=== PATIENT | female | born 1980 | race Caucasian/White ===

== ENCOUNTER 2020-03-20 14:54 | Outpatient (REF) | payer OTHER, SELFPAY | END 2020-03-20 14:55 | disposition home or self-care (01) | LOC: HO.LAB 14:54 | PROVIDERS: PCP Family Medicine; Visit Provider Internal Medicine | DX: Z20.828 Contact with and (suspected) exposure to other viral communicable diseases (principal) | CPT/HCPCS: 87635 ==

== ENCOUNTER 2020-04-12 12:28 | Outpatient (REF) | payer OTHER, SELFPAY ==
--- NOTE | 2020-04-12 12:37 | XR_ITS ---
EXAMINATION: XR HIP, LEFT CLINICAL INFORMATION: Left hip pain COMPARISON: Radiographs left hip 11/30/2015 TECHNIQUE: Two views of the left hip. FINDINGS: There is normal bony mineralization. No fracture, dislocation, destructive process. No left hip joint narrowing or erosive change or visible chondrocalcinosis. Soft tissue planes are unremarkable. There may be mild osteitis pubis. Scattered calcified pelvic phleboliths again seen. Bowel gas unremarkable. XR/XR hip LT min 2V IMPRESSION: 1. Normal left hip. 2. Probable mild osteitis pubis.
== END 2020-04-12 12:29 | disposition home or self-care (01) ==
LOC: HO.HMGCX 12:28
PROVIDERS: Visit Provider Nurse Practitioner Family
DX: M25.552 Pain in left hip (principal); M86.9 Osteomyelitis, unspecified; M77.8 Other enthesopathies, not elsewhere classified
CPT/HCPCS: 73502

== ENCOUNTER 2020-08-20 10:19 | Outpatient (REF) | payer OTHER, SELFPAY ==
--- NOTE | ~2020-08-20 | XR_ITS ---
EXAMINATION: XR CHEST CLINICAL INFORMATION: Wheezing COMPARISON: 03/16/2019 TECHNIQUE: 2 views of the chest were obtained. FINDINGS: The lungs are well expanded. There is no focal consolidation, edema, or effusion. No pneumothorax. The cardiomediastinal silhouette is within normal limits. No acute osseous abnormality. Small endplate osteophytes noted. XR/XR chest 2V IMPRESSION: Clear lungs.
== END 2020-08-20 10:20 | disposition home or self-care (01) ==
LOC: HO.LAB 10:19
PROVIDERS: Visit Provider Nurse Practitioner Family
DX: R06.2 Wheezing (principal); M54.9 Dorsalgia, unspecified; Z20.822 Contact with and (suspected) exposure to COVID-19
CPT/HCPCS: 36415; 71046; U0003; U0005

== ENCOUNTER 2020-08-20 10:24 | Outpatient (REF) | payer OTHER, SELFPAY | END 2020-08-20 10:25 | disposition home or self-care (01) | LOC: HO.HMGCX 10:24 | PROVIDERS: PCP Internal Medicine; Visit Provider Nurse Practitioner Family | DX: Z13.89 Encounter for screening for other disorder (principal) ==

== ENCOUNTER 2020-08-23 09:58 | Emergency (ER) | payer OTHER, SELFPAY ==
--- NOTE | ~2020-08-23 | CT_ITS ---
EXAMINATION: CT ABDOMEN AND PELVIS WITHOUT CONTRAST CLINICAL INFORMATION: Upper back pain COMPARISON: CT abdomen pelvis 02/01/2020 TECHNIQUE: Multidetector volumetric imaging was performed from the superior aspect of the liver through the pubic symphysis. Sagittal and coronal reformatted images were obtained on the technologist's workstation. This CT examination was performed using dose optimization techniques as appropriate, variously including the following: *Automated exposure control *Adjustment of mA and/or kV according to patient size (this includes techniques or standardized protocols for targeted exams where dose is matched to indication/reason for exam; i.e. extremities or head) *Use of iterative reconstruction technique DLP: 929 mGy-cm FINDINGS: LIVER, GALLBLADDER, AND BILIARY TREE: The liver is normal in size, shape, and attenuation. A benign simple cyst is noted in the right lobe of the liver. No worrisome solid focal hepatic lesion or biliary ductal dilatation is present. The gallbladder has been surgically removed. PANCREAS: Unremarkable. SPLEEN: Unremarkable. ADRENAL GLANDS: Unremarkable. KIDNEYS AND URETERS: The kidneys are normal in size, shape, and attenuation. No hydronephrosis, hydroureter, or calculi seen. No perinephric stranding. BLADDER: Unremarkable. GASTROINTESTINAL TRACT: The small and large bowel are unremarkable. The appendix is unremarkable. ABDOMINAL WALL: Tiny indirect inguinal hernias are present bilaterally. On the left, there is a soft tissue density present within it measuring 1.8 x 1.4 x 2.0 cm (11:77). Although not mentioned in the prior report, this is completely unchanged when compared with the 02/01/2020 study. LYMPH NODES: No retroperitoneal lymphadenopathy is seen. VASCULAR: Unremarkable. PELVIC VISCERA: A retroverted uterus is present. An adnexal cyst is present on the left measuring 3.9 x 2.8 x 4.7 cm (11:65). A right-sided adnexal cyst has completely resolved. No free intraperitoneal fluid is seen. OSSEOUS STRUCTURES: Unremarkable. CT/CT abdomen pelvis wo con IMPRESSION: A cause for the patient's upper back pain has not been found. Incidental note made of benign hepatic cyst, cholecystectomy, small left inguinal hernia containing soft tissue mass, probably an unchanged lymph node, and a new left adnexal cyst..
--- NOTE | ~2020-08-23 | CT_ITS ---
EXAMINATION: CT CHEST WITHOUT CONTRAST CLINICAL INFORMATION: Upright and mid back pain. Unremarkable chest radiograph. COMPARISON: Chest radiographs 08/20/2020, CT abdomen and pelvis with contrast 02/01/2020. TECHNIQUE: Multidetector volumetric CT imaging of the chest was done. Axial MIP volume rendering provided. Sagittal and coronal reformatted images were obtained. No intravenous contrast. CT abdomen and pelvis also performed and described in separate report. This CT examination was performed using dose optimization techniques as appropriate, variously including the following: *Automated exposure control *Adjustment of mA and/or kV according to patient size (this includes techniques or standardized protocols for targeted exams where dose is matched to indication/reason for exam; i.e. extremities or head) *Use of iterative reconstruction technique DLP: 253 mGy-cm FINDINGS: LUNGS: There is no pneumothorax or pneumomediastinum. No airspace consolidation or groundglass opacities. There is an incidental punctate calcified granuloma left posterior base under 3 mm. MEDIASTINUM: The heart is normal in size. There is no pericardial effusion. The thoracic aorta is normal in caliber. There is no hilar or mediastinal adenopathy. Thymus is unremarkable. PLEURA: There is no pleural effusion. No pleural mass or thickening. AXILLA: No lymphadenopathy. UPPER ABDOMEN: Subcapsular cyst dome right lobe 1.[address] abdomen and pelvis described in separate report. OSSEOUS STRUCTURES: Unremarkable. CT/CT chest wo con IMPRESSION: 1. Lungs clear. No pneumothorax or airspace opacities. No effusion. 2. Thoracic aorta normal in caliber. No pericardial effusion.
[2020-08-23 11:56] VITALS: BP 136/67; PULSE 75; RESP 16; TEMP 36.6; O2SAT 97; BMI 32.3
[2020-08-23 12:14] LABS: MANUAL DIFF FLAG NO
[2020-08-23 12:17] LABS: Basophils Percent Auto 0.5 % (0-2); Eosinophils Absolute Auto 0.1 X10*3/uL (0.0-0.4); Hematocrit 40.4 % (37-47); Hemoglobin 13.6 g/dl (12.0-16.0); Imm Gran Abs Auto 0.03 X10*3/uL (0.00-0.03); Imm Gran Pct Auto 0.3 % (0.0-0.4); Lymphocytes Absolute Auto 2.4 X10*3/uL (1.2-4.9); Lymphocytes Percent Auto 27.6 % (20-40); Mean Corpuscular HGB Conc 33.7 g/dl (31.0-35.0); Mean Corpuscular Hemoglobin 29.9 pg (27.0-33.0); Mean Corpuscular Volume 88.8 fL (80-98); Mean Platelet Volume 10.7 fL (9.4-12.3); Monocytes Absolute Auto 0.7 X10*3/uL (0.1-1.2); Monocytes Percent Auto 8.2 % (2-11); Neutrophils Absolute Auto 5.5 X10*3/uL (2.0-8.3); Neutrophils Percent Auto 62.4 % (45-73); Platelet Count 310 X10*3/uL (160-400); Red Blood Count 4.55 X10*6/uL (4.20-5.50); Red Cell Distribution Width 12.2 % (11.0-16.0); White Blood Count 8.8 X10*3/uL (4.8-10.8)
[2020-08-23 12:20] LABS: Glucose Urine UA NEG (NEG); Leukocyte Esterase Urine NEG (NEG); Nitrite Urine NEG (NEG); PH 7.5 (5.0-8.0); Urine Blood NEG (NEG); Urine Ketones NEG (NEG); Urine Protein NEG (NEG-TRACE)
[2020-08-23 12:26] LABS: Appearance Urine CLEAR; Color Urine YELLOW
[2020-08-23 12:41] LABS: Anion Gap 11 (12-20); Blood Urea Nitrogen 13 mg/dL (9-16); Calcium 8.7 mg/dL (8.4-10.2); Carbon Dioxide 26 mmol/L (22-29); Chloride 105 mmol/L (96-108); Creatinine Clr Calc Pharmacy 109.6; Estimated Glomerular Filt Rate > 60; Glucose Random 76 mg/dL (60-115); Potassium 4.2 mmol/L (3.3-5.1); Sodium 138 mmol/L (135-145)
[2020-08-23 15:33] VITALS: BP 127/74; PULSE 76; RESP 18; O2SAT 99
[2020-08-23] MEDS: NaPROXEN 500 MG TABLET PO (16:01)
[2020-08-23] MEDS: Cyclobenzaprine HCl 10 MG TABLET PO (16:02)
[2020-08-23] MEDS: Lidocaine 4 % Patch ADH..PATCH 2 PATCH TRANSDERMA (16:06)
[2020-08-23 16:09] VITALS: BP 113/64; PULSE 80; RESP 16; TEMP 36.7; O2SAT 97
[2020-08-23 16:21] LABS: Influenza A PCR NEGATIVE (Negative); Influenza B PCR NEGATIVE (Negative); Resp Syncy Virus RNA Qual PCR NEGATIVE (Negative); SARS COV2 PCR INHOUSE NEGATIVE (Negative)
--- NOTE | 2020-08-23 17:03 | ED_ITS ---
HPI - Back Pain/Injury General Chief Complaint: General Medical Stated Complaint: flank pain Time Seen by Provider: 08/23/20 15:12 Source: patient Mode of arrival: ambulatory Limitations: no limitations History of Present Illness HPI Narrative: 40-year-old female with a past medical history of weakness of left arm, paresthesias of left arm, left shoulder tinnitus, left hip pain and osteitis pubis presenting to the ED with complaints of atraumatic mid upper back pain worse today. Reports that she also feels congested. She was seen at an urgent care on 08/20/20 and had a chest x-ray which was negative for any acute processes and also COVID swab which was negative sent home with antibiotics which include doxycycline, albuterol inhaler, prednisone and Flexeril reports she has been taking as prescribed although no symptomatic relief with the Flexeril and pain is worsening. Denies any other symptoms complaints or concerns at this time. MD elicited complaint: back pain Onset (ago): day(s) (6 days worse today) Timing: constant and progressively worsening Severity: moderate Similar Symptoms Previously: No Quality: aching and spasming Location: thoracic spine, left flank and right flank Radiation: none Exacerbating factors: movement and other (Palpation) Relieving factors: none Associated symptoms: denies other symptoms Treatments prior to arrival: other (Was prescribed Flexeril by urgent care and reports no symptomatic relief) Work related injury: No Related Data Home Medications Medication Instructions Recorded Confirmed medroxyprogesterone 150 mg/mL mg IM 06/05/20 06/05/20 intramuscular suspension Previous Rx's Medication Instructions Recorded cyclobenzaprine 5 mg tablet 5 mg PO BEDTIME PRN #14 tab 04/12/20 naproxen 500 mg tablet 500 mg PO BID PRN #30 tab 04/12/20 gabapentin 100 mg capsule 100 mg PO TID #30 cap 05/17/20 methylprednisolone 4 mg tablet 4 mg PO .COMPLEX #18 tab 05/17/20 albuterol sulfate 90 mcg/actuation 2 puff INHALATION Q4-6H PRN #6.7 g 08/20/20 aerosol inhaler cyclobenzaprine 5 mg tablet 5 mg PO BEDTIME PRN #10 tab 08/20/20 doxycycline hyclate 100 mg capsule 100 mg PO BID 10 Days #20 cap 08/20/20 prednisone 20 mg tablet 20 mg PO DAILY 9 Days #18 tab 08/20/20 acetaminophen [Tylenol Extra 500 mg PO Q6H PRN #14 tab 08/23/20 Strength] cyclobenzaprine 10 mg PO Q8H #10 tab 08/23/20 lidocaine [Lidoderm] 1 patch TOPICAL DAILY #15 ea 08/23/20 naproxen 500 mg PO BID PRN #10 tab 08/23/20 oxycodone 5 mg PO BID PRN #10 tab 08/23/20 Allergies Allergy/AdvReac Type Severity Reaction Status Date / Time azithromycin [AZITHROMYCIN] Allergy Unknown low heart Verified 06/05/20 09:19 rate Review of Systems Review of Systems: Constitutional : No trauma, No Weight loss, No Fever, No Chills, ENT/Mouth : No Hearing loss, No Ear Pain, No Nasal Congestion, No Sinus Pain, No Hoarseness, No sore throat, No Rhinorrhea, No Swallowing Difficulty Cardiovascular : No Chest Pain, No SOB Respiratory : + Cough, No Dyspnea Gastrointestinal : No Nausea, No Vomiting, No Diarrhea, No abdominal Pain, No Hematochezia, No Melena Genitourinary : No Dysuria, No Urinary Frequency, No Hematuria, No Urinary or Bowel Incontinence/retention Musculoskeletal : + Back pain, No neck pain, No joint stiffness, No joint swell ing Skin : No Skin Lesions, No rash or signs of infection Neuro : No Weakness, No radiation, No Numbness, No Paresthesias, No headache, no loss of bowel or bladder incontinence, no saddle anesthesia, Focal weakness, No radiation Denies history of IV drug usage. Yes all other systems are reviewed and are negative [facility] Past Medical History Attestation statement: The following information was validated with the patient. Medical History Paresthesias in left hand Weakness of left arm Surgical History Hx of cholecystectomy Social History Social History Alcohol intake: current Alcohol intake frequency: a few times a month Smoking Status: Former smoker Smoked in Last 30 Days: No Use of substances other than those prescribed or required for medical reasons: No Advance Directives: Yes Advance Directives Information Provided: Yes Advance Directives on File: No Physical Exam Vital Signs: Vital Signs: Last Vital Signs Temp 98.1 F 08/23/20 16:09 Pulse 78 08/23/20 17:14 Resp 16 08/23/20 17:14 BP 114/71 08/23/20 17:14 Pulse Ox 100 08/23/20 17:14 Body Mass Index 32.3 vital signs have been reviewed as normal and appeared to be correct. Blood pressure normal. Heart rate normal. Respiration rate normal. Temperature normal. Oxygen saturation normal. Appearance: Alert. Oriented X3. No acute distress. Head: Normal external exam. Normocephalic. Atraumatic. Eyes: PERRLA. EOMI. Conjunctiva and sclera normal. Eyelids normal. ENT: EAC normal. TM's Normal. Pharynx normal. Uvula midline. Moist mucous membranes. Neck: Normal inspection. Neck supple. FROM. No adenopathy. No meningeal signs. CVS: Normal heart rate and rhythm. Heart sound normal. No murmurs noted. Pulses normal throughout. Respiratory: No respiratory distress. Painless inspiration. Breath sounds normal. No wheezes/rales/rhonchi noted. Chest nontender. No accessory muscle usage noted or decreased air movement noted. Abdomen: Soft and nontender. Bowel sounds normal in all 4 quadrants. No distention noted. No organomegaly noted. No visible injury noted. Back: No CVA tenderness. Full range of motion noted. No obvious deformities, or edema. Mild paraspinal muscular tenderness from midthoracic to lower thoracic aspect no mid thoracic or lumbar thoracic tenderness. No step-offs or deformities noted. Full ROM in back and lower extremities. 5/5 strength hip extension/flexion, abduction, adduction. Straight leg raise test negative on right; Straight leg raise test negative on left; Reflexes normal ankle and knee bilaterally; EHL motor strength normal bilaterally. No rashes/lesion/induration/fluctuance or signs infection noted. Skin: Skin warm and dry. Normal skin color. Normal skin turgor. No rashes/lesions/lacerations noted. Extremities: No lower extremity edema. Extremities exhibit normal range of motion. Extremities nontender. Neuro: Oriented X 3. No motor deficit. No sensory deficit. Reflexes normal. Normal steady gait. Course Course Course Narrative: Pt c likely muscular pain, but could be herniated disc. Neuro exam shows no deficits. Not c/w AAA/epidural abscess/dissection.No high risk Hx (Incont, fever, immunosupp, recent surgery/LP, coag, signif trauma, wt loss, puls mass, hx/o Ca, TB, or IVDU) to warrant MRI today. Not c/w Pyelo/UTI/spinal fx. Not cauda equina syndrome. Although unsure if possible kidney stone due to persistent pain or pneumonia therefore will do a CT scan without contrast of chest and abdomen and pelvis if negative will DC home as patient's labs were performed in the waiting room in all within normal limits. UA within normal limits no evidence of UTI. Patient understands and agrees with plan. Reevaluation(s) Reevaluation #1: - CT scan of chest and abdomen and pelvis without contrast revealed chronic changes no acute processes. I printed out the patient's results and told her about the lung granuloma, the liver cyst, the left inguinal hernia and the annex assist and instructions to return if any new or worsening symptoms will treat symptomatically. Patient understands agrees with this plan instructed to follow-up with primary care provider. Time: 17:44 MDM - Back Pain/Injury Medical Records Attestation: I reviewed the patient's medical records. Lab Data Attestation: I reviewed the patient's lab results. Result diagrams: 08/23/20 12:05 08/23/20 12:05 Labs: Lab Results 08/23/20 08/23/20 08/23/20 Range/Units 12:05 12:05 12:05 WBC 8.8 (4.8-10.8) X10*3/uL RBC 4.55 (4.20-5.50) X10*6/uL Hgb 13.6 (12.0-16.0) g/dl Hct 40.4 (37-47) % MCV 88.8 (80-98) fL MCH 29.9 (27.0-33.0) pg MCHC 33.7 (31.0-35.0) g/dl RDW 12.2 (11.0-16.0) % Plt Count 310 (160-400) X10*3/uL MPV 10.7 (9.4-12.3) fL Immature Gran % (Auto) 0.3 (0.0-0.4) % Neut % (Auto) 62.4 (45-73) % Lymph % (Auto) 27.6 (20-40) % [place] % (Auto) 8.2 (2-11) % Eos % (Auto) 1.0 (0-4) % Baso % (Auto) 0.5 (0-2) % Lymph # (Auto) 2.4 (1.2-4.9) X10*3/uL [place] # (Auto) 0.7 (0.1-1.2) X10*3/uL Eos # (Auto) 0.1 (0.0-0.4) X10*3/uL Baso # (Auto) 0.0 (0.0-0.2) X10*3/uL Abs Immat Gran (auto) 0.03 (0.00-0.03) X10*3/uL Absolute Neuts (auto) 5.5 (2.0-8.3) X10*3/uL Absolute Nucleated RBC 0.000 (0.0-0.012) X10*3/uL Nucleated RBC % (auto) 0.0 (0.0-0.2) /100WBC Sodium 138 (135-145) mmol/L Potassium 4.2 (3.3-5.1) mmol/L Chloride 105 (96-108) mmol/L Carbon Dioxide 26 (22-29) mmol/L Anion Gap 11 L (12-20) BUN 13 (9-16) mg/dL Creatinine 0.74 (0.5-1.4) mg/dL Estim Creat Clear Calc 109.6 Estimated GFR > 60 Random Glucose 76 (60-115) mg/dL Calcium 8.7 (8.4-10.2) mg/dL Urine Color YELLOW Urine Appearance CLEAR Urine pH 7.5 (5.0-8.0) Ur Specific [place] 1.020 (1.005-1.025) Urine Protein NEG (NEG-TRACE) MG/DL Urine Glucose (UA) NEG (NEG) MG/DL Urine Ketones NEG (NEG) MG/DL Urine Blood NEG (NEG) Urine Nitrite NEG (NEG) Ur Leukocyte Esterase NEG (NEG) Coronavirus (PCR) (Negative) Influenza Type A (PCR) (Negative) Influenza Type B (PCR) (Negative) RSV RNA Qual (PCR) (Negative) 08/23/20 Range/Units 15:35 WBC (4.8-10.8) X10*3/uL RBC (4.20-5.50) X10*6/uL Hgb (12.0-16.0) g/dl Hct (37-47) % MCV (80-98) fL MCH (27.0-33.0) pg MCHC (31.0-35.0) g/dl RDW (11.0-16.0) % Plt Count (160-400) X10*3/uL MPV (9.4-12.3) fL Immature Gran % (Auto) (0.0-0.4) % Neut % (Auto) (45-73) % Lymph % (Auto) (20-40) % [place] % (Auto) (2-11) % Eos % (Auto) (0-4) % Baso % (Auto) (0-2) % Lymph # (Auto) (1.2-4.9) X10*3/uL [place] # (Auto) (0.1-1.2) X10*3/uL Eos # (Auto) (0.0-0.4) X10*3/uL Baso # (Auto) (0.0-0.2) X10*3/uL Abs Immat Gran (auto) (0.00-0.03) X10*3/uL Absolute Neuts (auto) (2.0-8.3) X10*3/uL Absolute Nucleated RBC (0.0-0.012) X10*3/uL Nucleated RBC % (auto) (0.0-0.2) /100WBC Sodium (135-145) mmol/L Potassium (3.3-5.1) mmol/L Chloride (96-108) mmol/L Carbon Dioxide (22-29) mmol/L Anion Gap (12-20) BUN (9-16) mg/dL Creatinine (0.5-1.4) mg/dL Estim Creat Clear Calc Estimated GFR Random Glucose (60-115) mg/dL Calcium (8.4-10.2) mg/dL Urine Color Urine Appearance Urine pH (5.0-8.0) Ur Specific [place] (1.005-1.025) Urine Protein (NEG-TRACE) MG/DL Urine Glucose (UA) (NEG) MG/DL Urine Ketones (NEG) MG/DL Urine Blood (NEG) Urine Nitrite (NEG) Ur Leukocyte Esterase (NEG) Coronavirus (PCR) NEGATIVE (Negative) Influenza Type A (PCR) NEGATIVE (Negative) Influenza Type B (PCR) NEGATIVE (Negative) RSV RNA Qual (PCR) NEGATIVE (Negative) Imaging Data CT scan of chest without contrast: Attestation: I personally reviewed and interpreted this imaging study as follows: Radiologist's impression: FINDINGS: LUNGS: There is no pneumothorax or pneumomediastinum. No airspace consolidation or groundglass opacities. There is an incidental punctate calcified granuloma left posterior base under 3 mm. MEDIASTINUM: The heart is normal in size. There is no pericardial effusion. The thoracic aorta is normal in caliber. There is no hilar or mediastinal adenopathy. Thymus is unremarkable. PLEURA: There is no pleural effusion. No pleural mass or thickening. AXILLA: No lymphadenopathy. UPPER ABDOMEN: Subcapsular cyst dome right lobe 1.[address] abdomen and pelvis described in separate report. OSSEOUS STRUCTURES: Unremarkable. CT/CT chest wo con IMPRESSION: 1. Lungs clear. No pneumothorax or airspace opacities. No effusion. 2. Thoracic aorta normal in caliber. No pericardial effusion. CT scan of abdomen pelvis without contrast: Attestation: I personally reviewed and interpreted this imaging study as follows: Radiologist's impression: FINDINGS: LIVER, GALLBLADDER, AND BILIARY TREE: The liver is normal in size, shape, and attenuation. A benign simple cyst is noted in the right lobe of the liver. No worrisome solid focal hepatic lesion or biliary ductal dilatation is present. The gallbladder has been surgically removed. PANCREAS: Unremarkable. SPLEEN: Unremarkable. ADRENAL GLANDS: Unremarkable. KIDNEYS AND URETERS: The kidneys are normal in size, shape, and attenuation. No hydronephrosis, hydroureter, or calculi seen. No perinephric stranding. BLADDER: Unremarkable. GASTROINTESTINAL TRACT: The small and large bowel are unremarkable. The appendix is unremarkable. ABDOMINAL WALL: Tiny indirect inguinal hernias are present bilaterally. On the left, there is a soft tissue density present within it measuring 1.8 x 1.4 x 2.0 cm (11:77). Although not mentioned in the prior report, this is completely unchanged when compared with the 02/01/2020 study. LYMPH NODES: No retroperitoneal lymphadenopathy is seen. VASCULAR: Unremarkable. PELVIC VISCERA: A retroverted uterus is present. An adnexal cyst is present on the left measuring 3.9 x 2.8 x 4.7 cm (11:65). A right-sided adnexal cyst has completely resolved. No free intraperitoneal fluid is seen. OSSEOUS STRUCTURES: Unremarkable. CT/CT abdomen pelvis wo con IMPRESSION: A cause for the patient's upper back pain has not been found. Incidental note made of benign hepatic cyst, cholecystectomy, small left inguinal hernia containing soft tissue mass, probably an unchanged lymph node, and a new left adnexal cyst. Discharge Plan Discharge Clinical Impression: Calcified granuloma of lung, Benign liver cyst, Hernia, inguinal, left, Adnexal cyst Patient Disposition: Home, Self-Care Instructions: Muscle Spasm (ED) Prescriptions: New cyclobenzaprine 10 mg tablet 10 mg PO Q8H Qty: 10 RF: 0 acetaminophen [Tylenol Extra Strength] 500 mg tablet 500 mg PO Q6H PRN (Reason: pain) Qty: 14 RF: 0 lidocaine [Lidoderm] 5 % adhesive patch,medicated 1 patch topical DAILY Qty: 15 RF: 0 naproxen 500 mg tablet 500 mg PO BID PRN (Reason: pain) Qty: 10 RF: 0 oxycodone 5 mg tablet 5 mg PO BID PRN (Reason: pain) Qty: 10 RF: 0 No Action naproxen 500 mg tablet 500 mg PO BID PRN (Reason: pain) Qty: 30 RF: 0 cyclobenzaprine 5 mg tablet 5 mg PO BEDTIME PRN (Reason: muscle spasm) Qty: 14 RF: 0 methylprednisolone 4 mg tablet 4 mg PO .COMPLEX Qty: 18 RF: 0 gabapentin 100 mg capsule 100 mg PO TID Qty: 30 RF: 1 medroxyprogesterone 150 mg/mL suspension IM RF: 0 doxycycline hyclate 100 mg capsule 100 mg PO BID 10 Days Qty: 20 RF: 0 albuterol sulfate 90 mcg/actuation HFA aerosol inhaler 2 puff inhalation Q4-6H PRN (Reason: shortness of breath or wheezing) Qty: 6.7 RF: 0 prednisone 20 mg tablet 20 mg PO DAILY 9 Days Qty: 18 RF: 0 cyclobenzaprine 5 mg tablet 5 mg PO BEDTIME PRN (Reason: muscle spasm) Qty: 10 RF: 0 Referrals: Maggie Crystal MD [Primary Care Provider] - 2 days Stand Alone Forms: Work/School Release Print Language: [place]ian
[2020-08-23 17:14] VITALS: BP 114/71; PULSE 78; RESP 16; O2SAT 100
[2020-08-23 17:52] LABS: UPreg QC Valid YES; Urine Pregnancy NEGATIVE (NEGATIVE)
== END 2020-08-23 18:07 | disposition home or self-care (01) ==
PROVIDERS: Physician Assistant Medical; Emergency Provider Emergency Medicine Emergency Medical Services; PCP Internal Medicine
DX: M54.6 Pain in thoracic spine (principal); Z20.822 Contact with and (suspected) exposure to COVID-19; R93.5 Abnormal findings on diagnostic imaging of other abdominal regions, including retroperitoneum; J84.10 Pulmonary fibrosis, unspecified; K76.89 Other specified diseases of liver; K40.90 Unilateral inguinal hernia, without obstruction or gangrene, not specified as recurrent; N83.292 Other ovarian cyst, left side; Z90.49 Acquired absence of other specified parts of digestive tract; Z87.891 Personal history of nicotine dependence
CPT/HCPCS: 0241U; 36415; 71250; 74176; 80048; 81003; 81025; 85025; 99284

== ENCOUNTER 2020-09-04 11:38 | Emergency (ER) | payer OTHER, SELFPAY ==
--- NOTE | ~2020-09-04 | CT_ITS ---
EXAMINATION: CT HEAD WITHOUT CONTRAST CLINICAL INFORMATION: Dizziness and headaches. COMPARISON: None TECHNIQUE: Contiguous axial imaging was performed from the skull base to vertex without intravenous administration of contrast. This CT examination was performed using dose optimization techniques as appropriate, variously including the following: *Automated exposure control *Adjustment of mA and/or kV according to patient size (this includes techniques or standardized protocols for targeted exams where dose is matched to indication/reason for exam; i.e. extremities or head) *Use of iterative reconstruction technique DLP: 648 mGy-cm FINDINGS: There is no evidence of acute intracranial hemorrhage or territorial infarction. No abnormal mass effect or midline shift is seen. [place] to white matter differentiation is well preserved. No extra-axial fluid collections are identified. The ventricles are normal in size. There is no abnormal attenuation within the brain parenchyma. The osseous structures and soft tissues are normal. The mastoid air cells and visualized portions of the paranasal sinuses are well aerated. CT/CT head/brain wo con IMPRESSION: No acute intracranial process seen.
[2020-09-04 11:41] VITALS: BP 141/67; PULSE 74; RESP 16; TEMP 36.8; O2SAT 100; BMI 34.1
[2020-09-04 12:00] VITALS: BP 130/71; PULSE 78; TEMP 36.8; O2SAT 100
--- NOTE | 2020-09-04 12:49 | ECG_ITS ---
Test Reason : DIZZYNESS Blood Pressure : / mmHG Vent. Rate : 071 BPM Atrial Rate : 071 BPM P-R Int : 158 ms QRS Dur : 080 ms QT Int : 420 ms P-R-T Axes : 021 021 026 degrees QTc Int : 456 ms Normal sinus rhythm with sinus arrhythmia Normal ECG When compared with ECG of 29-SEP-2019 16:02, No significant change was found Referred By: Argelia Monroe Electronically Signed By:GRIS ANTONIO
--- NOTE | 2020-09-04 13:00 | ED.DIZZY ---
HPI - Dizziness General Chief Complaint: Dizziness Stated Complaint: hbp Time Seen by Provider: 09/04/20 12:40 Source: patient Mode of arrival: ambulatory Limitations: no limitations History of Present Illness HPI Narrative: 40 y/o female with history of left UE paresthesias recently diagnosed with carpal tunnel syndrome by her Neurologist who presents to the ED from work with reports of acute onset of ringing in her ears, dizziness, headache, room spinning, and tiredness that started at work today. She states she woke up in her usual state of health this morning except was slightly tired. 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 She had pain and pressure behind her eyes. She sat down and closed her eyes with improvement in symptoms. School nurse evaluated her and found her to be hypertensive with SBP 158. She reports baseline SBP 120's. She has a family history of stroke. Her PCP was contacted who encouraged her to get evaluated in the Emergency Department. On arrival to the ED VS and symptoms are improved. She is reporting continued headache behind her eyes. No vision changes. No fever, chills, N/V/D, cough, SOB, chest pain, weakness, numbness. MD elicited complaint: dizziness and lightheadedness Onset (ago): hour(s) (4) Timing: sudden onset Severity: moderate Description: room spinning and lightheadedness History of similar symptoms: No Exacerbating factors: movement/ambulation Relieving factors: keeping eyes closed Associated symptoms: other (fatigue) Stroke scale total: 0 Related Data Home Medications Medication Instructions Recorded Confirmed medroxyprogesterone 150 mg/mL mg IM 06/05/20 06/05/20 intramuscular suspension Previous Rx's Medication Instructions Recorded cyclobenzaprine 5 mg tablet 5 mg PO BEDTIME PRN #14 tab 04/12/20 naproxen 500 mg tablet 500 mg PO BID PRN #30 tab 04/12/20 gabapentin 100 mg capsule 100 mg PO TID #30 cap 05/17/20 methylprednisolone 4 mg tablet 4 mg PO .COMPLEX #18 tab 05/17/20 albuterol sulfate 90 mcg/actuation 2 puff INHALATION Q4-6H PRN #6.7 g 08/20/20 aerosol inhaler cyclobenzaprine 5 mg tablet 5 mg PO BEDTIME PRN #10 tab 08/20/20 doxycycline hyclate 100 mg capsule 100 mg PO BID 10 Days #20 cap 08/20/20 prednisone 20 mg tablet 20 mg PO DAILY 9 Days #18 tab 08/20/20 acetaminophen [Tylenol Extra 500 mg PO Q6H PRN #14 tab 08/23/20 Strength] cyclobenzaprine 10 mg PO Q8H #10 tab 08/23/20 lidocaine [Lidoderm] 1 patch TOPICAL DAILY #15 ea 08/23/20 naproxen 500 mg PO BID PRN #10 tab 08/23/20 oxycodone 5 mg PO BID PRN #10 tab 08/23/20 Allergies Allergy/AdvReac Type Severity Reaction Status Date / Time azithromycin [AZITHROMYCIN] Allergy Unknown low heart Verified 06/05/20 09:19 rate Review of Systems Review of Systems: Constitutional: No Fever, No Chills ENT/Mouth: No sore throat, No Rhinorrhea, No Swallowing Difficulty Eyes: + Eye Pain, No Swelling, No Redness Cardiovascular: No Chest Pain, No SOB, No Orthopnea, No Edema Respiratory: No Cough, No Sputum, No Wheezing, No dyspnea Gastrointestinal: No Nausea, No Vomiting, No Diarrhea, No abdominal Pain, No Hematochezia, No Melena Genitourinary: No Dysuria, No Urinary Frequency, No Hematuria Musculoskeletal: No joint pain, No Myalgias Skin: No Skin Lesions, No rash Neuro: No Weakness, No Numbness, + Dizziness, + Headache Psych: + Anxiety/Panic, No Depression Heme/Lymph: No Bruising, No Lymphadenopathy Endocrine: No Polyuria, No Polydipsia PMFSH Past Medical History Attestation statement: The following information was validated with the patient. Medical History Paresthesias in left hand Weakness of left arm Surgical History Hx of cholecystectomy Social History Social History Alcohol intake: current Alcohol intake frequency: a few times a month Smoking Status: Former smoker Advance Directives: No Advance Directives Information Provided: No Physical Exam Vital Signs: Vital Signs: Last Vital Signs Temp 98.4 F 09/04/20 14:00 Pulse 75 09/04/20 14:00 Resp 18 09/04/20 14:00 BP 128/73 09/04/20 14:00 Pulse Ox 100 09/04/20 14:00 Body Mass Index 34.1 Appearance: Alert. Oriented X3. No acute distress. Eyes: Pupils equal, round and reactive to light. EOMI, no nystagmus. ENT: Pharynx normal. Neck: Normal inspection. Neck supple. CVS: Normal heart rate and rhythm. Pulses normal. Respiratory: No respiratory distress. Breath sounds normal. Abdomen: Soft and nontender. +BS x4 Skin: Skin warm and dry. Normal skin color. Normal skin turgor. No rashes. Extremities: No lower extremity edema. Neuro: Oriented X 3. No motor deficit. No sensory deficit. Normal heel to hogan bilaterally, normal finger to nose, equal and symmetrical strength in all 4 extremities, steady gait. Course Course Course Narrative: 40 yo female presenting with dizziness, headache, fatigue and new HTN. Symptoms are improving. She is concerned about a stroke. Her examination is non-focal. Very low suspicion for acute stroke. Possible vertigo, dehydration, orthostatic hypotension, viral syndrome. Will get orthostatic VS, basic abd workup and CT head for further assessment. BP improved to 130s on arrival. Will give dose of Fiorcet for headache. Reevaluation(s) Reevaluation #1: BP returned to baseline. Orthostatics negative and workup is unremarkable. Patient feels significantly improved. Admits to increased stress at work which could be contributing to symptoms. Comfortable with d/c home with plans to follow up with her doctor this week. Stable for d/c. MDM - Dizziness Differential Diagnosis Differential diagnosis: Likely benign paroxysmal positional vertigo, orthostatic hypotension, cerebrovascular accident and acute vestibular neuronitis Medical Records Attestation: I reviewed the patient's medical records. Lab Data Attestation: I reviewed the patient's lab results. Result diagrams: 09/04/20 13:24 09/04/20 13:23 Labs: Lab Results 09/04/20 09/04/20 09/04/20 Range/Units 13:23 13:23 13:24 WBC 8.6 (4.8-10.8) X10*3/uL RBC 4.32 (4.20-5.50) X10*6/uL Hgb 12.7 (12.0-16.0) g/dl Hct 38.4 (37-47) % MCV 88.9 (80-98) fL MCH 29.4 (27.0-33.0) pg MCHC 33.1 (31.0-35.0) g/dl RDW 12.2 (11.0-16.0) % Plt Count 344 (160-400) X10*3/uL MPV 11.0 (9.4-12.3) fL Immature Gran % (Auto) 0.3 (0.0-0.4) % Neut % (Auto) 58.5 (45-73) % Lymph % (Auto) 30.7 (20-40) % [place] % (Auto) 8.6 (2-11) % Eos % (Auto) 1.3 (0-4) % Baso % (Auto) 0.6 (0-2) % Lymph # (Auto) 2.6 (1.2-4.9) X10*3/uL [place] # (Auto) 0.7 (0.1-1.2) X10*3/uL Eos # (Auto) 0.1 (0.0-0.4) X10*3/uL Baso # (Auto) 0.1 (0.0-0.2) X10*3/uL Abs Immat Gran (auto) 0.03 (0.00-0.03) X10*3/uL Absolute Neuts (auto) 5.0 (2.0-8.3) X10*3/uL Absolute Nucleated RBC 0.000 (0.0-0.012) X10*3/uL Nucleated RBC % (auto) 0.0 (0.0-0.2) /100WBC Hold Blue Top Sodium 140 (135-145) mmol/L Potassium 4.5 (3.3-5.1) mmol/L Chloride 106 (96-108) mmol/L Carbon Dioxide 25 (22-29) mmol/L Anion Gap 14 (12-20) BUN 11 (9-16) mg/dL Creatinine 0.81 (0.5-1.4) mg/dL Estim Creat Clear Calc 102.9 Estimated GFR > 60 Random Glucose 87 (60-115) mg/dL Calcium 8.5 (8.4-10.2) mg/dL Magnesium 1.9 (1.6-2.6) mg/dL Urine Color Urine Appearance Urine pH (5.0-8.0) Ur Specific Joanna (1.005-1.025) Urine Protein (NEG-TRACE) MG/DL Urine Glucose (UA) (NEG) MG/DL Urine Ketones (NEG) MG/DL Urine Blood (NEG) Urine Nitrite (NEG) Ur Leukocyte Esterase (NEG) Urine Test (NEGATIVE) COVID-19 (RAJ) Negative (Negative) COVID-19 Clin Com See Note 09/04/20 09/04/20 09/04/20 Range/Units 13:24 13:32 13:32 WBC (4.8-10.8) X10*3/uL RBC (4.20-5.50) X10*6/uL Hgb (12.0-16.0) g/dl Hct (37-47) % MCV (80-98) fL MCH (27.0-33.0) pg MCHC (31.0-35.0) g/dl RDW (11.0-16.0) % Plt Count (160-400) X10*3/uL MPV (9.4-12.3) fL Immature Gran % (Auto) (0.0-0.4) % Neut % (Auto) (45-73) % Lymph % (Auto) (20-40) % Green[place] % (Auto) (2-11) % Eos % (Auto) (0-4) % Baso % (Auto) (0-2) % Lymph # (Auto) (1.2-4.9) X10*3/uL [place] # (Auto) (0.1-1.2) X10*3/uL Eos # (Auto) (0.0-0.4) X10*3/uL Baso # (Auto) (0.0-0.2) X10*3/uL Abs Immat Gran (auto) (0.00-0.03) X10*3/uL Absolute Neuts (auto) (2.0-8.3) X10*3/uL Absolute Nucleated RBC (0.0-0.012) X10*3/uL Nucleated RBC % (auto) (0.0-0.2) /100WBC Hold Blue Top SEE NOTE Sodium (135-145) mmol/L Potassium (3.3-5.1) mmol/L Chloride (96-108) mmol/L Carbon Dioxide (22-29) mmol/L Anion Gap (12-20) BUN (9-16) mg/dL Creatinine (0.5-1.4) mg/dL Estim Creat Clear Calc Estimated GFR Random Glucose (60-115) mg/dL Calcium (8.4-10.2) mg/dL Magnesium (1.6-2.6) mg/dL Urine Color YELLOW Urine Appearance CLEAR Urine pH 7.0 (5.0-8.0) Ur Specific Joanna 1.020 (1.005-1.025) Urine Protein NEG (NEG-TRACE) MG/DL Urine Glucose (UA) NEG (NEG) MG/DL Urine Ketones NEG (NEG) MG/DL Urine Blood NEG (NEG) Urine Nitrite NEG (NEG) Ur Leukocyte Esterase NEG (NEG) Urine Test NEGATIVE (NEGATIVE) COVID-19 (RAJ) (Negative) COVID-19 Clin Com ECG Data Attestation: I personally reviewed and interpreted this ECG as follows: ECG interpretation date: 09/04/20 ECG interpretation time: 13:41 Interpretation: normal sinus rhythm with sinus arrythmia, HR 71 bpm, normal ND interval, normal QTc, no ST segment elevations. Critical Care Time Critical Care Time Critical Care Time: No Discharge Plan Discharge Clinical Impression: Dizziness Headache Qualifiers: Headache type: unspecified Headache chronicity pattern: acute headache Intractability: not intractable Qualified Code(s): R51.9 - Headache, unspecified Patient Disposition: Home, Self-Care Instructions: Acute Headache (ED), Dizziness (ED) Additional Instructions: Your lab workup in the ER today was unremarkable. Your CT scan was normal. Your EKG was normal. Your COVID test was negative. Your blood pressure returned to normal. Unclear cause of your symptoms today. Recommend following up with your doctor this week. If you have recurrent episodes or any other concerning symptoms come back to the ER for further evaluation. Prescriptions: No Action cyclobenzaprine 10 mg tablet 10 mg PO Q8H Qty: 10 RF: 0 acetaminophen [Tylenol Extra Strength] 500 mg tablet 500 mg PO Q6H PRN (Reason: pain) Qty: 14 RF: 0 lidocaine [Lidoderm] 5 % adhesive patch,medicated 1 patch topical DAILY Qty: 15 RF: 0 naproxen 500 mg tablet 500 mg PO BID PRN (Reason: pain) Qty: 10 RF: 0 oxycodone 5 mg tablet 5 mg PO BID PRN (Reason: pain) Qty: 10 RF: 0 naproxen 500 mg tablet 500 mg PO BID PRN (Reason: pain) Qty: 30 RF: 0 cyclobenzaprine 5 mg tablet 5 mg PO BEDTIME PRN (Reason: muscle spasm) Qty: 14 RF: 0 methylprednisolone 4 mg tablet 4 mg PO .COMPLEX Qty: 18 RF: 0 gabapentin 100 mg capsule 100 mg PO TID Qty: 30 RF: 1 medroxyprogesterone 150 mg/mL suspension IM RF: 0 doxycycline hyclate 100 mg capsule 100 mg PO BID 10 Days Qty: 20 RF: 0 albuterol sulfate 90 mcg/actuation HFA aerosol inhaler 2 puff inhalation Q4-6H PRN (Reason: shortness of breath or wheezing) Qty: 6.7 RF: 0 prednisone 20 mg tablet 20 mg PO DAILY 9 Days Qty: 18 RF: 0 cyclobenzaprine 5 mg tablet 5 mg PO BEDTIME PRN (Reason: muscle spasm) Qty: 10 RF: 0 Stand Alone Forms: Work/School Release
[2020-09-04 13:31] LABS: MANUAL DIFF FLAG NO
[2020-09-04 13:35] LABS: Basophils Absolute Auto 0.1 X10*3/uL (0.0-0.2); Basophils Percent Auto 0.6 % (0-2); Eosinophils Absolute Auto 0.1 X10*3/uL (0.0-0.4); Eosinophils Percent Auto 1.3 % (0-4); Hematocrit 38.4 % (37-47); Hemoglobin 12.7 g/dl (12.0-16.0); Imm Gran Abs Auto 0.03 X10*3/uL (0.00-0.03); Imm Gran Pct Auto 0.3 % (0.0-0.4); Lymphocytes Absolute Auto 2.6 X10*3/uL (1.2-4.9); Lymphocytes Percent Auto 30.7 % (20-40); Mean Corpuscular HGB Conc 33.1 g/dl (31.0-35.0); Mean Corpuscular Hemoglobin 29.4 pg (27.0-33.0); Mean Corpuscular Volume 88.9 fL (80-98); Monocytes Absolute Auto 0.7 X10*3/uL (0.1-1.2); Monocytes Percent Auto 8.6 % (2-11); Neutrophils Percent Auto 58.5 % (45-73); Platelet Count 344 X10*3/uL (160-400); Red Blood Count 4.32 X10*6/uL (4.20-5.50); Red Cell Distribution Width 12.2 % (11.0-16.0); White Blood Count 8.6 X10*3/uL (4.8-10.8)
[2020-09-04 13:37] VITALS: BP 123/74; BP 128/74; PULSE 65; PULSE 69
[2020-09-04 13:40] VITALS: BP 128/73; PULSE 75
[2020-09-04 13:47] LABS: Glucose Urine UA NEG (NEG); Leukocyte Esterase Urine NEG (NEG); Nitrite Urine NEG (NEG); Urine Blood NEG (NEG); Urine Ketones NEG (NEG); Urine Protein NEG (NEG-TRACE)
[2020-09-04 13:50] LABS: COVID-19 Test Negative (Negative); IDNOW Serial# 9DD0AD1C
[2020-09-04 13:57] LABS: Appearance Urine CLEAR; Color Urine YELLOW
[2020-09-04 13:58] LABS: UPreg QC Valid YES; Urine Pregnancy NEGATIVE (NEGATIVE)
[2020-09-04 13:59] LABS: Anion Gap 14 (12-20); Blood Urea Nitrogen 11 mg/dL (9-16); Calcium 8.5 mg/dL (8.4-10.2); Carbon Dioxide 25 mmol/L (22-29); Chloride 106 mmol/L (96-108); Creatinine Clr Calc Pharmacy 102.9; Estimated Glomerular Filt Rate > 60; Glucose Random 87 mg/dL (60-115); Magnesium 1.9 mg/dL (1.6-2.6); Potassium 4.5 mmol/L (3.3-5.1); Sodium 140 mmol/L (135-145)
[2020-09-04 14:00] VITALS: BP 128/73; PULSE 75; RESP 18; TEMP 36.9; O2SAT 100
[2020-09-04] MEDS: Butalb/Acetamin/Caff 50/325/40 TABLET 1 TAB PO (14:05)
== END 2020-09-04 14:37 | disposition home or self-care (01) ==
PROVIDERS: Physician Assistant; Emergency Provider Emergency Medicine Emergency Medical Services; PCP Internal Medicine
DX: R42 Dizziness and giddiness (principal); R51.9 Headache, unspecified; Z20.822 Contact with and (suspected) exposure to COVID-19; Z79.899 Other long term (current) drug therapy
CPT/HCPCS: 36415; 70450; 80048; 81003; 81025; 83735; 85025; 87635; 93005; 99284

== ENCOUNTER → 2020-09-26 14:46 | Outpatient (BNVA) | payer OTHER, SELFPAY | PROVIDERS: PCP Internal Medicine; Visit Provider Orthopaedic Surgery ==

== ENCOUNTER 2020-10-25 11:36 | Day surgery (SDC) | payer OTHER, SELFPAY ==
[2020-10-25 11:51] VITALS: BP 111/75; PULSE 75; RESP 16; TEMP 36.3; O2SAT 98; BMI 33.7
[2020-10-25] MEDS: Lidocaine HCl 1%/Epi 1:100,000 20 ML VIAL 9 ML INFILTRATI (14:09)
--- NOTE | 2020-10-25 14:22 | MHC.SHP ---
Pre-Procedural Eval Section B Chief Complaint: carpal tunnel Allergies: Allergies Allergy/AdvReac Type Severity Reaction Status Date / Time azithromycin [AZITHROMYCIN] Allergy Unknown low heart Verified 06/05/20 09:19 rate Plan I have reviewed the history and physical and performed a pertinent physical examination on my patient. No changes have occurred unless specified.
--- NOTE | 2020-10-25 14:22 | W.PM.OPN ---
Operative Note Operative Note Date of Service: 10/25/20 Narrative: Preop diagnosis: 1. Left Carpal tunnel syndrome Postop diagnosis: same Procedure: 1. Left Carpal tunnel release Surgeon: Rowan Watson MD Anesthesia: local block using 1% lidocaine with epinephrine Findings: Thickened transverse carpal ligament. EBL: Less than 5 mL Specimens: None Complications: None Disposition: Brought to recovery room in stable condition Plan: Follow-up for 7-10 days for wound check and suture removal Indications: The patient is 40 years old, with left carpal tunnel syndrome that has been unresponsive to nonoperative management. The risks and benefits of operative treatment including but not limited to risk of damage to blood vessels, nerves, tendons, infection, persistent pain, persistent symptoms, or possible need for additional surgery were discussed with the patient and the patient wishes to proceed with surgery. Procedure: Once consent was obtained a local block was performed using a combination of 1% lidocaine with epinephrine. The patient was then brought back to the operating suite and placed on the operative table in supine position. A tourniquet was applied to the proximal aspect of the left upper extremity and the limb was prepped and draped in a standard surgical fashion. Once assured that we had a good block, a 1.5 cm longitudinal incision was made centered over the carpal tunnel. The incision was made through the skin to the subcutaneous tissues using a #15 blade. Dissection was made down to the level of the transverse carpal ligament with care being taken to protect the palmar cutaneous nerve. Once the transverse carpal ligament was clearly visualized, a longitudinal incision was made in the transverse carpal ligament 1st using a #15 blade, then using tenotomy scissors under direct visualization. Care was taken to look for and protect the motor branch of the median nerve when seen in this area. Once satisfied with our carpal tunnel release the wound was copiously irrigated with normal saline and hemostasis was obtained with a brief period of local pressure. The skin edges were reapproximated with some 5.0 nylon suture material and a sterile dressing was applied. The patient appears to have tolerated the procedure well and with no complications. All digits were well vascularized at the conclusion of the case.
[2020-10-25 15:43] VITALS: BP 131/78; PULSE 88; RESP 16; TEMP 36.4; O2SAT 97
== END 2020-10-25 15:51 ==
LOC: HO.SSS 11:37
PROVIDERS: PCP Internal Medicine; Visit Provider Orthopaedic Surgery
PROC: (CPT 64721; principal; 2020-10-25 12:40)
DX: G56.02 Carpal tunnel syndrome, left upper limb (principal); Z88.1 Allergy status to other antibiotic agents
CPT/HCPCS: 64721

== ENCOUNTER → 2020-11-02 09:19 | Outpatient (BNVA) | payer OTHER, SELFPAY | PROVIDERS: PCP Internal Medicine; Visit Provider Physician Assistant ==

== ENCOUNTER → 2020-11-05 09:41 | Outpatient (BNVA) | payer OTHER, SELFPAY | PROVIDERS: PCP Internal Medicine; Visit Provider Orthopaedic Surgery ==

== ENCOUNTER 2020-11-14 08:18 | Outpatient (REF) | payer OTHER, SELFPAY ==
--- NOTE | ~2020-11-14 | XR_ITS ---
EXAMINATION: XR SHOULDER, LEFT CLINICAL INFORMATION: Pain. COMPARISON: Left shoulder radiographs dated 02/17/2014. TECHNIQUE: AP, scapular Y, and axillary views of the left shoulder. FINDINGS: No acute fracture or dislocation. Tiny acromioclavicular marginal osteophytes with small lateral subacromial spurs. No osseous erosion. XR/XR shoulder LT min 2V IMPRESSION: Mild acromioclavicular osteoarthritis with tiny subacromial spurs, increased when compared to the prior examination.
== END 2020-11-14 08:19 | disposition home or self-care (01) ==
LOC: HO.HOSX 08:18
PROVIDERS: Visit Provider Orthopaedic Surgery
DX: M25.512 Pain in left shoulder (principal)
CPT/HCPCS: 73030

== ENCOUNTER 2020-11-21 10:22 | Outpatient (REF) | payer OTHER, SELFPAY ==
[2020-11-23 13:27] LABS: Anti DNA DS Antibody 9 IU/mL
== END 2020-11-21 10:23 | disposition home or self-care (01) ==
LOC: HO.HMGCLDS 10:22
PROVIDERS: PCP Internal Medicine; Visit Provider Internal Medicine
DX: Z82.69 Family history of other diseases of the musculoskeletal system and connective tissue (principal)
CPT/HCPCS: 36415; 86225

== ENCOUNTER 2020-11-28 14:07 | Outpatient (REF) | payer OTHER, SELFPAY ==
[2020-11-28 15:46] LABS: MANUAL DIFF FLAG NO
[2020-11-28 15:50] LABS: Basophils Percent Auto 0.5 % (0-2); Eosinophils Absolute Auto 0.2 X10*3/uL (0.0-0.4); Eosinophils Percent Auto 2.1 % (0-4); Hematocrit 39.8 % (37-47); Hemoglobin 13.3 g/dl (12.0-16.0); Imm Gran Abs Auto 0.03 X10*3/uL (0.00-0.03); Imm Gran Pct Auto 0.4 % (0.0-0.4); Lymphocytes Absolute Auto 2.7 X10*3/uL (1.2-4.9); Lymphocytes Percent Auto 32.9 % (20-40); Mean Corpuscular HGB Conc 33.4 g/dl (31.0-35.0); Mean Corpuscular Volume 89.6 fL (80-98); Mean Platelet Volume 11.1 fL (9.4-12.3); Monocytes Absolute Auto 0.7 X10*3/uL (0.1-1.2); Monocytes Percent Auto 8.4 % (2-11); Neutrophils Absolute Auto 4.5 X10*3/uL (2.0-8.3); Neutrophils Percent Auto 55.7 % (45-73); Platelet Count 295 X10*3/uL (160-400); Red Blood Count 4.44 X10*6/uL (4.20-5.50); Red Cell Distribution Width 12.3 % (11.0-16.0); White Blood Count 8.1 X10*3/uL (4.8-10.8)
[2020-11-28 16:28] LABS: Glucose Urine UA NEG (NEG); Leukocyte Esterase Urine NEG (NEG); Nitrite Urine NEG (NEG); Specific Gravity - Urine >= 1.030 (1.005-1.025); Urine Blood NEG (NEG); Urine Ketones NEG (NEG); Urine Protein NEG (NEG-TRACE)
[2020-11-28 16:29] LABS: Alanine Aminotransferase 17 U/L (0-31); Albumin Level 3.9 g/dL (3.5-5.0); Alkaline Phosphatase 62 U/L (39-117); Anion Gap 10 (12-20); Aspartate Amino Transferase 19 U/L (5-31); Bilirubin Total 0.4 mg/dL (0.0-1.0); Blood Urea Nitrogen 13 mg/dL (9-16); C Reactive Protein 0.17 mg/dL (< or = 0.50); Calcium 9.3 mg/dL (8.4-10.2); Carbon Dioxide 30 mmol/L (22-29); Chloride 106 mmol/L (96-108); Estimated Glomerular Filt Rate > 60; Glucose Random 98 mg/dL (60-115); Potassium 4.1 mmol/L (3.3-5.1); Rheumatoid Factor < 15.0 IU/mL (<15.0); Sodium 142 mmol/L (135-145); Total Protein 6.9 g/dL (6.5-8.0)
[2020-11-28 16:38] LABS: Appearance Urine CLEAR; Color Urine YELLOW
[2020-11-28 16:51] LABS: Thyroid Stimulating Hormone 0.89 uIU/mL (0.32-4.0)
[2020-11-28 16:54] LABS: Erythrocyte Sedimentation Rate 7 MM/HR (0-20)
[2020-11-28 17:01] LABS: Bacteria Urine TRACE /LPF; RBC Urine 0 /HPF (0); Squamous Epithelial Cell Urine 1+ /LPF; WBC Urine 0-2 /HPF (0-4)
[2020-11-29 11:22] LABS: Complement C3 66 mg/dL (83-193)
[2020-11-29 13:27] LABS: PTT (LAC) Screen 30 sec (< OR = 40)
[2020-11-29 16:41] LABS: Cyclic Citrullinated Peptide <16 UNITS
[2020-11-29 23:37] LABS: Anti Nuclear Antibody Pattern Nuclear, Nucleolar; Anti Nuclear Antibody Screen POSITIVE (NEGATIVE)
[2020-11-30 01:37] LABS: Thyroglobulin Antibodies <1 IU/mL (< or = 1); Thyroid Peroxidase Antibodies 1 IU/mL (<9)
[2020-11-30 14:36] LABS: Cardiolipin IgG Ab >112.0 GPL-U/mL; Cardiolipin IgM Ab 28.5 MPL-U/mL
[2020-11-30 15:02] LABS: Anti DNA DS Antibody 10 IU/mL; Antibody to SS-A Antigen <1.0 NEG AI (<1.0 NEG); Antibody to SS-B Antigen <1.0 NEG AI (<1.0 NEG); SM/Ribonucleoprotein Ab <1.0 NEG AI (<1.0 NEG); Smith Protein <1.0 NEG AI (<1.0 NEG)
[2020-12-03 11:53] LABS: Beta-2 Microglobulin, Serum 1.92 mg/L (< OR = 2.51)
== END 2020-11-28 14:08 | disposition home or self-care (01) ==
LOC: HO.LAB 14:07
PROVIDERS: PCP Internal Medicine; Visit Provider Student in an Organized Health Care Education/Training Program
DX: R76.8 Other specified abnormal immunological findings in serum (principal)
CPT/HCPCS: 36415; 80053; 81001; 82232; 84443; 85025; 85597; 85613; 85652; 85730; 86038; 86039; 86140; 86147; 86160; 86200; 86225; 86235; 86376; 86431; 86800

== ENCOUNTER → 2020-12-21 14:33 | Outpatient (BNVA) | payer OTHER, SELFPAY | PROVIDERS: PCP Internal Medicine; Visit Provider Student in an Organized Health Care Education/Training Program ==

== ENCOUNTER → 2021-01-07 14:38 | Outpatient (BNV) | payer OTHER, SELFPAY | PROVIDERS: PCP Internal Medicine; Referring Provider Student in an Organized Health Care Education/Training Program; Visit Provider Internal Medicine | DX: R76.0 Raised antibody titer (principal) | CPT/HCPCS: 99203; 99212; 99213 ==

== ENCOUNTER 2021-01-11 21:48 | Emergency (ER) | payer OTHER, SELFPAY ==
--- NOTE | ~2021-01-11 | US_ITS ---
EXAMINATION: ULTRASOUND PELVIS, COMPLETE CLINICAL INFORMATION: History vaginal bleeding COMPARISON: CT dated 08/23/2020 TECHNIQUE: Transabdominal and transvaginal imaging of the pelvic viscera performed utilizing grayscale and color Doppler technique US/US pelvic and transvaginal FINDINGS/IMPRESSION: Status post supracervical hysterectomy. The cervix is heterogeneous and appears to contain multiple nabothian cysts, as seen previously. Given the presence of vaginal bleeding, tissue sampling may be indicated. Ovaries not seen.
[2021-01-11 22:16] VITALS: BP 119/84; PULSE 96; RESP 18; TEMP 37; O2SAT 99; BMI 34.4
[2021-01-11 22:59] LABS: MANUAL DIFF FLAG NO
[2021-01-11 23:00] LABS: Basophils Absolute Auto 0.1 X10*3/uL (0.0-0.2); Basophils Percent Auto 0.5 % (0-2); Eosinophils Absolute Auto 0.1 X10*3/uL (0.0-0.4); Eosinophils Percent Auto 1.1 % (0-4); Hematocrit 37.2 % (37-47); Hemoglobin 12.7 g/dl (12.0-16.0); Imm Gran Abs Auto 0.03 X10*3/uL (0.00-0.03); Imm Gran Pct Auto 0.3 % (0.0-0.4); Lymphocytes Absolute Auto 2.8 X10*3/uL (1.2-4.9); Lymphocytes Percent Auto 24.3 % (20-40); Mean Corpuscular HGB Conc 34.1 g/dl (31.0-35.0); Mean Corpuscular Volume 87.9 fL (80-98); Mean Platelet Volume 11.3 fL (9.4-12.3); Monocytes Percent Auto 8.8 % (2-11); Neutrophils Absolute Auto 7.5 X10*3/uL (2.0-8.3); Platelet Count 254 X10*3/uL (160-400); Red Blood Count 4.23 X10*6/uL (4.20-5.50); Red Cell Distribution Width 12.1 % (11.0-16.0); White Blood Count 11.5 X10*3/uL (4.8-10.8)
[2021-01-11 23:01] LABS: Glucose Urine UA NEG (NEG); Leukocyte Esterase Urine NEG (NEG); Nitrite Urine NEG (NEG); Specific Gravity - Urine >= 1.030 (1.005-1.025); UACC Culture Trigger NO; Urine Blood 1+ (NEG); Urine Ketones NEG (NEG); Urine Protein NEG (NEG-TRACE)
[2021-01-11 23:02] LABS: Appearance Urine CLEAR; Color Urine YELLOW
[2021-01-11 23:03] LABS: UPreg QC Valid YES; Urine Pregnancy NEGATIVE (NEGATIVE)
[2021-01-11 23:10] LABS: Bacteria Urine TRACE /LPF; Mucus Urine 1+ /LPF; Squamous Epithelial Cell Urine 1+ /LPF
[2021-01-11 23:25] LABS: Alanine Aminotransferase 12 U/L (0-31); Albumin Level 3.8 g/dL (3.5-5.0); Alkaline Phosphatase 58 U/L (39-117); Anion Gap 13 (12-20); Aspartate Amino Transferase 14 U/L (5-31); Bilirubin Total 0.3 mg/dL (0.0-1.0); Blood Urea Nitrogen 13 mg/dL (9-16); Carbon Dioxide 24 mmol/L (22-29); Chloride 110 mmol/L (96-108); Creatinine Clr Calc Pharmacy 99.9; Estimated Glomerular Filt Rate > 60; Glucose Random 96 mg/dL (60-115); Potassium 3.9 mmol/L (3.3-5.1); Sodium 143 mmol/L (135-145); Total Protein 6.7 g/dL (6.5-8.0)
--- NOTE | 2021-01-12 00:01 | ED_ITS ---
HPI - Female Genitourinary General Chief complaint: Vaginal Bleeding Stated complaint: vag bleeding, cramps Time Seen by Provider: 01/11/21 22:44 Source: patient Mode of arrival: ambulatory Limitations: no limitations History of Present Illness HPI Narrative: 40-year-old female with a past medical history of partial hysterectomy in 2011 and has not had a heavy menstrual periods since then only spots occasionally presenting to the ED with complaints of suprapubic abdominal pain over the past 2 weeks that has been intermittent then on Thursday she started with heavy vaginal bleeding but dark brown colored blood not bright red. She reports she feels like bladder spasms/cramping when her urine stream is finished. She reports she has been wearing light pads with daily bleeding. She reports she has been constipated for the past 2 days and she had a soft liquid stool this morning. She reports that she has the family history of endometriosis, breast cancer and other cancers therefore she is concerned of possible cancer. She reports that she has been with her for over 20 years and she does not believe she has an STD or thoughts of STDs. She reports she called her PCP regarding the abdominal cramping with vaginal bleeding and they instructed her to call OB. She reports that she has an ultrasound scheduled for Thursday but the pain is too severe therefore she came here for further evaluation and treatment. She denies any fevers, dizziness, headaches, change of vision, chest pain, shortness of breath, dizziness or hogan, orthopnea, palpitations, edema, radiation of the abdominal pain, abnormal vaginal discharge, dysuria or any other symptoms complaints or concerns at this time. MD elicited complaint: vaginal bleeding Pertinent past history: other (Partial hysterectomy) Onset (ago): week(s) (For the 2 weeks the abdominal cramping and since Thursday the vaginal bleeding) Severity: moderate Female Urogenital Radiation: Non-Radiating Quality of pain: cramping Consistency: intermittent and progressively worsening Vaginal discharge: none Vaginal bleeding: moderate and dark red Exacerbating factors: urination Relieving factors: none Associated symptoms: abdominal pain Treatment prior to arrival: none Sexual activity: Yes Patient : No Related Data Previous Rx's Medication Instructions Recorded acetaminophen 500 mg tablet 500 mg PO Q6H PRN #14 tab 08/23/20 (Tylenol Extra Strength) ibuprofen 600 mg tablet 600 mg PO Q8H PRN #15 tab 11/01/20 hydroxychloroquine 200 mg tablet 200 mg PO BID #60 tab 12/21/20 (Plaquenil) acetaminophen 500 mg tablet 1,000 mg PO QID PRN #14 tab 01/12/21 (Tylenol Extra Strength) ibuprofen 800 mg tablet 800 mg PO Q8H PRN #14 tab 01/12/21 ondansetron HCl 4 mg tablet 4 mg PO Q8H PRN #14 tab 01/12/21 (Zofran) oxycodone 5 mg tablet 5 mg PO BID PRN #14 tab 01/12/21 Allergies Allergy/AdvReac Type Severity Reaction Status Date / Time azithromycin [AZITHROMYCIN] Allergy Unknown low heart Verified 01/11/21 22:16 rate Review of Systems Review of Systems: Constitutional : No Fever, No Chills ENT/Mouth : No sore throat, No Rhinorrhea Eyes: No Eye Pain, No Redness Cardiovascular : No Chest Pain, No SOB Respiratory : No Cough, No Sputum, No Wheezing Gastrointestinal : Positive Abdominal pain, No Nausea, No Vomiting, No Diarrhea Genitourinary : Positive irregular bleeding, No Dysuria, No Urinary Frequency, No pelvic pain, No vaginal discharge, no hematuria Musculoskeletal : No Myalgias Skin : No rash Neuro : No Weakness, No Headache Psych : No Anxiety/Panic, No Depression Heme/Lymph: No bruising, No Lymphadenopathy Endocrine : No Polyuria, No Polydipsia Yes all other systems are reviewed and are negative [facility] Past Medical History Attestation statement: The following information was validated with the patient. Medical History History of blood clots Paresthesias in left hand Weakness of left arm Surgical History H/O: hysterectomy History of bunionectomy Hx of carpal tunnel repair Hx of cholecystectomy Hx of lumpectomy Family History Family History Father High cholesterol HTN (hypertension) Stroke Mother Lupus Substance use disorder Congenital heart disease Dementia Sister Lupus Maternal Aunt Dementia Maternal Aunt Dementia Maternal Aunt Dementia Maternal Aunt Dementia Maternal Aunt Dementia Social History Social History Household Members: Spouse and Children Housing: House Alcohol intake: current Alcohol intake frequency: a few times a month Alcohol type: wine Patient Tobacco Use Status: Former Tobacco user Quit Date: 2001 Smoked: 5 Advance Directives: No Advance Directives Information Provided: Yes Patient : No Current occupational status: employed 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 Blood pressure normal. Heart rate normal. Respiration rate normal. Temperature normal. Oxygen saturation normal. Appearance: Alert. Oriented X3. No acute distress. Head: Normal external exam. Normocephalic. Atraumatic. Eyes: PERRLA. EOMI. Conjunctiva and sclera normal. Eyelids normal. ENT: Pharynx normal. Uvula midline. Moist mucous membranes. Neck: Normal inspection. Neck supple. FROM. No adenopathy. No meningeal signs. CVS: Normal heart rate and rhythm. Heart sound normal. No murmurs noted. Pulses normal throughout. Respiratory: No respiratory distress. Painless inspiration. Breath sounds normal. No wheezes/rales/rhonchi noted. Chest nontender. No accessory muscle usage noted or decreased air movement noted. Abdomen: Soft and mild tenderness to palpation to suprapubic area Bowel sounds normal in all 4 quadrants. No distention noted. No organomegaly noted. No visible injury noted. : Supervised by RUTH Hernandez. Normal external appearance of urethra. No lesions/lacerations or discharge or tenderness noted. Speculum exam normal appearance/palpation of vagina normal. Patient is noted to have an abnormal brown colored thick discharge and mild bright red blood on exam although no active bleeding or hemorrhaging noted. Otherwise no vaginal erythema. No foreign bodies noted. No vaginal laceration/lesions noted. No tissue present in vagina. No vaginal mass noted. No vaginal swelling noted. No vaginal tenderness noted. Normal appearance of cervix. Normal palpation of cervix. Cervical os is closed. No cervical lesion/mass. No Bartholin cyst noted. No cervical motion tenderness noted. Negative chandelier sign. Normal bimanual exam. Uterine size normal. Bladder normal to palpation. Uterine consistency normal. Normal cervical palpation. Uterine mobility normal. Uterine shape normal. Normal adnexa. Normal rectovaginal exam. Back: No CVA tenderness. Full range of motion noted. Skin: Skin warm and dry. Normal skin color. Normal skin turgor. No rashes/lesions/lacerations noted. Extremities: Extremities exhibit normal range of motion. Extremities nontender. Neuro: Oriented X 3. No motor deficit. No sensory deficit. Reflexes normal. Course Course Course Narrative: 23:40pm - 40-year-old female with a past medical history of partial hysterectomy in 2011 and has not had a heavy menstrual periods since then only spots occasionally presenting to the ED with complaints of suprapubic abdominal pain over the past 2 weeks that has been intermittent then on Thursday she started with heavy vaginal bleeding but dark brown colored blood not bright red. She reports she feels like bladder spasms/cramping when her urine stream is finished. She reports she has been wearing light pads with daily bleeding. She reports she has been constipated for the past 2 days and she had a soft liquid stool this morning. She reports that she has the family history of endometriosis, breast cancer and other cancers therefore she is concerned of possible cancer. She reports that she has been with her for over 20 years and she does not believe she has an STD or thoughts of STDs. Plan: Labs, UA, UHCG, gonorrhea/chlamydia swab, bacterial vaginosis swab, yeast swab, Trichomonas swab, ultrasound of pelvic and transvaginal then re-evaluate. Reevaluation(s) Reevaluation #1: - labs reviewed and [place] [id number]. Chloride 110. Otherwise all other labs are within normal limits. UA revealed blood otherwise no evidence of UTI. UHCG is negative for . Pending swabs. Pending pelvic/transvaginal ultrasound at this time. Will re- evaluate. Time: 00:20 Reevaluation #2: - ultrasound revealed TECHNIQUE: Transabdominal and transvaginal imaging of the pelvic viscera performed utilizing grayscale and color Doppler technique? US/US pelvic and transvaginal FINDINGS/IMPRESSION: Status post supracervical hysterectomy. The cervix is heterogeneous and appears to contain multiple nabothian cysts, as seen previously. Given the presence of vaginal bleeding, tissue sampling may be indicated. Ovaries not seen. Therefore I printed out a copy of the patient's ultrasound and handed to her and instructed her to follow-up with her PCP/heat treater for tissue sampling will DC home with Motrin/Tylenol and oxycodone. Instructions to return if any new or worsening symptoms. Patient understands agrees with this plan. Time: 00:58 MDM - Female Genitourinary Medical Records Attestation: I reviewed the patient's medical records. Lab Data Attestation: I reviewed the patient's lab results. Result diagrams: 01/11/21 22:52 01/11/21 22:52 Labs: Lab Results 01/11/21 01/11/21 01/11/21 Range/Units 22:52 22:52 22:52 WBC 11.5 H (4.8-10.8) X10*3/uL RBC 4.23 (4.20-5.50) X10*6/uL Hgb 12.7 (12.0-16.0) g/dl Hct 37.2 (37-47) % MCV 87.9 (80-98) fL MCH 30.0 (27.0-33.0) pg MCHC 34.1 (31.0-35.0) g/dl RDW 12.1 (11.0-16.0) % Plt Count 254 (160-400) X10*3/uL MPV 11.3 (9.4-12.3) fL Immature Gran % (Auto) 0.3 (0.0-0.4) % Neut % (Auto) 65.0 (45-73) % Lymph % (Auto) 24.3 (20-40) % [place] % (Auto) 8.8 (2-11) % Eos % (Auto) 1.1 (0-4) % Baso % (Auto) 0.5 (0-2) % Lymph # (Auto) 2.8 (1.2-4.9) X10*3/uL [place] # (Auto) 1.0 (0.1-1.2) X10*3/uL Eos # (Auto) 0.1 (0.0-0.4) X10*3/uL Baso # (Auto) 0.1 (0.0-0.2) X10*3/uL Abs Immat Gran (auto) 0.03 (0.00-0.03) X10*3/uL Absolute Neuts (auto) 7.5 (2.0-8.3) X10*3/uL Absolute Nucleated RBC 0.000 (0.0-0.012) X10*3/uL Nucleated RBC % (auto) 0.0 (0.0-0.2) /100WBC Sodium 143 (135-145) mmol/L Potassium 3.9 (3.3-5.1) mmol/L Chloride 110 H (96-108) mmol/L Carbon Dioxide 24 (22-29) mmol/L Anion Gap 13 (12-20) BUN 13 (9-16) mg/dL Creatinine 0.84 (0.5-1.4) mg/dL Estim Creat Clear Calc 99.9 Estimated GFR > 60 Random Glucose 96 (60-115) mg/dL Calcium 9.0 (8.4-10.2) mg/dL Total Bilirubin 0.3 (0.0-1.0) mg/dL AST 14 (5-31) U/L ALT 12 (0-31) U/L Alkaline Phosphatase 58 (39-117) U/L Total Protein 6.7 (6.5-8.0) g/dL Albumin 3.8 (3.5-5.0) g/dL Urine Color Urine Appearance Urine pH (5.0-8.0) Ur Specific [place] (1.005-1.025) Urine Protein (NEG-TRACE) MG/DL Urine Glucose (UA) (NEG) MG/DL Urine Ketones (NEG) MG/DL Urine Blood (NEG) Urine Nitrite (NEG) Ur Leukocyte Esterase (NEG) Urine RBC (0) /HPF Urine WBC (0-4) /HPF Ur Squamous Epith Cells /LPF Urine Bacteria /LPF Urine Mucus /LPF Urine Test NEGATIVE (NEGATIVE) 01/11/21 Range/Units 22:52 WBC (4.8-10.8) X10*3/uL RBC (4.20-5.50) X10*6/uL Hgb (12.0-16.0) g/dl Hct (37-47) % MCV (80-98) fL MCH (27.0-33.0) pg MCHC (31.0-35.0) g/dl RDW (11.0-16.0) % Plt Count (160-400) X10*3/uL MPV (9.4-12.3) fL Immature Gran % (Auto) (0.0-0.4) % Neut % (Auto) (45-73) % Lymph % (Auto) (20-40) % [place] % (Auto) (2-11) % Eos % (Auto) (0-4) % Baso % (Auto) (0-2) % Lymph # (Auto) (1.2-4.9) X10*3/uL [place] # (Auto) (0.1-1.2) X10*3/uL Eos # (Auto) (0.0-0.4) X10*3/uL Baso # (Auto) (0.0-0.2) X10*3/uL Abs Immat Gran (auto) (0.00-0.03) X10*3/uL Absolute Neuts (auto) (2.0-8.3) X10*3/uL Absolute Nucleated RBC (0.0-0.012) X10*3/uL Nucleated RBC % (auto) (0.0-0.2) /100WBC Sodium (135-145) mmol/L Potassium (3.3-5.1) mmol/L Chloride (96-108) mmol/L Carbon Dioxide (22-29) mmol/L Anion Gap (12-20) BUN (9-16) mg/dL Creatinine (0.5-1.4) mg/dL Estim Creat Clear Calc Estimated GFR Random Glucose (60-115) mg/dL Calcium (8.4-10.2) mg/dL Total Bilirubin (0.0-1.0) mg/dL AST (5-31) U/L ALT (0-31) U/L Alkaline Phosphatase (39-117) U/L Total Protein (6.5-8.0) g/dL Albumin (3.5-5.0) g/dL Urine Color YELLOW Urine Appearance CLEAR Urine pH 6.0 (5.0-8.0) Ur Specific [place] >= 1.030 H (1.005-1.025) Urine Protein NEG (NEG-TRACE) MG/DL Urine Glucose (UA) NEG (NEG) MG/DL Urine Ketones NEG (NEG) MG/DL Urine Blood 1+ H (NEG) Urine Nitrite NEG (NEG) Ur Leukocyte Esterase NEG (NEG) Urine RBC 5-9 H (0) /HPF Urine WBC 1-4 (0-4) /HPF Ur Squamous Epith Cells 1+ /LPF Urine Bacteria TRACE /LPF Urine Mucus 1+ /LPF Urine Test (NEGATIVE) Discharge Plan Discharge Clinical Impression: Nabothian cyst Patient Disposition: Home, Self-Care Instructions: Ovarian Cyst (ED), Cyst (ED) Additional Instructions: You have pending lab results if any are positive you will be contacted. Please follow-up with your OBGYN/PCP regarding your ultrasound results that I gave you in your hand. Return if any new or worsening symptoms. Prescriptions: New ibuprofen 800 mg tablet 800 mg PO Q8H PRN (Reason: pain) Qty: 14 RF: 0 ondansetron HCl [Zofran] 4 mg tablet 4 mg PO Q8H PRN (Reason: nausea and vomiting) Qty: 14 RF: 0 acetaminophen [Tylenol Extra Strength] 500 mg tablet 1,000 mg PO QID PRN (Reason: fever or pain) Qty: 14 RF: 0 oxycodone 5 mg tablet 5 mg PO BID PRN (Reason: pain) Qty: 14 RF: 0 No Action acetaminophen [Tylenol Extra Strength] 500 mg tablet 500 mg PO Q6H PRN (Reason: pain) Qty: 14 RF: 0 ibuprofen 600 mg tablet 600 mg PO Q8H PRN (Reason: pain) Qty: 15 RF: 0 hydroxychloroquine [Plaquenil] 200 mg tablet 200 mg PO BID Qty: 60 RF: 4 Referrals: Maggie Crystal MD [Primary Care Provider] - 2 days Aron Manzano MD [Physician] - 2 days Stand Alone Forms: Work/School Release Print Language: Luxembourgish
[2021-01-12] MEDS: Ibuprofen 800 MG TABLET PO (01:26)
[2021-01-12] MEDS: Acetaminophen 325 MG TABLET 975 MG PO (01:27)
[2021-01-12] MEDS: oxyCODONE HCl Immed Release 5 MG TABLET PO (01:27)
[2021-01-12 11:47] LABS: CT PCR NOT DETECTED (Not Detect.); NG PCR NOT DETECTED (Not Detect.)
[2021-01-12 13:36] LABS: BV Int Neg Control Negative (Negative); BV Int Pos Control Positive (Positive)
== END 2021-01-12 01:30 | disposition home or self-care (01) ==
PROVIDERS: Physician Assistant Medical; Emergency Provider Emergency Medicine Emergency Medical Services; PCP Internal Medicine
DX: N88.8 Other specified noninflammatory disorders of cervix uteri (principal); R10.30 Lower abdominal pain, unspecified; N93.9 Abnormal uterine and vaginal bleeding, unspecified
CPT/HCPCS: 36415; 76830; 76856; 80053; 81001; 81025; 85025; 87480; 87491; 87510; 87591; 87660; 99283; 99284

== ENCOUNTER 2021-04-15 07:07 | Outpatient (REF) | payer OTHER, SELFPAY ==
--- NOTE | ~2021-04-15 | XR_ITS ---
EXAMINATION: XR HIP, LEFT CLINICAL INFORMATION: Pain. COMPARISON: CT chest/abdomen/pelvis dated 08/23/2020. TECHNIQUE: AP view the pelvis as well as AP and frog-leg lateral views of the left hip. FINDINGS: No acute fracture or dislocation. No joint space narrowing or marginal osteophytes. No osseous erosion. Phleboliths throughout the pelvis. XR/XR hip LT w PEL1V IMPRESSION: Unremarkable examination.
== END 2021-04-15 07:08 | disposition home or self-care (01) ==
LOC: HO.HOSX 07:07
PROVIDERS: Visit Provider Physician Assistant
DX: M70.62 Trochanteric bursitis, left hip (principal)
CPT/HCPCS: 20610; 73502; J1040

== ENCOUNTER 2021-05-08 15:53 | Outpatient (REF) | payer OTHER, SELFPAY ==
[2021-05-12 19:06] LABS: Beta-2 Glycoprotein IgA 13.7 U/mL (<20.0); Beta-2 Glycoprotein IgM 29.4 U/mL (<20.0)
[2021-05-16 15:26] LABS: Cardiolipin IgG Ab 87.5 GPL-U/mL; Cardiolipin IgM Ab 25.9 MPL-U/mL
== END 2021-05-08 15:54 | disposition home or self-care (01) ==
LOC: HO.LAB 15:53
PROVIDERS: PCP Internal Medicine; Visit Provider Internal Medicine
DX: R76.0 Raised antibody titer (principal)
CPT/HCPCS: 36415; 86146; 86147

== ENCOUNTER 2021-06-12 14:46 | Outpatient (REF) | payer OTHER, SELFPAY ==
--- NOTE | ~2021-06-12 | XR_ITS ---
EXAMINATION: XR SACRUM AND COCCYX CLINICAL INFORMATION: Unspecified fall. Initial encounter COMPARISON: None TECHNIQUE: 2 views of the sacrum and 2 views of the coccyx were obtained. FINDINGS: There are no fractures. No bone, joint or soft tissue abnormality is demonstrated. XR/XR sacrum coccyx min 2V IMPRESSION: Unremarkable examination.
== END 2021-06-12 14:47 | disposition home or self-care (01) ==
LOC: HO.HMGCX 14:46
PROVIDERS: PCP Internal Medicine; Visit Provider Internal Medicine
DX: S39.92XA Unspecified injury of lower back, initial encounter (principal); W18.30XA Fall on same level, unspecified, initial encounter; Y93.9 Activity, unspecified; Y92.9 Unspecified place or not applicable; Y99.8 Other external cause status
CPT/HCPCS: 72220

== ENCOUNTER 2021-06-19 18:09 | Emergency (ER) | payer OTHER, SELFPAY ==
--- NOTE | 2021-06-19 | ECG_ITS ---
Test Reason : sob Blood Pressure : / mmHG Vent. Rate : 072 BPM Atrial Rate : 072 BPM P-R Int : 136 ms QRS Dur : 082 ms QT Int : 394 ms P-R-T Axes : 061 030 039 degrees QTc Int : 431 ms Normal sinus rhythm Normal ECG When compared with ECG of 04-SEP-2020 12:17, No significant change was found Referred By: Generic ED Physician Electronically Signed By:BONNIE PABLO MD
--- NOTE | ~2021-06-19 | XR_ITS ---
EXAMINATION: XR CHEST CLINICAL INFORMATION: Chest pain COMPARISON: 08/20/2020 TECHNIQUE: Frontal view of the chest was obtained. FINDINGS: No significant abnormality is noted involving the heart, lungs, mediastinum, bony thorax or soft tissues. XR/XR chest 1V IMPRESSION: Unremarkable examination.
[2021-06-19 20:39] VITALS: BP 136/76; PULSE 76; RESP 18; TEMP 36.9; O2SAT 100; BMI 34.9
--- NOTE | 2021-06-19 21:43 | ED_ITS ---
HPI - SOB/Dyspnea General Chief Complaint: Dyspnea Stated Complaint: covid + chest back pain Time Seen by Provider: 06/19/21 21:05 Source: patient Mode of arrival: ambulatory Limitations: no limitations History of Present Illness HPI Narrative: 41-year-old female with history of obesity, depression who is fully vaccinated and lucid for COVID-19 presents to the ER with worsening COVID symptoms over the last 4 days. She tested positive on 06/14 after a exposure right after Aniket. She reports worsening chest pressure, dyspnea on exertion, back pain and dizziness. She reports she feels like she is going to pass out after she exerts herself like walking up stairs. MD elicited complaint: shortness of breath and chest pain Onset (ago): day(s) (4) Context: recent illness and anxiety Timing: intermittent Severity: moderate Exacerbating factors: exertion Relieving factors: rest Associated symptoms: chest pain, chest congestion, dizziness and lightheadedness Treatment prior to arrival: none Related Data Home oxygen amount: none Home Medications Medication Instructions Recorded Confirmed leuprolide 3.75 mg intramuscular 3.75 mg IM DAILY 02/15/21 05/08/21 syringe kit (Lupron Depot) Previous Rx's Medication Instructions Recorded acetaminophen 500 mg tablet 500 mg PO Q6H PRN #14 tab 08/23/20 (Tylenol Extra Strength) ibuprofen 800 mg tablet 800 mg PO Q8H PRN #14 tab 01/12/21 escitalopram oxalate 10 mg tablet 10 mg PO DAILY 90 Days #90 tab 03/22/21 (Lexapro) Allergies Allergy/AdvReac Type Severity Reaction Status Date / Time azithromycin [AZITHROMYCIN] Allergy Unknown low heart Verified 06/19/21 20:38 rate Review of Systems Review of Systems: Constitutional: No Fever, No Chills ENT/Mouth: No sore throat, No Rhinorrhea, No Swallowing Difficulty Cardiovascular: + Chest Pain, + SOB, No Orthopnea, No Edema Respiratory:+ Cough, No Sputum, No Wheezing, + dyspnea Gastrointestinal: No Nausea, No Vomiting, No Diarrhea, No abdominal Pain Genitourinary: No Dysuria, No Urinary Frequency, No Hematuria Musculoskeletal: No joint pain, + Myalgias Skin: No Skin Lesions, No rash Neuro: No Weakness, No Numbness, + Dizziness, + Headache Psych: + Anxiety/Panic Heme/Lymph: No Bruising, No Lymphadenopathy PMFSH Past Medical History Medical History (Updated 06/19/21 @ 22:51 by JARET Disla) History of blood clots Lupus Paresthesias in left hand Weakness of left arm Surgical History H/O: hysterectomy History of bunionectomy Hx of carpal tunnel repair Hx of cholecystectomy Hx of lumpectomy Family History Family History Father High cholesterol HTN (hypertension) Stroke Mother Lupus Substance use disorder Congenital heart disease Dementia Sister Lupus Maternal Aunt Dementia Maternal Aunt Dementia Maternal Aunt Dementia Maternal Aunt Dementia Maternal Aunt Dementia Social History Social History Household Members: Spouse and Children Housing: House Alcohol intake: current Alcohol intake frequency: a few times a month Alcohol type: wine Patient Tobacco Use Status: Former Tobacco user (18 years) Quit Date: 2001 Years Smoked: 5 Advance Directives: No Advance Directives Information Provided: No Patient : No Current occupational status: employed 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 Oriented X3. No acute distress. Eyes: Pupils equal, round and reactive to light. ENT: Pharynx normal. Neck: Normal inspection. Neck supple. CVS: Normal heart rate and rhythm. Pulses normal. Respiratory: No respiratory distress. Breath sounds normal. Abdomen: Soft and nontender. +BS x4 Skin: Skin warm and dry. Normal skin color. Normal skin turgor. No rashes. Extremities: No lower extremity edema. No calf tenderness or erythema. Neuro: Oriented X 3. No motor deficit. No sensory deficit. Ambulates with steady gait Course Course Course Narrative: 41-year-old female presents to the ER with worsening COVID symptoms. She is fully vaccinated and boosted. She reports shortness of breath, chest pain, lightheadedness with exertion. She denies any history of DVT or PE but did have a superficial thrombus on her lower extremity after a varicose vein procedure. She has no other risk factors for PE. She is not tachycardic or hypoxic on arrival however given her symptoms and COVID status will check a D-dimer. Her chest x-ray is clear an EKG is without ischemic changes. She has no chest pain at rest or shortness of breath at rest. She appears well. Reevaluation(s) Reevaluation #1: Her troponin and D-dimer are negative. Lab workup is unremarkable. She is very relieved. At this time she is stable for discharge home with ongoing supportive care for COVID-19. Strict return precautions were discussed. Stable for discharge home. MDM - SOB/Dyspnea Medical Records Attestation: I reviewed the patient's medical records. Lab Data Attestation: I reviewed the patient's lab results. Result diagrams: 06/19/21 21:59 06/19/21 21:59 Labs: Lab Results 06/19/21 06/19/21 06/19/21 Range/Units 21:59 21:59 21:59 WBC 8.4 (4.8-10.8) X10*3/uL RBC 4.44 (4.20-5.50) X10*6/uL Hgb 13.3 (12.0-16.0) g/dl Hct 39.3 (37.0-47.0) % MCV 88.5 (80.0-98.0) fL MCH 30.0 (27.0-33.0) pg MCHC 33.8 (31.0-35.0) g/dl RDW 12.1 (11.0-16.0) % Plt Count 314 (160-400) X10*3/uL MPV 11.1 (9.4-12.3) fL Immature Gran % (Auto) 0.2 (0.0-0.4) % Neut % (Auto) 59.3 (45-73) % Lymph % (Auto) 31.0 (20-40) % [facility] % (Auto) 7.2 (2-11) % Eos % (Auto) 1.8 (0-4) % Baso % (Auto) 0.5 (0-2) % Lymph # (Auto) 2.6 (1.2-4.9) X10*3/uL [facility] # (Auto) 0.6 (0.1-1.2) X10*3/uL Eos # (Auto) 0.2 (0.0-0.4) X10*3/uL Baso # (Auto) 0.0 (0.0-0.2) X10*3/uL Abs Immat Gran (auto) 0.02 (0.00-0.03) X10*3/uL Absolute Neuts (auto) 5.0 (2.0-8.3) x10*3/uL Absolute Nucleated RBC 0.000 (0.0-0.012) X10*3/uL Nucleated RBC % (auto) 0.0 (0.0-0.2) /100WBC D-Dimer High Sensitivty NG/ML Sodium 142 (135-145) mmol/L Potassium 4.2 (3.3-5.1) mmol/L Chloride 108 (96-108) mmol/L Carbon Dioxide 29 (22-29) mmol/L Anion Gap 9 L (12-20) BUN 16 (9-16) mg/dL Creatinine 0.86 (0.5-1.4) mg/dL Estim Creat Clear Calc 97.2 Estimated GFR > 60 Random Glucose 120 H (60-115) mg/dL Calcium 9.6 D (8.4-10.2) mg/dL Troponin I High Sens < 3.5 (<3.5-17.0) ng/L C-Reactive Protein 0.47 (< or = 0.50) mg/dL 06/19/21 Range/Units 21:59 WBC (4.8-10.8) X10*3/uL RBC (4.20-5.50) X10*6/uL Hgb (12.0-16.0) g/dl Hct (37.0-47.0) % MCV (80.0-98.0) fL MCH (27.0-33.0) pg MCHC (31.0-35.0) g/dl RDW (11.0-16.0) % Plt Count (160-400) X10*3/uL MPV (9.4-12.3) fL Immature Gran % (Auto) (0.0-0.4) % Neut % (Auto) (45-73) % Lymph % (Auto) (20-40) % [facility] % (Auto) (2-11) % Eos % (Auto) (0-4) % Baso % (Auto) (0-2) % Lymph # (Auto) (1.2-4.9) X10*3/uL [facility] # (Auto) (0.1-1.2) X10*3/uL Eos # (Auto) (0.0-0.4) X10*3/uL Baso # (Auto) (0.0-0.2) X10*3/uL Abs Immat Gran (auto) (0.00-0.03) X10*3/uL Absolute Neuts (auto) (2.0-8.3) x10*3/uL Absolute Nucleated RBC (0.0-0.012) X10*3/uL Nucleated RBC % (auto) (0.0-0.2) /100WBC D-Dimer High Sensitivty < 150 NG/ML Sodium (135-145) mmol/L Potassium (3.3-5.1) mmol/L Chloride (96-108) mmol/L Carbon Dioxide (22-29) mmol/L Anion Gap (12-20) BUN (9-16) mg/dL Creatinine (0.5-1.4) mg/dL Estim Creat Clear Calc Estimated GFR Random Glucose (60-115) mg/dL Calcium (8.4-10.2) mg/dL Troponin I High Sens (<3.5-17.0) ng/L C-Reactive Protein (< or = 0.50) mg/dL ECG Data Attestation: I personally reviewed and interpreted this ECG as follows: ECG interpretation date: 06/19/21 ECG interpretation time: 22:55 Prior ECG tracings: available for review Interpretation: Normal sinus rhythm, heart rate 72 beats per minute, normal TX interval, normal QTC, no ST segment elevations or depressions. No change from prior. Critical Care Time Critical Care Time Critical Care Time: No Discharge Plan Discharge Clinical Impression: COVID-19 Patient Disposition: Home, Self-Care Instructions: Covid-19 Viral Syndrome and Novel Coronavirus (ED) Hey/Ath Additional Instructions: Your chest x-ray, lab workup, EKG and oxygen levels were normal. Rest. Drink plenty of fluids. Do not go out in public while you are feeling unwell. Take over the counter cold/flu medications as needed for your symptoms. Take Tylenol and/or Motrin as needed for fevers and body aches. Follow up with your doctor this week. If you shortness of breath worsens, if you develop difficulty breathing or any other concerning symptom come back to the ER for further evaluation. Prescriptions: No Action acetaminophen [Tylenol Extra Strength] 500 mg tablet 500 mg PO Q6H PRN (Reason: pain) Qty: 14 RF: 0 ibuprofen 800 mg tablet 800 mg PO Q8H PRN (Reason: pain) Qty: 14 RF: 0 Lupron Depot 3.75 mg syringe kit 3.75 mg IM DAILY RF: 0 escitalopram oxalate [Lexapro] 10 mg tablet 10 mg PO DAILY 90 Days Qty: 90 RF: 0
[2021-06-19 22:06] LABS: MANUAL DIFF FLAG NO
[2021-06-19 22:08] LABS: Basophils Percent Auto 0.5 % (0-2); Eosinophils Absolute Auto 0.2 X10*3/uL (0.0-0.4); Eosinophils Percent Auto 1.8 % (0-4); Hematocrit 39.3 % (37.0-47.0); Hemoglobin 13.3 g/dl (12.0-16.0); Imm Gran Abs Auto 0.02 X10*3/uL (0.00-0.03); Imm Gran Pct Auto 0.2 % (0.0-0.4); Lymphocytes Absolute Auto 2.6 X10*3/uL (1.2-4.9); Mean Corpuscular HGB Conc 33.8 g/dl (31.0-35.0); Mean Corpuscular Volume 88.5 fL (80.0-98.0); Mean Platelet Volume 11.1 fL (9.4-12.3); Monocytes Absolute Auto 0.6 X10*3/uL (0.1-1.2); Monocytes Percent Auto 7.2 % (2-11); Neutrophils Percent Auto 59.3 % (45-73); Platelet Count 314 X10*3/uL (160-400); Red Blood Count 4.44 X10*6/uL (4.20-5.50); Red Cell Distribution Width 12.1 % (11.0-16.0); White Blood Count 8.4 X10*3/uL (4.8-10.8)
[2021-06-19 22:24] LABS: D Dimer High Sensitivity < 150 NG/ML
[2021-06-19 22:25] LABS: Anion Gap 9 (12-20); Blood Urea Nitrogen 16 mg/dL (9-16); C Reactive Protein 0.47 mg/dL (< or = 0.50); Calcium 9.6 mg/dL (8.4-10.2); Carbon Dioxide 29 mmol/L (22-29); Chloride 108 mmol/L (96-108); Creatinine Clr Calc Pharmacy 97.2; Estimated Glomerular Filt Rate > 60; Glucose Random 120 mg/dL (60-115); Potassium 4.2 mmol/L (3.3-5.1); Sodium 142 mmol/L (135-145)
[2021-06-19 22:32] LABS: Troponin-I High Sensitivity < 3.5 ng/L (<3.5-17.0)
== END 2021-06-19 23:07 | disposition home or self-care (01) ==
PROVIDERS: Physician Assistant; Emergency Provider Student in an Organized Health Care Education/Training Program; PCP Internal Medicine
DX: U07.1 COVID-19 (principal)
CPT/HCPCS: 36415; 71045; 80048; 84484; 85025; 85379; 86140; 93005; 99283

== ENCOUNTER 2021-07-17 13:09 | Outpatient (REF) | payer OTHER, SELFPAY ==
--- NOTE | ~2021-07-17 | XR_ITS ---
EXAMINATION: XR LUMBOSACRAL SPINE CLINICAL INFORMATION: Low back pain COMPARISON: None TECHNIQUE: Three views of the lumbosacral spine. FINDINGS: Bone alignment is normal. No fracture or dislocation is seen. There is degenerative disc disease at T12-L1. Disc spaces are otherwise normal. Paraspinal soft tissues are normal. XR/XR lumbar spine 2-3V IMPRESSION: Degenerative disc disease at T12-L1.
== END 2021-07-17 13:10 | disposition home or self-care (01) ==
LOC: HO.HMGCLDS 13:09
PROVIDERS: Visit Provider Internal Medicine
DX: M54.50 Low back pain, unspecified (principal)
CPT/HCPCS: 72100

== ENCOUNTER → 2021-09-17 14:13 | Outpatient (BNVA) | payer OTHER, SELFPAY | PROVIDERS: PCP Internal Medicine; Visit Provider Surgery Vascular Surgery | DX: I83.11 Varicose veins of right lower extremity with inflammation (principal) | CPT/HCPCS: 99202 ==

== ENCOUNTER 2021-10-22 12:46 | Outpatient (REF) | payer OTHER, SELFPAY ==
--- NOTE | ~2021-10-22 | US_ITS ---
EXAMINATION: US LOWER EXTREMITY VENOUS (REFLUX EXAM), BILATERAL CLINICAL INDICATION: COMPARISON: None. TECHNIQUE: Color flow triplex imaging and compression Doppler was performed to evaluate both the deep and the superficial systems bilaterally. To evaluate the superficial system, the examination was performed in the upright position. Color-flow Doppler ultrasound and compression ultrasound were utilized. In addition, maneuvers were utilized to demonstrate reflux. FINDINGS: 1. DEEP VENOUS ULTRASOUND OF THE RIGHT LOWER EXTREMITY: Common Femoral Vein: Compressible, normal respiratory variation and augmented flow. Femoral vein: Compressible, normal color flow and augmentation. Popliteal Vein: Compressible, normal augmentation. Deep Reflux: There is no evidence of reflux in the deep system in either the common femoral vein or the popliteal vein. There is no evidence of a Hidalgo's cyst. 2. SUPERFICIAL ULTRASOUND WITH DOPPLER OF RIGHT LOWER EXTREMITY: GREAT SAPHENOUS VEIN: Saphenofemoral Junction: 1.0 cm. There is no reflux. Mid Thigh: 0.2 cm. There is no reflux. Above Knee: 0.2 cm. There is no reflux. The GSV is not seen at the knee. Below Knee: 0.1 cm. There is no reflux. Mid Calf: 0.1 cm. The reflux time is 3208 ms. Ankle: 0.1 cm. The reflux time is 2528 ms. GSV REFLUX: No evidence of reflux at the saphenofemoral junction. DUPLICATED GREAT SAPHENOUS VEIN: There is 0.4 cm duplicated lateral great saphenous vein without reflux. SMALL SAPHENOUS VEIN: Proximal: 0.2 cm Distal: 0.2 cm SSV REFLUX: No evidence of reflux. VEIN OF GIACOMINI: None Imaged. PERFORATORS: There is a 0.2 cm stained glass glazier helper in the mid thigh without reflux. VARICOSITIES: There are 0.2 cm proximal anterior thigh varicose veins with reflux time of 1508 ms. There is a 0.2 cm varicose vein in the proximal lateral thigh with 992 ms of reflux. 3. DEEP VENOUS ULTRASOUND OF THE LEFT LOWER EXTREMITY: Common Femoral Vein: Compressible, normal respiratory variation and augmented flow. Femoral Vein: Compressible, normal color flow and augmentation. Popliteal Vein: Compressible, normal augmentation. Deep Reflux: There is no evidence of reflux in the deep system in either the common femoral vein or the popliteal vein. There is no evidence of a Hidalgo's cyst. 4. SUPERFICIAL ULTRASOUND WITH DOPPLER OF LEFT LOWER EXTREMITY: GREAT SAPHENOUS VEIN: Saphenofemoral Junction: 0.6 cm. There is no reflux. Mid Thigh: 0.4 cm. The reflux time is 692 ms. Above Knee: Not seen. The great saphenous vein is also not seen at the knee. Below Knee: 0.1 cm. There is no reflux. Mid Calf: Not seen. Ankle: 0.2 cm. There is no reflux. GSV REFLUX: There is no reflux at the saphenofemoral junction. There is isolated reflux in the mid thigh. There are segments which are not seen and may have undergone previous treatment. DUPLICATED GREAT SAPHENOUS VEIN: There is a 0.4 cm duplicated lateral great saphenous vein without reflux. SMALL SAPHENOUS VEIN: Proximal: 0.3 cm Distal: 0.2 cm SSV REFLUX: No evidence of reflux. VEIN OF GIACOMINI: None Imaged. PERFORATORS: There are 0.2 cm mid thigh perforators without reflux. VARICOSITIES: There are 0.2 cm mid calf and lateral calf varicose veins without reflux. US/US venous duplex LE BI IMPRESSION: 1. The proximal right great saphenous vein is patent but without evidence of reflux at the saphenofemoral junction. This vessels not seen at the knee. It is seen in the mid calf with greater than 3 seconds of reflux. 2. There is a patent right small saphenous vein without reflux. 3. There are varicose veins in the proximal thigh with reflux. 4. The proximal left great saphenous vein is patent but without evidence of reflux at the saphenofemoral junction. This vessels not seen above the knee and at the knee and may have previously undergone treatment. 5. There is a patent left small saphenous vein without evidence of reflux. 6. There are varicose veins in the calf measuring 0.2 cm without reflux.
== END 2021-10-22 12:47 | disposition home or self-care (01) ==
LOC: HO.US 12:46
PROVIDERS: Visit Provider Surgery Vascular Surgery
DX: I83.11 Varicose veins of right lower extremity with inflammation (principal)
CPT/HCPCS: 93970

== ENCOUNTER → 2021-10-31 15:34 | Outpatient (BNVA) | payer OTHER, SELFPAY | PROVIDERS: PCP Internal Medicine; Visit Provider Surgery Vascular Surgery | DX: I83.11 Varicose veins of right lower extremity with inflammation (principal) ==

== ENCOUNTER 2021-11-21 15:44 | Outpatient (REF) | payer OTHER, SELFPAY ==
--- NOTE | ~2021-11-21 | XR_ITS ---
EXAMINATION: XR TOES, RIGHT CLINICAL INFORMATION: Pain in right toes COMPARISON: None TECHNIQUE: 3 views of the right toes were obtained. FINDINGS: No acute visible fracture or dislocation. Periarticular osteophyte noted at the medial aspect of the first interphalangeal joint. Joint spaces and alignment are otherwise maintained. Soft tissues are unremarkable. XR/XR toe RT min 2V IMPRESSION: 1. No acute visible fracture or dislocation. 2. Periarticular osteophyte noted at the medial aspect of the first interphalangeal joint.
== END 2021-11-21 15:45 | disposition home or self-care (01) ==
LOC: HO.HMGCX 15:44
PROVIDERS: PCP Internal Medicine
DX: M79.674 Pain in right toe(s) (principal)
CPT/HCPCS: 73660

== ENCOUNTER 2022-02-02 10:31 | Emergency (ER) | payer OTHER, SELFPAY ==
--- NOTE | ~2022-02-02 | XR_ITS ---
EXAMINATION: XR CHEST CLINICAL INFORMATION: Productive cough, fever. COMPARISON: 06/19/2021 chest radiograph. TECHNIQUE: 2 views of the chest were obtained. FINDINGS: No significant abnormality is noted involving the heart, lungs, mediastinum, bony thorax or soft tissues. XR/XR chest 2V IMPRESSION: No acute cardiopulmonary process.
[2022-02-02 12:27] VITALS: BP 139/76; PULSE 99; RESP 18; TEMP 36.8; O2SAT 98; BMI 35.2
[2022-02-02 13:21] LABS: COVID-19 Test Negative (Negative); IDNOW Serial# 16C4AD1C
--- NOTE | 2022-02-02 15:00 | ED.GENADULT ---
HPI - General Adult General Chief complaint: General Medical Stated complaint: Coughing, nausea, fatigue, fever Time Seen by Provider: 02/02/22 14:06 Source: patient Mode of arrival: ambulatory Limitations: no limitations History of Present Illness HPI narrative: Patient is a 41 year old female presenting to the emergency department today with a cough. Patient states that for the last few days she has had a cough and body aches. Patient denies any dizziness, lightheadedness, abdominal pain, nausea, vomiting, chills, blurry vision, double vision, loss of vision, chest pain, difficulty breathing, shortness of breath, back pain, night sweats, pain with urination, increased urinary frequency, increased urinary urgency, blood in her urine or stool, syncope or a near syncopal episode, recent trauma or falls, bowel incontinence, bladder incontinence, bowel retention, bladder retention, or any other complaints at this time. Onset (ago): day(s) (3) Severity: mild Severity scale (1-10): 2 Quality: dull Relieving factors: none Exacerbating factors: none Associated symptoms: cough and fever/chills Treatments prior to arrival: none Related Data Home Medications Medication Instructions Recorded Confirmed norethindrone 1 mg-ethinyl 1 tab PO DAILY 09/17/21 11/22/21 estradiol 35 mcg tablet (Alyacen) Previous Rx's Medication Instructions Recorded acetaminophen 500 mg tablet 500 mg PO Q6H PRN pain #14 tabs 08/23/20 (Tylenol Extra Strength) ibuprofen 800 mg tablet 800 mg PO Q8H PRN pain #14 tabs 01/12/21 lorazepam 0.5 mg tablet 0.5 mg PO DAILY PRN Travel anxiety 09/03/21 4 days #4 tabs escitalopram oxalate 10 mg tablet 10 mg PO DAILY 90 days #90 tabs 10/03/21 (Lexapro) colchicine 0.6 mg tablet See Rx Instructions .Route 11/21/21 .COMPLEX #3 tabs prednisone 50 mg tablet 50 mg PO DAILY #5 tabs 11/21/21 benzonatate 200 mg capsule 200 mg PO TID PRN cough #20 caps 02/02/22 doxycycline hyclate 100 mg capsule 100 mg PO BID 5 days #10 caps 02/02/22 Allergies Allergy/AdvReac Type Severity Reaction Status Date / Time azithromycin [AZITHROMYCIN] Allergy Unknown low heart Verified 11/22/21 12:48 rate Review of Systems Constitutional: Constitutional: Reports no additional constitutional complaints, Denies chills, Reports fever(s) and Denies night sweats Eyes: Eyes: Reports no additional eye complaints, Denies blurry vision, Denies change in vision, Denies diplopia, Denies eye discharge, Denies loss of vision and Denies eye pain ENT: Denies dizziness Cardiovascular: Cardiovascular: Reports no additional cardiovascular complaints, Denies chest pain, Denies lightheadedness, Denies Loss of Consciousness and Denies dyspnea Respiratory: Respiratory: Reports no additional respiratory complaints, Reports cough and Denies dyspnea Gastrointestinal: Gastrointestinal: Reports no additional gastrointestinal complaints, Denies abdominal pain, Denies melena, Denies hematochezia, Denies change in bowel habits and Denies change in stool character Genitourinary: Genitourinary: Denies hematuria, Denies urinary frequency, Denies dysuria, Denies urinary incontinence, Denies urinary hesitancy and Denies urinary urgency Musculoskeletal: Musculoskeletal: Reports no additional musculoskeletal complaints, Denies numbness and Denies tingling Neurologic: Denies dizziness, Denies loss of vision, Denies numbness and Denies tingling Psychiatric: Psychiatric: Reports no additional psychiatric complaints Endocrine: Endocrine: Reports no additional endocrine complaints Hematologic/Lymphatic: Hematologic/Lymphatic: Reports no additional hematologic/lymphatic complaints Allergic/Immunologic: Allergic/Immunologic: Reports no additional allergic/immunologic complaints [facility] Past Medical History Attestation statement: The following information was validated with the patient. Source: old records reviewed Medical History History of blood clots Lupus Pain of right great toe Paresthesias in left hand Weakness of left arm Surgical History H/O: hysterectomy History of bunionectomy Hx of carpal tunnel repair Hx of cholecystectomy Hx of lumpectomy Family History Family History Father High cholesterol HTN (hypertension) Stroke Mother Lupus Substance use disorder Congenital heart disease Dementia Sister Lupus Maternal Aunt Dementia Maternal Aunt Dementia Maternal Aunt Dementia Maternal Aunt Dementia Maternal Aunt Dementia Social History Social History Household Members: Spouse and Children Housing: House Alcohol intake: current Alcohol intake frequency: a few times a month Alcohol type: wine Patient Tobacco Use Status: Former Tobacco user (18 years) Quit Date: 2001 Years Smoked: 5 e-Cigarette/Vaping Use: Never Used Advance Directives: No Advance Directives Information Provided: No service: No Current occupational status: employed 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[employer] Cognitive needs: No Hearing needs: No Vision needs: Yes (contacts) Physical Exam ED Vital Signs: Vital Signs - 24 hr 02/02/22 12:27 02/02/22 15:06 Temperature 98.2 F 98.8 F Pulse Rate 99 101 H Respiratory Rate 18 18 Blood Pressure 139/76 134/73 Pulse Oximetry 98 99 Oxygen Delivery Method Room Air Room Air BMI result Body Mass Index 35.2 Const General: cooperative, no acute distress, alert and awake Nutritional Appearance: well nourished Orientation/consciousness: patient oriented x3 Limitations: no limitations HENMT Head: Yes normal to inspection and Yes atraumatic Ears: hearing grossly normal bilaterally and external ears normal General nose exam: Normal external nose present, no nasal discharge noted and no epistaxis Face and sinus: Yes normal facial exam, No abrasion and No laceration Mouth: Normal oral and palatal mucosa present, no drooling and no muffled voice Eyes General: appearance normal, both eyes and all related structures Periorbital: periorbital findings normal Eyelids: Yes eyelids normal Conjunctivae: conjunctivae normal Pupils: Equal, round and reactive pupils present EOM: EOMs intact bilaterally Neck Neck: Yes normal visual inspection, Yes full ROM and Yes no lymphadenopathy Chest Chest palpation & inspection: normal inspection of the chest Resp Effort & Inspection: normal respiratory effort and able to speak in complete sentences Auscultation: clear to auscultation bilaterally Cardio Rate: regular rate Rhythm: regular rhythm GI Inspection: Yes normal to inspection Neuro General: patient oriented x3 and moves all extremities Cranial nerves: Yes Equal, round and reactive pupils present Cognition (Neuro): normal cognition Motor exam (neuro): 5/5 motor strength present throughout Sensory Exam: Normal double simultaneous stimulation for sensation Coordination: [id number] test normal Extrem General: Yes normal to inspection, Yes full ROM and Yes capillary refill normal Psych Appearance: grossly normal Mental Status: mental status grossly normal Affect: normal affect Attitude: cooperative Thought process: Normal thought process present Thought content: Normal thought content present Insight: Good insight present (Psych) Medical Decision Making MDM Narrative Medical decision making narrative: Patient is a 41 year old female presenting to the emergency department today with a fever and a cough. Patient's physical exam was unremarkable. Patient's COVID-19 test was negative. Patient's chest x-ray showed no acute process. I explained my physical exam findings as well as all test results to the patient. I answered all questions asked by the patient. I stressed the importance of the patient taking her medication as prescribed. I stressed the importance of the patient following up with her primary care provider. I stressed the importance of the patient returning to the emergency department immediately if her symptoms were to worsen or if she were to develop any dizziness, shortness of breath, difficulty breathing, chest pain, blurry vision, loss of vision, nausea, vomiting, abdominal pain, fever, chills, back pain, or any other complaints. Patient verbalized agreement and understanding with this treatment plan and discharge. Differential Diagnosis Differential Diagnosis: cough Medical Records Medical records reviewed: Yes I reviewed the patient's medical records. Lab Data Lab results reviewed: Yes I reviewed the patient's lab results. Labs: Lab Results 02/02/22 Range/Units 12:34 COVID-19 ([facility]) Negative (Negative) COVID-19 Clin Com See Note Imaging Data Chest x-ray: Attestation: I personally reviewed and interpreted this imaging study as follows: My impression: No acute process. Radiologist's impression: EXAMINATION: XR CHEST CLINICAL INFORMATION: Productive cough, fever. COMPARISON: 06/19/2021 chest radiograph. TECHNIQUE: 2 views of the chest were obtained. FINDINGS: No significant abnormality is noted involving the heart, lungs, mediastinum, bony thorax or soft tissues. XR/XR chest 2V IMPRESSION: No acute cardiopulmonary process. Dictated By: Bobby Hernandez MD Signed By: Electronically signed by Bobby Hernandez MD 02/02/22 1344 Discharge Plan Discharge Clinical Impression: Cough Patient Disposition: Home, Self-Care Instructions: Acute Cough (ED) Additional Instructions: Follow up with your primary care provider. Return to the emergency department immediately if your symptoms worsen or if you develop any dizziness, shortness of breath, difficulty breathing, chest pain, blurry vision, loss of vision, nausea, vomiting, abdominal pain, fever, chills, back pain, or any other complaints. Prescriptions: New benzonatate 200 mg capsule 200 mg PO TID PRN (Reason: cough) Qty: 20 0RF doxycycline hyclate 100 mg capsule 100 mg PO BID 5 Days Qty: 10 0RF No Action lorazepam 0.5 mg tablet 0.5 mg PO DAILY PRN (Reason: Travel anxiety) 4 Days Qty: 4 0RF escitalopram oxalate [Lexapro] 10 mg tablet 10 mg PO DAILY 90 Days Qty: 90 0RF acetaminophen [Tylenol Extra Strength] 500 mg tablet 500 mg PO Q6H PRN (Reason: pain) Qty: 14 0RF ibuprofen 800 mg tablet 800 mg PO Q8H PRN (Reason: pain) Qty: 14 0RF colchicine 0.6 mg tablet See Rx Instructions .ROUTE .COMPLEX Qty: 3 0RF Rx Instructions: 1.2 mg now and 0.6 mg in 1 hour; prednisone 50 mg tablet 50 mg PO DAILY Qty: 5 0RF Alyacen 135 (28) 1-35 mg-mcg tablet 1 tab PO DAILY Referrals: Maggie Crystal MD [Primary Care Provider] - Stand Alone Forms: Work/School Release Interventions: ED Discharge Assessment Last Done: 02/02/22 15:16 Discharge Date/Time: 02/02/22 15:18 Print Language: Urdu
[2022-02-02 15:06] VITALS: BP 134/73; PULSE 101; RESP 18; TEMP 37.1; O2SAT 99
== END 2022-02-02 15:18 | disposition home or self-care (01) ==
PROVIDERS: Emergency Provider Emergency Medicine; PCP Internal Medicine
DX: R05.9 Cough, unspecified (principal); R50.9 Fever, unspecified; Z20.822 Contact with and (suspected) exposure to COVID-19; Z87.891 Personal history of nicotine dependence; Z79.899 Other long term (current) drug therapy
CPT/HCPCS: 71046; 87635; 99282; 99283

== ENCOUNTER 2022-03-14 08:02 | Outpatient (REF) | payer OTHER, SELFPAY ==
--- NOTE | ~2022-03-14 | XR_ITS ---
EXAMINATION: XR HIP, LEFT WITH AP PELVIS CLINICAL INFORMATION: Hip pain. COMPARISON: Prior radiographs, most recently 04/15/2021. TECHNIQUE: AP and frog-leg lateral views of the left hip are submitted, together with a frontal view of the pelvis. FINDINGS: Bones and soft tissues are normal. No fracture. There is a tiny accessory ossification center seen lateral to the right acetabular roof. Alignment is anatomic. Hip joint space is maintained. There are multiple pelvic phleboliths. XR/XR hip LT w PEL1V IMPRESSION: Unremarkable pelvis and left hip radiographs.
== END 2022-03-14 08:03 | disposition home or self-care (01) ==
LOC: HO.HOSX 08:02
PROVIDERS: Visit Provider Physician Assistant
DX: M70.72 Other bursitis of hip, left hip (principal)
CPT/HCPCS: 20610; 73502; J1040

== ENCOUNTER 2022-03-25 15:10 | Outpatient (REF) | payer OTHER, SELFPAY ==
--- NOTE | ~2022-03-25 | MM_ITS ---
EXAMINATION: MM SCREENING DIGITAL BREAST TOMOSYNTHESIS, BILATERAL CLINICAL INFORMATION: Screening. Asymptomatic. The lifetime risk of breast cancer based on the Tyrer-Cuzick Model is 9%. COMPARISON: Outside mammography: 12/20/2020, 08/27/2020, 08/16/2020, 08/08/2020 ([facility]). TECHNIQUE: Digital breast tomosynthesis is performed in both the craniocaudal and mediolateral oblique views along with computer-aided detection (CAD). Synthesized 2D images are generated from the tomosynthesis. FINDINGS: There are scattered areas of fibroglandular density (ACR BI-RADS breast composition Category b). Parenchymal pattern is similar to prior outside studies. There is no developing density or interval mass or architectural abnormality. No abnormal calcifications. Right breast again has a stable oval nodule anterior outer breast with overlying ribbon shaped biopsy clip marker. There are also stable nodules right breast in the posterior outer and central anterior areas. The axilla and skin contours are unremarkable. No significant changes. MM/MM tomosynthesis screening BI IMPRESSION: No mammographic evidence of malignancy. ASSESSMENT: BI-RADS 2: Benign RECOMMENDATION: Routine annual mammography screening. This patient's information was entered into a reminder system with a target due date for their next mammogram.
== END 2022-03-25 15:11 | disposition home or self-care (01) ==
LOC: HO.MAMMO 15:10
PROVIDERS: PCP Internal Medicine; Visit Provider Internal Medicine
DX: Z12.31 Encounter for screening mammogram for malignant neoplasm of breast (principal)
CPT/HCPCS: 77063; 77067

== ENCOUNTER 2022-04-15 15:26 | Outpatient (REF) | payer OTHER, SELFPAY ==
[2022-04-15 15:43] LABS: MANUAL DIFF FLAG NO
[2022-04-15 15:49] LABS: Basophils Percent Auto 0.4 % (0-2); Eosinophils Absolute Auto 0.1 X10*3/uL (0.0-0.4); Eosinophils Percent Auto 1.3 % (0-4); Hematocrit 37.3 % (37.0-47.0); Hemoglobin 12.6 g/dl (12.0-16.0); Imm Gran Abs Auto 0.04 X10*3/uL (0.00-0.03); Imm Gran Pct Auto 0.4 % (0.0-0.4); Lymphocytes Absolute Auto 2.7 X10*3/uL (1.2-4.9); Lymphocytes Percent Auto 25.9 % (20-40); Mean Corpuscular HGB Conc 33.8 g/dl (31.0-35.0); Mean Corpuscular Hemoglobin 29.7 pg (27.0-33.0); Mean Platelet Volume 10.9 fL (9.4-12.3); Monocytes Absolute Auto 0.8 X10*3/uL (0.1-1.2); Monocytes Percent Auto 7.4 % (2-11); Neutrophils Absolute Auto 6.7 x10*3/uL (2.0-8.3); Neutrophils Percent Auto 64.6 % (45-73); Platelet Count 289 X10*3/uL (160-400); Red Blood Count 4.24 X10*6/uL (4.20-5.50); Red Cell Distribution Width 12.7 % (11.0-16.0); White Blood Count 10.3 X10*3/uL (4.8-10.8)
[2022-04-15 15:59] LABS: Ammonia 39 umol/L (13-55)
== END 2022-04-15 15:27 | disposition home or self-care (01) ==
LOC: HO.LAB 15:26
PROVIDERS: PCP Internal Medicine; Visit Provider Internal Medicine
DX: D72.829 Elevated white blood cell count, unspecified (principal); R79.89 Other specified abnormal findings of blood chemistry
CPT/HCPCS: 36415; 82140; 85025

== ENCOUNTER → 2022-06-24 12:04 | Outpatient (BNVA) | payer OTHER, SELFPAY | PROVIDERS: PCP Internal Medicine; Visit Provider Physician Assistant | DX: M70.72 Other bursitis of hip, left hip (principal); M54.50 Low back pain, unspecified ==

== ENCOUNTER 2022-07-18 19:39 | Emergency (ER) | payer OTHER, SELFPAY ==
--- NOTE | ~2022-07-18 | CT_ITS ---
EXAMINATION: CT HEAD WITHOUT CONTRAST CLINICAL INFORMATION: Vision changes. COMPARISON: CT head 09/04/2020. TECHNIQUE: Contiguous axial imaging was performed from the skull base to vertex without intravenous administration of contrast. This CT examination was performed using dose optimization techniques as appropriate, variously including the following: *Automated exposure control *Adjustment of mA and/or kV according to patient size (this includes techniques or standardized protocols for targeted exams where dose is matched to indication/reason for exam; i.e. extremities or head) *Use of iterative reconstruction technique DLP: 633 mGy-cm FINDINGS: There is no acute intracranial hemorrhage or abnormal extra-axial collection. No intracranial mass effect or midline shift. Lateral and third ventricles are normal. No hydrocephalus. Chacon-white matter differentiation is preserved and there is no evidence of acute territorial infarct. The calvarium and skull base are intact. Mastoid air cells and middle ear cavities are well aerated. No active paranasal sinus disease. Globes and orbits are symmetric. CT/CT head/brain wo IV con IMPRESSION: Normal CT scan of the head. No evidence of acute territorial infarct or hemorrhage.
[2022-07-18 19:43] VITALS: BP 157/87; PULSE 109; RESP 20; TEMP 36.4; O2SAT 95; BMI 34.4
--- NOTE | 2022-07-18 19:44 | ED.GENADULT ---
HPI - General Adult General Chief complaint: Neuro Symptoms/Deficit <JARET Wong - Last Filed: 07/18/22 19:45> Stated complaint: Vision issues <JARET Wong - Last Filed: 07/18/22 19:45> Time Seen by Provider: 07/18/22 22:31 <JARET Wong - Last Filed: 07/18/22 19:45> Source: patient <Jose Wells MD - Last Filed: 07/18/22 23:06> Mode of arrival: ambulatory <Jose Wells MD - Last Filed: 07/18/22 23:06> Limitations: no limitations <Jose Wells MD - Last Filed: 07/18/22 23:06> History of Present Illness HPI narrative: Patient history of migraine headaches otherwise healthy noticed sudden onset of blurred vision while looking to the right side at 11:00 lasted for half an hour patient felt zigzag light flashes in both eyes while looking at the right side no scotomas no double vision no pain in the eyes patient feels normal now patient denies any headache no nausea no vomiting no other focal weakness <Jose Wells MD - Last Filed: 07/18/22 23:06> Related Data Home medications: Home Medications Medication Instructions Recorded Confirmed norethindrone 1 mg-ethinyl 1 tab PO DAILY 09/17/21 06/18/22 estradiol 35 mcg tablet (Alyacen) aspirin 81 mg tablet,delayed 81 mg PO DAILY 04/08/22 06/18/22 release atorvastatin 20 mg tablet 20 mg PO DAILY 04/08/22 06/18/22 Previous Rx's Medication Instructions Recorded acetaminophen 500 mg tablet 500 mg PO Q6H PRN pain #14 tabs 08/23/20 (Tylenol Extra Strength) naproxen 500 mg tablet 500 mg PO BID PRN pain #20 tabs 06/12/22 amitriptyline 10 mg tablet 10 mg PO BEDTIME 90 days #90 tabs 06/18/22 amoxicillin 500 mg capsule 500 mg PO Q8H #30 caps 07/16/22 prednisone 20 mg tablet 60 mg PO DAILY #9 tabs 07/16/22 <JARET Wong - Last Filed: 07/18/22 19:45> Allergies/adverse reactions: Allergies Allergy/AdvReac Type Severity Reaction Status Date / Time azithromycin [AZITHROMYCIN] Allergy Unknown low heart Verified 07/18/22 19:49 rate <JARET Wong - Last Filed: 07/18/22 19:45> Review of Systems Review of Systems: Yes all other systems are reviewed and are negative <Jose Wells MD - Last Filed: 07/18/22 23:06> [facility] Past Medical History Medical History: Medical History History of blood clots Lupus Pain of right great toe Paresthesias in left hand Weakness of left arm <JARET Wong - Last Filed: 07/18/22 19:45> Surgical History: Surgical History H/O: hysterectomy History of bunionectomy Hx of carpal tunnel repair Hx of cholecystectomy Hx of lumpectomy <JARTE Wong - Last Filed: 07/18/22 19:45> Family History Family History: Family History Father High cholesterol HTN (hypertension) Stroke Mother Lupus Substance use disorder Congenital heart disease Dementia Sister Lupus Maternal Aunt Dementia Maternal Aunt Dementia Maternal Aunt Dementia Maternal Aunt Dementia Maternal Aunt Dementia <JARET Wong - Last Filed: 07/18/22 19:45> Social History Social History: Social History Household Members: Spouse and Children Housing: House Alcohol intake: current Alcohol intake frequency: a few times a month Alcohol type: wine Patient Tobacco Use Status: Former Tobacco user Quit Date: 2001 Years Smoked: 5 e-Cigarette/Vaping Use: Never Used Advance Directives: No Advance Directives Information Provided: No service: No Current occupational status: employed 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[employer] Cognitive needs: No Hearing needs: No Vision needs: Yes (contacts) <JARET Wong - Last Filed: 07/18/22 19:45> Physical Exam ED Vital Signs: Vital Signs - 24 hr 07/18/22 19:43 Temperature 97.5 F Pulse Rate 109 H Respiratory Rate 20 Blood Pressure 157/87 H Pulse Oximetry 95 Oxygen Delivery Method Room Air BMI result Body Mass Index 34.4 <JARET Wong - Last Filed: 07/18/22 19:45> Vital Signs - 24 hr 07/18/22 19:43 Temperature 97.5 F Pulse Rate 109 H Respiratory Rate 20 Blood Pressure 157/87 H Pulse Oximetry 95 Oxygen Delivery Method Room Air BMI result Body Mass Index 34.4 <Jose Wells MD - Last Filed: 07/18/22 23:06> Appearance: Alert. Oriented X3. No acute distress. Eyes: PERRLA, No Nystagmus anterior chamber normal visual field was normal IOP right eye 22 left eye in 19 EOMI fundus normal bilateral ENT: Pharynx normal. Oral Mucosa moist Neck: Normal inspection. Neck supple. CVS: Normal heart rate and rhythm. Pulses normal. Respiratory: No respiratory distress. Equal air entry bilateral, no wheezing/rales/rhonchi Abdomen: Soft and nontender. Bowel sounds are present, no mass palpable, no CVA tenderness Skin: Skin warm and dry. Normal skin color. Normal skin turgor. Extremities: No lower extremity edema. No calf tenderness Neuro: Oriented X 3. No motor deficit. No sensory deficit.No cerebellar signs , cranial nerves II-XII intact <Jose Wells MD - Last Filed: 07/18/22 23:06> Course Course Course Narrative: RME performed by Liz Kat PA-C. Patient is a 42 year old female presenting to the emergency department with an episode of blurry vision and colors in her vision. Patient states that she called the neurologist who recommended she come to the ER. <JARET Wong - Last Filed: 07/18/22 19:45> Procedures Procedure Narrative Procedure Narrative: Ultrasound of bilateral eyes normal lens normal anterior chamber and posterior chamber normal retina <Jose Wells MD - Last Filed: 07/18/22 23:06> Medical Decision Making Medical Decision Making MDM Narrative: Patient's CT scan of the head is negative for any CVA clinically patient has migraine headache as a cause of transient vision changes <Jose Wells MD - Last Filed: 07/18/22 23:06> Differential Diagnosis vitreous detachment/retinal detachment/floaters/migraine headache <Jose Wells MD - Last Filed: 07/18/22 23:06> Lab Data Result Diagrams: 07/18/22 20:28 07/18/22 20:28 <JARET Wong - Last Filed: 07/18/22 19:45> Labs: Lab Results 07/18/22 07/18/22 Range/Units 20:28 20:28 WBC 9.0 (4.8-10.8) X10*3/uL RBC 4.51 (4.20-5.50) X10*6/uL Hgb 13.3 (12.0-16.0) g/dl Hct 38.8 (37.0-47.0) % MCV 86.0 (80.0-98.0) fL MCH 29.5 (27.0-33.0) pg MCHC 34.3 (31.0-35.0) g/dl RDW 12.0 (11.0-16.0) % Plt Count 294 (160-400) X10*3/uL MPV 10.8 (9.4-12.3) fL Immature Gran % (Auto) 0.3 (0.0-0.4) % Neut % (Auto) 79.1 H (45-73) % Lymph % (Auto) 14.9 L (20-40) % Moffat % (Auto) 5.5 (2-11) % Eos % (Auto) 0.0 (0-4) % Baso % (Auto) 0.2 (0-2) % Lymph # (Auto) 1.3 (1.2-4.9) X10*3/uL Moffat # (Auto) 0.5 (0.1-1.2) X10*3/uL Eos # (Auto) 0.0 (0.0-0.4) X10*3/uL Baso # (Auto) 0.0 (0.0-0.2) X10*3/uL Abs Immat Gran (auto) 0.03 (0.00-0.03) X10*3/uL Absolute Neuts (auto) 7.1 (2.0-8.3) x10*3/uL Absolute Nucleated RBC 0.000 (0.0-0.012) X10*3/uL Nucleated RBC % (auto) 0.0 (0.0-0.2) /100WBC Sodium 139 (135-145) mmol/L Potassium 4.2 (3.3-5.1) mmol/L Chloride 108 (96-108) mmol/L Carbon Dioxide 19 L (22-29) mmol/L Anion Gap 16 (12-20) BUN 16 (9-16) mg/dL Creatinine 1.05 (0.5-1.4) mg/dL Estim Creat Clear Calc 78.2 Estimated GFR 57 Random Glucose 157 H (60-115) mg/dL Calcium 9.0 D (8.4-10.2) mg/dL Magnesium 1.8 (1.6-2.6) mg/dL Total Bilirubin 0.2 (0.0-1.0) mg/dL AST 19 (5-31) U/L ALT 20 (0-31) U/L Alkaline Phosphatase 62 (39-117) U/L Total Protein 7.0 (6.5-8.0) g/dL Albumin 3.9 (3.5-5.0) g/dL <JARET Wong - Last Filed: 07/18/22 19:45> Lab Results 07/18/22 07/18/22 Range/Units 20:28 20:28 WBC 9.0 (4.8-10.8) X10*3/uL RBC 4.51 (4.20-5.50) X10*6/uL Hgb 13.3 (12.0-16.0) g/dl Hct 38.8 (37.0-47.0) % MCV 86.0 (80.0-98.0) fL MCH 29.5 (27.0-33.0) pg MCHC 34.3 (31.0-35.0) g/dl RDW 12.0 (11.0-16.0) % Plt Count 294 (160-400) X10*3/uL MPV 10.8 (9.4-12.3) fL Immature Gran % (Auto) 0.3 (0.0-0.4) % Neut % (Auto) 79.1 H (45-73) % Lymph % (Auto) 14.9 L (20-40) % Moffat % (Auto) 5.5 (2-11) % Eos % (Auto) 0.0 (0-4) % Baso % (Auto) 0.2 (0-2) % Lymph # (Auto) 1.3 (1.2-4.9) X10*3/uL Moffat # (Auto) 0.5 (0.1-1.2) X10*3/uL Eos # (Auto) 0.0 (0.0-0.4) X10*3/uL Baso # (Auto) 0.0 (0.0-0.2) X10*3/uL Abs Immat Gran (auto) 0.03 (0.00-0.03) X10*3/uL Absolute Neuts (auto) 7.1 (2.0-8.3) x10*3/uL Absolute Nucleated RBC 0.000 (0.0-0.012) X10*3/uL Nucleated RBC % (auto) 0.0 (0.0-0.2) /100WBC Sodium 139 (135-145) mmol/L Potassium 4.2 (3.3-5.1) mmol/L Chloride 108 (96-108) mmol/L Carbon Dioxide 19 L (22-29) mmol/L Anion Gap 16 (12-20) BUN 16 (9-16) mg/dL Creatinine 1.05 (0.5-1.4) mg/dL Estim Creat Clear Calc 78.2 Estimated GFR 57 Random Glucose 157 H (60-115) mg/dL Calcium 9.0 D (8.4-10.2) mg/dL Magnesium 1.8 (1.6-2.6) mg/dL Total Bilirubin 0.2 (0.0-1.0) mg/dL AST 19 (5-31) U/L ALT 20 (0-31) U/L Alkaline Phosphatase 62 (39-117) U/L Total Protein 7.0 (6.5-8.0) g/dL Albumin 3.9 (3.5-5.0) g/dL <Jose Wells MD - Last Filed: 07/18/22 23:06> Discharge Plan Discharge Clinical Impression: Blurred vision, bilateral <JARET Wong - Last Filed: 07/18/22 19:45> Patient Disposition: Home, Self-Care <JARET Wong - Last Filed: 07/18/22 19:45> Instructions: Migraine Headache (ED), Blurred Vision (ED) <JARET Wong - Last Filed: 07/18/22 19:45> Additional Instructions: Possibly had the orifice of migraine as a cause of visual changes Your pressure in right eye was 22 and left eye was 19 Follow-up with eye doctor in 2-3 days <JARET Wong - Last Filed: 07/18/22 19:45> Prescriptions: No Action acetaminophen [Tylenol Extra Strength] 500 mg tablet 500 mg PO Q6H PRN (Reason: pain) Qty: 14 0RF aspirin 81 mg tablet,delayed release (DR/EC) 81 mg PO DAILY atorvastatin 20 mg tablet 20 mg PO DAILY amitriptyline 10 mg tablet 10 mg PO BEDTIME 90 Days Qty: 90 0RF naproxen 500 mg tablet 500 mg PO BID PRN (Reason: pain) Qty: 20 0RF amoxicillin 500 mg capsule 500 mg PO Q8H Qty: 30 0RF prednisone 20 mg tablet 60 mg PO DAILY Qty: 9 0RF Alyacen 1/35 (28) 1-35 mg-mcg tablet 1 tab PO DAILY <JARET Wong - Last Filed: 07/18/22 19:45> Referrals: Molina Ellis [Physician] - 1 week <JARET Wong - Last Filed: 07/18/22 19:45>
[2022-07-18 20:38] LABS: Basophils Percent Auto 0.2 % (0-2); Hematocrit 38.8 % (37.0-47.0); Hemoglobin 13.3 g/dl (12.0-16.0); Imm Gran Abs Auto 0.03 X10*3/uL (0.00-0.03); Imm Gran Pct Auto 0.3 % (0.0-0.4); Lymphocytes Absolute Auto 1.3 X10*3/uL (1.2-4.9); Lymphocytes Percent Auto 14.9 % (20-40); MANUAL DIFF FLAG NO; Mean Corpuscular HGB Conc 34.3 g/dl (31.0-35.0); Mean Corpuscular Hemoglobin 29.5 pg (27.0-33.0); Mean Platelet Volume 10.8 fL (9.4-12.3); Monocytes Absolute Auto 0.5 X10*3/uL (0.1-1.2); Monocytes Percent Auto 5.5 % (2-11); Neutrophils Absolute Auto 7.1 x10*3/uL (2.0-8.3); Neutrophils Percent Auto 79.1 % (45-73); Platelet Count 294 X10*3/uL (160-400); Red Blood Count 4.51 X10*6/uL (4.20-5.50)
[2022-07-18 20:55] LABS: Alanine Aminotransferase 20 U/L (0-31); Albumin Level 3.9 g/dL (3.5-5.0); Alkaline Phosphatase 62 U/L (39-117); Anion Gap 16 (12-20); Aspartate Amino Transferase 19 U/L (5-31); Bilirubin Total 0.2 mg/dL (0.0-1.0); Blood Urea Nitrogen 16 mg/dL (9-16); Carbon Dioxide 19 mmol/L (22-29); Chloride 108 mmol/L (96-108); Creatinine Clr Calc Pharmacy 78.2; Estimated Glomerular Filt Rate 57; Glucose Random 157 mg/dL (60-115); Magnesium 1.8 mg/dL (1.6-2.6); Potassium 4.2 mmol/L (3.3-5.1); Sodium 139 mmol/L (135-145)
--- NOTE | 2022-07-18 21:57 | PC.NURSE ---
c/o blurred vision with some pressure
--- NOTE | 2022-07-18 23:13 | PC.NURSE ---
discharge instructions given/explained, no apparent distress, all questions answered, steady gait
== END 2022-07-18 23:14 | disposition home or self-care (01) ==
PROVIDERS: Physician Assistant Medical; Emergency Provider Internal Medicine; PCP Internal Medicine
DX: H53.8 Other visual disturbances (principal); R51.9 Headache, unspecified; Z87.891 Personal history of nicotine dependence; Z79.899 Other long term (current) drug therapy
CPT/HCPCS: 36415; 70450; 80053; 83735; 85025; 99284

== ENCOUNTER → 2022-07-31 14:11 | Outpatient (BNVA) | payer OTHER, SELFPAY | PROVIDERS: PCP Internal Medicine; Visit Provider Nurse Practitioner Family | DX: Z13.89 Encounter for screening for other disorder (principal) ==

== ENCOUNTER 2022-08-18 07:19 | Outpatient (REF) | payer OTHER, SELFPAY ==
--- NOTE | ~2022-08-18 | MR_ITS ---
EXAMINATION: MR LUMBAR SPINE WITHOUT CONTRAST CLINICAL INFORMATION: Radiculopathy, lumbar region. COMPARISON: None TECHNIQUE: MRI of the lumbar spine was obtained using routine sequences without contrast. FINDINGS: The lumbar vertebral bodies maintain normal heights and alignment. There is moderate to severe disc height loss at T12-L1 with a broad-based Schmorl's node seen along the inferior aspect of T12. Small hemangiomata are seen at T12, L3, and L5. The distal spinal cord appears normal. The conus medullaris terminates normally at the L1 level. The extraspinal soft tissues are within normal limits. SPINAL LEVELS: T12-L1: Left paracentral protrusion causing mild flattening the ventral thecal sac. No spinal canal or neural foraminal stenosis. L1-L2: No posterior disc abnormality. No spinal canal or neural foraminal stenosis. L2-L3: No posterior disc abnormality. No spinal canal or neural foraminal stenosis. L3-L4: No posterior disc abnormality. No spinal canal or neural foraminal stenosis. L4-L5: No posterior disc abnormality. Mild facet arthropathy. No spinal canal or neural foraminal stenosis. L5-S1: No posterior disc abnormality. No spinal canal or neural foraminal stenosis. MR/MR lumbar spine wo con IMPRESSION: No spinal canal stenosis or nerve root compression. Disc height loss with inferior endplate Schmorl's node seen at T12-L1.
== END 2022-08-18 07:20 | disposition home or self-care (01) ==
LOC: HO.MRI 07:19
PROVIDERS: PCP Internal Medicine; Visit Provider Nurse Practitioner Family
DX: M47.817 Spondylosis without myelopathy or radiculopathy, lumbosacral region (principal); M54.16 Radiculopathy, lumbar region; M62.830 Muscle spasm of back
CPT/HCPCS: 72148

== ENCOUNTER 2022-08-22 10:22 | Outpatient (REF) | payer OTHER, SELFPAY ==
--- NOTE | ~2022-08-22 | US_ITS ---
EXAMINATION: US ABDOMEN LIMITED CLINICAL INFORMATION: Unilateral inguinal hernia, left lung groin/suprapubic. COMPARISON: CT abdomen and pelvis without contrast 08/23/2020. TECHNIQUE: Real-time imaging of the left inguinal area, as indicated by patient. FINDINGS: Corresponding to patient indicated site of palpable lump in the left inguinal region is a 0.6 cm fat-containing hernia without definite associated bowel. Incidentally seen left intraovarian cyst measuring 3.5 x 3.3 x 3.2 cm, incompletely evaluated. US/US abdomen limited IMPRESSION: 1. Corresponding to patient indicated site of palpable lump in the left inguinal region is a 0.6 cm fat-containing hernia without definite associated bowel. 2. Incidentally seen left intraovarian cyst measuring 3.5 cm, incompletely evaluated. Recommend further evaluation with dedicated pelvic ultrasound.
== END 2022-08-22 10:23 | disposition home or self-care (01) ==
LOC: HO.HMGCX 10:22
PROVIDERS: PCP Internal Medicine; Visit Provider Internal Medicine
DX: K40.90 Unilateral inguinal hernia, without obstruction or gangrene, not specified as recurrent (principal)
CPT/HCPCS: 76705

== ENCOUNTER → 2022-08-29 15:19 | Outpatient (BNVA) | payer OTHER, SELFPAY | PROVIDERS: PCP Internal Medicine; Visit Provider Nurse Practitioner Family | DX: Z13.89 Encounter for screening for other disorder (principal) ==

== ENCOUNTER 2022-10-07 06:10 | Outpatient (REF) | payer OTHER, SELFPAY | END 2022-10-07 06:11 | disposition home or self-care (01) | LOC: CF 06:10 | PROVIDERS: Visit Provider Anesthesiology | DX: Z13.89 Encounter for screening for other disorder (principal) ==

== ENCOUNTER 2022-10-14 05:58 | Outpatient (REF) | payer OTHER, SELFPAY ==
--- NOTE | ~2022-10-14 | FL_ITS ---
EXAMINATION: XR FLUOROSCOPY WITH IMAGES CLINICAL INFORMATION: M51.35 - Other intervertebral disc degeneration, thoracolumbar region COMPARISON: Pelvis and hip radiographs 03/14/2022 TECHNIQUE: Fluoroscopy Supervised By: Dr. Cayden Calvillo. Fluoroscopy Time: 0.1 minutes. Cumulative Dose: 2.92 mGy. DAP: 0.0508 Gycm2. Images: 1. FINDINGS: Spinal needle overlies mid left SI joint. There is contrast in the periarticular soft tissues with probable early intra-articular contrast. No vasculature communication appreciated. FL/FL guidance in treatment room IMPRESSION: Fluoroscopy for pain management procedure.
== END 2022-10-14 05:59 | disposition home or self-care (01) ==
LOC: CF 05:58
PROVIDERS: Visit Provider Anesthesiology
DX: M53.3 Sacrococcygeal disorders, not elsewhere classified (principal); M47.817 Spondylosis without myelopathy or radiculopathy, lumbosacral region; M54.16 Radiculopathy, lumbar region; M46.1 Sacroiliitis, not elsewhere classified
CPT/HCPCS: 27096; J3301

== ENCOUNTER → 2022-10-17 08:59 | Outpatient (BNVA) | payer OTHER, SELFPAY | PROVIDERS: PCP Internal Medicine; Visit Provider Nurse Practitioner Family ==

== ENCOUNTER → 2022-11-28 15:15 | Outpatient (BNVA) | payer OTHER, SELFPAY | PROVIDERS: PCP Internal Medicine; Visit Provider Nurse Practitioner Family ==

== ENCOUNTER 2022-12-03 15:24 | Outpatient (REF) | payer OTHER, SELFPAY ==
--- NOTE | ~2022-12-03 | XR_ITS ---
EXAMINATION: XR FOOT, LEFT CLINICAL INFORMATION: Pain of left foot COMPARISON: Radiographs of the left foot from 06/01/2013 TECHNIQUE: 3 views of the left foot. FINDINGS: Bones have normal alignment throughout the foot. No acute fracture, subluxation or focal soft tissue swelling. Small enthesophytes at the posterior and plantar surfaces of the calcaneus. No suspicious osseous lesion. The medial surface of the 1st metatarsal head is relatively flat; correlate for any remote history of bunionectomy. There appears to be chronic minimal narrowing of the 1st metatarsophalangeal joint space (i.e., minimal osteoarthrosis). The head of the 2nd proximal phalanx has a truncated appearance and this is could be sequela of remote trauma. No erosions or periostitis. XR/XR foot LT min 3V IMPRESSION: * No specific source of pain is identified. No acute fracture, malalignment or osseous erosion. * There are small enthesophytes at the posterior and plantar surfaces of the calcaneus.
== END 2022-12-03 15:25 | disposition home or self-care (01) ==
LOC: HO.XRAY 15:24
PROVIDERS: PCP Internal Medicine; Visit Provider Nurse Practitioner Family
DX: M79.672 Pain in left foot (principal)
CPT/HCPCS: 73630

== ENCOUNTER 2022-12-12 06:27 | Day surgery (SDC) | payer OTHER, SELFPAY ==
[2022-12-09 15:49] VITALS: BMI 35.5
--- NOTE | 2022-12-11 09:27 | HO.ANESPROP2 ---
Documented by User: Dorota Warren NP 12/11/22 09:28 HPI - Anesthesia Eval Consult details Narrative: 42yo F for Left Therapeutic Sacroiliac Joint Steroid Injection PMFSH Active Problems Active Problems: All Active Problems (Updated 11/28/22 @ 15:44 by RYLEY Wadsworth) Pain of left heel (Acute) Sacroiliitis (Acute) DDD (degenerative disc disease), thoracolumbar (Acute) Greater trochanteric bursitis of left hip (Acute) Paresthesia and pain of left extremity (Acute) Inguinal hernia, left (Acute) Urine incontinence (Acute) Sacroiliac joint pain (Acute) Lumbosacral spondylosis (Acute) Lumbar back pain with radiculopathy affecting left lower extremity (Acute) Muscle spasm of back (Acute) Upper respiratory tract infection (Acute) Complicated migraine (Acute) Lipid disorder (Acute) Dizziness (Acute) Abnormal brain MRI (Acute) Leukocytosis (Acute) Increased ammonia level (Acute) Hip bursitis, left (Acute) Obesity due to excess calories (Acute) Pain of right great toe (Acute) Lymphedema (Acute) Varicose veins of right lower extremity with inflammation (Acute) Varicose veins of left lower extremity with pain (Acute) Lumbar pain (Acute) COVID-19 (Acute) Encounter for assessment of work-related causation of injury (Acute) Back injury (Acute) Fall (Acute) Hip pain, left (Acute) Left shoulder tendonitis (Acute) Osteitis pubis (Acute) Cervical radiculopathy (Acute) Wheezing (Acute) Back pain (Acute) Carpal tunnel syndrome, left (Acute) Hospital discharge follow-up (Acute) Family history of systemic lupus erythematosus (Acute) AMADOR positive (Acute) Pain of left breast (Acute) Anti-cardiolipin antibody positive (Acute) Acute sinusitis (Acute) Low back pain radiating to left leg (Acute) Osteitis pubis (Acute) Trochanteric bursitis, left hip (Acute) Major depression, recurrent (Acute) Weakness of left arm (Acute) Paresthesias in left hand (Acute) Past Medical History Medical History History of blood clots Lupus Pain of right great toe Paresthesias in left hand Weakness of left arm Family History Family History Father High cholesterol HTN (hypertension) Stroke Mother Lupus Substance use disorder Congenital heart disease Dementia Sister Lupus Maternal Aunt Dementia Maternal Aunt Dementia Maternal Aunt Dementia Maternal Aunt Dementia Maternal Aunt Dementia Surgical History Surgical History H/O: hysterectomy History of bunionectomy Hx of carpal tunnel repair Hx of cholecystectomy Hx of lumpectomy Social History Social History Household Members: Spouse and Children Housing: House Alcohol intake: current Alcohol intake frequency: holidays/special occasions only Alcohol type: wine Patient Tobacco Use Status: Former Tobacco user Quit Date: 2000 Smoked: 5 e-Cigarette/Vaping Use: Never Used Use of substances other than those prescribed or required for medical reasons: No Are you DNR?: No Advance Directives: No Advance Directives Information Provided: Yes service: No Current occupational status: employed 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[employer] Cognitive needs: No Hearing needs: No Vision needs: Yes (contacts) Meds Allergies Allergy/AdvReac Type Severity Reaction Status Date / Time azithromycin [AZITHROMYCIN] Allergy Unknown low heart Verified 11/28/22 15:20 rate Home Medications Medication Instructions Recorded Confirmed Last Taken Type cholecalciferol (vitamin D3) 125 125 mcg PO DAILY 10/14/22 Unknown History mcg (5,000 unit) tablet (Vitamin D3) Exam Exam Date and Time: December 11, 2022 0927 Height,Weight and Vital Signs: Height 5 ft 5 in Weight 96.842 kg Pertinent Lab Results Pertinent Lab Results: Laboratory Tests 07/18/22 07/18/22 20:28 20:28 WBC 9.0 Hgb 13.3 Hct 38.8 Plt Count 294 Sodium 139 Potassium 4.2 Chloride 108 Carbon Dioxide 19 L BUN 16 Creatinine 1.05 Assessment and Plan Assessment Anesthesia Assessment: Chart Reviewed Documented by User: Isabel Diego MD 12/12/22 07:29 [facility] Past Medical History Medical History History of blood clots Lupus Pain of right great toe Paresthesias in left hand Weakness of left arm Family History Family History Father High cholesterol HTN (hypertension) Stroke Mother Lupus Substance use disorder Congenital heart disease Dementia Sister Lupus Maternal Aunt Dementia Maternal Aunt Dementia Maternal Aunt Dementia Maternal Aunt Dementia Maternal Aunt Dementia Family history of problems with anesthesia: No Surgical History Surgical History H/O: hysterectomy History of bunionectomy Hx of carpal tunnel repair Hx of cholecystectomy Hx of lumpectomy History of Problems with Anesthesia: No Social History Social History Household Members: Spouse and Children Housing: House Alcohol intake: current Alcohol intake frequency: holidays/special occasions only Alcohol type: wine Patient Tobacco Use Status: Former Tobacco user Quit Date: 2000 Years Smoked: 5 e-Cigarette/Vaping Use: Never Used Use of substances other than those prescribed or required for medical reasons: No Are you DNR?: No Advance Directives: No Advance Directives Information Provided: Yes service: No Current occupational status: employed 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[employer] Cognitive needs: No Hearing needs: No Vision needs: Yes (contacts) Meds Allergies Allergy/AdvReac Type Severity Reaction Status Date / Time azithromycin [AZITHROMYCIN] Allergy Unknown low heart Verified 11/28/22 15:20 rate Home Medications Medication Instructions Recorded Confirmed Last Taken Type cholecalciferol (vitamin D3) 125 125 mcg PO DAILY 10/14/22 Unknown History mcg (5,000 unit) tablet (Vitamin D3) Exam Airway Mallampati Class: II TM Dist: >3cm Neck ROM: Full Heart: rrr Lungs: cta Assessment and Plan Assessment Anesthesia Assessment: Anesthesia Plan Discussed Final Anesthetic Review Family History of Problems with Anesthesia: No History of Problems with Anesthesia: No NPO: Yes ASA Class: II Final Preanesthetic Review: No Changes in Pt Med Stat, Meds/Allgs Chart Reviewed, Consent Obtained/Reviewed and Anes Risks/Benef Reviewed Patient Risk: Low Procedure Risk: Low Anesthetic Plan Anesthetic Plan: MAC: Disposition: Standard PACU
--- NOTE | 2022-12-11 14:59 | MHC.SHP ---
Pre-Procedural Eval Section A Date of Service: 12/12/22 The patient is an INPATIENT: No Changes since office visit: Yes Patient answered all questions Section B Chief Complaint: Sacrococcygeal disorders, Details of Present Illness: as above Relevant Family History (Specify if Yes): No Relevant Social History: None Present Medications: see Short Stay Collaborative assessment Medical History: No relevant PMH History of Previous Operations: No relevant previous surgery Allergies: Allergies Allergy/AdvReac Type Severity Reaction Status Date / Time azithromycin [AZITHROMYCIN] Allergy Unknown low heart Verified 11/28/22 15:20 rate Review of Systems Sugical H&P ROS: Negative: Constitution, Cardiovascular, Respiratory, Neurological, Psychiatric, Hem-Onc, Allergic/Immunologic, Gastrointestinal, Genitourinary, Musculoskeletal, Integumentary, Endocrine and Eyes/Ears/Nose/Throat Exam Surgical H&P Exam: Normal: HEENT, Normal: Heart, Normal: Lungs, Normal: Extremities, Normal: Abdomen, Normal: Skin and Normal: Neurological Plan Diagnosis/Plan: Unchanged I have reviewed the history and physical and performed a pertinent physical examination on my patient. No changes have occurred unless specified. Time Spent With Patient Time: Total time managing care of this patient today ____ minutes.
[2022-12-12 06:44] VITALS: BP 110/66; PULSE 84; RESP 16; TEMP 36.2; O2SAT 100
[2022-12-12] MEDS: Lactated Ringers 1,000 ML 100 ML IVCONT (06:57)
--- NOTE | 2022-12-12 07:07 | W.PM.OPN ---
Operative Note Operative Note Date of Service: 12/12/22 Narrative: Left therapeutic sacroiliac joint injection. Informed consent was explained thoroughly to the patient.? All questions about benefits and risks for the procedure were answered. Patient came to the operating room and was positioned prone on the operating table with the pillow under the pelvis . [place] [employer] monitors were applied and patient was deeply sedated. The lower back and buttocks of the patient were prepped with ChloraPrep prepped and draped with sterile utility towels.? Sterilely draped C-arm was brought over the operating field and sq picture of patient's pelvis was demonstrated on the screen.? For the left joint tilting C-arm contralateral to the site of the joint the most posterior portion of the joints was superimposed with anterior silhouette of the joint.? Skin was injected in the projection of the joint slightly medial to the location of the joint with 25 gauge 1/2 inch needle using local lidocaine 2% . After that 22 gauge 3 and 1/2 inch needle was driven to the left joint in tunnel vision fashion.? When needle entered the joint capsule injection of the contrast was performed demonstrating intra-articular and minimally periarticular spread of the contrast.? After that 4 cc. of ropivacaine 0.5% mixed with kenalog 40 mg was injected into the? joint.? Upon completion of the injections the needle was removed Sterile dressing was applied.? Upon completion of the injection patient was taken outside of the operating room to the recovery room where recovered uneventfully
--- NOTE | 2022-12-12 07:54 | P.BOP_ITS ---
Brief Operative Note Date of Service: 12/12/22 Pre-op diagnosis: sacroiliitis Post-op diagnosis: same Procedure: left SI joint injection theraputic Surgeon: Cayden Calvillo MD Anesthesia: MAC Was an Social Security Specialist used for this Procedure?: No Estimated blood loss (mL): 0 Condition: stable Disposition: PACU
[2022-12-12 07:56] VITALS: BP 105/64; PULSE 73; RESP 16; TEMP 36.1
[2022-12-12 08:11] VITALS: BP 106/59; PULSE 74; RESP 16; TEMP 36.1; O2SAT 100
== END 2022-12-12 08:44 | disposition home or self-care (01) ==
PROVIDERS: PCP Internal Medicine; Visit Provider Anesthesiology
PROC: 3E0U33Z Introduction of Anti-inflammatory into Joints, Percutaneous Approach (ICD-10-PCS; CPT 27096; principal; 2022-12-12 07:30)
DX: M53.3 Sacrococcygeal disorders, not elsewhere classified (principal); M46.1 Sacroiliitis, not elsewhere classified; M25.552 Pain in left hip; M79.672 Pain in left foot; M47.817 Spondylosis without myelopathy or radiculopathy, lumbosacral region; M54.50 Low back pain, unspecified; M51.35 Other intervertebral disc degeneration, thoracolumbar region; R20.2 Paresthesia of skin; M32.9 Systemic lupus erythematosus, unspecified; Z88.1 Allergy status to other antibiotic agents; Z87.891 Personal history of nicotine dependence
CPT/HCPCS: 27096; J2795; J3301; Q9967

== ENCOUNTER 2023-01-02 14:18 | Outpatient (AMB) | payer OTHER, SELFPAY ==
[2023-01-02 14:20] VITALS: BP 128/78; PULSE 97; O2SAT 97; BMI 36.0
--- NOTE | 2023-01-02 14:20 | MHC.PC.OV ---
Vital Signs 01/02/23 14:20 Height 5 ft 5 in Weight 216 lb 4 oz BMI 36.0 BP 128/78 Blood Pressure Location Rt brachial Position Sitting Pulse 97 Pulse Source Pulse Oximeter Pulse Oximetry (%) 97 Oxygen Delivery Method Room Air Intake Visit Reasons: ongoing urinary problems Allergies azithromycin [AZITHROMYCIN] Allergy (Unknown, Verified 01/02/23 14:20) low heart rate Medication List - Last Reconciled 01/02/23 by Maggie Crystal MD acetaminophen (Tylenol Extra Strength) 500 mg PO Q6H PRN cholecalciferol (vitamin D3) (Vitamin D3) 125 mcg PO DAILY diclofenac sodium 1% (Arthritis Pain (diclofenac)) 4 grams topical QID PRN gabapentin 300 mg PO BEDTIME 30 days Tobacco use date assessed: 01/02/23 Dental Screening Dental Screen Date: 01/02/23 Did you have a dental visit in the last 12 months?: Yes Did you have a dental problem in the last 6 months where you did not have access to dental care?: No Was dental information given to patient?: No HPI ongoing urinary problems HPI Details Patient is 42-year-old female came in today to talk about bladder issues Patient says that she has noticed for the past 10 days she has been having frequency of urination After she is gone to bathroom an hour later she need to go again. There is no blood in the urine there is no nausea vomiting diarrhea no back pain no abdominal pain She is also having leakage of urine if she sneezes or laughs or pick something heavy In the morning when she wakes up she is not able to hold her urine. We talked about makes incontinence explained to patient what it is and K Roly exercises are recommended We did a urinalysis which did not show any signs of infection however her urine is concentrated patient is not drinking enough water I have ordered labs to be done today we will screen for diabetes I have sent oxybutynin 5 mg to be taken at night Follow-up in 3 weeks [facility] Medical History History of blood clots Lupus Pain of right great toe Paresthesias in left hand Weakness of left arm Surgical History H/O: hysterectomy History of bunionectomy Hx of carpal tunnel repair Hx of cholecystectomy Hx of lumpectomy Family History Father High cholesterol HTN (hypertension) Stroke Mother Lupus Substance use disorder Congenital heart disease Dementia Sister Lupus Maternal Aunt Dementia Maternal Aunt Dementia Maternal Aunt Dementia Maternal Aunt Dementia Maternal Aunt Dementia Social History Household Members: Spouse and Children Housing: House Alcohol intake: current Alcohol intake frequency: holidays/special occasions only Alcohol type: wine Patient Tobacco Use Status: Former Tobacco user Quit Date: 2000 Smoked: 5 e-Cigarette/Vaping Use: Never Used service: No Current occupational status: employed 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 How often do you have a drink containing alcohol?: Monthly or less 2. How many drinks containing alcohol do you have on a typical day when you are drinking?: 1 or 2 3. How often do you have six or more drinks on one occasion?: Never Total Score: 1 Score Reviewed/Action Taken: Yes DAMON-7 AMB Questionnaire DAMON-7 Date DAMON - 7 assessed: 08/12/22 Source: Developed by Drs. Morris Farooq, Francia Barfield, Leonel Min and colleagues, with an educational austyn from [employer]. Review of Systems Const Denies chills and Denies fever(s) ENT Denies epistaxis and Denies nasal discharge Card Denies chest pain Resp Denies chest congestion, Denies cough and Denies hemoptysis GI Denies diarrhea and Denies nausea Skin/Breast Denies rash Neuro Reports no additional complaints Psych Reports no additional complaints Endo Reports no additional complaints Physical exam (Primary Care) Vital Signs: Last Vital Signs Pulse 97 01/02/23 14:20 BP 128/78 01/02/23 14:20 Pulse Ox 97 01/02/23 14:20 Oxygen Delivery Method Room Air 01/02/23 14:20 BMI result Body Mass Index 36.0 Tobacco/Smoking Status: Tobacco use Status Tobacco use date assessed 01/02/23 01/02/23 14:22 Patient Tobacco Use Status Former Tobacco user 01/02/23 14:22 e-Cigarette/Vaping Use Never Used 01/02/23 14:22 Thrive Assessment: Date of Thrive Assessment Date Thrive assessed 06/03/22 01/02/23 14:22 Const General: cooperative, comfortable and no acute distress Orientation/consciousness: patient oriented x3 HENMT Head: Yes normocephalic Eyes General: appearance normal, both eyes and all related structures Neck Neck: Yes supple Resp Effort & Inspection: normal respiratory effort, no cough and no stridor Cardio Rhythm: regular rhythm Heart sounds: S1 normal heart sound present and S2 normal heart sound present Skin General skin exam: turgor normal Neuro General: patient oriented x3, tone normal and moves all extremities Extrem Right lower extremity: no edema Left lower extremity: no edema Results AMB Urinalysis, Automated UA Leukoctes 0 Diane/uL Last Edit by Carlos Hagan CCM on 01/02/23 14:44 UA Nitrite Negative Last Edit by Carlos Hagan [facility] on 01/02/23 14:44 UA Urobilinogen 0.2 mg/dL Last Edit by Carlos Hagan [facility] on 01/02/23 14:44 UA Protein 0 mg/dL Last Edit by Carlos Hagan [facility] on 01/02/23 14:44 UA pH 5.5 Last Edit by Carlos Hagan [facility] on 01/02/23 14:44 UA Blood 0 Dayne/uL Last Edit by Carlos Hagan [facility] on 01/02/23 14:44 UA Specific [place] 1.030 Last Edit by Carlos Hagan [facility] on 01/02/23 14:44 UA Ketone Negative Last Edit by Carlos Hagan [facility] on 01/02/23 14:44 UA Bilirubin 0 mg/dL Last Edit by Carlos Hagan [facility] on 01/02/23 14:44 UA Glucose 0 mg/dL Last Edit by Carlos Hagan [facility] on 01/02/23 14:44 Results Reviewed Results Reviewed: Laboratory Last Values Urine pH (Auto) 5.5 01/02/23 14:42 Specific [place] (Auto) 1.030 01/02/23 14:42 Urine Protein (Auto) 0 mg/dL 01/02/23 14:42 Glucose (UA)(Auto) 0 mg/dL 01/02/23 14:42 Urine Ketones (Auto) Negative 01/02/23 14:42 Urine Blood (Auto) 0 Dayne/uL 01/02/23 14:42 Urine Nitrite (Auto) Negative 01/02/23 14:42 Urine Bilirubin (Auto) 0 mg/dL 01/02/23 14:42 Urine Urobilinogen (Auto) 0.2 mg/dL 01/02/23 14:42 Leukocyte Esterase (Auto) 0 Diane/uL 01/02/23 14:42 Assessment and Plan Assessment & Plan (1) Frequency of urination: Code(s): R35.0 - Frequency of micturition (2) Stress incontinence: Code(s): N39.3 - Stress incontinence (female) (male) Plan Patient is 42-year-old female came in today to talk about bladder issues Patient says that she has noticed for the past 10 days she has been having frequency of urination After she is gone to bathroom an hour later she need to go again. There is no blood in the urine there is no nausea vomiting diarrhea no back pain no abdominal pain She is also having leakage of urine if she sneezes or laughs or pick something heavy In the morning when she wakes up she is not able to hold her urine. We talked about makes incontinence explained to patient what it is and K Roly exercises are recommended We did a urinalysis which did not show any signs of infection however her urine is concentrated patient is not drinking enough water I have ordered labs to be done today we will screen for diabetes I have sent oxybutynin 5 mg to be taken at night Follow-up in 3 weeks Orders: Orders Comprehensive Met. Panel Today N39.3 - Stress incontinence (female) (male), R35.0 - Frequency of micturition Hemoglobin A1c Today N39.3 - Stress incontinence (female) (male), R35.0 - Frequency of micturition Complete Blood Count Auto Diff Today N39.3 - Stress incontinence (female) (male), R35.0 - Frequency of micturition AMB Urinalysis Automated Today N39.3 - Stress incontinence (female) (male), R35.0 - Frequency of micturition Medications: New oxybutynin chloride 5 mg PO BEDTIME 30 tabs 0RF bladder spasms 30 days Coding Level of Care Code Est Pt Level 4 (70974) Diagnoses Frequency of urination R35.0 Stress incontinence N39.3
== END 2023-01-02 15:16 | disposition home or self-care (01) ==
PROVIDERS: PCP Internal Medicine; Visit Provider Internal Medicine
DX: R35.0 Frequency of micturition (principal); N39.3 Stress incontinence (female) (male)
CPT/HCPCS: 81003; 99214

== ENCOUNTER 2023-01-02 14:55 | Outpatient (REF) | payer OTHER, SELFPAY ==
[2023-01-02 16:15] LABS: MANUAL DIFF FLAG NO
[2023-01-02 16:30] LABS: Basophils Absolute Auto 0.1 X10*3/uL (0.0-0.2); Basophils Percent Auto 0.7 % (0-2); Eosinophils Absolute Auto 0.1 X10*3/uL (0.0-0.4); Eosinophils Percent Auto 1.1 % (0-4); Hematocrit 40.5 % (37.0-47.0); Hemoglobin 13.1 g/dl (12.0-16.0); Imm Gran Abs Auto 0.04 X10*3/uL (0.00-0.03); Imm Gran Pct Auto 0.5 % (0.0-0.4); Lymphocytes Absolute Auto 1.9 X10*3/uL (1.2-4.9); Lymphocytes Percent Auto 21.8 % (20-40); Mean Corpuscular HGB Conc 32.3 g/dl (31.0-35.0); Mean Corpuscular Hemoglobin 29.4 pg (27.0-33.0); Mean Platelet Volume 11.6 fL (9.4-12.3); Monocytes Absolute Auto 0.8 X10*3/uL (0.1-1.2); Monocytes Percent Auto 8.7 % (2-11); Neutrophils Absolute Auto 5.9 x10*3/uL (2.0-8.3); Neutrophils Percent Auto 67.2 % (45-73); Platelet Count 278 X10*3/uL (160-400); Red Blood Count 4.45 X10*6/uL (4.20-5.50); Red Cell Distribution Width 12.6 % (11.0-16.0); White Blood Count 8.8 X10*3/uL (4.8-10.8)
[2023-01-02 16:37] LABS: Estimated Average Glucose 100 mg/dL; Hemoglobin A1c % 5.1 %
[2023-01-02 17:18] LABS: Alanine Aminotransferase 17 U/L (0-31); Albumin Level 3.5 g/dL (3.5-5.0); Alkaline Phosphatase 55 U/L (39-117); Anion Gap 11 (12-20); Aspartate Amino Transferase 15 U/L (5-31); Bilirubin Total 0.3 mg/dL (0.0-1.0); Blood Urea Nitrogen 15 mg/dL (9-16); Carbon Dioxide 27 mmol/L (22-29); Chloride 104 mmol/L (96-108); Estimated Glomerular Filt Rate > 60; Glucose Random 81 mg/dL (60-115); Potassium 3.6 mmol/L (3.3-5.1); Sodium 138 mmol/L (135-145); Total Protein 6.8 g/dL (6.5-8.0)
== END 2023-01-02 14:56 | disposition home or self-care (01) ==
LOC: HO.HMGCLDS 14:55
PROVIDERS: PCP Internal Medicine; Visit Provider Internal Medicine
DX: N39.3 Stress incontinence (female) (male) (principal); R35.0 Frequency of micturition
CPT/HCPCS: 36415; 80053; 83036; 85025

== ENCOUNTER 2023-01-16 09:24 | Outpatient (AMB) | payer OTHER, SELFPAY ==
[2023-01-16 09:32] VITALS: BP 145/90; PULSE 101; O2SAT 97; BMI 35.5
--- NOTE | 2023-01-16 09:32 | A.OFFVIS_ITS ---
Intake Vital Signs 01/16/23 09:32 Height 5 ft 5 in Weight 213 lb 6 oz BMI 35.5 BP 145/90 H Blood Pressure Location Rt brachial Position Sitting Pulse 101 H Pulse Source Pulse Oximeter Pulse Oximetry (%) 97 Oxygen Delivery Method Room Air Intake Visit Reasons: s/p L Therapeutic SIJ 12/12/22 Intake Note: Pain today 0/10 Diagram Clerk Required: No Accompanied by: Self / Same As Patient Allergies azithromycin [AZITHROMYCIN] Allergy (Unknown, Verified 01/16/23 09:33) low heart rate HPI HPI Comments History of Present Illness Details Patient presents today to assess response to Left Therapeutic SIJ injection on 12/12/[address] Calvillo. Patient reports 100% ongoing pain relief since procedure and is very content with her results. She reports better functioning with ADLs, sleep, mood, social interactions, climbing stairs, getting in and out of her truck, and significant improvement in her quality of life. Denies any recent cough, cold, infection, fever or other significant changes in medical history since last office visit. Patient denies any bladder or bowel incontinence or saddle anesthesia. Past Procedures: 10/14/22: Left Diagnostic SIJ injection-80% pain relief for 3 days PRIOR 10/07/22 Dr. Calvillo: Naomi is a pleasant 42 year old female patient who presents to the office today for follow up of her lower back pain and scheduled interlaminar T12-L1 MAGDALENA. Patient reports pain in lower back, radiating into left buttock, lateral left hip/thigh/hogan; pain does not radiate below the ankle. She denies saddle anesthesia, incontinence of bowel or bladder. She denies numbness in the B/L LE. She denies weakness in B/l LE. She denies pain in the abdomen or the groin areas. Imaging was reviewed, results below. After physical exam, as detailed below, discussion was had with patient in regards to scheduled procedure. Patient's symptoms more consistent with sacroiliitis as well as spondylosis lumbar spine without symptoms of radiculopathy. , risks versus benefits of proceeding with scheduled T12-L1 MAGDALENA reviewed with patient, patient unlikely to receive significant therapeutic benefit and the risks of the procedure performed against the area of the spinal canal with the presence of spinal cord outweigh the very unclear benefits of the injection . Patient to be rescheduled for diagnostic left SI joint injection on October 14; she agrees with plan. She is also suffering from inguinal hernia for which the procedure is scheduled for her on October 22, 2022. PRIOR: Patient is a pleasant 42 years old female presents today for initial evaluation of worsening of chronic lower back pain. Patient denies any recent trauma, injury or falls. However, she reports back injury 2 years ago when she slipped on an icy parking lot coming out of her car. She fell on her left buttock on her car steppers and then on an iced parking lot. Her back pain is axial and also radiating to her left buttock, left lateral hip and into lateral and slightly posterior left thigh. She experiences spasms and marily horses sensations in her left hogan and calf with prolonged walking. Back pain increases prolonged sitting, walking, standing, changing positions, getting out of bed or shower, any movement and weather changes. Pain is described as constant pulsing, throbbing, pounding, stabbing, lancinating, pinching, cramping, crushing, hot burning scalding, searing, tingling, stingling, spreading, radiating, piercing, cool, cold, freezing and spasming. Denies previous spine surgery or injections. Reports getting frequent cortisone injections for left GTB pain with good relief but not lasting up to 3 months. Pain affects her daily activities, functions, mood, sleep, social interactions and quality of life. Patient is also concerned about episodic urine incontinence that has been happening during walking, bending, sitting and can happen with and without urine urgency. This has been happening for a few months. Denies seeing urology or ObGyn providers for this. Patient has been managing her pain with Tylenol, Motrin and hot shower or heat therapy with continued symptoms. Denies any fever, chills, abdominal or groin pain, sensory loss or weakness, bowel incontinence, or saddle anesthesia. 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 She is right hand dominant. Reports utilizing standing up desk for alternating her work day with walking and standing. Patient is starting physical activity this week. [facility] Medical History History of blood clots Lupus Pain of right great toe Paresthesias in left hand Weakness of left arm Surgical History H/O: hysterectomy History of bunionectomy Hx of carpal tunnel repair Hx of cholecystectomy Hx of lumpectomy Family History Father High cholesterol HTN (hypertension) Stroke Mother Lupus Substance use disorder Congenital heart disease Dementia Sister Lupus Maternal Aunt Dementia Maternal Aunt Dementia Maternal Aunt Dementia Maternal Aunt Dementia Maternal Aunt Dementia Social History Household Members: Spouse and Children Housing: House Alcohol intake: current Alcohol intake frequency: holidays/special occasions only Alcohol type: wine Patient Tobacco Use Status: Former Tobacco user Quit Date: 2000 Smoked: 5 e-Cigarette/Vaping Use: Never Used service: No Current occupational status: employed 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 Alert and oriented. Mood and affect appropriate. Follows and participates in conversation appropriately. Respiratory effort is unlabored. Able to transition from sit to stand unassisted. Ambulates with bilaterally normal heel strike and toe off. Assessment & Plan Assessment & Plan (1) Sacroiliitis: Code(s): M46.1 - Sacroiliitis, not elsewhere classified (2) Sacroiliac joint pain: Code(s): M53.3 - Sacrococcygeal disorders, not elsewhere classified (3) Lumbosacral spondylosis: Code(s): M47.817 - Spondylosis without myelopathy or radiculopathy, lumbosacral region Plan Patient is status post Left Therapeutic SIJ injection on 12/12/22 with excellent results and ongoing 100% pain relief. She is aware that she can not receive another injection in this area for another 2 months. Patient is aware to monitor for side effects. All questions were answered and the patient is in agreement of plan. Follow up as needed. Coding Level of Care Code Est Pt Level 3 (67750) Diagnoses Sacroiliitis M46.1 Sacroiliac joint pain M53.3 Lumbosacral spondylosis M47.817
== END 2023-01-16 09:36 | disposition home or self-care (01) ==
PROVIDERS: PCP Internal Medicine; Visit Provider Nurse Practitioner Family
DX: M46.1 Sacroiliitis, not elsewhere classified (principal); M53.3 Sacrococcygeal disorders, not elsewhere classified; M47.817 Spondylosis without myelopathy or radiculopathy, lumbosacral region
CPT/HCPCS: 99213

== ENCOUNTER → 2023-01-16 09:24 | Outpatient (BNVA) | payer OTHER, SELFPAY | PROVIDERS: PCP Internal Medicine; Visit Provider Nurse Practitioner Family ==

== ENCOUNTER 2023-01-16 13:58 | Outpatient (AMB) | payer OTHER, SELFPAY ==
--- NOTE | 2023-01-16 14:00 | MHC.PC.OV ---
Vital Signs 01/16/23 14:05 Height 5 ft 5 in Weight 215 lb BMI 35.8 BP 118/80 Blood Pressure Location Rt brachial Position Sitting Pulse 64 Pulse Source Pulse Oximeter Pulse Oximetry (%) 93 Oxygen Delivery Method Room Air Intake Visit Reasons: Persistent right abdominal pain x2 weeks Allergies azithromycin [AZITHROMYCIN] Allergy (Unknown, Verified 01/16/23 14:00) low heart rate Tobacco use date assessed: 01/16/23 Dental Screening Dental Screen Date: 01/16/23 Did you have a dental visit in the last 12 months?: Yes Did you have a dental problem in the last 6 months where you did not have access to dental care?: Yes Was dental information given to patient?: Patient has dentist HPI Persistent right abdominal pain x2 weeks HPI Details Inguinal hernia repair left side in October Now have pressure right lower abdomen every time sneeze or cough On examination I could feel the lump right inguinal area close to pubic Need ultrasound Still taking medication for overactive bladder and it is still helping the patient Further management after the ultrasound report PFSH Medical History History of blood clots Lupus Pain of right great toe Paresthesias in left hand Weakness of left arm Surgical History H/O: hysterectomy History of bunionectomy Hx of carpal tunnel repair Hx of cholecystectomy Hx of lumpectomy Family History Father High cholesterol HTN (hypertension) Stroke Mother Lupus Substance use disorder Congenital heart disease Dementia Sister Lupus Maternal Aunt Dementia Maternal Aunt Dementia Maternal Aunt Dementia Maternal Aunt Dementia Maternal Aunt Dementia Social History Household Members: Spouse and Children Housing: House Alcohol intake: current Alcohol intake frequency: holidays/special occasions only Alcohol type: wine Patient Tobacco Use Status: Former Tobacco user Quit Date: 2000 Years Smoked: 5 e-Cigarette/Vaping Use: Never Used service: No Current occupational status: employed 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 1. Little interest or pleasure in doing things: more than half the days 2. Feeling down, depressed, or hopeless: several days 3. Trouble falling or staying asleep, or sleeping too much: several days 4. Feeling tired or having little energy: several days 5. Poor appetite or overeating: more than half the days 6. Feeling bad about yourself - or that you are a failure or have let yourself or your family down: more than half the days 7. Trouble concentrating on things, such as reading the newspaper or watching television: several days 8. Moving or speaking so slowly that other people could have noticed. Or the opposite - being so fidgety or restless that you have been moving around a lot more than usual: not at all 9. Thoughts that you would be better off or of hurting yourself in some way: not at all Total score: 10 Depression Screening Interpretation: Positive 89307 - PHQ-9 Billing: Yes Source: Developed by Drs. Morris Farooq, Francia Barfield, Leonel Min and colleagues, with an educational austyn from [employer]. Thrive Questionnaire Date Thrive assessed: 01/16/23 I am a: Patient What is your living situation today?: I have a steady place to live Within the past 12 months, did the food you bought not last and you didn't have the money to get more?: Never true Within the past 12 months, did you worry whether your food would run out before you got money to buy more?: Never true Do you have trouble paying for medicines?: No Do you have trouble getting transportation to medical appointments?: No Do you have trouble paying your heating and electricity bill?: No Do you have trouble taking care of your child, family member or friend?: No Do you have trouble with day-to-day activities such as bathing, preparing meals, shopping, managing finances, etc.?: No Are you currently unemployed and looking for a job?: No Are you interested in more education?: No DAMON-7 AMB Questionnaire DAMON-7 Date DAMON - 7 assessed: 01/16/23 Feeling nervous, anxious, or on edge: 1 = Several days Not being able to stop or control worryin = Several days Worrying too much about different things: 1 = Several days Trouble relaxin = More than half the days Being so restless that it is hard to sit still: 2 = More than half the days Becoming easily annoyed or irritable: 2 = More than half the days Feeling afraid as if something awful might happen: 1 = Several days Total DAMON-7 score (0-4 normal; 5-9 mild; 10-14 moderate; 15-21 severe): 10 Source: Developed by Drs. Morris Farooq, Francia Barfield, Leonel Min and colleagues, with an educational austyn from [employer]. Review of Systems Const Denies chills and Denies fever(s) ENT Denies epistaxis and Denies nasal discharge Card Denies chest pain Resp Denies chest congestion, Denies cough and Denies hemoptysis GI Denies diarrhea and Denies nausea Skin/Breast Denies rash Neuro Reports no additional complaints Psych Reports no additional complaints Endo Reports no additional complaints Physical exam (Primary Care) Vital Signs: Last Vital Signs Pulse 64 01/16/23 14:05 BP 118/80 01/16/23 14:05 Pulse Ox 93 01/16/23 14:05 Oxygen Delivery Method Room Air 01/16/23 14:05 BMI result Body Mass Index 35.8 Tobacco/Smoking Status: Tobacco use Status Tobacco use date assessed 01/16/23 01/16/23 14:02 Patient Tobacco Use Status Former Tobacco user 01/16/23 14:02 e-Cigarette/Vaping Use Never Used 01/16/23 14:02 PHQ-9: PHQ-9 Score PHQ-9: Total score 10 01/16/23 14:19 Depression Screening Interpretation: Positive Thrive Assessment: Date of Thrive Assessment Date Thrive assessed 01/16/23 01/16/23 14:08 Const General: cooperative, comfortable and no acute distress Orientation/consciousness: patient oriented x3 HENMT Head: Yes normocephalic Eyes General: appearance normal, both eyes and all related structures Neck Neck: Yes supple Resp Effort & Inspection: normal respiratory effort, no cough and no stridor Cardio Rhythm: regular rhythm Heart sounds: S1 normal heart sound present and S2 normal heart sound present GI Abdomen image: 1. lump felt with cough Skin General skin exam: turgor normal Neuro General: patient oriented x3, tone normal and moves all extremities Extrem Right lower extremity: no edema Left lower extremity: no edema Assessment and Plan Assessment & Plan (1) Pressure of right suprapubic region: Code(s): R10.31 - Right lower quadrant pain (2) Inguinal hernia, right: Code(s): K40.90 - Unilateral inguinal hernia, without obstruction or gangrene, not specified as recurrent Plan Inguinal hernia repair left side in May Now have pressure right lower abdomen every time sneeze or cough On examination I could feel the lump right inguinal area close to pubic Need ultrasound Still taking medication for overactive bladder and it is still helping the patient Further management after the ultrasound report Orders: Orders US abdomen limited Today K40.90 - Unilateral inguinal hernia, without obstruction or gangrene, not specified as recurrent, R10.31 - Right lower quadrant pain Coding Level of Care Code Est Pt Level 4 (15432) Diagnoses Pressure of right suprapubic region R10.31 Inguinal hernia, right K40.90
[2023-01-16 14:05] VITALS: BP 118/80; PULSE 64; O2SAT 93; BMI 35.8
== END 2023-01-16 15:15 | disposition home or self-care (01) ==
PROVIDERS: PCP Internal Medicine; Visit Provider Internal Medicine
DX: R10.31 Right lower quadrant pain (principal); K40.90 Unilateral inguinal hernia, without obstruction or gangrene, not specified as recurrent
CPT/HCPCS: 99214

== ENCOUNTER 2023-01-16 16:02 | Outpatient (REF) | payer OTHER, SELFPAY ==
--- NOTE | ~2023-01-16 | US_ITS ---
EXAMINATION: US RIGHT INGUINAL, LIMITED/FOLLOW UP CLINICAL INFORMATION: Right inguinal lump, evaluate for hernia. COMPARISON: CT abdomen/pelvis 08/23/2020. TECHNIQUE: Targeted sonographic evaluation of the area of clinical concern in the right inguinal region. US/US pelvic limited FINDINGS/IMPRESSION: No evidence of hernia. No discrete mass or organized collection. Further correlation with CT or MRI could be obtained as clinically indicated.
== END 2023-01-16 16:03 | disposition home or self-care (01) ==
LOC: HO.US 16:02
PROVIDERS: PCP Internal Medicine; Visit Provider Internal Medicine
DX: R10.31 Right lower quadrant pain (principal)
CPT/HCPCS: 76857

== ENCOUNTER 2023-02-03 15:34 | Outpatient (AMB) | payer OTHER, SELFPAY ==
--- NOTE | 2023-02-03 15:36 | A.OFFVIS_ITS ---
Intake Vital Signs 02/03/23 15:40 Height 5 ft 5 in Weight 217 lb BMI 36.1 BP 128/86 Blood Pressure Location Lt brachial Position Sitting Pulse 101 H Intake Visit Reasons: ? right inguinal hernia Intake Note: Patient is seen in office for evaluation and treatment of a right inguinal hernia. Patient c/o: does not feel a lump, only has sharp pain when coughing or sneezing, had ultrasound done, constipation on and off, denies nausea, vomit, diarrhea, had prior left hernia done Curtain Hemmer Automatic Required: No Accompanied by: Other Relationship Allergies azithromycin [AZITHROMYCIN] Allergy (Unknown, Verified 02/03/23 15:41) low heart rate Medication List - Last Reconciled 02/06/23 by Murtaza Ortiz MD acetaminophen (Tylenol Extra Strength) 500 mg PO Q6H PRN diclofenac sodium 1% (Arthritis Pain (diclofenac)) 4 grams topical QID PRN oxybutynin chloride 5 mg PO BEDTIME 30 days HPI HPI Comments History of Present Illness Details 42-year-old female patient presenting for evaluation of a possible right inguinal hernia. She reports complaints of pain in the right groin especially with sneezing, coughing, or lifting. She is unable to feel a lump and workup with an ultrasound was unable to clearly identify an inguinal hernia. The symptoms are localized to the right groin and have been very consistent. She denies nausea, vomiting, fever, chills, or changes in her bowel habits. She denies a previous history of a right inguinal hernia but has had previous Caesarean section, hysterectomy and cholecystectomy. [facility] Medical History History of blood clots Lupus Pain of right great toe Paresthesias in left hand Weakness of left arm Surgical History H/O: hysterectomy History of bunionectomy Hx of carpal tunnel repair Hx of cholecystectomy Hx of lumpectomy Family History Father High cholesterol HTN (hypertension) Stroke Mother Lupus Substance use disorder Congenital heart disease Dementia Sister Lupus Maternal Aunt Dementia Maternal Aunt Dementia Maternal Aunt Dementia Maternal Aunt Dementia Maternal Aunt Dementia Social History Household Members: Spouse and Children Housing: House Alcohol intake: current Alcohol intake frequency: holidays/special occasions only Alcohol type: wine Patient Tobacco Use Status: Former Tobacco user Quit Date: 2000 Years Smoked: 5 e-Cigarette/Vaping Use: Never Used service: No Current occupational status: employed 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[employer] Cognitive needs: No Hearing needs: No Vision needs: Yes (contacts) Review of Systems Const All systems reviewed & are unremarkable except as noted in HPI and below Denies chills, Denies fever(s), Denies headache(s), Denies poor appetite and Denies weakness ENT Denies headache(s) Card Denies chest pain, Denies irregular heart rhythm, Denies palpitations and Denies dyspnea Resp Denies cough, Denies excessive phlegm production and Denies dyspnea GI Reports abdominal pain, Denies bloating, Denies change in bowel habits, Denies constipation, Denies heartburn, Denies diarrhea, Denies nausea and Denies vomiting Denies urinary frequency Musc Denies back pain, Denies muscle weakness and Denies numbness Skin/Breast Denies changing lesions and Denies unusual bruising Neuro Denies headache(s), Denies numbness, Denies paresthesias and Denies weakness Psych Denies anxiety and Denies depression Endo Denies palpitations Robin/Lymph Denies lymphadenopathy Physical Exam Vital Signs: Last Vital Signs Pulse 101 H 02/03/23 15:40 BP 128/86 02/03/23 15:40 BMI result Body Mass Index 36.1 Const General: cooperative and no acute distress Nutritional Appearance: well nourished Orientation/consciousness: patient oriented x3 Limitations: no limitations HEENT Head: Yes normocephalic and Yes atraumatic Ears: hearing grossly normal bilaterally Resp Effort & Inspection: normal respiratory effort, no audible wheezes, no cough and no respiratory distress Cardio Jugular venous distension: no JVD GI Other: Examination in the standing position with Valsalva maneuvers does produce an area of tenderness at approximately the area of the internal ring but no definite hernias identified with palpation. Well-healed incisions are noted throughout the abdomen. Inspection: Yes normal to inspection and Yes Abdominal panniculus present Palpation (GI): Soft to palpation, nontender, no guarding and not rigid Skin Other: Warm, dry, no rash Neuro General: patient oriented x3 Extrem General: Yes no clubbing, cyanosis or edema Assessment & Plan Assessment & Plan (1) Inguinal hernia, right: Code(s): K40.90 - Unilateral inguinal hernia, without obstruction or gangrene, not s pecified as recurrent Plan 42-year-old female patient presenting with right inguinal pain in an area that would be consistent with a small inguinal hernia. On examination there is point tenderness at the region of the internal ring however no definite hernia could be identified. I suggested further workup with CT of the pelvis which may be more detailed in the ultrasound. She expressed understanding and agrees with the plan. Have asked her to return following this study to review the results and discuss treatment options. Orders: Orders CT pelvis wo IV con 02/03/23 K40.90 - Unilateral inguinal hernia, without obstruction or gangrene, not specified as recurrent Coding Level of Care Code New Pt Level 4 (48221) Diagnoses Inguinal hernia, right K40.90
[2023-02-03 15:40] VITALS: BP 128/86; PULSE 101; BMI 36.1
== END 2023-02-03 15:49 | disposition home or self-care (01) ==
PROVIDERS: PCP Internal Medicine; Visit Provider Surgery
DX: K40.90 Unilateral inguinal hernia, without obstruction or gangrene, not specified as recurrent (principal)
CPT/HCPCS: 99204

== ENCOUNTER → 2023-02-03 15:34 | Outpatient (BNVA) | payer OTHER, SELFPAY | PROVIDERS: PCP Internal Medicine; Visit Provider Surgery ==

== ENCOUNTER 2023-02-09 11:39 | Outpatient (AMB) | payer OTHER, SELFPAY ==
[2023-02-09 12:14] VITALS: BP 110/64; PULSE 83; TEMP 35.9; O2SAT 100; BMI 36.2
--- NOTE | 2023-02-09 12:14 | AM.OFFWIN_ITS ---
Intake Vital Signs 02/09/23 12:14 Height 5 ft 5 in Weight 217 lb 8 oz BMI 36.2 BP 110/64 Blood Pressure Location Rt brachial Position Sitting Pulse 83 Pulse Source Pulse Oximeter Temp 96.7 F L Temp Source Temporal Artery Scan Pulse Oximetry (%) 100 Oxygen Delivery Method Room Air Intake Visit Reasons: EP, WC, Left hand pain Intake Note: Pt is here c/o left hand pain. 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 Patient Tobacco Use Status: Former Tobacco user Quit Date: 2000 Allergies azithromycin [AZITHROMYCIN] Allergy (Unknown, Verified 02/09/23 13:06) low heart rate Medication List - Last Reconciled 02/09/23 by Cristopher Argueta MD acetaminophen (Tylenol Extra Strength) 500 mg PO Q6H PRN diclofenac sodium 1% (Arthritis Pain (diclofenac)) 4 grams topical QID PRN oxybutynin chloride 5 mg PO BEDTIME 30 days Do you need a note to return to daycare/school/sports/work: Yes HPI EP, WC, Left hand pain HPI Details 42-year-old female presents to the office for a sick visit. Date of injury 02/05/2023. 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 Complaining of swelling and bruising in the left hand. [facility] Medical History History of blood clots Lupus Pain of right great toe Paresthesias in left hand Weakness of left arm Surgical History H/O: hysterectomy History of bunionectomy Hx of carpal tunnel repair Hx of cholecystectomy Hx of lumpectomy Family History Father High cholesterol HTN (hypertension) Stroke Mother Lupus Substance use disorder Congenital heart disease Dementia Sister Lupus Maternal Aunt Dementia Maternal Aunt Dementia Maternal Aunt Dementia Maternal Aunt Dementia Maternal Aunt Dementia Social History Household Members: Spouse and Children Housing: House Alcohol intake: current Alcohol intake frequency: holidays/special occasions only Alcohol type: wine Patient Tobacco Use Status: Former Tobacco user Quit Date: 2000 Smoked: 5 e-Cigarette/Vaping Use: Never Used service: No Current occupational status: employed 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 Range of motion is full but slightly painful. Minimal swelling on the dorsum of the wrist. Assessment & Plan Assessment & Plan (1) Contusion, hand: Code(s): S60.229A - Contusion of unspecified hand, initial encounter Plan: X-ray images were personally reviewed by me. No fractures seen. Patient was reassured. Orders: Orders XR hand LT min 3V Today S60.229A - Contusion of unspecified hand, initial encounter Coding Level of Care Code Est Pt Level 4 (77107) Diagnoses Contusion, hand S60.229A
== END 2023-02-09 13:59 | disposition home or self-care (01) ==
PROVIDERS: PCP Internal Medicine; Visit Provider Internal Medicine
DX: S60.229A Contusion of unspecified hand, initial encounter (principal); Z04.2 Encounter for examination and observation following work accident
CPT/HCPCS: 99214

== ENCOUNTER 2023-02-09 13:04 | Outpatient (REF) | payer OTHER, SELFPAY ==
--- NOTE | ~2023-02-09 | XR_ITS ---
EXAMINATION: XR HAND, LEFT CLINICAL INFORMATION: Left hand pain. COMPARISON: None available. TECHNIQUE: PA, lateral, and oblique views of the left hand. FINDINGS: The bones and soft tissues are normal. No fracture. Alignment is anatomic. Joint spaces are maintained. No erosions or soft tissue calcifications. XR/XR hand LT min 3V IMPRESSION: Unremarkable left hand.
== END 2023-02-09 13:05 | disposition home or self-care (01) ==
LOC: HO.HMGCX 13:04
PROVIDERS: PCP Internal Medicine; Visit Provider Internal Medicine
DX: S60.222A Contusion of left hand, initial encounter (principal); X58.XXXA Exposure to other specified factors, initial encounter; Y93.9 Activity, unspecified; Y92.9 Unspecified place or not applicable; Y99.9 Unspecified external cause status
CPT/HCPCS: 73130

== ENCOUNTER 2023-02-20 10:50 | Outpatient (REF) | payer OTHER, SELFPAY ==
--- NOTE | ~2023-02-20 | CT_ITS ---
EXAMINATION: CT PELVIS WITHOUT CONTRAST CLINICAL INFORMATION: Unilateral inguinal hernia without obstruction or gangrene. COMPARISON: CT abdomen/pelvis 08/23/2020. Supracervical hysterectomy. TECHNIQUE: Helical scanning was performed with submillimeter collimation through the pelvis. Sagittal and coronal multiplanar 2-D reconstructions were obtained. This CT examination was performed using dose optimization techniques as appropriate, variously including the following: *Automated exposure control *Adjustment of mA and/or kV according to patient size (this includes techniques or standardized protocols for targeted exams where dose is matched to indication/reason for exam; i.e. extremities or head) *Use of iterative reconstruction technique DLP: 704 mGy-cm FINDINGS: A small right inguinal hernia is seen containing only fat which appears slightly more prominent than on the 08/23/2020 CT abdomen/pelvis study. No definite left-sided hernia is seen. The previously seen soft tissue density in the left inguinal canal appears barely visible on the current study. Tiny periumbilical hernia containing only fat is partially visualized. Given the history of hysterectomy, a prominent cervix is present. A left ovarian cyst is smaller than previously noted and a new right ovarian cyst is present. A concerning or worrisome adnexal mass is not present. No free intraperitoneal fluid is seen. No retroperitoneal lymphadenopathy. The visualized bowel appears unremarkable. The appendix is normal. CT/CT pelvis wo IV con IMPRESSION: 1. Small right inguinal hernia containing only fat. 2. Previously seen soft tissue density in the left inguinal canal appears barely visible on the current study. 3. Other incidental findings as described above including bilateral ovarian cysts which need no additional imaging or followup.
== END 2023-02-20 10:51 | disposition home or self-care (01) ==
LOC: HO.CT 10:50
PROVIDERS: PCP Internal Medicine; Visit Provider Surgery
DX: K40.90 Unilateral inguinal hernia, without obstruction or gangrene, not specified as recurrent (principal)
CPT/HCPCS: 72192

== ENCOUNTER 2023-03-26 14:59 | Outpatient (AMB) | payer OTHER, SELFPAY ==
--- NOTE | 2023-03-26 15:00 | MHC.OFFVIS ---
Intake Vital Signs 03/26/23 15:05 Height 5 ft 5 in Weight 216 lb BMI 35.9 BP 130/83 Blood Pressure Location Rt brachial Position Sitting Pulse 83 Pulse Source Pulse Oximeter Pulse Oximetry (%) 97 Oxygen Delivery Method Room Air Intake Visit Reasons: Pain bi leg, requesting inj Lt side Intake Note: Pain today 7.5 Carrier Associate Required: No Accompanied by: Self / Same As Patient Allergies azithromycin [AZITHROMYCIN] Allergy (Unknown, Verified 03/26/23 15:05) low heart rate HPI HPI Comments History of Present Illness Details Patient presents today for follow up for return of left sided sacroiliac joint pain and requests to repeat therapeutic injection. Patient reports previous left therapeutic injection on 12/12/22 provided her 3 months and 1 week pain relief. She also reports right sided low back pain and lateral hip pain, with occasional right groin pain. Patient reports she is scheduled for right inguinal hernia repair on 04/15/[address] Ortiz. She also reports persistent left foot pain due to plantar fasciitis. She has been managing these symptoms with Ibuprofen, ice and heat therapy, and gentle stretching exercises with continued symptoms. Denies any recent cough, cold, infection, fever or other significant changes in medical history since last office visit. Patient denies any bladder or bowel incontinence or saddle anesthesia. Past Procedures: 12/12/22: Left Therapeutic SIJ [id number]% pain relief for 3.1 months 10/14/22: Left Diagnostic SIJ injection-80% pain relief for 3 days PRIOR 10/07/22 Dr. Calvillo: Naomi is a pleasant 42 year old female patient who presents to the office today for follow up of her lower back pain and scheduled interlaminar T12-L1 MAGDALENA. Patient reports pain in lower back, radiating into left buttock, lateral left hip/thigh/hogan; pain does not radiate below the ankle. She denies saddle anesthesia, incontinence of bowel or bladder. She denies numbness in the B/L LE. She denies weakness in B/l LE. She denies pain in the abdomen or the groin areas. Imaging was reviewed, results below. After physical exam, as detailed below, discussion was had with patient in regards to scheduled procedure. Patient's symptoms more consistent with sacroiliitis as well as spondylosis lumbar spine without symptoms of radiculopathy. , risks versus benefits of proceeding with scheduled T12-L1 MAGDALENA reviewed with patient, patient unlikely to receive significant therapeutic benefit and the risks of the procedure performed against the area of the spinal canal with the presence of spinal cord outweigh the very unclear benefits of the injection . Patient to be rescheduled for diagnostic left SI joint injection on October 14; she agrees with plan. She is also suffering from inguinal hernia for which the procedure is scheduled for her on October 22, 2022. PRIOR: Patient is a pleasant 42 years old female presents today for initial evaluation of worsening of chronic lower back pain. Patient denies any recent trauma, injury or falls. However, she reports back injury 2 years ago when she slipped on an icy parking lot coming out of her car. She fell on her left buttock on her car steppers and then on an iced parking lot. Her back pain is axial and also radiating to her left buttock, left lateral hip and into lateral and slightly posterior left thigh. She experiences spasms and marily horses sensations in her left hogan and calf with prolonged walking. Back pain increases prolonged sitting, walking, standing, changing positions, getting out of bed or shower, any movement and weather changes. Pain is described as constant pulsing, throbbing, pounding, stabbing, lancinating, pinching, cramping, crushing, hot burning scalding, searing, tingling, stingling, spreading, radiating, piercing, cool, cold, freezing and spasming. Denies previous spine surgery or injections. Reports getting frequent cortisone injections for left GTB pain with good relief but not lasting up to 3 months. Pain affects her daily activities, functions, mood, sleep, social interactions and quality of life. Patient is also concerned about episodic urine incontinence that has been happening during walking, bending, sitting and can happen with and without urine urgency. This has been happening for a few months. Denies seeing urology or ObGyn providers for this. Patient has been managing her pain with Tylenol, Motrin and hot shower or heat therapy with continued symptoms. Denies any fever, chills, abdominal or groin pain, sensory loss or weakness, bowel incontinence, or saddle anesthesia. 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 She is right hand dominant. Reports utilizing standing up desk for alternating her work day with walking and standing. Patient is starting physical activity this week. [facility] Medical History Pain of right great toe Lupus History of blood clots Weakness of left arm Paresthesias in left hand Surgical History History of inguinal hernia repair Hx of carpal tunnel repair Hx of lumpectomy H/O: hysterectomy History of bunionectomy Hx of cholecystectomy Family History Father High cholesterol HTN (hypertension) Stroke Mother Lupus Substance use disorder Congenital heart disease Dementia Sister Lupus Maternal Aunt Dementia Maternal Aunt Dementia Maternal Aunt Dementia Maternal Aunt Dementia Maternal Aunt Dementia Social History Household Members: Spouse and Children Housing: House Alcohol intake: current Alcohol intake frequency: holidays/special occasions only Alcohol type: wine Patient Tobacco Use Status: Former Tobacco user Quit Date: 2000 Smoked: 5 e-Cigarette/Vaping Use: Never Used service: No Current occupational status: employed 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 Cognitive needs: No Hearing needs: No Vision needs: Yes (contacts) Review of Systems Const All systems reviewed & are unremarkable except as noted in HPI and below Physical Exam Vital Signs: Last Vital Signs Pulse 83 03/26/23 15:05 BP 130/83 03/26/23 15:05 Pulse Ox 97 03/26/23 15:05 Oxygen Delivery Method Room Air 03/26/23 15:05 BMI result Body Mass Index 35.9 General: Appears afebrile. Alert and oriented. Mood and affect appropriate. Follows and participates in conversation appropriately. Respiratory effort is unlabored. No cough. Able to transition from sit to stand unassisted. Ambulates with bilaterally normal heel strike and toe off. Back/Spine/Pelvis Cervical Spine: No Cervical spine tenderness Thoracic/Lumbar Spine: Lasegue's sign negative, straight leg raise negative bilaterally, pain with thoraco-lumbar ROM, paraspinal muscle tenderness, No thoracic spinal tenderness and No lumbar spinal tenderness Pelvis: buttock tenderness on the left Sacroiliac joints: on the left (SI distraction, Colin's, Stinchfield and pelvic compression positive.) tender to palpation Results Reviewed Results Reviewed: XR HIP, LEFT WITH AP PELVIS 03/14/22 FINDINGS: Bones and soft tissues are normal. No fracture. There is a tiny accessory ossification center seen lateral to the right acetabular roof. Alignment is anatomic. Hip joint space is maintained. There are multiple pelvic phleboliths. IMPRESSION: Unremarkable pelvis and left hip radiographs. XR LUMBOSACRAL SPINE 07/17/21 FINDINGS: Bone alignment is normal. No fracture or dislocation is seen. There is degenerative disc disease at T12-L1. Disc spaces are otherwise normal. Paraspinal soft tissues are normal. IMPRESSION: Degenerative disc disease at T12-L1. MR LUMBAR SPINE WITHOUT CONTRAST 08/18/22 FINDINGS: The lumbar vertebral bodies maintain normal heights and alignment. There is moderate to severe disc height loss at T12-L1 with a broad-based Schmorl's node seen along the inferior aspect of T12. Small hemangiomata are seen at T12, L3, and L5. The distal spinal cord appears normal. The conus medullaris terminates normally at the L1 level. The extraspinal soft tissues are within normal limits. SPINAL LEVELS: T12-L1: Left paracentral protrusion causing mild flattening the ventral thecal sac. No spinal canal or neural foraminal stenosis. L1-L2: No posterior disc abnormality. No spinal canal or neural foraminal stenosis. L2-L3: No posterior disc abnormality. No spinal canal or neural foraminal stenosis. L3-L4: No posterior disc abnormality. No spinal canal or neural foraminal stenosis. L4-L5: No posterior disc abnormality. Mild facet arthropathy. No spinal canal or neural foraminal stenosis. L5-S1: No posterior disc abnormality. No spinal canal or neural foraminal stenosis. IMPRESSION: No spinal canal stenosis or nerve root compression. Disc height loss with inferior endplate Schmorl's node seen at T12-L1. Assessment & Plan Assessment & Plan (1) Sacroiliitis: Code(s): M46.1 - Sacroiliitis, not elsewhere classified (2) Lumbosacral spondylosis: Code(s): M47.817 - Spondylosis without myelopathy or radiculopathy, lumbosacral region (3) Plantar fasciitis of left foot: Code(s): M72.2 - Plantar fascial fibromatosis (4) Sacroiliac joint pain: Code(s): M53.3 - Sacrococcygeal disorders, not elsewhere classified Plan 1. Schedule Left Therapeutic SIJ injection with sedation and fluoroscopy. 2. Script provided for diclofenac potassium for ongoing left foot pain consistent with plantar fasciitis. Continue ice pack roll therapy, and gentle stretching exercises. All questions and concerns have been answered and patient agreed with the plan. Follow up after injections and sooner if needed. Anticoagulation: Patient is not on anticoagulant Justification for interventional therapy: ? Patient with average pain > 6/10 ? Patient has exhausted conservative therapy, NSAIDs, physical therapy ? Patient is active with home exercise program The risks, consequences, alternatives, and benefits of various treatment options were discussed with the patient in great detail, including conservative management, injections and procedures. I informed her of the hyperglycemic effects of steroids. Medications: New diclofenac potassium Take it with food and full glass of water. 50 mg PO TID PRN 90 tabs 0RF pain M46.1 - Sacroiliitis, not elsewhere classified, M47.817 - Spondylosis without myelopathy or radiculopathy, lumbosacral region, M72.2 - Plantar fascial fibromatosis Coding Level of Care Code Est Pt Level 4 (09983) Diagnoses Sacroiliitis M46.1 Lumbosacral spondylosis M47.817 Plantar fasciitis of left foot M72.2 Sacroiliac joint pain M53.3
[2023-03-26 15:05] VITALS: BP 130/83; PULSE 83; O2SAT 97; BMI 35.9
== END 2023-03-26 15:15 | disposition home or self-care (01) ==
PROVIDERS: PCP Internal Medicine; Visit Provider Nurse Practitioner Family
DX: M46.1 Sacroiliitis, not elsewhere classified (principal); M47.817 Spondylosis without myelopathy or radiculopathy, lumbosacral region; M72.2 Plantar fascial fibromatosis; M53.3 Sacrococcygeal disorders, not elsewhere classified
CPT/HCPCS: 99214

== ENCOUNTER → 2023-03-26 14:59 | Outpatient (BNVA) | payer OTHER, SELFPAY | PROVIDERS: PCP Internal Medicine; Visit Provider Nurse Practitioner Family ==

== ENCOUNTER 2023-05-22 06:56 | Day surgery (SDC) | payer OTHER, SELFPAY ==
[2023-05-20 13:42] VITALS: BMI 35.9
--- NOTE | 2023-05-21 12:18 | HO.ANESPROP2 ---
Documented by User: Dorota Warren NP 05/21/23 12:24 HPI - Anesthesia Eval Consult details Narrative: 43yo F for Left Therapeutic Sacroiliac Joint Injection s/p same 11/2022 with TIVA Follows [facility] [place] Heme for anticariolipin antibodies: SLE (? plaquinel) found to have positivity for anti cardiolipin antibodies. Both IgG and IgM antibodies are positive. Coagulation tests for lupus anticoagulant are negative. PMFSH Active Problems Active Problems: All Active Problems (Updated 03/26/23 @ 15:19 by RYLEY Wadsworth) Plantar fasciitis of left foot (Acute) Contusion, hand (Acute) Inguinal hernia, right (Acute) Pressure of right suprapubic region (Acute) Stress incontinence (Acute) Frequency of urination (Acute) Pain of left heel (Acute) Sacroiliitis (Acute) DDD (degenerative disc disease), thoracolumbar (Acute) Greater trochanteric bursitis of left hip (Acute) Paresthesia and pain of left extremity (Acute) Inguinal hernia, left (Acute) Urine incontinence (Acute) Sacroiliac joint pain (Acute) Lumbosacral spondylosis (Acute) Lumbar back pain with radiculopathy affecting left lower extremity (Acute) Muscle spasm of back (Acute) Upper respiratory tract infection (Acute) Complicated migraine (Acute) Lipid disorder (Acute) Dizziness (Acute) Abnormal brain MRI (Acute) Leukocytosis (Acute) Increased ammonia level (Acute) Hip bursitis, left (Acute) Obesity due to excess calories (Acute) Lymphedema (Acute) Varicose veins of right lower extremity with inflammation (Acute) Varicose veins of left lower extremity with pain (Acute) Lumbar pain (Acute) COVID-19 (Acute) Encounter for assessment of work-related causation of injury (Acute) Back injury (Acute) Fall (Acute) Major depression, recurrent (Acute) Trochanteric bursitis, left hip (Acute) Osteitis pubis (Acute) Low back pain radiating to left leg (Acute) Acute sinusitis (Acute) Anti-cardiolipin antibody positive (Acute) Pain of left breast (Acute) AMADOR positive (Acute) Family history of systemic lupus erythematosus (Acute) Hospital discharge follow-up (Acute) Carpal tunnel syndrome, left (Acute) Back pain (Acute) Wheezing (Acute) Cervical radiculopathy (Acute) Osteitis pubis (Acute) Left shoulder tendonitis (Acute) Hip pain, left (Acute) Pain of right great toe (Acute) Weakness of left arm (Acute) Paresthesias in left hand (Acute) Past Medical History Medical History Pain of right great toe Lupus History of blood clots Weakness of left arm Paresthesias in left hand Family History Family History Father High cholesterol HTN (hypertension) Stroke Mother Lupus Substance use disorder Congenital heart disease Dementia Sister Lupus Maternal Aunt Dementia Maternal Aunt Dementia Maternal Aunt Dementia Maternal Aunt Dementia Maternal Aunt Dementia Family history of problems with anesthesia: No Surgical History Surgical History History of inguinal hernia repair Hx of carpal tunnel repair Hx of lumpectomy H/O: hysterectomy History of bunionectomy Hx of cholecystectomy History of Problems with Anesthesia: No Social History Social History Household Members: Spouse and Children Housing: House Alcohol intake: current Alcohol intake frequency: holidays/special occasions only Alcohol type: wine Patient Tobacco Use Status: Former Tobacco user Quit Date: 2000 Years Smoked: 5 e-Cigarette/Vaping Use: Never Used Use of substances other than those prescribed or required for medical reasons: No Are you DNR?: No Advance Directives: No Advance Directives Information Provided: Yes service: No Current occupational status: employed 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[employer] Cognitive needs: No Hearing needs: No Vision needs: Yes (contacts) Meds Allergies Allergy/AdvReac Type Severity Reaction Status Date / Time azithromycin [AZITHROMYCIN] Allergy Unknown low heart Verified 03/26/23 15:05 rate Exam Height,Weight and Vital Signs: Height 5 ft 5 in Weight 97.976 kg Pertinent Lab Results Pertinent Lab Results: Laboratory Tests 01/02/23 15:15 WBC 8.8 Hgb 13.1 Hct 40.5 Plt Count 278 Sodium 138 Potassium 3.6 Chloride 104 Carbon Dioxide 27 BUN 15 Creatinine 0.84 Assessment and Plan Assessment Anesthesia Assessment: Chart Reviewed Final Anesthetic Review Family History of Problems with Anesthesia: No History of Problems with Anesthesia: No Documented by User: Sylvia Garcia MD 05/22/23 07:56 PMFSH Past Medical History Medical History Pain of right great toe Lupus History of blood clots Weakness of left arm Paresthesias in left hand Family History Family History Father High cholesterol HTN (hypertension) Stroke Mother Lupus Substance use disorder Congenital heart disease Dementia Sister Lupus Maternal Aunt Dementia Maternal Aunt Dementia Maternal Aunt Dementia Maternal Aunt Dementia Maternal Aunt Dementia Surgical History Surgical History History of inguinal hernia repair Hx of carpal tunnel repair Hx of lumpectomy H/O: hysterectomy History of bunionectomy Hx of cholecystectomy Social History Social History Household Members: Spouse and Children Housing: House Alcohol intake: current Alcohol intake frequency: holidays/special occasions only Alcohol type: wine Patient Tobacco Use Status: Former Tobacco user Quit Date: 2000 Years Smoked: 5 e-Cigarette/Vaping Use: Never Used Use of substances other than those prescribed or required for medical reasons: No Are you DNR?: No Advance Directives: No Advance Directives Information Provided: Yes service: No Current occupational status: employed 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[employer] Cognitive needs: No Hearing needs: No Vision needs: Yes (contacts) Meds Allergies Allergy/AdvReac Type Severity Reaction Status Date / Time azithromycin [AZITHROMYCIN] Allergy Unknown low heart Verified 03/26/23 15:05 rate Exam Airway Mallampati Class: II TM Dist: >3cm Neck ROM: Full Loose/Missing/Broken Teeth: No Heart: RRR Lungs: CTA Assessment and Plan Assessment Anesthesia Assessment: Anesthesia Plan Discussed Final Anesthetic Review NPO: Yes ASA Class: II Final Preanesthetic Review: Meds/Allgs Chart Reviewed, Consent Obtained/Reviewed and Anes Risks/Benef Reviewed Patient Risk: Low Procedure Risk: Low Anesthetic Plan Anesthetic Plan: MAC: Disposition: Standard PACU
--- NOTE | ~2023-05-22 | FL_ITS ---
EXAMINATION: XR FLUOROSCOPY WITH IMAGES CLINICAL INFORMATION: Therapeutic SI joint injection, left. COMPARISON: None available. TECHNIQUE: Fluoroscopy Supervised By: Dr. Cayden Calvillo. Fluoroscopy Time: 0.1 minute. Cumulative Dose: 3.25 mGy. DAP: 0.638 Gycm2. Images: 1. FINDINGS: Image demonstrates needle placement and contrast injection of the left sacroiliac joint FL/FL guidance in OR IMPRESSION: Fluoroscopy guidance for left sacroiliac joint injection.
[2023-05-22 07:18] VITALS: BMI 35.3
[2023-05-22 07:26] VITALS: BP 131/80; PULSE 88; RESP 16; TEMP 36.8; O2SAT 98
[2023-05-22] MEDS: Lactated Ringers 1,000 ML 100 ML IVCONT (07:36)
--- NOTE | 2023-05-22 08:09 | MHC.SHP ---
Pre-Procedural Eval Section A Date of Service: 05/22/23 The patient is an INPATIENT: No Changes since office visit: Yes Patient answered all questions The History & Physical has been completed within 30 days and I have reviewed it.: No Section B Chief Complaint: Sacrococcygeal disorders, not elsewhere classified Details of Present Illness: as above Relevant Family History (Specify if Yes): No Relevant Social History: None Medical History: No relevant PMH History of Previous Operations: No relevant previous surgery Allergies: Allergies Allergy/AdvReac Type Severity Reaction Status Date / Time azithromycin [AZITHROMYCIN] Allergy Unknown low heart Verified 03/26/23 15:05 rate Review of Systems Sugical H&P ROS: Negative: Cardiovascular, Respiratory, Neurological, Psychiatric, Hem-Onc, Allergic/Immunologic, Gastrointestinal, Genitourinary, Musculoskeletal, Integumentary, Endocrine and Eyes/Ears/Nose/Throat and Yes, Specify: Constitution (obesity) Exam Surgical H&P Exam: Normal: HEENT, Normal: Heart, Normal: Lungs, Normal: Extremities, Normal: Skin and Normal: Neurological and Significant Findings: Abdomen (enlarged) Plan Diagnosis/Plan: Unchanged I have reviewed the history and physical and performed a pertinent physical examination on my patient. No changes have occurred unless specified. Time Spent With Patient Time: Total time managing care of this patient today __5__ minutes.
[2023-05-22 08:28] VITALS: BP 93/48; PULSE 87; RESP 16; TEMP 36.8; O2SAT 98
--- NOTE | 2023-05-22 08:28 | W.PM.OPN ---
Operative Note Operative Note Date of Service: 05/22/23 Narrative: therapeutic leftsacroiliac joint injection Informed consent was explained thoroughly to the patient. All questions about benefits and risks for the procedure were answered. Patient came to the operating room and was positioned prone on the operating table with the pillow under the pelvis Time out was performed delineating name and of the patient, allergies and the nature of the procedure. The lower back and buttocks of the patient were prepped with ChloraPrep prepped and draped with sterile utility towels. C-arm was brought over the operating field and sq picture of patient's pelvis was demonstrated on the screen. For the left joint tilting C-arm contralateral to the site of the joint the most posterior portion of the joints was superimposed with anterior silhouette of the joint. Skin was injected in the projection of the joint slightly medial to the location of the joint with 25 gauge 1/2 inch needle using local lidocaine 2% .After that 22 gauge 3 and 1/2 inch needle was driven to the left joint in tunnel vision fashion. When needle entered the joint capsule injection of the contrast was performed demonstrating intra-articular and minimally periarticular spread of the contrast. After that 4 cc. of ropivacaine 0.5% was injected into the joint. Upon completion of the injections the needle was removed sterile Band-Aid was applied.. After full completion of the procedure patient was taken outside of the operating room to the recovery room where recovered uneventfully.
--- NOTE | 2023-05-22 08:30 | PM.OP ---
Brief Operative Note Date of Service: 05/22/23 Pre-op diagnosis: sacroiliitis, sacroiliac joint pain left Post-op diagnosis: same Procedure: left sacroiliac joint therapeutic injection. Surgeon: Cayden Calvillo MD Was an Canvas Baster used for this Procedure?: No Estimated blood loss (mL): 0 Condition: stable Disposition: PACU
[2023-05-22 08:43] VITALS: BP 113/77; PULSE 78; RESP 16; O2SAT 99
[2023-05-22 08:58] VITALS: BP 113/78; PULSE 78; RESP 16; TEMP 36.6; O2SAT 99
== END 2023-05-22 09:20 | disposition home or self-care (01) ==
PROVIDERS: PCP Internal Medicine; Visit Provider Anesthesiology
PROC: 3E0U33Z Introduction of Anti-inflammatory into Joints, Percutaneous Approach (ICD-10-PCS; CPT 27096; principal; 2023-05-22 08:40)
DX: M46.1 Sacroiliitis, not elsewhere classified (principal); M53.3 Sacrococcygeal disorders, not elsewhere classified; M47.817 Spondylosis without myelopathy or radiculopathy, lumbosacral region; M72.2 Plantar fascial fibromatosis; Z88.1 Allergy status to other antibiotic agents; Z87.891 Personal history of nicotine dependence
CPT/HCPCS: 27096; J2704; J2795; J3301; Q9967

== ENCOUNTER → 2023-05-22 06:56 | Outpatient (BNV) | payer OTHER, SELFPAY | PROVIDERS: PCP Internal Medicine; Visit Provider Anesthesiology | DX: M46.1 Sacroiliitis, not elsewhere classified (principal); M53.3 Sacrococcygeal disorders, not elsewhere classified | CPT/HCPCS: 27096 ==

== ENCOUNTER 2023-07-02 14:04 | Outpatient (AMB) | payer OTHER, SELFPAY ==
--- NOTE | 2023-07-02 14:06 | A.OFFVIS_ITS ---
Intake Vital Signs 07/02/23 14:11 Height 5 ft 5 in Weight 212 lb BMI 35.3 BP 106/78 Blood Pressure Location Rt brachial Position Sitting Pulse 81 Pulse Source Pulse Oximeter Pulse Oximetry (%) 100 Oxygen Delivery Method Room Air Intake Visit Reasons: S/p (L) SIJ Injection 05/22/23/confirmed Intake Note: Pain today 0/10. Medical Malpractice Paralegal Required: No Accompanied by: Self / Same As Patient Allergies azithromycin [AZITHROMYCIN] Allergy (Unknown, Verified 07/02/23 14:10) low heart rate HPI HPI Comments History of Present Illness Details Patient presents today to assess response to Left Therapeutic SIJ injection on 05/22/[address] Calvillo. Patient reports ongoing 100% pain relief for left sided low back pain in the projection of left sacroiliac joint area. Patient reports significant improvement in her daily functioning, mobility and sleep. She will continue to monitor her pain and symptoms and notify our office when her pain returns to baseline. Denies any recent cough, cold, infection, fever or other significant changes in medical history or recent hospitalizations since last office visit. Patient denies any bladder or bowel incontinence or saddle anesthesia. Past Procedures: 05/22/23: Left Therapeutic SIJ injection -ongoing 100% pain relief 12/12/22: Left Therapeutic SIJ injection -80-90% pain relief for 3.1 months 10/14/22: Left Diagnostic SIJ injection- 80% pain relief for 3 days PRIOR 10/07/22 Dr. Calvillo: Naomi is a pleasant 42 year old female patient who presents to the office today for follow up of her lower back pain and scheduled interlaminar T12-L1 MAGDALENA. Patient reports pain in lower back, radiating into left buttock, lateral left hip/thigh/hogan; pain does not radiate below the ankle. She denies saddle anesthesia, incontinence of bowel or bladder. She denies numbness in the B/L LE. She denies weakness in B/l LE. She denies pain in the abdomen or the groin areas. Imaging was reviewed, results below. After physical exam, as detailed below, discussion was had with patient in regards to scheduled procedure. Patient's symptoms more consistent with sacroiliitis as well as spondylosis lumbar spine without symptoms of radiculopathy. , risks versus benefits of proceeding with scheduled T12-L1 MAGDALENA reviewed with patient, patient unlikely to receive significant therapeutic benefit and the risks of the procedure performed against the area of the spinal canal with the presence of spinal cord outweigh the very unclear benefits of the injection . Patient to be rescheduled for diagnostic left SI joint injection on October 14; she agrees with plan. She is also suffering from inguinal hernia for which the procedure is scheduled for her on October 22, 2022. PRIOR: Patient is a pleasant 42 years old female presents today for initial evaluation of worsening of chronic lower back pain. Patient denies any recent trauma, injury or falls. However, she reports back injury 2 years ago when she slipped on an icy parking lot coming out of her car. She fell on her left buttock on her car steppers and then on an iced parking lot. Her back pain is axial and also radiating to her left buttock, left lateral hip and into lateral and slightly posterior left thigh. She experiences spasms and marily horses sensations in her left hogan and calf with prolonged walking. Back pain increases prolonged sitting, walking, standing, changing positions, getting out of bed or shower, any movement and weather changes. Pain is described as constant pulsing, throbbing, pounding, stabbing, lancinating, pinching, cramping, crushing, hot burning scalding, searing, tingling, stingling, spreading, radiating, piercing, cool, cold, freezing and spasming. Denies previous spine surgery or injections. Reports getting frequent cortisone injections for left GTB pain with good relief but not lasting up to 3 months. Pain affects her daily activities, functions, mood, sleep, social interactions and quality of life. Patient is also concerned about episodic urine incontinence that has been happening during walking, bending, sitting and can happen with and without urine urgency. This has been happening for a few months. Denies seeing urology or ObGyn providers for this. Patient has been managing her pain with Tylenol, Motrin and hot shower or heat therapy with continued symptoms. Denies any fever, chills, abdominal or groin pain, sensory loss or weakness, bowel incontinence, or saddle anesthesia. 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 She is right hand dominant. Reports utilizing standing up desk for alternating her work day with walking and standing. Patient is starting physical activity this week. PFSH Medical History Pain of right great toe Lupus History of blood clots Weakness of left arm Paresthesias in left hand Surgical History History of inguinal hernia repair Hx of carpal tunnel repair Hx of lumpectomy H/O: hysterectomy History of bunionectomy Hx of cholecystectomy Family History Father High cholesterol HTN (hypertension) Stroke Mother Lupus Substance use disorder Congenital heart disease Dementia Sister Lupus Maternal Aunt Dementia Maternal Aunt Dementia Maternal Aunt Dementia Maternal Aunt Dementia Maternal Aunt Dementia Social History Household Members: Spouse and Children Housing: House Alcohol intake: current Alcohol intake frequency: holidays/special occasions only Alcohol type: wine Patient Tobacco Use Status: Former Tobacco user Quit Date: 2000 Smoked: 5 e-Cigarette/Vaping Use: Never Used service: No Current occupational status: employed 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 Alert and oriented. Mood and affect appropriate. Follows and participates in conversation appropriately. Respiratory effort is unlabored. No cough. Able to transition from sit to stand unassisted. Ambulates with bilaterally normal heel strike and toe off. Results Reviewed Results Reviewed: XR HIP, LEFT WITH AP PELVIS 03/14/22 FINDINGS: Bones and soft tissues are normal. No fracture. There is a tiny accessory ossification center seen lateral to the right acetabular roof. Alignment is anatomic. Hip joint space is maintained. There are multiple pelvic phleboliths. IMPRESSION: Unremarkable pelvis and left hip radiographs. XR LUMBOSACRAL SPINE 07/17/21 FINDINGS: Bone alignment is normal. No fracture or dislocation is seen. There is degenerative disc disease at T12-L1. Disc spaces are otherwise normal. Paraspinal soft tissues are normal. IMPRESSION: Degenerative disc disease at T12-L1. MR LUMBAR SPINE WITHOUT CONTRAST 08/18/22 FINDINGS: The lumbar vertebral bodies maintain normal heights and alignment. There is moderate to severe disc height loss at T12-L1 with a broad-based Schmorl's node seen along the inferior aspect of T12. Small hemangiomata are seen at T12, L3, and L5. The distal spinal cord appears normal. The conus medullaris terminates normally at the L1 level. The extraspinal soft tissues are within normal limits. SPINAL LEVELS: T12-L1: Left paracentral protrusion causing mild flattening the ventral thecal sac. No spinal canal or neural foraminal stenosis. L1-L2: No posterior disc abnormality. No spinal canal or neural foraminal stenosis. L2-L3: No posterior disc abnormality. No spinal canal or neural foraminal stenosis. L3-L4: No posterior disc abnormality. No spinal canal or neural foraminal stenosis. L4-L5: No posterior disc abnormality. Mild facet arthropathy. No spinal canal or neural foraminal stenosis. L5-S1: No posterior disc abnormality. No spinal canal or neural foraminal stenosis. IMPRESSION: No spinal canal stenosis or nerve root compression. Disc height loss with inferior endplate Schmorl's node seen at T12-L1. Assessment & Plan Assessment & Plan (1) Sacroiliitis: Code(s): M46.1 - Sacroiliitis, not elsewhere classified (2) Sacroiliac joint pain: Code(s): M53.3 - Sacrococcygeal disorders, not elsewhere classified (3) Lumbosacral spondylosis: Code(s): M47.817 - Spondylosis without myelopathy or radiculopathy, lumbosacral region Plan Patient is status post Left Therapeutic SIJ injection on 05/22/23 with excellent results and ongoing 100% pain relief. Patient reports improved mobility, functions and better sleep. She is aware that she can not receive another injection in this area for another 2 months. Patient is aware to monitor for side effects. All questions were answered and the patient is in agreement of plan. Follow up as needed. Coding Level of Care Code Est Pt Level 3 (27485) Diagnoses Sacroiliitis M46.1 Sacroiliac joint pain M53.3 Lumbosacral spondylosis M47.817
[2023-07-02 14:11] VITALS: BP 106/78; PULSE 81; O2SAT 100; BMI 35.3
== END 2023-07-02 14:23 | disposition home or self-care (01) ==
PROVIDERS: PCP Internal Medicine; Visit Provider Nurse Practitioner Family
DX: M46.1 Sacroiliitis, not elsewhere classified (principal); M53.3 Sacrococcygeal disorders, not elsewhere classified; M47.817 Spondylosis without myelopathy or radiculopathy, lumbosacral region
CPT/HCPCS: 99213

== ENCOUNTER → 2023-07-02 14:04 | Outpatient (BNVA) | payer OTHER, SELFPAY | PROVIDERS: PCP Internal Medicine; Visit Provider Nurse Practitioner Family ==

== ENCOUNTER 2023-10-07 15:32 | Outpatient (AMB) | payer OTHER, SELFPAY ==
--- NOTE | 2023-10-07 15:36 | MHC.OFFWIV ---
Intake Vital Signs 10/07/23 15:38 Height 5 ft 5 in Weight 220 lb BMI 36.6 BP 102/60 Blood Pressure Location Rt brachial Position Sitting Pulse 76 Pulse Source Pulse Oximeter Temp 98.1 F Temp Source Oral Pulse Oximetry (%) 98 Intake Visit Reasons: EP RT leg swelling redness warmth burning Intake Note: pt is here for right leg swelling with redness, warm to touch and burning sensation. Pt states she had a vein procedure done few years ago and the same spot of the surgery site. ongoing for 3 days Patient Tobacco Use Status: Former Tobacco user Quit Date: 2000 Allergies azithromycin [AZITHROMYCIN] Allergy (Unknown, Verified 10/07/23 15:37) low heart rate Do you need a note to return to daycare/school/sports/work: Yes HPI EP RT leg swelling redness warmth burning HPI Details 43 yr old female presents to the office for a sick visit. Pt had vein stripping surgery a few years ago. Two days ago, started experiencing pain in the right leg and redness. No recent travel, fall or injury. PFSH Medical History Pain of right great toe Lupus History of blood clots Weakness of left arm Paresthesias in left hand Surgical History History of inguinal hernia repair Hx of carpal tunnel repair Hx of lumpectomy H/O: hysterectomy History of bunionectomy Hx of cholecystectomy Family History Father High cholesterol HTN (hypertension) Stroke Mother Lupus Substance use disorder Congenital heart disease Dementia Sister Lupus Maternal Aunt Dementia Maternal Aunt Dementia Maternal Aunt Dementia Maternal Aunt Dementia Maternal Aunt Dementia Social History Household Members: Spouse and Children Housing: House Alcohol intake: current Alcohol intake frequency: holidays/special occasions only Alcohol type: wine Patient Tobacco Use Status: Former Tobacco user Quit Date: 2000 Years Smoked: 5 e-Cigarette/Vaping Use: Never Used service: No Current occupational status: employed 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 Abx and NSAIDS called in. If sx worsen or do not improve to follow up here. Medications: New meloxicam 15 mg PO DAILY 14 tabs 0RF cephalexin 500 mg PO BID 14 caps 0RF cephalexin 500 mg PO BID 14 caps 0RF Coding Level of Care Code Est Pt Level 3 (39639) Diagnoses Phlebitis of right leg I80.3
[2023-10-07 15:38] VITALS: BP 102/60; PULSE 76; TEMP 36.7; O2SAT 98; BMI 36.6
== END 2023-10-07 18:53 | disposition home or self-care (01) ==
PROVIDERS: PCP Internal Medicine; Visit Provider Internal Medicine
DX: I80.3 Phlebitis and thrombophlebitis of lower extremities, unspecified (principal)
CPT/HCPCS: 99213

== ENCOUNTER 2023-10-30 10:08 | Day surgery (SDC) | payer OTHER, SELFPAY ==
--- NOTE | ~2023-10-30 | FL_ITS ---
EXAMINATION: XR FLUOROSCOPY WITH IMAGES CLINICAL INFORMATION: Therapeutic SI joint injection. COMPARISON: None available. TECHNIQUE: Fluoroscopy Supervised By: Dr. Cayden Calvillo. Fluoroscopy Time: 0.1 minute. Cumulative Dose: 2.35 mGy. DAP: 0.383 Gy-cm2. Images: 1. FINDINGS: Intraoperative fluoroscopy and spot films were performed during a procedure in the OR. A needle overlies the mid left SI joint with contrast injected seen in the joint. Please see Dr. Cayden Calvillo's report for complete details. FL/FL guidance in OR IMPRESSION: Intraoperative fluoroscopy and spot films were obtained. Please see Dr. Cayden Calvillo's report for complete details.
[2023-10-30 10:44] VITALS: BMI 35.8
--- NOTE | 2023-10-30 10:55 | P.CONAN_ITS ---
[facility] Active Problems Active Problems: All Active Problems Plantar fasciitis of left foot (Acute) Contusion, hand (Acute) Inguinal hernia, right (Acute) Pressure of right suprapubic region (Acute) Stress incontinence (Acute) Frequency of urination (Acute) Pain of left heel (Acute) Sacroiliitis (Acute) DDD (degenerative disc disease), thoracolumbar (Acute) Greater trochanteric bursitis of left hip (Acute) Paresthesia and pain of left extremity (Acute) Inguinal hernia, left (Acute) Urine incontinence (Acute) Sacroiliac joint pain (Acute) Lumbosacral spondylosis (Acute) Lumbar back pain with radiculopathy affecting left lower extremity (Acute) Muscle spasm of back (Acute) Upper respiratory tract infection (Acute) Complicated migraine (Acute) Lipid disorder (Acute) Dizziness (Acute) Abnormal brain MRI (Acute) Leukocytosis (Acute) Increased ammonia level (Acute) Hip bursitis, left (Acute) Obesity due to excess calories (Acute) Lymphedema (Acute) Varicose veins of right lower extremity with inflammation (Acute) Varicose veins of left lower extremity with pain (Acute) Lumbar pain (Acute) COVID-19 (Acute) Encounter for assessment of work-related causation of injury (Acute) Back injury (Acute) Fall (Acute) Major depression, recurrent (Acute) Trochanteric bursitis, left hip (Acute) Osteitis pubis (Acute) Low back pain radiating to left leg (Acute) Acute sinusitis (Acute) Anti-cardiolipin antibody positive (Acute) Pain of left breast (Acute) AMADOR positive (Acute) Family history of systemic lupus erythematosus (Acute) Hospital discharge follow-up (Acute) Carpal tunnel syndrome, left (Acute) Back pain (Acute) Wheezing (Acute) Cervical radiculopathy (Acute) Osteitis pubis (Acute) Left shoulder tendonitis (Acute) Hip pain, left (Acute) Pain of right great toe (Acute) Weakness of left arm (Acute) Paresthesias in left hand (Acute) Past Medical History Medical History Pain of right great toe Lupus History of blood clots Weakness of left arm Paresthesias in left hand Family History Family History Father High cholesterol HTN (hypertension) Stroke Mother Lupus Substance use disorder Congenital heart disease Dementia Sister Lupus Maternal Aunt Dementia Maternal Aunt Dementia Maternal Aunt Dementia Maternal Aunt Dementia Maternal Aunt Dementia Family history of problems with anesthesia: No Surgical History Surgical History S/P epidural steroid injection History of inguinal hernia repair Hx of carpal tunnel repair Hx of lumpectomy H/O: hysterectomy History of bunionectomy Hx of cholecystectomy History of Problems with Anesthesia: No Social History Social History Household Members: Spouse and Children Housing: House Alcohol intake: current Alcohol intake frequency: holidays/special occasions only Alcohol type: wine Patient Tobacco Use Status: Former Tobacco user Quit Date: 2000 Smoked: 5 e-Cigarette/Vaping Use: Never Used Use of substances other than those prescribed or required for medical reasons: No Are you DNR?: No Advance Directives: No Advance Directives Information Provided: Yes service: No Current occupational status: employed 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[employer] Cognitive needs: No Hearing needs: No Vision needs: Yes (contacts) Meds Allergies Allergy/AdvReac Type Severity Reaction Status Date / Time azithromycin [AZITHROMYCIN] Allergy Unknown low heart Verified 10/30/23 10:43 rate Home Medications ?Medication ?Instructions ?Recorded ?Confirmed ?Last Taken ?Type No Known Home Meds 10/30/23 10/30/23 Unknown History Exam Height,Weight and Vital Signs: Height 5 ft 5 in Weight 97.522 kg Airway Mallampati Class: II TM Dist: <=3cm Neck ROM: Full Loose/Missing/Broken Teeth: No Heart: rrr Lungs: cta Assessment and Plan Assessment Anesthesia Assessment: Anesthesia Plan Discussed and Chart Reviewed Final Anesthetic Review Family History of Problems with Anesthesia: No History of Problems with Anesthesia: No NPO: Yes ASA Class: III Final Preanesthetic Review: No Changes in Pt Med Stat, Meds/Allgs Chart Reviewed, Consent Obtained/Reviewed and Anes Risks/Benef Reviewed Patient Risk: Intermediate Procedure Risk: Low Anesthetic Plan Anesthetic Plan: MAC: Disposition: Standard PACU
[2023-10-30 11:05] VITALS: BP 125/62; PULSE 66; RESP 15; TEMP 36.4; O2SAT 98
[2023-10-30] MEDS: Lactated Ringers 1,000 ML 50 ML IVCONT (11:18)
--- NOTE | 2023-10-30 11:53 | MHC.SHP ---
Pre-Procedural Eval Section A - 24 Hr Update-Section A only Date of Service: 10/30/23 The patient is an INPATIENT: No Changes since office visit: Yes Patient answered all questions The patient has been examined within 24 hours of the surgical procedure. The History & Physical has been completed within 30 days and I have reviewed it.: No Section B - Complete if H&P > 30 days Chief Complaint: Sacrococcygeal disorders,Sacroiliitis Details of Present Illness: as above Relevant Family History (Specify if Yes): No Relevant Social History: None Medical History: No relevant PMH History of Previous Operations: No relevant previous surgery Allergies: Allergies Allergy/AdvReac Type Severity Reaction Status Date / Time azithromycin [AZITHROMYCIN] Allergy Unknown low heart Verified 10/30/23 10:43 rate Review of Systems Sugical H&P ROS: Negative: Cardiovascular, Respiratory, Neurological, Psychiatric, Hem-Onc, Allergic/Immunologic, Gastrointestinal, Genitourinary, Musculoskeletal, Integumentary, Endocrine and Eyes/Ears/Nose/Throat and Yes, Specify: Constitution (obesity) Exam Surgical H&P Exam: Normal: HEENT, Normal: Heart, Normal: Lungs, Normal: Extremities, Normal: Skin and Normal: Neurological and Significant Findings: Abdomen (enlarged) Plan Diagnosis/Plan: Unchanged I have reviewed the history and physical and performed a pertinent physical examination on my patient. No changes have occurred unless specified. Time Spent With Patient Time: Total time managing care of this patient today ____ minutes.
[2023-10-30 12:16] VITALS: BP 127/78; PULSE 82; RESP 18; TEMP 36.3; O2SAT 98
--- NOTE | 2023-10-30 12:23 | W.PM.OPN ---
Operative Note Operative Note Date of Service: 10/30/23 Narrative: Therapeutic sacroiliac joint injection on the left Informed consent was explained thoroughly to the patient. All questions about benefits and risks for the procedure were answered. Patient came to the operating room and was positioned prone on the operating table with the pillow under the pelvis. Time out was performed delineating name and of the patient, allergies and the nature of the procedure. ASA monitors were applied, patient was deeply sedated. The lower back and buttocks of the patient were prepped with ChloraPrep prepped and draped with sterile utility towels. C-arm was brought over the operating field and sq picture of patient's pelvis was demonstrated on the screen. For the left joint tilting C-arm contralateral to the site of the joint the most posterior portion of the joints was superimposed with anterior silhouette of the joint. Skin was injected in the projection of the joint slightly medial to the location of the joint with 25 gauge 1/2 inch needle using local lidocaine 2% .After that 22 gauge 3 and 1/2 inch needle was driven to the left joint in tunnel vision fashion. When needle entered the joint capsule injection of the contrast was performed demonstrating intra-articular and minimally periarticular spread of the contrast. After that 4 cc. of ropivacaine 0.5% mixed with Kenalog 40 mg was injected into the joint. Upon completion of the injections the needle was removed Sterile dressing was applied. Upon completion of the injection patient was taken outside of the operating room to the recovery room where recovered uneventfully.
[2023-10-30 12:31] VITALS: BP 116/70; PULSE 68; RESP 15; TEMP 36.2; O2SAT 100
== END 2023-10-30 13:05 | disposition home or self-care (01) ==
PROVIDERS: PCP Internal Medicine; Visit Provider Anesthesiology
PROC: 3E0U33Z Introduction of Anti-inflammatory into Joints, Percutaneous Approach (ICD-10-PCS; CPT 27096; principal; 2023-10-30 12:40)
DX: M46.1 Sacroiliitis, not elsewhere classified (principal); M53.3 Sacrococcygeal disorders, not elsewhere classified; M32.9 Systemic lupus erythematosus, unspecified; M47.817 Spondylosis without myelopathy or radiculopathy, lumbosacral region; R20.0 Anesthesia of skin; Z88.1 Allergy status to other antibiotic agents; Z98.890 Other specified postprocedural states
CPT/HCPCS: 27096; J2704; J2795; J3301; Q9967

== ENCOUNTER → 2023-10-30 10:08 | Outpatient (BNV) | payer OTHER, SELFPAY | PROVIDERS: PCP Internal Medicine; Visit Provider Anesthesiology | DX: M46.1 Sacroiliitis, not elsewhere classified (principal); M53.3 Sacrococcygeal disorders, not elsewhere classified | CPT/HCPCS: 27096 ==

== ENCOUNTER 2023-12-02 14:57 | Outpatient (AMB) | payer OTHER, SELFPAY ==
--- NOTE | 2023-12-02 15:00 | MHC.PC.OV ---
Vital Signs 12/02/23 15:01 Height 5 ft 5 in Weight 215 lb 6 oz BMI 35.8 BP 110/76 Blood Pressure Location Rt brachial Position Sitting Pulse 76 Pulse Source Pulse Oximeter Pulse Oximetry (%) 99 Oxygen Delivery Method Room Air Intake Visit Reasons: Neurologist Referral ~ Allergies azithromycin [AZITHROMYCIN] Allergy (Unknown, Verified 12/02/23 15:01) low heart rate Medication List - Last Reconciled 12/02/23 by Maggie Crystal MD No Known Home Meds Tobacco use date assessed: 12/02/23 Dental Screening Dental Screen Date: 12/02/23 Did you have a dental visit in the last 12 months?: Yes Did you have a dental problem in the last 6 months where you did not have access to dental care?: No Was dental information given to patient?: Patient has dentist HPI Neurologist Referral ~ HPI Details Patient is a 43-year-old female who has been struggling with migraine headache for the past many years She was seeing a neurologist who is retiring Dr. Larson Patient says that she has been having different symptoms sometimes blurring of vision Sometimes she feels as if she is going to fall while laying down in bed Sometimes she has twitching of her eyelids She has been taking ibuprofen which does help with headache When she does get headaches sometimes it continues for 3 weeks straight Referral to Neurology placed currently patient is stable [facility] Medical History Pain of right great toe Lupus History of blood clots Weakness of left arm Paresthesias in left hand Surgical History S/P epidural steroid injection History of inguinal hernia repair Hx of carpal tunnel repair Hx of lumpectomy H/O: hysterectomy History of bunionectomy Hx of cholecystectomy Family History Father High cholesterol HTN (hypertension) Stroke Mother Lupus Substance use disorder Congenital heart disease Dementia Sister Lupus Maternal Aunt Dementia Maternal Aunt Dementia Maternal Aunt Dementia Maternal Aunt Dementia Maternal Aunt Dementia Social History Household Members: Spouse and Children Housing: House Alcohol intake: current Alcohol intake frequency: holidays/special occasions only Alcohol type: wine Patient Tobacco Use Status: Former Tobacco user Years Smoked: 5 e-Cigarette/Vaping Use: Never Used service: No Current occupational status: employed 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 How often do you have a drink containing alcohol?: Monthly or less 2. How many drinks containing alcohol do you have on a typical day when you are drinking?: 1 or 2 3. How often do you have six or more drinks on one occasion?: Never Total Score: 1 Score Reviewed/Action Taken: No DAMON-7 AMB Questionnaire DAMON-7 Date DAMON - 7 assessed: 01/16/23 Source: Developed by Drs. Morris Farooq, Francia Barfield, Leonel Min and colleagues, with an educational austyn from [employer]. Review of Systems Const Denies chills and Denies fever(s) ENT Denies epistaxis and Denies nasal discharge Card Denies chest pain Resp Denies chest congestion, Denies cough and Denies hemoptysis GI Denies diarrhea and Denies nausea Skin/Breast Denies rash Neuro Reports no additional complaints Psych Reports no additional complaints Endo Reports no additional complaints Physical exam (Primary Care) Vital Signs: Last Vital Signs Pulse 76 12/02/23 15:01 BP 110/76 12/02/23 15:01 Pulse Ox 99 12/02/23 15:01 Oxygen Delivery Method Room Air 12/02/23 15:01 BMI result Body Mass Index 35.8 Tobacco/Smoking Status: Tobacco use Status Tobacco use date assessed 12/02/23 12/02/23 15:03 Patient Tobacco Use Status Former Tobacco user 12/02/23 15:03 e-Cigarette/Vaping Use Never Used 12/02/23 15:03 Thrive Assessment: Date of Thrive Assessment Date Thrive assessed 01/16/23 12/02/23 15:03 Const General: cooperative, comfortable and no acute distress Orientation/consciousness: patient oriented x3 HENMT Head: Yes normocephalic Eyes General: appearance normal, both eyes and all related structures Neck Neck: Yes supple Resp Effort & Inspection: normal respiratory effort, no cough and no stridor Cardio Rhythm: regular rhythm Heart sounds: S1 normal heart sound present and S2 normal heart sound present Skin General skin exam: turgor normal Neuro General: patient oriented x3, tone normal and moves all extremities Extrem Right lower extremity: no edema Left lower extremity: no edema Assessment and Plan Assessment & Plan (1) Complicated migraine: Code(s): G43.109 - Migraine with aura, not intractable, without status migrainosus Plan Patient is a 43-year-old female who has been struggling with migraine headache for the past many years She was seeing a neurologist who is retiring Dr. Larson Patient says that she has been having different symptoms sometimes blurring of vision Sometimes she feels as if she is going to fall while laying down in bed Sometimes she has twitching of her eyelids She has been taking ibuprofen which does help with headache When she does get headaches sometimes it continues for 3 weeks straight Referral to Neurology placed currently patient is stable, and her neurological exam is nonfocal Orders: Referrals Neurology Referral G43.109 - Migraine with aura, not intractable, without status migrainosus Coding Level of Care Code Est Pt Level 4 (76458) Diagnoses Complicated migraine G43.109
[2023-12-02 15:01] VITALS: BP 110/76; PULSE 76; O2SAT 99; BMI 35.8
== END 2023-12-02 15:18 | disposition home or self-care (01) ==
PROVIDERS: PCP Internal Medicine; Visit Provider Internal Medicine
DX: G43.109 Migraine with aura, not intractable, without status migrainosus (principal)
CPT/HCPCS: 99214

== ENCOUNTER 2023-12-04 14:30 | Outpatient (AMB) | payer OTHER, SELFPAY ==
--- NOTE | 2023-12-04 14:32 | A.OFFVIS_ITS ---
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 Calvillo. Patient reports ongoing 100% pain relief for left sided low back pain in the projection of left sacroiliac joint area. Patient reports significant improvement in her daily functioning, mobility and sleep. She will continue to monitor her pain and symptoms and notify our office when her pain returns to baseline. Denies any recent cough, cold, infection, fever or other significant changes in medical history or recent hospitalizations since last office visit. Patient denies any bladder or bowel incontinence or saddle anesthesia. We also reviewed long-term pain management for left SI joint pain with neuromodulation, SI joint stabilization with fusion and RFA procedures in greater detail. 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 We discussed activity restrictions and time off for work for 12 weeks for SI joint stabilization. She is non-smoker, reports history of remote smoking for 5 years. Past Procedures: 10/30/23: Left Therapeutic SIJ injection-ongoing 100% pain relief 05/22/23: Left Therapeutic SIJ injection-ongoing 100% pain relief 12/12/22: Left Therapeutic SIJ [id number]% pain relief for 3.1 months 10/14/22: Left Diagnostic SIJ injection-80% pain relief for 3 days PRIOR 10/07/22 Dr. Calvillo: Naomi is a pleasant 42 year old female patient who presents to the office today for follow up of her lower back pain and scheduled interlaminar T12-L1 MAGDALENA. Patient reports pain in lower back, radiating into left buttock, lateral left hip/thigh/hogan; pain does not radiate below the ankle. She denies saddle anesthesia, incontinence of bowel or bladder. She denies numbness in the B/L LE. She denies weakness in B/l LE. She denies pain in the abdomen or the groin areas. Imaging was reviewed, results below. After physical exam, as detailed below, discussion was had with patient in regards to scheduled procedure. Patient's symptoms more consistent with sacroiliitis as well as spondylosis lumbar spine without symptoms of radiculopathy. , risks versus benefits of proceeding with scheduled T12-L1 MAGDALENA reviewed with patient, patient unlikely to receive significant therapeutic benefit and the risks of the procedure performed against the area of the spinal canal with the presence of spinal cord outweigh the very unclear benefits of the injection . Patient to be rescheduled for diagnostic left SI joint injection on October 14; she agrees with plan. She is also suffering from inguinal hernia for which the procedure is scheduled for her on October 22, 2022. PRIOR: Patient is a pleasant 42 years old female presents today for initial evaluation of worsening of chronic lower back pain. Patient denies any recent trauma, injury or falls. However, she reports back injury 2 years ago when she slipped on an icy parking lot coming out of her car. She fell on her left buttock on her car steppers and then on an iced parking lot. Her back pain is axial and also radiating to her left buttock, left lateral hip and into lateral and slightly p osterior left thigh. She experiences spasms and marily horses sensations in her left hogan and calf with prolonged walking. Back pain increases prolonged sitting, walking, standing, changing positions, getting out of bed or shower, any movement and weather changes. Pain is described as constant pulsing, throbbing, pounding, stabbing, lancinating, pinching, cramping, crushing, hot burning scalding, searing, tingling, stingling, spreading, radiating, piercing, cool, cold, freezing and spasming. Denies previous spine surgery or injections. Reports getting frequent cortisone injections for left GTB pain with good relief but not lasting up to 3 months. Pain affects her daily activities, functions, mood, sleep, social interactions and quality of life. Patient is also concerned about episodic urine incontinence that has been happening during walking, bending, sitting and can happen with and without urine urgency. This has been happening for a few months. Denies seeing urology or ObGyn providers for this. Patient has been managing her pain with Tylenol, Motrin and hot shower or heat therapy with continued symptoms. Denies any fever, chills, abdominal or groin pain, sensory loss or weakness, bowel incontinence, or saddle anesthesia. 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 She is right hand dominant. Reports utilizing standing up desk for alternating her work day with walking and standing. Patient is starting physical activity this week. [facility] Medical History Pain of right great toe Lupus History of blood clots Weakness of left arm Paresthesias in left hand Surgical History S/P epidural steroid injection History of inguinal hernia repair Hx of carpal tunnel repair Hx of lumpectomy H/O: hysterectomy History of bunionectomy Hx of cholecystectomy Family History Father High cholesterol HTN (hypertension) Stroke Mother Lupus Substance use disorder Congenital heart disease Dementia Sister Lupus Maternal Aunt Dementia Maternal Aunt Dementia Maternal Aunt Dementia Maternal Aunt Dementia Maternal Aunt Dementia Social History Household Members: Spouse and Children Housing: House Alcohol intake: current Alcohol intake frequency: holidays/special occasions only Alcohol type: wine Patient Tobacco Use Status: Former Tobacco user Years Smoked: 5 e-Cigarette/Vaping Use: Never Used service: No Current occupational status: employed 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 Alert and oriented. Mood and affect appropriate. Follows and participates in conversation appropriately. Respiratory effort is unlabored. No cough. Able to transition from sit to stand unassisted. Ambulates with bilaterally normal heel strike and toe off. Back/Spine/Pelvis Cervical Spine: cervical ROM normal and No Cervical spine tenderness Thoracic/Lumbar Spine: thoracic and lumbar spine normal to inspection, No Thoracic/lumbar spine scar(s), thoraco-lumbar ROM normal, Lasegue's sign negative, straight leg raise negative bilaterally, No thoracic spinal tenderness and No lumbar spinal tenderness Pelvis: no buttock tenderness Sacroiliac joints: bilaterally nontender Results Reviewed Results Reviewed: XR HIP, LEFT WITH AP PELVIS 03/14/22 FINDINGS: Bones and soft tissues are normal. No fracture. There is a tiny accessory ossification center seen lateral to the right acetabular roof. Alignment is anatomic. Hip joint space is maintained. There are multiple pelvic phleboliths. IMPRESSION: Unremarkable pelvis and left hip radiographs. XR LUMBOSACRAL SPINE 07/17/21 FINDINGS: Bone alignment is normal. No fracture or dislocation is seen. There is degenerative disc disease at T12-L1. Disc spaces are otherwise normal. Paraspinal soft tissues are normal. IMPRESSION: Degenerative disc disease at T12-L1. MR LUMBAR SPINE WITHOUT CONTRAST 08/18/22 FINDINGS: The lumbar vertebral bodies maintain normal heights and alignment. There is moderate to severe disc height loss at T12-L1 with a broad-based Schmorl's node seen along the inferior aspect of T12. Small hemangiomata are seen at T12, L3, and L5. The distal spinal cord appears normal. The conus medullaris terminates normally at the L1 level. The extraspinal soft tissues are within normal limits. SPINAL LEVELS: T12-L1: Left paracentral protrusion causing mild flattening the ventral thecal sac. No spinal canal or neural foraminal stenosis. L1-L2: No posterior disc abnormality. No spinal canal or neural foraminal stenosis. L2-L3: No posterior disc abnormality. No spinal canal or neural foraminal stenosis. L3-L4: No posterior disc abnormality. No spinal canal or neural foraminal stenosis. L4-L5: No posterior disc abnormality. Mild facet arthropathy. No spinal canal or neural foraminal stenosis. L5-S1: No posterior disc abnormality. No spinal canal or neural foraminal stenosis. IMPRESSION: No spinal canal stenosis or nerve root compression. Disc height loss with inferior endplate Schmorl's node seen at T12-L1. Assessment & Plan Assessment & Plan (1) Sacroiliitis: Code(s): M46.1 - Sacroiliitis, not elsewhere classified Category: Medical (2) Sacroiliac joint pain: Code(s): M53.3 - Sacrococcygeal disorders, not elsewhere classified Category: Medical (3) Lumbosacral spondylosis: Code(s): M47.817 - Spondylosis without myelopathy or radiculopathy, lumbosacral region Category: Medical Plan Patient is status post Left Therapeutic SIJ injection on 10/30/23 with ongoing 100% pain relief. Patient reports improved mobility, functions and better sleep. Patient is aware to monitor for side effects. We also reviewed long-term pain management for left SI joint pain with neuromodulation, SI joint stabilization with fusion and RFA procedures in greater detail. Informational pamphlets were provided to patient. Patient will notify our office if she would like to proceed with any of procedures. All questions were answered and the patient is in agreement of plan. Follow up as needed. Coding Level of Care Code Est Pt Level 3 (52356) Diagnoses Sacroiliitis M46.1 Sacroiliac joint pain M53.3 Lumbosacral spondylosis M47.817
[2023-12-04 14:37] VITALS: BP 125/84; PULSE 107; O2SAT 99; BMI 35.8
== END 2023-12-04 14:51 | disposition home or self-care (01) ==
PROVIDERS: PCP Internal Medicine; Visit Provider Nurse Practitioner Family
DX: M46.1 Sacroiliitis, not elsewhere classified (principal); M53.3 Sacrococcygeal disorders, not elsewhere classified; M47.817 Spondylosis without myelopathy or radiculopathy, lumbosacral region
CPT/HCPCS: 99213

== ENCOUNTER → 2023-12-04 14:30 | Outpatient (BNVA) | payer OTHER, SELFPAY | PROVIDERS: PCP Internal Medicine; Visit Provider Nurse Practitioner Family ==

== ENCOUNTER 2023-12-05 17:43 | Emergency (ER) | payer OTHER, SELFPAY ==
--- NOTE | ~2023-12-05 | US_ITS ---
EXAMINATION: US VENOUS ULTRASOUND WITH DOPPLER LOWER EXTREMITY, RIGHT CLINICAL INFORMATION: Swelling pain COMPARISON: Ultrasound venous Doppler lower extremity bilateral from 10/22/2021 TECHNIQUE: Ultrasound of the deep veins is performed from the hip to the calf with compression sonography and color and pulse Doppler assessment. Spectral analysis with color-flow imaging is performed. FINDINGS: There is normal venous compression and respiratory variation and augmented flow. The visualized common femoral vein, superficial femoral vein, profunda femoral vein, popliteal vein, and the trifurcation region shows no evidence of deep venous thrombosis. There is no significant popliteal fossa cyst. Contralateral common femoral vein is patent. If the patient's symptoms persist, followup ultrasound in 5 days 7 days might be of value to exclude proximal propagation from a non-visualized calf vein. US/US venous duplex LE RT IMPRESSION: No DVT demonstrated in the right lower extremity.
[2023-12-05 17:55] VITALS: BP 122/67; PULSE 89; RESP 18; TEMP 36.6; O2SAT 97; BMI 35.6
--- NOTE | 2023-12-05 17:55 | ED.GENADULT ---
HPI - General Adult General Chief complaint: Extremity Injury, Lower Stated complaint: R calf swelling + discoloration Time Seen by Provider: 12/05/23 19:30 Source: patient Mode of arrival: ambulatory Limitations: no limitations History of Present Illness ED Provider: lucien LANIER narrative: Patient is a 43-year-old female with history of varicose veins and multiple procedures to the veins in her lower legs presenting with right lower leg swelling and tingling to toes of right foot since this morning. Reports swelling to mid anterior lower leg which is not normal for her. Per her vascular doctor, she is high risk for clots. She denies any known injury to the area. Denies any recent strenuous activity. complaint: Right lower leg pain and swelling Onset (ago): hour(s) Location: right and lower extremity Radiation: non-radiation Severity: moderate Quality: aching Pain Consistency: constant Associated symptoms: other (Swelling) Treatments prior to arrival: none Related Data Home Medications ?Medication ?Instructions ?Recorded ?Confirmed No Known Home Meds 10/30/23 12/02/23 Allergies Allergy/AdvReac Type Severity Reaction Status Date / Time azithromycin [AZITHROMYCIN] Allergy Unknown low heart Verified 12/05/23 17:57 rate Review of Systems Review of Systems: As per HPI. Yes all other systems are reviewed and are negative Constitutional: Constitutional: Reports as per HPI [facility] Past Medical History Medical History Pain of right great toe Lupus History of blood clots Weakness of left arm Paresthesias in left hand Surgical History S/P epidural steroid injection History of inguinal hernia repair Hx of carpal tunnel repair Hx of lumpectomy H/O: hysterectomy History of bunionectomy Hx of cholecystectomy Family History Family History Father High cholesterol HTN (hypertension) Stroke Mother Lupus Substance use disorder Congenital heart disease Dementia Sister Lupus Maternal Aunt Dementia Maternal Aunt Dementia Maternal Aunt Dementia Maternal Aunt Dementia Maternal Aunt Dementia Social History Social History Household Members: Spouse and Children Housing: House Alcohol intake: current Alcohol intake frequency: holidays/special occasions only Alcohol type: wine Patient Tobacco Use Status: Former Tobacco user Years Smoked: 5 e-Cigarette/Vaping Use: Never Used Advance Directives: No Advance Directives Information Provided: No service: No Current occupational status: employed 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 Blood pressure normal. Heart rate normal. Respiratory rate normal. Temperature normal. Oxygen saturation normal. Const General: cooperative, healthy appearing and no acute distress Orientation/consciousness: oriented to person, oriented to place, oriented to time and patient oriented x3 Limitations: no limitations HENMT Head: Yes normocephalic and Yes atraumatic Ears: external ears normal General nose exam: Normal external nose present Face and sinus: Yes face symmetric Mouth: oropharynx normal and moist mucous membranes Throat: Yes uvula midline Eyes Pupils: Equal, round and reactive pupils present Neck Neck: Yes normal visual inspection and Yes supple Resp Effort & Inspection: normal respiratory effort and able to speak in complete sentences Auscultation: clear to auscultation bilaterally Cardio Rate: regular rate Rhythm: regular rhythm Heart sounds: S1 normal heart sound present and S2 normal heart sound present GI Palpation (GI): Soft to palpation and nontender Auscultation: normoactive bowel sounds General: Yes no CVA tenderness Back/Spine/Pelvis Back: no CVA tenderness Skin General skin exam: elasticity normal and turgor normal Neuro General: oriented to person, oriented to place, oriented to time, patient oriented x3, moves all extremities, no focal motor deficits and CN's II-XI intact bilaterally Cranial nerves: Yes Equal, round and reactive pupils present Cognition (Neuro): normal cognition Extrem General: Yes full ROM, Yes no pedal edema and Yes no calf tenderness Right lower extremity: lower leg Details: tenderness Location: of the midshaft tibia, localized swelling Location: of the mid lower leg (anterior, mild) and no edema; no palpable cords, no ecchymosis and no unusual warmth and foot Details: vascular exam Details: dorsalis pedis pulse present, posterior tibial pulse present and normal capillary refill Psych Mental Status: mental status grossly normal Affect: normal affect Thought process: Normal thought process present Medical Decision Making Medical Decision Making [facility] Narrative: Patient is a 43-year-old female with history of varicose veins and multiple procedures to the veins in her lower legs presenting with right lower leg swelling and tingling to toes of right foot since this morning. On exam patient is awake, A+Ox3, VS WNL, afebrile, normal neurological exam without focal deficits, physical exam findings as above. Given reported symptoms and physical exam findings, initial differential includes DVT, muscle strain, PVD. Labs unremarkable, no leukocytosis or electrolyte abnormalities. Ultrasound notable for no evidence of DVT to RLE. My interpretation is in agreement with the radiologist's interpretation. Results discussed with patient and all questions answered. Advised patient that if symptoms persist beyond the next 5-7 days should have repeat ultrasound in can schedule this outpatient with her PCP or return to the emergency department. Return precautions for which patient should return to the ED sooner were discussed at bedside. Advised patient to reach out to her vascular doctor as well for further evaluation and management of her symptoms. Patient verbalized understanding of and agreement with plan. Differential Diagnosis As per MDM. Lab Data [facility] Lab Attestation statement: I reviewed the patient's lab results. As per [facility]. 12/05/23 18:12 12/05/23 18:12 Labs: Lab Results 12/05/23 Range/Units 18:12 WBC 7.7 (4.8-10.8) X10*3/uL RBC 4.76 (4.20-5.50) X10*6/uL Hgb 14.3 (12.0-16.0) g/dl Hct 42.0 (37.0-47.0) % MCV 88.2 (80.0-98.0) fL MCH 30.0 (27.0-33.0) pg MCHC 34.0 (31.0-35.0) g/dl RDW 12.5 (11.0-16.0) % Plt Count 288 (160-400) X10*3/uL MPV 11.5 (9.4-12.3) fL Immature Gran % (Auto) 0.4 (0.0-0.4) % Neut % (Auto) 66.4 (45-73) % Lymph % (Auto) 22.4 (20-40) % [place] % (Auto) 8.7 (2-11) % Eos % (Auto) 1.4 (0-4) % Baso % (Auto) 0.7 (0-2) % Lymph # (Auto) 1.7 (1.2-4.9) X10*3/uL [place] # (Auto) 0.7 (0.1-1.2) X10*3/uL Eos # (Auto) 0.1 (0.0-0.4) X10*3/uL Baso # (Auto) 0.1 (0.0-0.2) X10*3/uL Abs Immat Gran (auto) 0.03 (0.00-0.03) X10*3/uL Absolute Neuts (auto) 5.1 (2.0-8.3) x10*3/uL Absolute Nucleated RBC 0.000 (0.0-0.012) X10*3/uL Nucleated RBC % (auto) 0.0 (0.0-0.2) /100WBC PT 10.5 L (11.1-13.3) SEC INR 0.9 (0.9-1.1) Sodium 143 (135-145) mmol/L Potassium 3.7 (3.3-5.1) mmol/L Chloride 109 H (96-108) mmol/L Carbon Dioxide 24 (22-29) mmol/L Anion Gap 14 (12-20) BUN 15 (9-16) mg/dL Creatinine 0.86 (0.5-1.4) mg/dL Estim Creat Clear Calc 96.1 Estimated GFR > 60 Random Glucose 125 H (60-115) mg/dL Calcium 9.0 (8.4-10.2) mg/dL Total Bilirubin 0.3 (0.0-1.0) mg/dL AST 18 (5-31) U/L ALT 16 (0-31) U/L Alkaline Phosphatase 64 (39-117) U/L Total Protein 7.1 (6.5-8.0) g/dL Albumin 3.7 (3.5-5.0) g/dL Independent Interpretation I performed an independent interpretation of an: Ultrasound Interpretation: No evidence of DVT right lower extremity Radiology Impression Discussion of test interpretation with radiology: I have reviewed the radiologist's reading. Radiologist Impression: US/US venous duplex LE RT IMPRESSION: No DVT demonstrated in the right lower extremity. External Record Review External record reviewed: Inpatient record, Office record and Outpatient record Discharge Plan Discharge Clinical Impression: Pain in right lower leg Patient Disposition: Home, Self-Care Instructions: Leg Pain (ED) Additional Instructions: You were evaluated in the emergency department today for right lower leg pain and swelling. Your labs were normal. Your ultrasound did not show evidence a DVT, also known as a blood clot, in your right lower leg. We do recommend that if your symptoms persist beyond the next 5-7 days that you have a repeat ultrasound. You can contact your primary care provider to schedule this outpatient or you can return to the emergency department. You should return to the emergency department sooner if you develop increasing swelling, redness, severe pain, new weakness, numbness, tingling, change of color in your leg, fever, chest pain or shortness of breath or any other concerning symptoms. Prescriptions: No Action No Known Home Meds Print Language: Nepalese
[2023-12-05 18:16] LABS: MANUAL DIFF FLAG NO
[2023-12-05 18:23] LABS: INTERNATIONAL NORM RATIO 0.9 (0.9-1.1); Prothrombin Time 10.5 SEC (11.1-13.3)
[2023-12-05 18:34] LABS: Alanine Aminotransferase 16 U/L (0-31); Albumin Level 3.7 g/dL (3.5-5.0); Alkaline Phosphatase 64 U/L (39-117); Anion Gap 14 (12-20); Aspartate Amino Transferase 18 U/L (5-31); Bilirubin Total 0.3 mg/dL (0.0-1.0); Blood Urea Nitrogen 15 mg/dL (9-16); Carbon Dioxide 24 mmol/L (22-29); Chloride 109 mmol/L (96-108); Creatinine Clr Calc Pharmacy 96.1; Estimated Glomerular Filt Rate > 60; Glucose Random 125 mg/dL (60-115); Potassium 3.7 mmol/L (3.3-5.1); Sodium 143 mmol/L (135-145); Total Protein 7.1 g/dL (6.5-8.0)
[2023-12-05 18:36] LABS: Basophils Absolute Auto 0.1 X10*3/uL (0.0-0.2); Basophils Percent Auto 0.7 % (0-2); Eosinophils Absolute Auto 0.1 X10*3/uL (0.0-0.4); Eosinophils Percent Auto 1.4 % (0-4); Hemoglobin 14.3 g/dl (12.0-16.0); Imm Gran Abs Auto 0.03 X10*3/uL (0.00-0.03); Imm Gran Pct Auto 0.4 % (0.0-0.4); Lymphocytes Absolute Auto 1.7 X10*3/uL (1.2-4.9); Lymphocytes Percent Auto 22.4 % (20-40); Mean Corpuscular Volume 88.2 fL (80.0-98.0); Mean Platelet Volume 11.5 fL (9.4-12.3); Monocytes Absolute Auto 0.7 X10*3/uL (0.1-1.2); Monocytes Percent Auto 8.7 % (2-11); Neutrophils Absolute Auto 5.1 x10*3/uL (2.0-8.3); Neutrophils Percent Auto 66.4 % (45-73); Platelet Count 288 X10*3/uL (160-400); Red Blood Count 4.76 X10*6/uL (4.20-5.50); Red Cell Distribution Width 12.5 % (11.0-16.0); White Blood Count 7.7 X10*3/uL (4.8-10.8)
[2023-12-05 20:35] VITALS: BP 123/77; PULSE 73; RESP 20; TEMP 36.9; O2SAT 99
[2023-12-05 20:48] VITALS: BP 123/77; PULSE 73; RESP 20; TEMP 36.9; O2SAT 99
== END 2023-12-05 20:50 | disposition home or self-care (01) ==
PROVIDERS: Registered Nurse Emergency; Emergency Provider Student in an Organized Health Care Education/Training Program; PCP Internal Medicine
DX: M79.661 Pain in right lower leg (principal)
CPT/HCPCS: 36415; 80053; 85025; 85610; 93971; 99284

== ENCOUNTER 2023-12-30 13:21 | Outpatient (AMB) | payer BC, SELFPAY ==
--- NOTE | 2023-12-30 13:26 | MHC.OFFVIS ---
Intake Visit Reasons: PRN Hospital follow up VV?cellulitis Intake Note: Patient presents for hospital follow up. Patient states she has right leg cellulitis. She has constant pain, stinging,burning, discoloration and spasms. Has had these symptoms for around a month. Was seen at [facility] in november, [facility] ED last week and then [facility] ED again last night. Was given morphine due to pain . Patient has trouble walking and driving. Allergies azithromycin [AZITHROMYCIN] Allergy (Unknown, Verified 12/30/23 13:33) low heart rate HPI HPI PRN Hospital follow up VV?cellulitis: Details: Complex 43-year-old female presents for follow-up regarding lower extremity swelling and pain. She has had prior venous procedures on the right lower extremity of which she is not exactly sure about. In addition she has seen pain management in the past for left SI joint injections. She did report relief from that. Most recently she had excruciating pain where she presented to the emergency room. At that time on 12/04 she had a venous duplex which was negative for any DVT. She now presents for vascular evaluation. Of note this has been a persistent problem for her. [facility] Medical History Pain of right great toe Lupus History of blood clots Weakness of left arm Paresthesias in left hand Surgical History S/P epidural steroid injection History of inguinal hernia repair Hx of carpal tunnel repair Hx of lumpectomy H/O: hysterectomy History of bunionectomy Hx of cholecystectomy Family History Father High cholesterol HTN (hypertension) Stroke Mother Lupus Substance use disorder Congenital heart disease Dementia Sister Lupus Maternal Aunt Dementia Maternal Aunt Dementia Maternal Aunt Dementia Maternal Aunt Dementia Maternal Aunt Dementia Social History Household Members: Spouse and Children Housing: House Alcohol intake: never Patient Tobacco Use Status: Former Tobacco user Years Smoked: 5 e-Cigarette/Vaping Use: Never Used service: No Current occupational status: employed 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[employer] Cognitive needs: No Hearing needs: No Vision needs: Yes (contacts) Review of Systems Const Reports as per HPI ENT Reports no additional complaints Card Denies chest pain, Denies chest pain at rest and Denies chest pain with activity Resp Denies chest congestion and Denies cough GI Reports no additional complaints Musc Details: pain over varicosities, aching of lower extremities, swelling, cramping, heaviness and tiredness, itching Denies abnormal gait Skin/Breast Reports pruritus and Denies wounds Neuro Reports no additional complaints and Denies abnormal gait Psych Denies no additional complaints Physical Exam Const General: cooperative, healthy appearing and comfortable Orientation/consciousness: oriented to person, oriented to place and oriented to time Neck Carotids: no bruits Chest Chest palpation & inspection: normal inspection of the chest and normal palpation of entire chest wall Resp Effort & Inspection: normal respiratory effort and able to speak in complete sentences Cardio Rate: regular rate Heart sounds: S1 normal heart sound present and S2 normal heart sound present Peripheral pulses: Peripheral pulses 2+ throughout GI Inspection: Yes normal to inspection Skin Other: +2 edema, skin changes right medial calf CEAP Classification C4 - skin color changes Ep - Etiology Primary As - superficial veins P - reflux General skin exam: dry skin Neuro General: oriented to person, oriented to place and oriented to time Extrem Right lower extremity: full ROM, normal capillary refill and edema Left lower extremity: full ROM, normal capillary refill and edema Psych Mental Status: mental status grossly normal Assessment & Plan Assessment & Plan (1) Varicose veins of right lower extremity with inflammation: Code(s): I83.11 - Varicose veins of right lower extremity with inflammation Category: Medical Plan: When looking back through the notes, she had actually seen us back in October of 2021. At that time her venous insufficiency testing had been negative. She was actually referred for lymphedema pumps which did not actually happened. At the current time we have given her Tubigrip stockings. We once again reinforced conservative measures including compression elevation and exercise. Should this prove to be negative she may benefit from lymphedema pumps. This will not cure her pain which I do believe is more neurogenic in nature. She may require follow-up visit with pain management or even spine surgery evaluation. She will follow up with us after venous insufficiency testing. Thank you for allowing us to assist in her care. If there are any questions or concerns please do not hesitate to contact us. Orders: Orders US venous duplex LE BI 1 Week I83.812 - Varicose veins of left lower extremity with pain Coding Level of Care Code Est Pt Level 4 (88377) Diagnoses Varicose veins of right lower extremity with inflammation I83.11
== END 2023-12-30 13:52 | disposition home or self-care (01) ==
PROVIDERS: PCP Internal Medicine; Visit Provider Surgery Vascular Surgery
DX: I83.11 Varicose veins of right lower extremity with inflammation (principal)
CPT/HCPCS: 99214

== ENCOUNTER → 2023-12-30 13:21 | Outpatient (BNVA) | payer BC, SELFPAY | PROVIDERS: PCP Internal Medicine; Visit Provider Surgery Vascular Surgery ==

== ENCOUNTER 2024-01-14 12:44 | Outpatient (REF) | payer BC, SELFPAY ==
--- NOTE | ~2024-01-14 | US_ITS ---
EXAMINATION: US LOWER EXTREMITY VENOUS (REFLUX EXAM), BILATERAL CLINICAL INFORMATION: Varicose veins of the left lower extremity COMPARISON: DVT ultrasound 12/05/2023, reflux ultrasound 04/03/2022 TECHNIQUE: Color flow triplex imaging and compression Doppler was performed to evaluate both the deep and the superficial systems bilaterally. To evaluate the superficial system, the examination was performed in the upright position. Color-flow Doppler ultrasound and compression ultrasound were utilized. In addition, maneuvers were utilized to demonstrate reflux. FINDINGS: 1. DEEP VENOUS ULTRASOUND OF THE RIGHT LOWER EXTREMITY: Common Femoral Vein: Compressible, normal respiratory variation and augmented flow. Femoral Vein: Compressible, normal color flow and augmentation. Popliteal Vein: Compressible, normal augmentation. Deep Reflux: There is no evidence of reflux in the deep system in either the common femoral vein or the popliteal vein. There is no evidence of a Hidalgo's cyst. 2. SUPERFICIAL ULTRASOUND WITH DOPPLER OF RIGHT LOWER EXTREMITY: GREAT SAPHENOUS VEIN: Saphenofemoral Junction: 1.3 cm; Reflux: 0 ms Proximal Thigh: 0.4 cm; Reflux: 0 ms Mid Thigh: 0.2 cm; Reflux: 0 ms Above Knee: 0.09 cm; Reflux: 0 ms At Knee: 0.2 cm; Reflux: 0 ms Below Knee: 0.3 cm; Reflux: 1368 ms Mid Calf: Not visualized Ankle: 0.2 cm; Reflux: 0 ms DUPLICATED MEDIAL GREAT SAPHENOUS VEIN: Diameter: None Imaged Reflux: NA DUPLICATED LATERAL GREAT SAPHENOUS VEIN: Diameter: 0.4 cm Reflux: 0 ms SMALL SAPHENOUS VEIN: Proximal: 0.2 cm; Reflux: 0 ms Distal: 0.1 cm; Reflux: 0 ms VEIN OF GIACOMINI: None Imaged. PERFORATORS: Location: None Imaged Size: NA Reflux: NA VARICOSITIES: Location: Right great saphenous vein at the distal thigh Size: 0.3 cm Reflux: 0 ms 3. DEEP VENOUS ULTRASOUND OF THE LEFT LOWER EXTREMITY: Common Femoral Vein: Compressible, normal respiratory variation and augmented flow. Femoral Vein: Compressible, normal color flow and augmentation. Popliteal Vein: Compressible, normal augmentation. Deep Reflux: There is no evidence of reflux in the deep system in either the common femoral vein or the popliteal vein. There is no evidence of a Hidalgo's cyst. 4. SUPERFICIAL ULTRASOUND WITH DOPPLER OF LEFT LOWER EXTREMITY: GREAT SAPHENOUS VEIN: Saphenofemoral Junction: 0.8 cm; Reflux: 0 ms Proximal Thigh: 0.3 cm; Reflux: 0 ms Mid Thigh: 0.2 cm; Reflux: Greater than 2740 ms Above Knee: 0.09 cm; Reflux: 0 ms At Knee: Not seen Below Knee: 0.2 cm; Reflux: 0 ms Mid Calf: Not seen Ankle: 0.2 cm; Reflux: 0 ms DUPLICATED MEDIAL GREAT SAPHENOUS VEIN: Diameter: None Imaged Reflux: NA DUPLICATED LATERAL GREAT SAPHENOUS VEIN: Diameter: 0.3 cm Reflux: 0 ms SMALL SAPHENOUS VEIN: Proximal: 0.2 cm; Reflux: 0 ms Distal: 0.2 cm; Reflux: 0 ms VEIN OF GIACOMINI: None Imaged. PERFORATORS: Location: Left great saphenous vein mid thigh Size: 0.2 cm Reflux: 0 ms Location: Left great saphenous vein distal calf Size: 0.1 cm Reflux: 0 ms VARICOSITIES: Location: None Imaged Size: NA Reflux: NA US/US venous duplex LE BI IMPRESSION: Right: The right great saphenous vein measures up to 1.3 cm at the saphenofemoral junction, with reflux up to 1368 ms below the knee. Nonrefluxing varicosity noted in the distal thigh. Left: The left great saphenous vein measures up to 0.8 cm at the saphenofemoral junction, with greater than 2740 ms of reflux at the mid thigh. Nonrefluxing perforators in the mid thigh and distal calf.
[2024-01-14 15:47] LABS: Alanine Aminotransferase 15 U/L (0-31); Albumin Level 3.9 g/dL (3.5-5.0); Alkaline Phosphatase 61 U/L (39-117); Anion Gap 12 (12-20); Aspartate Amino Transferase 15 U/L (5-31); Bilirubin Total 0.3 mg/dL (0.0-1.0); Blood Urea Nitrogen 14 mg/dL (9-16); Calcium 9.2 mg/dL (8.4-10.2); Carbon Dioxide 26 mmol/L (22-29); Chloride 107 mmol/L (96-108); Estimated Glomerular Filt Rate > 60; Glucose Random 84 mg/dL (60-115); Potassium 3.8 mmol/L (3.3-5.1); Sodium 141 mmol/L (135-145); Total Protein 7.2 g/dL (6.5-8.0)
[2024-01-14 16:22] LABS: Erythrocyte Sedimentation Rate 15 MM/HR (0-20)
[2024-01-16 01:23] LABS: Lyme Abs Screen <0.90 index
[2024-01-18 12:18] LABS: Anti Nuclear Antibody Screen NEGATIVE (NEGATIVE)
== END 2024-01-14 12:45 | disposition home or self-care (01) ==
LOC: HO.US 12:44
PROVIDERS: Psychiatry & Neurology Neurology; PCP Internal Medicine; Visit Provider Surgery Vascular Surgery
DX: G37.9 Demyelinating disease of central nervous system, unspecified (principal); I83.812 Varicose veins of left lower extremity with pain
CPT/HCPCS: 36415; 80053; 85652; 86038; 86617; 86618; 93970

== ENCOUNTER 2024-01-19 13:04 | Outpatient (AMB) | payer BC, SELFPAY ==
[2024-01-19 13:09] VITALS: BP 126/74; PULSE 90; O2SAT 98; BMI 39.3
--- NOTE | 2024-01-19 13:09 | MHC.PC.OV ---
Vital Signs 01/19/24 13:09 Height 5 ft 3 in Weight 222 lb 2 oz BMI 39.3 BP 126/74 Blood Pressure Location Rt brachial Position Sitting Pulse 90 Pulse Source Pulse Oximeter Pulse Oximetry (%) 98 Oxygen Delivery Method Room Air Intake Visit Reasons: Leg Pain~ Allergies azithromycin [AZITHROMYCIN] Allergy (Unknown, Verified 01/19/24 13:10) low heart rate Medication List - Last Reconciled 01/19/24 by Maggie Crystal MD No Known Home Meds Tobacco use date assessed: 01/19/24 Dental Screening Dental Screen Date: 01/19/24 Did you have a dental visit in the last 12 months?: No Did you have a dental problem in the last 6 months where you did not have access to dental care?: No Was dental information given to patient?: Patient has dentist HPI Leg Pain~ HPI Details Patient is a 43-year-old female today for evaluation of right lower leg pain Patient says that she is suffering pain and it has been almost 3-4 weeks Pain developed suddenly 1 day with redness right lower leg Patient went to emergency room where she had ultrasound, patient says that ultrasound was very difficult because of extreme pain However it was negative for DVT Patient says that she was given nonsteroidal medication along with antibiotic for possible cellulitis was told that if not better then she should return Patient 1 pack as she did not feel better. She was referred to vascular She saw a vascular specialist, her vessels were evaluated and was told that it is not because of that Patient says that she was in so much pain that her took her to [facility] in 1 of the hospital emergency room Over there she was evaluated, and discharge as they could not find out what is causing so much pain She continued to work and is on feet a lot She is wearing compression stocking today She has localized swelling right lower extremity with couple of large nodular swelling Since patient has already been tried treatment with antibiotic, ultrasound was negative for DVT She has seen multiple providers without relief, It is a possibility of erythema nodosum I am treating her with Medrol Dosepak, she may continue nonsteroidal anti-inflammatory medication with food Return in 1 week for follow-up. I offered her time off from work which she declined to be did [facility], [facility] Medical History Pain of right great toe Lupus History of blood clots Weakness of left arm Paresthesias in left hand Surgical History S/P epidural steroid injection History of inguinal hernia repair Hx of carpal tunnel repair Hx of lumpectomy H/O: hysterectomy History of bunionectomy Hx of cholecystectomy Family History Father High cholesterol HTN (hypertension) Stroke Mother Lupus Substance use disorder Congenital heart disease Dementia Sister Lupus Maternal Aunt Dementia Maternal Aunt Dementia Maternal Aunt Dementia Maternal Aunt Dementia Maternal Aunt Dementia Social History Household Members: Spouse and Children Housing: House Alcohol intake: never Patient Tobacco Use Status: Former Tobacco user Years Smoked: 5 e-Cigarette/Vaping Use: Never Used service: No Current occupational status: employed 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 Morris Farooq, Francia Barfield, Leonel Min and colleagues, with an educational austyn from [employer]. Review of Systems Const Denies chills and Denies fever(s) ENT Denies epistaxis and Denies nasal discharge Card Denies chest pain Resp Denies chest congestion, Denies cough and Denies hemoptysis GI Denies diarrhea and Denies nausea Neuro Reports no additional complaints Psych Reports no additional complaints Endo Reports no additional complaints Physical exam (Primary Care) Vital Signs: Last Vital Signs Pulse 90 01/19/24 13:09 BP 126/74 01/19/24 13:09 Pulse Ox 98 01/19/24 13:09 Oxygen Delivery Method Room Air 01/19/24 13:09 BMI result Body Mass Index 39.3 Tobacco/Smoking Status: Tobacco use Status Tobacco use date assessed 01/19/24 01/19/24 13:18 Patient Tobacco Use Status Former Tobacco user 01/19/24 13:18 e-Cigarette/Vaping Use Never Used 01/19/24 13:18 Thrive Assessment: Date of Thrive Assessment Date Thrive assessed 01/16/23 01/19/24 13:18 Const General: cooperative, comfortable and no acute distress Orientation/consciousness: patient oriented x3 HENMT Head: Yes normocephalic Eyes General: appearance normal, both eyes and all related structures Neck Neck: Yes supple Resp Effort & Inspection: normal respiratory effort, no cough and no stridor Cardio Rhythm: regular rhythm Heart sounds: S1 normal heart sound present and S2 normal heart sound present Skin General skin exam: turgor normal Neuro General: patient oriented x3, tone normal and moves all extremities Extrem Right lower extremity: no edema Left lower extremity: no edema Upper/lower leg/hip images: 1. Discoloration, very sensitive to touch, painful to palpation, with 2 large nodular pumps Assessment and Plan Assessment & Plan (1) Erythema nodosum: Code(s): L52 - Erythema nodosum (2) Pain in right lower leg: Code(s): M79.661 - Pain in right lower leg Plan Patient is a 43-year-old female today for evaluation of right lower leg pain Patient says that she is suffering pain and it has been almost 3-4 weeks Pain developed suddenly 1 day with redness right lower leg Patient went to emergency room where she had ultrasound, patient says that ultrasound was very difficult because of extreme pain However it was negative for DVT Patient says that she was given nonsteroidal medication along with antibiotic for possible cellulitis was told that if not better then she should return Patient 1 pack as she did not feel better. She was referred to vascular She saw a vascular specialist, her vessels were evaluated and was told that it is not because of that Patient says that she was in so much pain that her took her to [facility] in 1 of the [facility] emergency room Over there she was evaluated, and discharge as they could not find out what is causing so much pain She continued to work and is on feet a lot She is wearing compression stocking today She has localized swelling right lower extremity with couple of large nodular swelling Since patient has already been tried treatment with antibiotic, ultrasound was negative for DVT She has seen multiple providers without relief, It is a possibility of erythema nodosum I am treating her with Medrol Dosepak, she may continue nonsteroidal anti-inflammatory medication with food Return in 1 week for follow-up. I offered her time off from work which she declined to be did Medications: New methylprednisolone (Medrol ([place])) PO PER PKG DIR 6 days 21 ea 0RF Coding Level of Care Code Est Pt Level 4 (59132) Diagnoses Erythema nodosum L52 Pain in right lower leg M79.661
== END 2024-01-19 13:47 | disposition home or self-care (01) ==
PROVIDERS: PCP Internal Medicine; Visit Provider Internal Medicine
DX: L52 Erythema nodosum (principal); M79.661 Pain in right lower leg
CPT/HCPCS: 99214

== ENCOUNTER 2024-01-27 13:06 | Outpatient (AMB) | payer BC, SELFPAY ==
--- NOTE | 2024-01-27 13:14 | A.OFFPC_ITS ---
Vital Signs 3 01/27/24 13:16 Height 5 ft 3 in Weight 218 lb BMI 38.6 BP 110/80 Blood Pressure Location Rt brachial Position Sitting Pulse 91 Pulse Source Pulse Oximeter Pulse Oximetry (%) 98 Oxygen Delivery Method Room Air Intake Visit Reasons: 1 week follow up Allergies azithromycin [AZITHROMYCIN] Allergy (Unknown, Verified 01/27/24 13:16) low heart rate Medication List - Last Reconciled 01/27/24 by Maggie Crystal MD No Known Home Meds Tobacco use date assessed: 01/27/24 Dental Screening Dental Screen Date: 01/27/24 Did you have a dental visit in the last 12 months?: No Did you have a dental problem in the last 6 months where you did not have access to dental care?: No Was dental information given to patient?: Patient has dentist HPI 1 week follow up 2 HPI0 Details See my last note for full detail Patient came in follow-up today right leg erythema pain She was given Medrol Dosepak a week ago Patient says that the pain has reduced to half of what it was before When she came in pain was 10/10 and now it is 5/10 However she still have the pain I am extending prednisone and this time we will do higher dose and taper it off gradually over 20 days Starting with 60 mg Patient will return for follow-up in 3 weeks Patient has already seen a number of providers including vascular for this problem Numerous visit to emergency room and even was evaluated in [place] There is possibility of vasculitis there If she still did not get better she is going to need biopsy [facility] Medical History Pain of right great toe Lupus History of blood clots Weakness of left arm Paresthesias in left hand Surgical History S/P epidural steroid injection History of inguinal hernia repair Hx of carpal tunnel repair Hx of lumpectomy H/O: hysterectomy History of bunionectomy Hx of cholecystectomy Family History Father High cholesterol HTN (hypertension) Stroke Mother Lupus Substance use disorder Congenital heart disease Dementia Sister Lupus Maternal Aunt Dementia Maternal Aunt Dementia Maternal Aunt Dementia Maternal Aunt Dementia Maternal Aunt Dementia Social History Household Members: Spouse and Children Housing: House Alcohol intake: never Patient Tobacco Use Status: Former Tobacco user Years Smoked: 5 e-Cigarette/Vaping Use: Never Used service: No Current occupational status: employed 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 1. Little interest or pleasure in doing things: several days 2. Feeling down, depressed, or hopeless: several days 3. Trouble falling or staying asleep, or sleeping too much: more than half the days 4. Feeling tired or having little energy: several days 5. Poor appetite or overeating: more than half the days 6. Feeling bad about yourself - or that you are a failure or have let yourself or your family down: not at all 7. Trouble concentrating on things, such as reading the newspaper or watching television: not at all 8. Moving or speaking so slowly that other people could have noticed. Or the opposite - being so fidgety or restless that you have been moving around a lot more than usual: not at all 9. Thoughts that you would be better off or of hurting yourself in some way: not at all Total score: 7 Depression Screening Interpretation: Negative Depression Screening Done: Yes 69426 - PHQ-9 Billing: Yes Source: Developed by Drs. Morris Farooq, Francia Barfield, Leonel Min and colleagues, with an educational austyn from [employer]. Thrive Questionnaire Date Thrive assessed: 01/27/24 I am a: Patient What is your living situation today?: I have a steady place to live Within the past 12 months, did the food you bought not last and you didn't have the money to get more?: Never true Within the past 12 months, did you worry whether your food would run out before you got money to buy more?: Never true Do you have trouble paying for medicines?: No Do you have trouble getting transportation to medical appointments?: No Do you have trouble paying your heating and electricity bill?: No Do you have trouble taking care of your child, family member or friend?: No Do you have trouble with day-to-day activities such as bathing, preparing meals, shopping, managing finances, etc.?: No Are you currently unemployed and looking for a job?: No Are you interested in more education?: No Please select the resources that you would like help with: None Currently or been in a relationship where the following occur: No concerns reported THRIVE Score: 0 AUDIT C Alcohol Use Questionnaire (AUDIT-C) 1. How often do you have a drink containing alcohol?: Monthly or less 2. How many drinks containing alcohol do you have on a typical day when you are drinking?: 1 or 2 3. How often do you have six or more drinks on one occasion?: Never Total Score: 1 DAMON-7 AMB Questionnaire DAMON-7 Date DAMON - 7 assessed: 01/27/24 Feeling nervous, anxious, or on edge: 1 = Several days Not being able to stop or control worryin = Not at all Worrying too much about different things: 1 = Several days Trouble relaxin = Several days Being so restless that it is hard to sit still: 1 = Several days Becoming easily annoyed or irritable: 1 = Several days Feeling afraid as if something awful might happen: 1 = Several days Total DAMON-7 score (0-4 normal; 5-9 mild; 10-14 moderate; 15-21 severe): 6 Source: Developed by Drs. Morris Farooq, Francia Barfield, Leonel Min and colleagues, with an educational austyn from [employer]. Review of Systems Const Denies chills and Denies fever(s) ENT Denies epistaxis and Denies nasal discharge Card Denies chest pain Resp Denies chest congestion, Denies cough and Denies hemoptysis GI Denies diarrhea and Denies nausea Neuro Reports no additional complaints Psych Reports no additional complaints Endo Reports no additional complaints Physical exam (Primary Care) Vital Signs: Last Vital Signs Pulse 91 01/27/24 13:16 BP 110/80 01/27/24 13:16 Pulse Ox 98 01/27/24 13:16 Oxygen Delivery Method Room Air 01/27/24 13:16 BMI result Body Mass Index 38.6 Tobacco/Smoking Status: Tobacco use Status Tobacco use date assessed 01/27/24 01/27/24 13:18 Patient Tobacco Use Status Former Tobacco user 01/27/24 13:18 e-Cigarette/Vaping Use Never Used 01/27/24 13:18 PHQ-9: PHQ-9 Score PHQ-9: Total score 7 01/27/24 13:34 Depression Screening Interpretation: Negative Thrive Assessment: Date of Thrive Assessment Date Thrive assessed 01/27/24 01/27/24 13:20 Currently or been in a relationship where the following occur: No concerns reported Const General: cooperative, comfortable and no acute distress Orientation/consciousness: patient oriented x3 HENMT Head: Yes normocephalic Eyes General: appearance normal, both eyes and all related structures Neck Neck: Yes supple Resp Effort & Inspection: normal respiratory effort, no cough and no stridor Cardio Rhythm: regular rhythm Heart sounds: S1 normal heart sound present and S2 normal heart sound present Skin General skin exam: turgor normal Neuro General: patient oriented x3, tone normal and moves all extremities Extrem Right lower extremity: no edema Left lower extremity: no edema Ankle/foot/toe images: 2 1. Erythematous and indurated still painful to palpation Assessment and Plan Assessment & Plan (1) Erythema nodosum: Code(s): L52 - Erythema nodosum (2) Pain in right lower leg: Code(s): M79.661 - Pain in right lower leg Plan See my last note for full detail Patient came in follow-up today right leg erythema pain She was given Medrol Dosepak a week ago Patient says that the pain has reduced to half of what it was before When she came in pain was 10/10 and now it is 5/10 However she still have the pain I am extending prednisone and this time we will do higher dose and taper it off gradually over 20 days Starting with 60 mg Patient will return for follow-up in 3 weeks Patient has already seen a number of providers including vascular for this problem Numerous visit to emergency room and even was evaluated in [place] There is possibility of vasculitis there If she still did not get better she is going to need biopsy Medications: New 2 prednisone PO once; 3 tabs for 5 days, 2 tabs for 5 days, 1 tab for 5 days, half tab for 5 days 20 days 33 tabs 0RF Coding Level of Care Code Est Pt Level 3 (24331) Diagnoses Erythema nodosum L52 Pain in right lower leg M79.661
[2024-01-27 13:16] VITALS: BP 110/80; PULSE 91; O2SAT 98; BMI 38.6
== END 2024-01-27 13:30 | disposition home or self-care (01) ==
PROVIDERS: PCP Internal Medicine; Visit Provider Internal Medicine
DX: L52 Erythema nodosum (principal); M79.661 Pain in right lower leg
CPT/HCPCS: 99213

== ENCOUNTER 2024-02-19 13:49 | Outpatient (AMB) | payer BC, SELFPAY ==
[2024-02-19 13:50] VITALS: BP 124/72; PULSE 96; O2SAT 99; BMI 39.2
--- NOTE | 2024-02-19 13:50 | A.OFFPC_ITS ---
Vital Signs 3 02/19/24 13:50 Height 5 ft 3 in Weight 221 lb 6 oz BMI 39.2 BP 124/72 Blood Pressure Location Rt brachial Position Sitting Pulse 96 Pulse Source Pulse Oximeter Pulse Oximetry (%) 99 Oxygen Delivery Method Room Air Intake Visit Reasons: 3 Week Follow Up Allergies azithromycin [AZITHROMYCIN] Allergy (Unknown, Verified 02/19/24 13:51) low heart rate Medication List - Last Reconciled 02/19/24 by Maggie Crystal MD No Known Home Meds Tobacco use date assessed: 02/19/24 Dental Screening Dental Screen Date: 02/19/24 Did you have a dental visit in the last 12 months?: Yes Did you have a dental problem in the last 6 months where you did not have access to dental care?: No Was dental information given to patient?: Patient has dentist HPI 3 Week Follow Up 2 HPI0 Details Patient is a 43-year-old female came in for follow-up appointment on right leg pain Patient is feeling much better Her pain intensity has gone down to 1 x 10 She had appointment with the vascular specialist in [place] Was diagnosed with localized venous insufficiency Patient tells me that it all started after she had procedure done for varicose veins I do not have any notes Patient have a follow-up with him on of this month she will request the consult it is She want to talk about her weight She will make a separate appointment for that at the end of this month. [facility] Medical History Pain of right great toe Lupus History of blood clots Weakness of left arm Paresthesias in left hand Surgical History S/P epidural steroid injection History of inguinal hernia repair Hx of carpal tunnel repair Hx of lumpectomy H/O: hysterectomy History of bunionectomy Hx of cholecystectomy Family History Father High cholesterol HTN (hypertension) Stroke Mother Lupus Substance use disorder Congenital heart disease Dementia Sister Lupus Maternal Aunt Dementia Maternal Aunt Dementia Maternal Aunt Dementia Maternal Aunt Dementia Maternal Aunt Dementia Social History Household Members: Spouse and Children Housing: House Alcohol intake: never Patient Tobacco Use Status: Former Tobacco user Years Smoked: 5 e-Cigarette/Vaping Use: Never Used service: No Current occupational status: employed 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 1. Little interest or pleasure in doing things: several days 2. Feeling down, depressed, or hopeless: several days 3. Trouble falling or staying asleep, or sleeping too much: more than half the days 4. Feeling tired or having little energy: several days 5. Poor appetite or overeating: more than half the days 6. Feeling bad about yourself - or that you are a failure or have let yourself or your family down: not at all 7. Trouble concentrating on things, such as reading the newspaper or watching television: not at all 8. Moving or speaking so slowly that other people could have noticed. Or the opposite - being so fidgety or restless that you have been moving around a lot more than usual: not at all 9. Thoughts that you would be better off or of hurting yourself in some way: not at all Total score: 7 Depression Screening Interpretation: Negative Depression Screening Done: Yes 39042 - PHQ-9 Billing: Yes Source: Developed by Drs. Morris Farooq, Francia Barfield, Leonel Min and colleagues, with an educational austyn from [employer]. Thrive Questionnaire Date Thrive assessed: 02/19/24 I am a: Patient What is your living situation today?: I have a steady place to live Within the past 12 months, did the food you bought not last and you didn't have the money to get more?: Never true Within the past 12 months, did you worry whether your food would run out before you got money to buy more?: Never true Do you have trouble paying for medicines?: No Do you have trouble getting transportation to medical appointments?: No Do you have trouble paying your heating and electricity bill?: No Do you have trouble taking care of your child, family member or friend?: No Do you have trouble with day-to-day activities such as bathing, preparing meals, shopping, managing finances, etc.?: No Are you currently unemployed and looking for a job?: No Are you interested in more education?: No Please select the resources that you would like help with: None Currently or been in a relationship where the following occur: No concerns reported THRIVE Score: 0 AUDIT C Alcohol Use Questionnaire (AUDIT-C) 1. How often do you have a drink containing alcohol?: Monthly or less 2. How many drinks containing alcohol do you have on a typical day when you are drinking?: 1 or 2 3. How often do you have six or more drinks on one occasion?: Never Total Score: 1 Score Reviewed/Action Taken: Yes DAMON-7 AMB Questionnaire DAMON-7 Date DAMON - 7 assessed: 02/19/24 Feeling nervous, anxious, or on edge: 1 = Several days Not being able to stop or control worryin = Not at all Worrying too much about different things: 1 = Several days Trouble relaxin = Several days Being so restless that it is hard to sit still: 1 = Several days Becoming easily annoyed or irritable: 1 = Several days Feeling afraid as if something awful might happen: 1 = Several days Total DAMON-7 score (0-4 normal; 5-9 mild; 10-14 moderate; 15-21 severe): 6 Source: Developed by Drs. Morris Farooq, Francia Barfield, Leonel Min and colleagues, with an educational austyn from [employer]. DAMON-7 Assessment Billing DAMON-7 Assessment Tool: DAMON-7 Assessment [id number] Review of Systems Const Denies chills and Denies fever(s) ENT Denies epistaxis and Denies nasal discharge Card Denies chest pain Resp Denies chest congestion, Denies cough and Denies hemoptysis GI Denies diarrhea and Denies nausea Skin/Breast Denies rash Neuro Reports no additional complaints Psych Reports no additional complaints Endo Reports no additional complaints Physical exam (Primary Care) Vital Signs: Last Vital Signs Pulse 96 02/19/24 13:50 BP 124/72 02/19/24 13:50 Pulse Ox 99 02/19/24 13:50 Oxygen Delivery Method Room Air 02/19/24 13:50 BMI result Body Mass Index 39.2 Tobacco/Smoking Status: Tobacco use Status Tobacco use date assessed 02/19/24 02/19/24 13:53 Patient Tobacco Use Status Former Tobacco user 02/19/24 13:53 e-Cigarette/Vaping Use Never Used 02/19/24 13:53 PHQ-9: PHQ-9 Score PHQ-9: Total score 7 02/19/24 14:10 Depression Screening Interpretation: Negative Thrive Assessment: Date of Thrive Assessment Date Thrive assessed 02/19/24 02/19/24 13:53 Currently or been in a relationship where the following occur: No concerns reported Const General: cooperative, comfortable and no acute distress Orientation/consciousness: patient oriented x3 HENMT Head: Yes normocephalic Eyes General: appearance normal, both eyes and all related structures Neck Neck: Yes supple Resp Effort & Inspection: normal respiratory effort, no cough and no stridor Cardio Rhythm: regular rhythm Heart sounds: S1 normal heart sound present and S2 normal heart sound present Skin General skin exam: turgor normal Neuro General: patient oriented x3, tone normal and moves all extremities Extrem Ankle/foot/toe images: 2 1. Mild induration and discoloration, much improved from previous Assessment and Plan Assessment & Plan (1) Venous insufficiency of right leg: Code(s): I87.2 - Venous insufficiency (chronic) (peripheral) Plan Patient is a 43-year-old female came in for follow-up appointment on right leg pain Patient is feeling much better Her pain intensity has gone down to 1 x 10 She had appointment with the vascular specialist in [place] Was diagnosed with localized venous insufficiency Patient tells me that it all started after she had procedure done for varicose veins I do not have any notes Patient have a follow-up with him on of this month she will request the consult it is She want to talk about her weight She will make a separate appointment for that at the end of this month. Coding Level of Care Code Est Pt Level 3 (42293) Diagnoses Venous insufficiency of right leg I87.2 Additional Codes DAMON-7 Assessment Billing - DAMON-7 Assessment Tool: DAMON-7 Assessment [id number] ([id number])
== END 2024-02-19 14:22 | disposition home or self-care (01) ==
PROVIDERS: PCP Internal Medicine; Visit Provider Internal Medicine
DX: I87.2 Venous insufficiency (chronic) (peripheral) (principal)
CPT/HCPCS: 99213

== ENCOUNTER 2024-03-11 14:33 | Outpatient (AMB) | payer BC, SELFPAY ==
[2024-03-11 14:34] VITALS: BP 124/72; PULSE 67; O2SAT 99; BMI 39.1
--- NOTE | 2024-03-11 14:34 | MHC.PC.OV ---
Vital Signs 03/11/24 14:34 Height 5 ft 3 in Weight 220 lb 8 oz BMI 39.1 BP 124/72 Blood Pressure Location Rt brachial Position Sitting Pulse 67 Pulse Source Pulse Oximeter Pulse Oximetry (%) 99 Oxygen Delivery Method Room Air Intake Visit Reasons: 3 week follow up Allergies azithromycin [AZITHROMYCIN] Allergy (Unknown, Verified 03/11/24 14:35) low heart rate Medication List - Last Reconciled 03/11/24 by Maggie Crystal MD No Known Home Meds Tobacco use date assessed: 03/11/24 Dental Screening Dental Screen Date: 03/11/24 Did you have a dental visit in the last 12 months?: Yes Did you have a dental problem in the last 6 months where you did not have access to dental care?: No Was dental information given to patient?: Patient has dentist HPI 3 week follow up HPI Details Patient would like to start semaglutide injection , she suffers from peripheral vascular disease, arthrosis, obesity, DJD lumbar spine Side effect reviewed with the patient BMI is elevated at 39.1 Patient has tried diet and exercise for a while and it has not work Patient is aware that she has to continue with the diet and exercise along with the medication She knows how to inject medication Once medications started patient will book appointment for follow-up in 4 weeks for re-evaluation Examination today showed normal thyroid palpation She has no nausea vomiting diarrhea no abdominal pain PFSH Medical History Pain of right great toe Lupus History of blood clots Weakness of left arm Paresthesias in left hand Surgical History S/P epidural steroid injection History of inguinal hernia repair Hx of carpal tunnel repair Hx of lumpectomy H/O: hysterectomy History of bunionectomy Hx of cholecystectomy Family History Father High cholesterol HTN (hypertension) Stroke Mother Lupus Substance use disorder Congenital heart disease Dementia Sister Lupus Maternal Aunt Dementia Maternal Aunt Dementia Maternal Aunt Dementia Maternal Aunt Dementia Maternal Aunt Dementia Social History Household Members: Spouse and Children Housing: House Alcohol intake: never Patient Tobacco Use Status: Former Tobacco user Years Smoked: 5 e-Cigarette/Vaping Use: Never Used service: No Current occupational status: employed 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[employer] Cognitive needs: No Hearing needs: No Vision needs: Yes (contacts) Questionnaire Thrive Questionnaire Date Thrive assessed: 03/11/24 I am a: Patient What is your living situation today?: I have a steady place to live Within the past 12 months, did the food you bought not last and you didn't have the money to get more?: Never true Within the past 12 months, did you worry whether your food would run out before you got money to buy more?: Never true Do you have trouble paying for medicines?: No Do you have trouble getting transportation to medical appointments?: No Do you have trouble paying your heating and electricity bill?: No Do you have trouble taking care of your child, family member or friend?: No Do you have trouble with day-to-day activities such as bathing, preparing meals, shopping, managing finances, etc.?: No Are you currently unemployed and looking for a job?: No Are you interested in more education?: No Please select the resources that you would like help with: None Currently or been in a relationship where the following occur: No concerns reported THRIVE Score: 0 AUDIT C Alcohol Use Questionnaire (AUDIT-C) 1. How often do you have a drink containing alcohol?: Monthly or less 2. How many drinks containing alcohol do you have on a typical day when you are drinking?: 1 or 2 3. How often do you have six or more drinks on one occasion?: Never Total Score: 1 Score Reviewed/Action Taken: Yes DAMON-7 AMB Questionnaire DAMON-7 Date DAMON - 7 assessed: 02/19/24 Source: Developed by Drs. Morris Farooq, Francia Barfield, Leonel Min and colleagues, with an educational austyn from [employer] Review of Systems Const Denies chills and Denies fever(s) ENT Denies epistaxis and Denies nasal discharge Card Denies chest pain Resp Denies chest congestion, Denies cough and Denies hemoptysis GI Denies diarrhea and Denies nausea Skin/Breast Denies rash Neuro Reports no additional complaints Psych Reports no additional complaints Endo Reports no additional complaints Physical exam (Primary Care) Vital Signs: Last Vital Signs Pulse 67 03/11/24 14:34 BP 124/72 03/11/24 14:34 Pulse Ox 99 03/11/24 14:34 Oxygen Delivery Method Room Air 03/11/24 14:34 BMI result Body Mass Index 39.1 Tobacco/Smoking Status: Tobacco use Status Tobacco use date assessed 03/11/24 03/11/24 14:41 Patient Tobacco Use Status Former Tobacco user 03/11/24 14:41 e-Cigarette/Vaping Use Never Used 03/11/24 14:41 Thrive Assessment: Date of Thrive Assessment Date Thrive assessed 03/11/24 03/11/24 14:41 Currently or been in a relationship where the following occur: No concerns reported Const General: cooperative, comfortable and no acute distress Orientation/consciousness: patient oriented x3 HENMT Head: Yes normocephalic Eyes General: appearance normal, both eyes and all related structures Neck Neck: Yes supple Resp Effort & Inspection: normal respiratory effort, no cough and no stridor Cardio Rhythm: regular rhythm Heart sounds: S1 normal heart sound present and S2 normal heart sound present Skin General skin exam: turgor normal Neuro General: patient oriented x3, tone normal and moves all extremities Extrem Right lower extremity: no edema Left lower extremity: no edema Assessment and Plan Assessment & Plan (1) Obesity due to excess calories: Code(s): E66.09 - Other obesity due to excess calories Qualifiers: Obesity classification: adult class 2 (BMI 35 - 39.9) Serious obesity comorbidity presence: with serious comorbidity Body mass index: BMI 39.0-39.9 Qualified Code(s): E66.01 - Morbid (severe) obesity due to excess calories; Z68.39 - Body mass index [BMI] 39.0-39.9, adult (2) Venous insufficiency of right leg: Code(s): I87.2 - Venous insufficiency (chronic) (peripheral) (3) Sacroiliitis: Code(s): M46.1 - Sacroiliitis, not elsewhere classified (4) DDD (degenerative disc disease), thoracolumbar: Code(s): M51.35 - Other intervertebral disc degeneration, thoracolumbar region (5) Lumbar back pain with radiculopathy affecting left lower extremity: Code(s): M54.16 - Radiculopathy, lumbar region (6) Lipid disorder: Code(s): E78.9 - Disorder of lipoprotein metabolism, unspecified Plan Patient would like to start semaglutide injection , she suffers from peripheral vascular disease, arthrosis, obesity, DJD lumbar spine Side effect reviewed with the patient BMI is elevated at 39.1 Patient has tried diet and exercise for a while and it has not work Patient is aware that she has to continue with the diet and exercise along with the medication She knows how to inject medication Once medications started patient will book appointment for follow-up in 4 weeks for re-evaluation Examination today showed normal thyroid palpation She has no nausea vomiting diarrhea no abdominal pain Medications: New semaglutide for 4 weeks 0.25 mg (0.368 mL) subcut QWEEK 30 days 2 mL 0RF E66.09 - Other obesity due to excess calories, E78.9 - Disorder of lipoprotein metabolism, unspecified, I87.2 - Venous insufficiency (chronic) (peripheral), M46.1 - Sacroiliitis, not elsewhere classified, M51.35 - Other intervertebral disc degeneration, thoracolumbar region, M54.16 - Radiculopathy, lumbar region, R32 - Unspecified urinary incontinence Coding Level of Care Code Est Pt Level 3 (44117) Diagnoses Class 2 severe obesity due to excess calories with serious comorbidity and body mass index (BMI) of 39.0 to 39.9 in adult E66.01; Z68.39 Obesity classification: adult class 2 (BMI 35 - 39.9) Serious obesity comorbidity presence: with serious comorbidity Body mass index: BMI 39.0-39.9 Venous insufficiency of right leg I87.2 Sacroiliitis M46.1 DDD (degenerative disc disease), thoracolumbar M51.35 Lumbar back pain with radiculopathy affecting left lower extremity M54.16 Lipid disorder E78.9
== END 2024-03-11 15:13 | disposition home or self-care (01) ==
PROVIDERS: PCP Internal Medicine; Visit Provider Internal Medicine
DX: E66.01 Morbid (severe) obesity due to excess calories (principal); Z68.39 Body mass index [BMI] 39.0-39.9, adult; I87.2 Venous insufficiency (chronic) (peripheral); M46.1 Sacroiliitis, not elsewhere classified; M51.35 Other intervertebral disc degeneration, thoracolumbar region; M54.16 Radiculopathy, lumbar region; E78.9 Disorder of lipoprotein metabolism, unspecified

== ENCOUNTER → 2024-03-11 14:33 | Outpatient (BNVA) | payer BC, SELFPAY | PROVIDERS: PCP Internal Medicine; Visit Provider Internal Medicine ==

== ENCOUNTER 2024-05-01 07:33 | Emergency (ER) | payer OTHER, BC, SELFPAY ==
[2024-05-01 07:38] VITALS: BP 143/89; PULSE 98; RESP 19; TEMP 36.6; O2SAT 98; BMI 35.3
--- NOTE | 2024-05-01 08:17 | ED_ITS ---
HPI - Extremity Problem General Chief complaint: Extremity Injury, Upper Stated complaint: R arm inj work related Time Seen by Provider: 05/01/24 07:43 Source: patient and old records reviewed Mode of arrival: ambulatory Limitations: no limitations History of Present Illness ED Provider: MITCH LANIER Narrative: 43 yo male with PMH of DDD, erythema nodosum, bursitis, HLD, migraines, lymphedema, notes she lifted heavy boxes at work on Thursday which is unusual and later that day had significant pain in R upper arm posterior shoulder. She has no numbness or weakness. She is R hand dominant. It hurts to move. No rash/fevers/sig swelling noted. Took motrin yesterday without relief. She never felt a pop and later that day could make a bicep but is in too much pain now MD Complaint: extremity pain Onset (ago): day(s) (Thursday) Pain Consistency: constant Location: right and upper extremity Quality: other (throbbing) Radiation: distal Relieving factors: immobilization Exacerbating factors: range of motion and palpation Associated symptoms: denies other symptoms Context: other Related Data Previous Rx's ?Medication ?Instructions ?Recorded semaglutide (weight loss) 0.25 0.25 mg (0.5 mL) subcut QWEEK 30 03/22/24 mg/0.5 mL subcutaneous pen days #2.5 mL injector (Felicia) cyclobenzaprine 10 mg tablet 10 mg PO TID PRN muscle spasm #20 05/01/24 tabs lidocaine 5 % topical patch 1 patch topical DAILY #30 ea 05/01/24 morphine 15 mg immediate release 15 mg PO Q6H PRN pain #10 tabs 05/01/24 tablet Allergies Allergy/AdvReac Type Severity Reaction Status Date / Time azithromycin [AZITHROMYCIN] Allergy Unknown low heart Verified 05/01/24 07:39 rate Review of Systems Review of Systems: Constitutional : No Fever, No Chills ENT/Mouth : No Ear Pain, No Hoarseness, No sore throat Eyes: No Eye Pain, No Swelling, No Redness, No Foreign Body Cardiovascular : No Chest Pain, No SOB Respiratory : No Cough, No Dyspnea Gastrointestinal : No Nausea, No Vomiting, No Diarrhea, No abdominal Pain Genitourinary : No Dysuria, No Hematuria Musculoskeletal : positive joint pain, No Myalgias, No Joint Swelling Skin : No Skin lacerations, No rash Neuro : No Weakness, No Numbness, No Loss of Consciousness, No Dizziness, No Headache All other systems reviewed and are negative PMFSH Past Medical History Attestation statement: The following information was validated with the patient. Source: old records reviewed Medical History Pain of right great toe Lupus History of blood clots Weakness of left arm Paresthesias in left hand Surgical History S/P epidural steroid injection History of inguinal hernia repair Hx of carpal tunnel repair Hx of lumpectomy H/O: hysterectomy History of bunionectomy Hx of cholecystectomy Family History Family History Father High cholesterol HTN (hypertension) Stroke Mother Lupus Substance use disorder Congenital heart disease Dementia Sister Lupus Maternal Aunt Dementia Maternal Aunt Dementia Maternal Aunt Dementia Maternal Aunt Dementia Maternal Aunt Dementia Social History Social History Household Members: Spouse and Children Housing: House Alcohol intake: never Patient Tobacco Use Status: Former Tobacco user Years Smoked: 5 e-Cigarette/Vaping Use: Never Used Do you have a plan to hurt others: No Plan service: No Current occupational status: employed 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 Oriented X3. No acute distress. Eyes: Pupils equal, round and reactive to light. ENT: Pharynx normal. Neck: Normal inspection. Neck supple. CVS: Normal heart rate and rhythm. Pulses normal. Respiratory: No respiratory distress. Breath sounds normal. Abdomen: Soft and non-tender. Skin: Skin warm and dry. Normal skin color. Extremities: No lower extremity edema. R shoulder and bicep ttp distal NV intact 2+ radial pulse no joint effusions of the shoulder or elbow - no rash no swelling noted pain with ROM testing - no mass in axilla noted Neuro: Oriented X 3. No motor deficit. No sensory deficit. Medical Decision Making Medical Decision Making [facility] Narrative: 43 yo male with PMH of DDD, erythema nodosum, bursitis, HLD, migraines, lymphedema here with c/o R upper arm strain after lifting heavy boxes she is NV intact has no signs of redness to suggest infection, no swelling to suggest DVT. Suspect strain or sprain. She could make biceps after. Will place in sling and DC home with precautions and reasons to return Differential Diagnosis Differential Diagnoses: The differential diagnosis associated with the presentation includes sprain, strain, spasm no rash to suggest cellulitis no trauma to cause fracture - has no signs of dislocation she has no swelling to suggest DVT External Record Review External record reviewed: Outpatient record Prescription Management I considered prescription management with: Pain Medication and Other Discharge Plan Discharge Clinical Impression: Muscle strain, upper arm Qualifiers: Encounter type: initial encounter Laterality: right Qualified Code(s): S46.911A - Strain of unspecified muscle, fascia and tendon at shoulder and upper arm level, right arm, initial encounter Patient Disposition: Home, Self-Care Instructions: Muscle Strain (ED), How to Use a Sling (ED) Additional Instructions: if worsening swelling, redness, severe pain, cold blue fingers please return and seek care wear sling for 5 days but remember to move wrist and elbow. please follow up with your doctor for MRI if not better Prescriptions: New cyclobenzaprine 10 mg tablet 10 mg PO TID PRN (Reason: muscle spasm) Qty: 20 0RF lidocaine 5 % adhesive patch,medicated 1 patch topical DAILY Qty: 30 0RF Rx Instructions: leave on most painful area for up to 12 hrs morphine 15 mg tablet 15 mg PO Q6H PRN (Reason: pain) Qty: 10 0RF Rx Instructions: partial fill okay; Partial Fill upon patient request. No Action Wegovy 0.25 mg/0.5 mL pen injector 0.25 mg subcut QWEEK 30 Days Qty: 2.5 1RF Rx Instructions: administer weeks 1 through 4 of therapy Stand Alone Forms: Work/School Release Print Language: Faroese
[2024-05-01] MEDS: Morphine Sulfate Immed Release 15 MG TABLET PO (08:37)
[2024-05-01] MEDS: Cyclobenzaprine HCl 10 MG TABLET PO (08:37)
[2024-05-01] MEDS: Ketorolac Tromethamine 30 MG/ML VIAL IM (08:38)
[2024-05-01 09:06] VITALS: BP 155/101; PULSE 90; RESP 16; TEMP 36.4; O2SAT 99
[2024-05-01 09:30] VITALS: BP 155/101; PULSE 90; RESP 16; TEMP 36.4; O2SAT 99
--- NOTE | 2024-05-01 09:31 | PC.NURSE ---
placed in sling, has a ride, skin wpd, steady gait
--- NOTE | 2024-05-01 10:05 | MHC.EDTECH ---
THIS PCT MEASURES PATIENT'S VITAL SIGNS @ 907. THIS PCT LATE TO ENTERING VITALS D/T NEED TO RESPOND TO EMERGENT SITUATION IN THE FRONT OF THE HOSPITAL FACILITY. TEMP: 97.5 TEMPORAL O2 SAT: 99% PULSE: 90 BP: 155/101 RESP: 16
== END 2024-05-01 09:34 | disposition home or self-care (01) ==
LOC: HO.ED 08:29
PROVIDERS: Emergency Provider Emergency Medicine; PCP Internal Medicine
DX: S46.911A Strain of unspecified muscle, fascia and tendon at shoulder and upper arm level, right arm, initial encounter (principal); X50.0XXA Overexertion from strenuous movement or load, initial encounter; X50.9XXA Other and unspecified overexertion or strenuous movements or postures, initial encounter; Y93.89 Activity, other specified; Y92.89 Other specified places as the place of occurrence of the external cause; Y99.0 Civilian activity done for income or pay; Z87.891 Personal history of nicotine dependence
CPT/HCPCS: 96372; 99284; J1885

== ENCOUNTER 2024-05-04 13:07 | Outpatient (AMB) | payer OTHER, BC, SELFPAY ==
--- NOTE | 2024-05-04 13:30 | AM.OFFWIN_ITS ---
Intake Vital Signs 05/04/24 13:34 Height 5 ft 5 in Weight 204 lb BMI 33.9 BP 126/78 Blood Pressure Location Lt brachial Position Sitting Pulse 144 H Pulse Source Pulse Oximeter Pulse Oximetry (%) 98 Oxygen Delivery Method Room Air Intake Visit Reasons: EP RT arm WC injury Intake Note: Patient here for injury that happened on thursday at work, injured her right upper arm and is having difficulty moving it, limited ROM Patient Tobacco Use Status: Former Tobacco user Allergies azithromycin [AZITHROMYCIN] Allergy (Unknown, Verified 05/04/24 13:37) low heart rate Do you need a note to return to daycare/school/sports/work: Yes HPI EP RT arm WC injury HPI Details This note is constructed using voice recognition software. While every effort has been made to ensure accuracy, firefighting equipment specialist errors may have been included. The patient is a 43 year old seen who presents to the clinic today with right upper arm pain since Thursday. She was seen in the emergency room for the same, and treated for muscle strain or sprain, with morphine, cyclobenzaprine, and lidocaine patches. She was placed in a sling, which he is wearing routinely. She reports the pain to be in her upper arm, worse when she tries to abduct the arm. She denies any reduced strength in the hand, numbness or tingling. She has been attempting some ice which did help it 1st. The injury initially occurred when she was lifting boxes of paper at work, but the pain did not onset until several hours later. [facility] Medical History Pain of right great toe Lupus History of blood clots Weakness of left arm Paresthesias in left hand Surgical History S/P epidural steroid injection History of inguinal hernia repair Hx of carpal tunnel repair Hx of lumpectomy H/O: hysterectomy History of bunionectomy Hx of cholecystectomy Family History Father High cholesterol HTN (hypertension) Stroke Mother Lupus Substance use disorder Congenital heart disease Dementia Sister Lupus Maternal Aunt Dementia Maternal Aunt Dementia Maternal Aunt Dementia Maternal Aunt Dementia Maternal Aunt Dementia Social History Household Members: Spouse and Children Housing: House Alcohol intake: never Patient Tobacco Use Status: Former Tobacco user Years Smoked: 5 e-Cigarette/Vaping Use: Never Used service: No Current occupational status: employed 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[employer] Cognitive needs: No Hearing needs: No Vision needs: Yes (contacts) Review of Systems Const All systems reviewed & are unremarkable except as noted in HPI and below Physical Exam Vital Signs: Last Vital Signs Pulse 144 H 05/04/24 13:34 BP 126/78 05/04/24 13:34 Pulse Ox 98 05/04/24 13:34 Oxygen Delivery Method Room Air 05/04/24 13:34 BMI result Body Mass Index 33.9 Const General: cooperative, healthy appearing, comfortable, no acute distress and well developed Orientation/consciousness: patient oriented x3 Limitations: no limitations Resp Effort & Inspection: normal respiratory effort and able to speak in complete sentences Skin General skin exam: no rashes or lesions noted Neuro General: patient oriented x3 Extrem Other: Abduction limited to 10 degrees due to pain in the upper biceps region. Flexion and extension normal at elbow, wrist. Symmetric arms. Normal hook and squeeze test. Normal shrug. Distal neurovascular exam intact. Hand grasps equal 5/5. Assessment & Plan Assessment & Plan (1) Muscle strain of right upper arm: Code(s): S46.911A - Strain of unspecified muscle, fascia and tendon at shoulder and upper arm level, right arm, initial encounter Qualifiers: Encounter type: subsequent encounter Qualified Code(s): S46.911D - Strain of unspecified muscle, fascia and tendon at shoulder and upper arm level, right arm, subsequent encounter Plan: Patient has follow up appointment scheduled with her PCP in 2 days. Advised her to keep that appointment. No indication for x-ray at this time. Likely still consistent with strain. We will transition patient from morphine to anti- inflammatory medication. She reports difficulty tolerating NSAIDs, we will try a prednisone burst. Refill provided of cyclobenzaprine as she will run out over the course of the next couple of days. Advised continuation of those muscle relaxers. Advised patient to try without the lidocaine patch in order to apply heat or ice, and home exercise program provided. She may use the lidocaine patch when she is not applying heat or ice. Advised to avoid overuse of sling as this could lead to frozen shoulder. She may benefit from physical therapy in the future should symptoms persist. Plan See above for full details and plan. Medications: New prednisone 40 mg (2 x 20 mg) PO DAILY 5 days 10 tabs 0RF Refilled cyclobenzaprine 10 mg PO TID PRN 20 tabs 0RF muscle spasm Coding Level of Care Code Est Pt Level 3 (97261) Diagnoses Muscle strain of right upper arm, subsequent encounter S46.911D Encounter type: subsequent encounter
[2024-05-04 13:34] VITALS: BP 126/78; PULSE 144; O2SAT 98; BMI 33.9
== END 2024-05-04 15:28 | disposition home or self-care (01) ==
PROVIDERS: PCP Internal Medicine; Visit Provider Registered Nurse
DX: S46.911D Strain of unspecified muscle, fascia and tendon at shoulder and upper arm level, right arm, subsequent encounter (principal)

== ENCOUNTER → 2024-05-04 13:07 | Outpatient (BNVA) | payer OTHER, SELFPAY | PROVIDERS: PCP Internal Medicine; Visit Provider Registered Nurse | DX: S46.911D Strain of unspecified muscle, fascia and tendon at shoulder and upper arm level, right arm, subsequent encounter (principal) | CPT/HCPCS: 99212 ==

== ENCOUNTER 2024-05-06 10:49 | Outpatient (REF) | payer OTHER, BC, SELFPAY | END 2024-05-06 10:50 | disposition home or self-care (01) | LOC: HO.HMGCX 10:49 | PROVIDERS: PCP Internal Medicine; Visit Provider Internal Medicine | DX: S49.91XA Unspecified injury of right shoulder and upper arm, initial encounter (principal); M25.511 Pain in right shoulder; M79.601 Pain in right arm; Y99.0 Civilian activity done for income or pay | CPT/HCPCS: 73030; 99212 ==

== ENCOUNTER 2024-05-06 10:49 | Outpatient (AMB) | payer OTHER, BC, SELFPAY ==
[2024-05-06 10:50] VITALS: BP 128/84; PULSE 107; O2SAT 99; BMI 34.4
--- NOTE | 2024-05-06 10:50 | MHC.PC.OV ---
Vital Signs 05/06/24 10:50 Height 5 ft 5 in Weight 207 lb BMI 34.4 BP 128/84 Blood Pressure Location Lt brachial Position Sitting Pulse 107 H Pulse Source Pulse Oximeter Pulse Oximetry (%) 99 Oxygen Delivery Method Room Air Intake Visit Reasons: WC Shoulder/Arm Injury Allergies azithromycin [AZITHROMYCIN] Allergy (Unknown, Verified 05/06/24 10:51) low heart rate Medication List - Last Reconciled 05/06/24 by Maggie Crystal MD cyclobenzaprine 10 mg PO TID PRN lidocaine 5% 1 patch topical DAILY morphine 15 mg PO Q6H PRN prednisone 40 mg (2 x 20 mg) PO DAILY 5 days semaglutide (weight loss) (Wegovy) 0.25 mg (0.5 mL) subcut QWEEK 30 days Tobacco use date assessed: 05/06/24 Dental Screening Dental Screen Date: 05/06/24 Did you have a dental visit in the last 12 months?: Yes Did you have a dental problem in the last 6 months where you did not have access to dental care?: No Was dental information given to patient?: Patient has dentist HPI WC Shoulder/Arm Injury HPI Details Chief Complaint The patient complains of severe right arm pain after lifting heavy boxes at work, which resulted in an inability to move the arm. Assessment and Plan 43-year-old female with a recent history of a lifting injury presenting with acute right arm pain. The incident involved moving 60-pound boxes, leading to an immediate painful response followed by an escalation of symptoms to an unbearable state upon returning home. She was evaluated in the emergency room with a presumptive diagnosis of a muscle strain managed with a high dose of morphine, which induced nausea and vomiting leading to a secondary fall injury at, patient encountered ecchymosis in the back due to that.. The assessment suggests a likely muscle strain involving the biceps, although the complaint's persistence and severity necessitate further evaluation to rule out other musculoskeletal disorders. The absence of prior imaging warrants obtaining an x-ray. Due to the severity and localization, the necessity of an orthopedic consult is considered to evaluate potential tendon injury or other structural damage, contingent on initial imaging findings and response to conservative management, including rest and analgesia. Date of injury, last Thursday that will be April 29, 2024 Date of visit to emergency room May 01. Muscle Strain The patient is advised to continue wearing a sling to limit movement and aid recovery, with regular removal to prevent stiffness. X-ray imaging is requested to exclude any fractures or significant structural injury. A referral to an integrated marketing specialist is recommended for comprehensive evaluation and management. For immediate pain relief, oxycodone or Percocet will be prescribed, replacing the previously used high-dose morphine due to adverse effects. A gradual rehabilitation plan with guided exercises will be considered once the pain subsides to improve strength and range of motion. Problem List - Muscle Strain - Right Arm Pain - work related injury Patient Instructions - Wear a sling to immobilize the arm, removing it periodically to prevent stiffness. - Take prescribed pain medication as directed, substituting previously used morphine with Percocet. - Await x-ray results to inform further treatment decisions. - Follow up with an integrated marketing specialist as scheduled for advanced evaluation. - Continue resting the arm, avoiding strenuous activities, to facilitate healing. - Report any increase in pain, new symptoms, or adverse effects from medications immediately. Note given to be off until May 20 Follow-up May 18 [facility] Medical History Pain of right great toe Lupus History of blood clots Weakness of left arm Paresthesias in left hand Surgical History S/P epidural steroid injection History of inguinal hernia repair Hx of carpal tunnel repair Hx of lumpectomy H/O: hysterectomy History of bunionectomy Hx of cholecystectomy Family History Father High cholesterol HTN (hypertension) Stroke Mother Lupus Substance use disorder Congenital heart disease Dementia Sister Lupus Maternal Aunt Dementia Maternal Aunt Dementia Maternal Aunt Dementia Maternal Aunt Dementia Maternal Aunt Dementia Social History Household Members: Spouse and Children Housing: House Alcohol intake: never Patient Tobacco Use Status: Former Tobacco user Years Smoked: 5 e-Cigarette/Vaping Use: Never Used service: No Current occupational status: employed 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[employer] Cognitive needs: No Hearing needs: No Vision needs: Yes (contacts) Questionnaire Thrive Questionnaire Date Thrive assessed: 05/06/24 I am a: Patient What is your living situation today?: I have a steady place to live Within the past 12 months, did the food you bought not last and you didn't have the money to get more?: Never true Within the past 12 months, did you worry whether your food would run out before you got money to buy more?: Never true Do you have trouble paying for medicines?: No Do you have trouble getting transportation to medical appointments?: No Do you have trouble paying your heating and electricity bill?: No Do you have trouble taking care of your child, family member or friend?: No Do you have trouble with day-to-day activities such as bathing, preparing meals, shopping, managing finances, etc.?: No Are you currently unemployed and looking for a job?: No Are you interested in more education?: No Please select the resources that you would like help with: None Currently or been in a relationship where the following occur: No concerns reported THRIVE Score: 0 AUDIT C Alcohol Use Questionnaire (AUDIT-C) 1. How often do you have a drink containing alcohol?: Monthly or less 2. How many drinks containing alcohol do you have on a typical day when you are drinking?: 1 or 2 3. How often do you have six or more drinks on one occasion?: Never Total Score: 1 Score Reviewed/Action Taken: Yes DAMON-7 AMB Questionnaire DAMON-7 Date DAMON - 7 assessed: 02/19/24 Source: Developed by Drs. Morris Farooq, Francia Barfield, Leonel Min and colleagues, with an educational austyn from [employer]. Review of Systems Const Denies chills and Denies fever(s) ENT Denies epistaxis and Denies nasal discharge Card Denies chest pain Resp Denies chest congestion, Denies cough and Denies hemoptysis GI Denies diarrhea and Denies nausea Skin/Breast Denies rash Neuro Reports no additional complaints Psych Reports no additional complaints Endo Reports no additional complaints Physical exam (Primary Care) Vital Signs: Last Vital Signs Pulse 107 H 05/06/24 10:50 BP 128/84 05/06/24 10:50 Pulse Ox 99 05/06/24 10:50 Oxygen Delivery Method Room Air 05/06/24 10:50 BMI result Body Mass Index 34.4 Tobacco/Smoking Status: Tobacco use Status Tobacco use date assessed 05/06/24 05/06/24 10:53 Patient Tobacco Use Status Former Tobacco user 05/06/24 10:53 e-Cigarette/Vaping Use Never Used 05/06/24 10:53 Thrive Assessment: Date of Thrive Assessment Date Thrive assessed 05/06/24 05/06/24 10:53 Currently or been in a relationship where the following occur: No concerns reported Const General: cooperative, comfortable and no acute distress Orientation/consciousness: patient oriented x3 HENMT Head: Yes normocephalic Eyes General: appearance normal, both eyes and all related structures Neck Neck: Yes supple Resp Effort & Inspection: normal respiratory effort, no cough and no stridor Cardio Rhythm: regular rhythm Heart sounds: S1 normal heart sound present and S2 normal heart sound present Skin General skin exam: turgor normal Neuro General: patient oriented x3, tone normal and moves all extremities Coding Level of Care Code Est Pt Level 5 (91149) Diagnoses Injury of right shoulder, initial encounter S49.91XA Encounter type: initial encounter Acute pain of right shoulder M25.511 Chronicity: acute Arm pain, right M79.601 Work related injury Y99.0 Assessment & Plan Assessment & Plan (1) Right shoulder injury: Code(s): S49.91XA - Unspecified injury of right shoulder and upper arm, initial encounter Category: Medical Qualifiers: Encounter type: initial encounter Qualified Code(s): S49.91XA - Unspecified injury of right shoulder and upper arm, initial encounter (2) Shoulder pain, right: Code(s): M25.511 - Pain in right shoulder Category: Medical Qualifiers: Chronicity: acute Qualified Code(s): M25.511 - Pain in right shoulder (3) Arm pain, right: Code(s): M79.601 - Pain in right arm Category: Medical (4) Work related injury: Code(s): Y99.0 - Civilian activity done for income or pay Category: Medical Plan Chief Complaint The patient complains of severe right arm pain after lifting heavy boxes at work, which resulted in an inability to move the arm. Assessment and Plan 43-year-old female with a recent history of a lifting injury presenting with acute right arm pain. The incident involved moving 60-pound boxes, leading to an immediate painful response followed by an escalation of symptoms to an unbearable state upon returning home. She was evaluated in the emergency room with a presumptive diagnosis of a muscle strain managed with a high dose of morphine, which induced nausea and vomiting leading to a secondary fall injury at, patient encountered ecchymosis in the back due to that.. The assessment suggests a likely muscle strain involving the biceps, although the complaint's persistence and severity necessitate further evaluation to rule out other musculoskeletal disorders. The absence of prior imaging warrants obtaining an x-ray. Due to the severity and localization, the necessity of an orthopedic consult is considered to evaluate potential tendon injury or other structural damage, contingent on initial imaging findings and response to conservative management, including rest and analgesia. Date of injury, last Thursday that will be April 29, 2024 Date of visit to emergency room May 01. Muscle Strain The patient is advised to continue wearing a sling to limit movement and aid recovery, with regular removal to prevent stiffness. X-ray imaging is requested to exclude any fractures or significant structural injury. A referral to an integrated marketing specialist is recommended for comprehensive evaluation and management. For immediate pain relief, oxycodone or Percocet will be prescribed, replacing the previously used high-dose morphine due to adverse effects. A gradual rehabilitation plan with guided exercises will be considered once the pain subsides to improve strength and range of motion. Problem List - Muscle Strain - Right Arm Pain - work related injury Patient Instructions - Wear a sling to immobilize the arm, removing it periodically to prevent stiffness. - Take prescribed pain medication as directed, substituting previously used morphine with Percocet. - Await x-ray results to inform further treatment decisions. - Follow up with an integrated marketing specialist as scheduled for advanced evaluation. - Continue resting the arm, avoiding strenuous activities, to facilitate healing. - Report any increase in pain, new symptoms, or adverse effects from medications immediately. Note given to be off until May 20 Follow-up May 18 45 minutes spent care of this patient including reviewing emergency Urgent care notes, [id number] with the patient and coordination of care Orders: Orders XR shoulder RT min 2V Today M25.511 - Pain in right shoulder, M79.601 - Pain in right arm, S49.91XA - Unspecified injury of right shoulder and upper arm, initial encounter, Y99.0 - Civilian activity done for income or pay Referrals Orthopedics Referral M25.511 - Pain in right shoulder, M79.601 - Pain in right arm, S49.91XA - Unspecified injury of right shoulder and upper arm, initial encounter, Y99.0 - Civilian activity done for income or pay Medications: New oxycodone-acetaminophen 5-325 mg (Percocet) Partial Fill upon patient request. 1 tab PO Q8H PRN 21 tabs 0RF pain 7 days
== END 2024-05-06 12:31 | disposition home or self-care (01) ==
PROVIDERS: PCP Internal Medicine; Visit Provider Internal Medicine
DX: S49.91XA Unspecified injury of right shoulder and upper arm, initial encounter (principal); M25.511 Pain in right shoulder; M79.601 Pain in right arm; Z04.2 Encounter for examination and observation following work accident; Y99.0 Civilian activity done for income or pay

== ENCOUNTER 2024-05-18 13:04 | Outpatient (AMB) | payer OTHER, BC, SELFPAY ==
[2024-05-18 13:12] VITALS: BP 126/82; PULSE 99; O2SAT 99; BMI 34.0
--- NOTE | 2024-05-18 13:12 | A.OFFPC_ITS ---
Vital Signs 3 05/18/24 13:12 Height 5 ft 5 in Weight 204 lb 6 oz BMI 34.0 BP 126/82 Blood Pressure Location Lt brachial Position Sitting Pulse 99 Pulse Source Pulse Oximeter Pulse Oximetry (%) 99 Oxygen Delivery Method Room Air Intake Visit Reasons: Follow UP WC Allergies azithromycin [AZITHROMYCIN] Allergy (Unknown, Verified 05/18/24 13:16) low heart rate Medication List - Last Reconciled 05/18/24 by Maggie Crystal MD cyclobenzaprine 10 mg PO TID PRN lidocaine 5% 1 patch topical DAILY morphine 15 mg PO Q6H PRN oxycodone-acetaminophen 5-325 mg (Percocet) 1 tab PO Q8H PRN 7 days semaglutide (weight loss) (Wegovy) 0.25 mg (0.5 mL) subcut QWEEK 30 days Tobacco use date assessed: 05/18/24 Dental Screening Dental Screen Date: 05/18/24 Did you have a dental visit in the last 12 months?: Yes Did you have a dental problem in the last 6 months where you did not have access to dental care?: No Was dental information given to patient?: Patient has dentist HPI Follow UP WC 2 HPI0 Details Chief Complaint The patient reports persistent pain in the right elbow and restricted movement of the right arm. Assessment and Plan 44-year-old female presenting with elbow pain and limited mobility of the right arm. she was seen 05/06/24 for this pain, see my last note for detail. patient has a scheduled orthopedic appointment later in the month. The patient is planning to resume work with light duties next week. Problem List - Shoulder pain right - Limited Right Arm Mobility Patient Instructions - Continue to refrain from lifting heavy objects to prevent further strain to the elbow and arm. - Complete and submit any pending paperw ork related to work accommodations. - Attend the scheduled orthopedic appoin tment for a comprehensive evaluation. - Engage in light activities as tolerate d, observing any changes in pain or mobility. - Monitor for any increase in discomfort or changes in mobility and seek earlier medical attention if symptoms worsen. [facility] Medical History Pain of right great toe Lupus History of blood clots Weakness of left arm Paresthesias in left hand Surgical History S/P epidural steroid injection History of inguinal hernia repair Hx of carpal tunnel repair Hx of lumpectomy H/O: hysterectomy History of bunionectomy Hx of cholecystectomy Family History Father High cholesterol HTN (hypertension) Stroke Mother Lupus Substance use disorder Congenital heart disease Dementia Sister Lupus Maternal Aunt Dementia Maternal Aunt Dementia Maternal Aunt Dementia Maternal Aunt Dementia Maternal Aunt Dementia Social History Household Members: Spouse and Children Housing: House Alcohol intake: never Patient Tobacco Use Status: Former Tobacco user Years Smoked: 5 e-Cigarette/Vaping Use: Never Used service: No Current occupational status: employed 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[employer] Cognitive needs: No Hearing needs: No Vision needs: Yes (contacts) Questionnaire Thrive Questionnaire Date Thrive assessed: 05/18/24 I am a: Patient What is your living situation today?: I have a steady place to live Within the past 12 months, did the food you bought not last and you didn't have the money to get more?: Never true Within the past 12 months, did you worry whether your food would run out before you got money to buy more?: Never true Do you have trouble paying for medicines?: No Do you have trouble getting transportation to medical appointments?: No Do you have trouble paying your heating and electricity bill?: No Do you have trouble taking care of your child, family member or friend?: No Do you have trouble with day-to-day activities such as bathing, preparing meals, shopping, managing finances, etc.?: No Are you currently unemployed and looking for a job?: No Are you interested in more education?: No Please select the resources that you would like help with: None Currently or been in a relationship where the following occur: No concerns reported THRIVE Score: 0 AUDIT C Alcohol Use Questionnaire (AUDIT-C) 1. How often do you have a drink containing alcohol?: Monthly or less 2. How many drinks containing alcohol do you have on a typical day when you are drinking?: 1 or 2 3. How often do you have six or more drinks on one occasion?: Never Total Score: 1 Score Reviewed/Action Taken: Yes DAMON-7 AMB Questionnaire DAMON-7 Date DAMON - 7 assessed: 02/19/24 Source: Developed by Drs. Morris Farooq, Francia Barfield, Leonel Min and colleagues, with an educational austyn from [employer]. Review of Systems Const Denies chills and Denies fever(s) ENT Denies epistaxis and Denies nasal discharge Card Denies chest pain Resp Denies chest congestion, Denies cough and Denies hemoptysis GI Denies diarrhea and Denies nausea Skin/Breast Denies rash Neuro Reports no additional complaints Psych Reports no additional complaints Endo Reports no additional complaints Physical exam (Primary Care) Vital Signs: Last Vital Signs Pulse 99 05/18/24 13:12 BP 126/82 05/18/24 13:12 Pulse Ox 99 05/18/24 13:12 Oxygen Delivery Method Room Air 05/18/24 13:12 BMI result Body Mass Index 34.0 Tobacco/Smoking Status: Tobacco use Status Tobacco use date assessed 05/18/24 05/18/24 13:16 Patient Tobacco Use Status Former Tobacco user 05/18/24 13:14 e-Cigarette/Vaping Use Never Used 05/18/24 13:14 Thrive Assessment: Date of Thrive Assessment Date Thrive assessed 05/18/24 05/18/24 13:16 Currently or been in a relationship where the following occur: No concerns reported Const General: cooperative, comfortable and no acute distress Orientation/consciousness: patient oriented x3 HENMT Head: Yes normocephalic Eyes General: appearance normal, both eyes and all related structures Neck Neck: Yes supple Resp Effort & Inspection: normal respiratory effort, no cough and no stridor Cardio Rhythm: regular rhythm Heart sounds: S1 normal heart sound present and S2 normal heart sound present Skin General skin exam: turgor normal Neuro General: patient oriented x3, tone normal and moves all extremities Extrem Shoulder/upper arm images: 2 1. right shoulder pain with palpation, unable to lift beyond 90 degree Coding Level of Care Code Est Pt Level 5 (78334) Diagnoses Injury of right shoulder, initial encounter S49.91XA Encounter type: initial encounter Acute pain of right shoulder M25.511 Chronicity: acute Arm pain, right M79.601 Work related injury Y99.0 Assessment & Plan Assessment & Plan (1) Right shoulder injury: Code(s): S49.91XA - Unspecified injury of right shoulder and upper arm, initial encounter Category: Medical Qualifiers: Encounter type: initial encounter Qualified Code(s): S49.91XA - Unspecified injury of right shoulder and upper arm, initial encounter (2) Shoulder pain, right: Code(s): M25.511 - Pain in right shoulder Category: Medical Qualifiers: Chronicity: acute Qualified Code(s): M25.511 - Pain in right shoulder (3) Arm pain, right: Code(s): M79.601 - Pain in right arm Category: Medical (4) Work related injury: Code(s): Y99.0 - Civilian activity done for income or pay Category: Medical Plan Chief Complaint The patient reports persistent pain in the right elbow and restricted movement of the right arm. Assessment and Plan 44-year-old female presenting with elbow pain and limited mobility of the right arm. she was seen 05/06/24 for this pain, see my last note for detail. patient has a scheduled orthopedic appointment later in the month. The patient is planning to resume work with light duties next week. Problem List - Shoulder pain right - Limited Right Arm Mobility Patient Instructions - Continue to refrain from lifting heavy objects to prevent further strain to the elbow and arm. - Complete and submit any pending paperwork related to work accommodations. - Attend the scheduled orthopedic appointment for a comprehensive evaluation. - Engage in light activities as tolerated, observing any changes in pain or mobility. - Monitor for any increase in discomfort or changes in mobility and seek earlier medical attention if symptoms worsen. 45 min apt to fill paper work and re evaluation
--- OUTSIDE RECORDS SUMMARY | 2024-05-24 19:23 | XMS_ITS | Continuity of Care Document ---
Author Organization [facility] [address] [place] [address] Phone [phone] Care Team Providers Care Deputy Coroner Name Role Phone Joel Rosas Care Team Information Fire Control System Installer + [phone] Bonilla Yurigretel Care Team Information Fire Control System Installer + [phone] Problems Active Problems Provider Date Endometriosis (clinical) Oj Covarrubias M.D. O nset: 08/12/2022 Impaired fasting glycemia Oj Covarrubias M.D. Onset: 12/01/2022 Dyspareunia Oj Covarrubias M.D. Onset: Reduced libido Oj Covarrubias M.D. Onset: Fatigue Oj Covarrubias M.D. Onset: Obesity Oj Covarrubias M.D. Onset: Hyperlipidemia Oj Covarrubias M.D. Onset: Social History Type Date Description Comments Sex Unknown Tobacco Use Start: Unknown Never Smoked Cigarettes Smoking Status Reviewed: 12/01/22 Never Smoked Cigaret bernardo Allergies and adverse reactions Active Allergies Criticality Reaction Severity Comments Date Azithromycin Unable to assess criticality 08/12/2022 Medications Description No Active Medications Vital Signs Date Vital Result Comment 12/01/2022 3:38pm BP Systolic 100 mmHg BP Diastolic 68 mmHg Heart Rate 76 /min Height 65 inches 5'5 Weight 215.00 lb BMI (Body Mass Index) 35.8 kg/m2 Results Test Acquired Date Facility Test Result H/L Range Note Lipid Panel 09/13/2022 [facility] Cholesterol, Total 207 mg/dL High (<200) Triglyceride 190 mg/dL High (<150) HDL Chol 62 mg/dL (>39) LDL Cholesterol , Calculated 107 mg/dL (0-130) Non HDL Cholesterol (Calc) 145 mg/dL (<160) Laboratory test finding 09/13/2022 [facility] TSH With Reflex To FT4 2.24 uIU/mL (0.4-4.2) LH 8.8 MIU/ML 1 FSH 7.6 MIU/ML 2 Estradiol 556 pg/mL 3 Glucose 115 mg/dL High (70-99) 1 Reference Range: Follicular: 2.4-12.6 mIU/mL Ovulation: 14.0-95.6 mIU/mL Luteal: 1.0-11.4 mIU/mL Postmenopausal: 7.7-58.5 mIU/mL 2 Reference Range: Follicular: 3.5-12.5 mIU/mL Ovulation: 4.7-21.5 mIU/mL Luteal: 1.7-7.7 mIU/mL Postmenopausal: 25.8-134.8 mIU/mL 3 Reference Ranges: Luteal Phase: 44-211 pg/mL Ovulation: 86-498 pg/mL Follicular Phase: 13-166 pg/mL Postmenopausal: <55 pg/mL Estradiol test method is an electrochemiluminescence immunoassay manufactured by [employer] and performed on the Modular or Chilo system. This assay has cross reactivity to the drug fulvestrant which may lead to falsely elevated estradiol results. Therefore, an alternate method such as liquid chromatography-tandem mass spectrometry should be used when monitoring estradiol levels in patients being treated with the drug fulvestrant. Medical Devices Description No Information Available Encounters Type Date Location Provider Dx Diagnosis Office Visit 12/01/2022 3:30p Main Office Oj Covarrubias M.D. N80.9 Endometriosis, unspecified E66.9 Obesity, unspecified R73.01 Impaired fasting glu cose Assessments Date Code Description Provider 12/01/2022 N80.9 Endometriosis, unspecified B german Covarrubias M.D. 12/01/2022 E66.9 Obesity Oj Covarrubias M.D. 12/01/2022 R73.01 Impaired fasting glycemia Ba tiffani Covarrubias M.D. Plan of Treatment 12/01/2022 - Oj Izenstein, M.D.* N80.9 Endometriosis, unspecified * E66.9 Obesity * R73.01 Impaired fasting glycemia * Functional Status Description No Information Available Mental Status Description No Information Available Referrals Description No Information Available
== END 2024-05-18 14:57 | disposition home or self-care (01) ==
PROVIDERS: PCP Internal Medicine; Visit Provider Internal Medicine
DX: S49.91XA Unspecified injury of right shoulder and upper arm, initial encounter (principal); M25.511 Pain in right shoulder; M79.601 Pain in right arm; Z04.2 Encounter for examination and observation following work accident; Y99.0 Civilian activity done for income or pay

== ENCOUNTER → 2024-05-18 13:04 | Outpatient (BNVA) | payer OTHER, BC, SELFPAY | PROVIDERS: PCP Internal Medicine; Visit Provider Internal Medicine | DX: S49.91XA Unspecified injury of right shoulder and upper arm, initial encounter (principal); M79.601 Pain in right arm; X58.XXXA Exposure to other specified factors, initial encounter; Y93.9 Activity, unspecified; Y92.9 Unspecified place or not applicable; Y99.9 Unspecified external cause status | CPT/HCPCS: 99212 ==

== ENCOUNTER 2024-06-10 13:21 | Outpatient (AMB) | payer OTHER, BC, SELFPAY ==
--- NOTE | 2024-06-10 13:24 | MHC.OFFVIS ---
Intake Visit Reasons: New prob- RT shoulder pain Intake Note: Naomi is a 44 year old right hand dominant female who presents today for a evaluation of her right shoulder pain, DOI 04/29/24. Patient reports she was moving copy paper boxes until she felt a pulling sensation in her shoulder. Patient has noticed her shoulders are not at level. She mentions that her pain is on her shoulder and down to her bicep. Patient has tried and failed morphine and her PCP gave her prednisone and oxycodone. Allergies azithromycin [AZITHROMYCIN] Allergy (Unknown, Verified 06/10/24 13:27) low heart rate HPI HPI New prob- RT shoulder pain: Details: 44-year-old twelk-susj-wkyumgoy female who presents in the office today for an evaluation of right shoulder pain. The patient presented to the ED on 05/01/24 with right shoulder pain status post lifting heavy boxes at work that occurred on 04/29/24. She has tried Motrin on 04/30/24 without any relief. She was evaluated with a presumptive diagnosis of muscle strain. She was placed in a sling and recommended to wear it for 5 days. She was prescribed cyclobenzaprine 10 mg PO TID PRN for muscle spasm, morphine 15 mg PO Q6H PRN, and a lidocaine 5% adhesive patch for pain relief. She was seen by her PCP on 05/06/24 with the chief complaint of right shoulder and elbow pain with restricted range of motion in the right upper extremity. She mentioned moving 60 lb boxes, leading to an immediate pain in the right upper extremity. She was recommended to continue wearing the sling, and x-rays of the right upper extremity were ordered. She was prescribed oxycodone-acetaminophen 5-325 mg, 1 tab PO Q8H PRN, replacing morphine due to the adverse effects. She was advised to refrain from lifting heavy objects in the right upper extremity. A referral was placed to [facility] for further evaluation and treatment. She returned to her PCP on 05/18/24 requesting a work note for resuming work with light duties. She was encouraged to get evaluated by orthopedics as scheduled. While in the office today, the patient confirms that she experienced a pulling sensation in her right shoulder while moving copy paper boxes. She has noticed that her shoulders are not level. She reports pain in her right shoulder radiating down to her bicep. She has tried and failed morphine. PFS Medical History Pain of right great toe Lupus History of blood clots Weakness of left arm Paresthesias in left hand Surgical History S/P epidural steroid injection History of inguinal hernia repair Hx of carpal tunnel repair Hx of lumpectomy H/O: hysterectomy History of bunionectomy Hx of cholecystectomy Family History Father High cholesterol HTN (hypertension) Stroke Mother Lupus Substance use disorder Congenital heart disease Dementia Sister Lupus Maternal Aunt Dementia Maternal Aunt Dementia Maternal Aunt Dementia Maternal Aunt Dementia Maternal Aunt Dementia Social History Household Members: Spouse and Children Housing: House Alcohol intake: never Patient Tobacco Use Status: Former Tobacco user Years Smoked: 5 e-Cigarette/Vaping Use: Never Used service: No Current occupational status: employed 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 Pain with crossbody reach. Negative drop arm. 4/5 strength with an empty can associated with pain. NVI. Office Procedures AMB Joint Injection/Aspiration Joint Injection/Aspiration Primary Site: right shoulder Prep: site was prepped using aseptic technique, ethochloride spray was applied and injection warnings given Injected: 80 mg of, DepoMedrol, with 8 mL of (2% plain lido ) and in the subcromial space Approach Used: posterolateral Procedure: The patient tolerated the procedure well, but had some pain with the injection and there was some relief with the local anesthesia Coding 64263 - Large joint Procedure code (CPT) selection complete Assessment & Plan Assessment & Plan (1) Injury of right rotator cuff: Code(s): S46.001A - Unspecified injury of muscle(s) and tendon(s) of the rotator cuff of right shoulder, initial encounter Category: Medical (2) Calcific tendonitis of right shoulder: Code(s): M75.31 - Calcific tendinitis of right shoulder Category: Medical Plan Ms. Naomi Valenzuela is a 44-year-old klarm-hgxs-ojtdmhpq female who presents in the office today for an evaluation of right shoulder pain. The patient presented to the ED on 05/01/24 with right shoulder pain status post lifting heavy boxes at work that occurred on 04/29/24. She tried Motrin on 04/30/24 without any relief. She was evaluated with a presumptive diagnosis of muscle strain. She was placed in a sling and recommended to wear it for 5 days. She was prescribed cyclobenzaprine 10 mg PO TID PRN for muscle spasm, morphine 15 mg PO Q6H PRN, and a lidocaine 5% adhesive patch for pain relief. She was seen by her PCP on 05/06/24 with the chief complaint of right shoulder and elbow pain with restricted range of motion in the right upper extremity. She mentioned moving 60 lb boxes, leading to an immediate pain in the right upper extremity. She was recommended to continue wearing the sling, and x-rays of the right upper extremity were ordered. She was prescribed oxycodone-acetaminophen 5-325 mg, 1 tab PO Q8H PRN, replacing morphine due to the adverse effects. She was advised to refrain from lifting heavy objects in the right upper extremity. A referral was placed to [facility] for further evaluation and treatment. She returned to her PCP on 05/18/24 requesting a work note for resuming work with light duties. She was encouraged to get evaluated by orthopedics as scheduled. While in the office today, the patient confirms that she experienced a pulling sensation in her right shoulder while moving copy paper boxes. She has noticed that her shoulders are not level. She reports pain in her right shoulder radiating down to her bicep. She has tried and failed morphine. The patient was offered a cortisone injection in the right shoulder with 80 mg of Depo-Medrol. The patient was explained the risks, benefits, and alternatives to receiving this injection. After receiving consent for the injection, the patient had the procedure done while in the office today. The patient tolerated the procedure well with no complication. I have placed a referral to physical therapy today. She was provided with a work note stating that she should not perform any lifting, pushing or pulling with the right upper extremity and no overhead reaching with the right upper extremity. She should perform sedentary work only. Follow-up will be 6 weeks, or sooner if needed. X-rays of the right shoulder, obtained on 05/06/24, revealed: Calcific tendonitis. Negative for any acute fracture or dislocation. Orders: Orders PT Evaluation and Treatment Today M75.31 - Calcific tendinitis of right shoulder, S46.001A - Unspecified injury of muscle(s) and tendon(s) of the rotator cuff of right shoulder, initial encounter Patient Instructions: Scribed by Rosalba Baxter medical referral coordinator, for Tara Diaz PA-C on 06/10/24 at 1:52 pm EST. Coding Level of Care Code Est Pt Level 4 (68540) Diagnoses Injury of right rotator cuff S46.001A Calcific tendonitis of right shoulder M75.31 CPT Codes Coding - 79622 Large joint: 47279 - Large joint ([id number])
--- OUTSIDE RECORDS SUMMARY | 2024-06-10 13:24 | XMS_ITS | Continuity of Care Document ---
Author Organization [facility] [address] [place] [address] Phone [phone] Care Team Providers Care Credit Correspondence Clerk Name Role Phone Joel Rosas Care Team Information Pulverizer + [phone] Bonilla Yurigretel Care Team Information Pulverizer + [phone] Problems Active Problems Provider Date Endometriosis (clinical) [...] Result H/L Range Note Lipid Panel 09/13/2022 [facility] Cholesterol, Total 207 mg/dL High (<200) Triglyceride 190 mg/dL High (<150) HDL Chol 62 mg/dL (>39) LDL Cholesterol , Calculated 107 mg/dL (0-130) Non HDL Cholesterol (Calc) 145 mg/dL (<160) Laboratory test finding 09/13/2022 [facility] TSH With Reflex To [...]
== END 2024-06-10 14:23 | disposition home or self-care (01) ==
PROVIDERS: PCP Internal Medicine; Visit Provider Physician Assistant
DX: S46.001A Unspecified injury of muscle(s) and tendon(s) of the rotator cuff of right shoulder, initial encounter (principal); M75.31 Calcific tendinitis of right shoulder
CPT/HCPCS: 20610; 99213

== ENCOUNTER → 2024-06-10 13:21 | Outpatient (BNVA) | payer OTHER, BC, SELFPAY | PROVIDERS: PCP Internal Medicine; Visit Provider Physician Assistant | DX: M75.31 Calcific tendinitis of right shoulder (principal); S46.011A Strain of muscle(s) and tendon(s) of the rotator cuff of right shoulder, initial encounter; X50.0XXA Overexertion from strenuous movement or load, initial encounter; Y93.89 Activity, other specified; Y92.9 Unspecified place or not applicable; Y99.9 Unspecified external cause status; T40.2X5A Adverse effect of other opioids, initial encounter; Y92.531 Health care provider office as the place of occurrence of the external cause; R42 Dizziness and giddiness; H53.8 Other visual disturbances; R53.1 Weakness | CPT/HCPCS: 20610; 99212; J1010; J2003 ==

== ENCOUNTER 2024-06-21 15:02 | Outpatient (AMB) | payer OTHER, BC, SELFPAY ==
[2024-06-21 15:20] VITALS: BP 126/80; PULSE 100; O2SAT 98; BMI 34.7
--- NOTE | 2024-06-21 15:20 | A.OFFPC_ITS ---
Vital Signs 06/21/24 15:20 Height 5 ft 5 in Weight 208 lb 4 oz BMI 34.7 BP 126/80 Blood Pressure Location Lt brachial Position Sitting Pulse 100 Pulse Source Pulse Oximeter Pulse Oximetry (%) 98 Oxygen Delivery Method Room Air Intake Visit Reasons: 6 week follow up Allergies azithromycin [AZITHROMYCIN] Allergy (Unknown, Verified 06/10/24 13:27) low heart rate Medication List - Last Reconciled 06/21/24 by Maggie Crystal MD cyclobenzaprine 10 mg PO TID PRN lidocaine 5% 1 patch topical DAILY morphine 15 mg PO Q6H PRN oxycodone-acetaminophen 5-325 mg (Percocet) 1 tab PO Q8H PRN 7 days semaglutide (weight loss) 0.5 mg (0.5 mL) subcut QWEEK 30 days Tobacco use date assessed: 05/18/24 Dental Screening Dental Screen Date: 05/18/24 HPI 6 week follow up HPI Details History of Present Illness - The patient is a 44-year-old female pr esenting with a follow-up right shoulder pain, patient had cortisone injection through orthopedic - Experienced dizziness, blurred vision, and weakness immediately post-injection on June 10. - No post-injection vitals taken; patien t had to remain in the clinic for extended observation. - Documented complaint about not tolerat ing the injection well filed with the of fice bench manager. - Calcific tendinitis, presently managed with planned physical therapy and activity restrictions. - Weight management since January, with i nitial weight of 222 pounds, now on 0.5 dose of semaglutide weight loss injections, and reports improved dietary habits. - Reports experiencing only minor headac hes now, actively managing activity levels and diet. Review of Systems - Neurological: Reports dizziness, blurr ed vision, and headaches post-injection. Has resolved since - Musculoskeletal: Reports symptoms rela allan to calcific tendinitis with associated activity restrictions. - General: No fever no chills - Neurological: No headaches no dizziness - Ear nose throat: No sore throat no hearing difficulty no ear pain - Cardiovascular: No syncope, no chest pain, no palpitations - Gastrointestinal: No nausea vomiting or diarrhea - Endocrine: No polyuria polydipsia no heat intolerance - Genitourinary: No dysuria , no blood in urine Physical Exam - General: No acute distress - HEENT: No acute findings - Neck: Supple - Respiratory system: Able to talk in f ull sentences, no audible wheeze - cardiovascular: S1-S2 regular in rat e and rhythm - Gastrointestinal: No pain - Extremities: No new findings , right shoulder range of motion has improved slightly limited still in extension - NUT CRACKER: Alert awake oriented x3 motor se nsory intact - Skin: Normal turgor Patient Instructions - Continue with physical therapy as plan gabriela next week. - Maintain current dietary habits, avoid ing fast food and preparing meals at home. - Monitor symptoms and report any furthe r adverse reactions. - Follow up on weight management progres s and continue current injection regimen for two months, adjusting as necessary based on progress at next appointment. [facility] Medical History Pain of right great toe Lupus History of blood clots Weakness of left arm Paresthesias in left hand Surgical History S/P epidural steroid injection History of inguinal hernia repair Hx of carpal tunnel repair Hx of lumpectomy H/O: hysterectomy History of bunionectomy Hx of cholecystectomy Family History Father High cholesterol HTN (hypertension) Stroke Mother Lupus Substance use disorder Congenital heart disease Dementia Sister Lupus Maternal Aunt Dementia Maternal Aunt Dementia Maternal Aunt Dementia Maternal Aunt Dementia Maternal Aunt Dementia Social History Household Members: Spouse and Children Housing: House Alcohol intake: never Patient Tobacco Use Status: Former Tobacco user Years Smoked: 5 e-Cigarette/Vaping Use: Never Used service: No Current occupational status: employed 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 1. Little interest or pleasure in doing things: not at all 2. Feeling down, depressed, or hopeless: not at all 3. Trouble falling or staying asleep, or sleeping too much: not at all 4. Feeling tired or having little energy: not at all 5. Poor appetite or overeating: several days 6. Feeling bad about yourself - or that you are a failure or have let yourself or your family down: not at all 7. Trouble concentrating on things, such as reading the newspaper or watching television: not at all 8. Moving or speaking so slowly that other people could have noticed. Or the opposite - being so fidgety or restless that you have been moving around a lot more than usual: not at all 9. Thoughts that you would be better off or of hurting yourself in some way: not at all Total score: 1 Depression Screening Interpretation: Negative Depression Screening Done: Yes 63597 - PHQ-9 Billing: Yes Source: Developed by Drs. Morris Farooq, Francia Barfield, Leonel Min and colleagues, with an educational austyn from [employer]. Thrive Questionnaire Date Thrive assessed: 06/15/24 I am a: Patient What is your living situation today?: I have a steady place to live Within the past 12 months, did the food you bought not last and you didn't have the money to get more?: Never true Within the past 12 months, did you worry whether your food would run out before you got money to buy more?: Never true Do you have trouble paying for medicines?: No Do you have trouble getting transportation to medical appointments?: No Do you have trouble paying your heating and electricity bill?: No Do you have trouble taking care of your child, family member or friend?: No Do you have trouble with day-to-day activities such as bathing, preparing meals, shopping, managing finances, etc.?: No Are you currently unemployed and looking for a job?: No Are you interested in more education?: No Please select the resources that you would like help with: None Currently or been in a relationship where the following occur: No concerns reported THRIVE Score: 0 AUDIT C Alcohol Use Questionnaire (AUDIT-C) 1. How often do you have a drink containing alcohol?: Monthly or less 2. How many drinks containing alcohol do you have on a typical day when you are drinking?: 1 or 2 3. How often do you have six or more drinks on one occasion?: Never Total Score: 1 DAMON-7 AMB Questionnaire DAMON-7 Date DAMON - 7 assessed: 02/19/24 Feeling nervous, anxious, or on edge: 0 = Not at all Not being able to stop or control worryin = Not at all Worrying too much about different things: 0 = Not at all Trouble relaxin = Not at all Being so restless that it is hard to sit still: 0 = Not at all Becoming easily annoyed or irritable: 0 = Not at all Feeling afraid as if something awful might happen: 0 = Not at all Total DAMON-7 score (0-4 normal; 5-9 mild; 10-14 moderate; 15-21 severe): 0 Source: Developed by Drs. Morris Farooq, Francia Barfield, Leonel Min and colleagues, with an educational austyn from [employer]. Physical exam (Primary Care) Vital Signs: Last Vital Signs Pulse 100 06/21/24 15:20 BP 126/80 06/21/24 15:20 Pulse Ox 98 06/21/24 15:20 Oxygen Delivery Method Room Air 06/21/24 15:20 BMI result Body Mass Index 34.7 Tobacco/Smoking Status: Tobacco use Status Tobacco use date assessed 05/18/24 06/21/24 15:21 Patient Tobacco Use Status Former Tobacco user 06/21/24 15:21 e-Cigarette/Vaping Use Never Used 06/21/24 15:21 PHQ-9: PHQ-9 Score PHQ-9: Total score 1 06/21/24 15:21 Depression Screening Interpretation: Negative Thrive Assessment: Date of Thrive Assessment Date Thrive assessed 06/15/24 06/21/24 15:21 Currently or been in a relationship where the following occur: No concerns reported Coding Level of Care Code Est Pt Level 3 (99424) Diagnoses Calcific tendonitis of right shoulder M75.31 Class 2 severe obesity due to excess calories with serious comorbidity and body mass index (BMI) of 39.0 to 39.9 in adult E66.01; Z68.39 Obesity classification: adult class 2 (BMI 35 - 39.9) Serious obesity comorbidity presence: with serious comorbidity Body mass index: BMI 39.0-39.9 Additional Codes PHQ-9 - 64368 - PHQ-9 Billing: Yes ([id number]) Assessment & Plan Assessment & Plan (1) Calcific tendonitis of right shoulder: Code(s): M75.31 - Calcific tendinitis of right shoulder Category: Medical (2) Obesity due to excess calories: Code(s): E66.09 - Other obesity due to excess calories Category: Medical Qualifiers: Obesity classification: adult class 2 (BMI 35 - 39.9) Serious obesity comorbidity presence: with serious comorbidity Body mass index: BMI 39.0-39.9 Qualified Code(s): E66.01 - Morbid (severe) obesity due to excess calories; Z68.39 - Body mass index [BMI] 39.0-39.9, adult Plan History of Present Illness - The patient is a 44-year-old female presenting with a follow-up right shoulder pain, patient had cortisone injection through orthopedic - Experienced dizziness, blurred vision, and weakness immediately post-injection on June 10. - No post-injection vitals taken; patient had to remain in the clinic for extended observation. - Documented complaint about not tolerating the injection well filed with the chief sales officer. - Calcific tendinitis, presently managed with planned physical therapy and activity restrictions. - Weight management since January, with initial weight of 222 pounds, now on 0.5 dose of semaglutide weight loss injections, and reports improved dietary habits. - Reports experiencing only minor headaches now, actively managing activity levels and diet. Review of Systems - Neurological: Reports dizziness, blurred vision, and headaches post-injection. Has resolved since - Musculoskeletal: Reports symptoms related to calcific tendinitis with associated activity restrictions. - General: No fever no chills - Neurological: No headaches no dizziness - Ear nose throat: No sore throat no hearing difficulty no ear pain - Cardiovascular: No syncope, no chest pain, no palpitations - Gastrointestinal: No nausea vomiting or diarrhea - Endocrine: No polyuria polydipsia no heat intolerance - Genitourinary: No dysuria , no blood in urine Physical Exam - General: No acute distress - HEENT: No acute findings - Neck: Supple - Respiratory system: Able to talk in full sentences, no audible wheeze - cardiovascular: S1-S2 regular in rate and rhythm - Gastrointestinal: No pain - Extremities: No new findings , right shoulder range of motion has improved slightly limited still in extension - NUT CRACKER: Alert awake oriented x3 motor sensory intact - Skin: Normal turgor Patient Instructions - Continue with physical therapy as planned next week. - Maintain current dietary habits, avoiding fast food and preparing meals at home. - Monitor symptoms and report any further adverse reactions. - Follow up on weight management progress and continue current injection regimen for two months, adjusting as necessary based on progress at next appointment.
== END 2024-06-21 15:48 | disposition home or self-care (01) ==
PROVIDERS: PCP Internal Medicine; Visit Provider Internal Medicine
DX: M75.31 Calcific tendinitis of right shoulder (principal); E66.01 Morbid (severe) obesity due to excess calories; Z68.39 Body mass index [BMI] 39.0-39.9, adult

== ENCOUNTER → 2024-06-21 15:02 | Outpatient (BNVA) | payer BC, OTHER, SELFPAY | PROVIDERS: PCP Internal Medicine; Visit Provider Internal Medicine | DX: M75.31 Calcific tendinitis of right shoulder (principal); E66.01 Morbid (severe) obesity due to excess calories; Z68.39 Body mass index [BMI] 39.0-39.9, adult | CPT/HCPCS: 96127; 99212 ==

== ENCOUNTER 2024-07-08 14:48 | Outpatient (AMB) | payer BC, SELFPAY ==
[2024-07-08 14:53] VITALS: BP 126/78; PULSE 92; O2SAT 98; BMI 34.8
--- NOTE | 2024-07-08 14:53 | A.OFFPC_ITS ---
Vital Signs 07/08/24 14:53 Height 5 ft 4 in Weight 202 lb 8 oz BMI 34.8 BP 126/78 Blood Pressure Location Rt brachial Position Sitting Pulse 92 Pulse Source Pulse Oximeter Pulse Oximetry (%) 98 Oxygen Delivery Method Room Air Intake Visit Reasons: Colin Chinchilla Allergies azithromycin [AZITHROMYCIN] Allergy (Unknown, Verified 07/08/24 14:56) low heart rate Medication List - Last Reconciled 07/08/24 by Maggie Crystal MD cyclobenzaprine 10 mg PO TID PRN lidocaine 5% 1 patch topical DAILY morphine 15 mg PO Q6H PRN oxycodone-acetaminophen 5-325 mg (Percocet) 1 tab PO Q8H PRN 7 days semaglutide (weight loss) 0.5 mg (0.5 mL) subcut QWEEK 30 days Tobacco use date assessed: 07/08/24 Dental Screening Dental Screen Date: 07/08/24 Did you have a dental visit in the last 12 months?: Yes Did you have a dental problem in the last 6 months where you did not have access to dental care?: No Was dental information given to patient?: Patient has dentist HPI Colin Avalosryan HPI Details - The patient is a 44 year old female pr esenting with abdominal pain. - Pain started two days ago around the u mbilical region, described as worsening over time. - Presence of an incidental palpable lum p near the navel area noted by the patient. - Pain intensity increases with ambulati on and when pressure is applied externally, such as with a pet's paw. - Associated symptoms include nausea and difficulty with bowel movements. - Patient has maintained oral intake but experiences pain post-ingestion. Problem List - Abdominal Pain - Nausea Patient is instructions Eat light over the weekend preferably only liquids I am ordering ultrasound to further evaluate If developed nausea vomiting or worsening abdominal pain go to emergency room Review of Systems - General: No fever no chills - Neurological: No headaches no dizziness - Ear nose throat: No sore throat no hearing difficulty no ear pain - Cardiovascular: No syncope, no chest pain, no palpitations - Gastrointestinal: No vomiting or diarrhea - Endocrine: No polyuria polydipsia no heat intolerance - Genitourinary: No dysuria , no blood in urine Physical Exam General: No acute distress HEENT: No acute findings Neck: Supple Respiratory system: Able to talk in full sentences, no audible wheeze cardiovascular: S1-S2 regular in rate and rhythm Gastrointestinal: Pain around the belly button, no hernia observed, minimal discomfort around periumbilical area, bowel sounds positive Extremities: No new findings HOTEL FRONT DESK AGENT: Alert awake oriented x3 motor sensory intact Skin: Normal turgor [facility] Medical History Pain of right great toe Lupus History of blood clots Weakness of left arm Paresthesias in left hand Surgical History S/P epidural steroid injection History of inguinal hernia repair Hx of carpal tunnel repair Hx of lumpectomy H/O: hysterectomy History of bunionectomy Hx of cholecystectomy Family History Father High cholesterol HTN (hypertension) Stroke Mother Lupus Substance use disorder Congenital heart disease Dementia Sister Lupus Maternal Aunt Dementia Maternal Aunt Dementia Maternal Aunt Dementia Maternal Aunt Dementia Maternal Aunt Dementia Social History Household Members: Spouse and Children Housing: House Alcohol intake: never Patient Tobacco Use Status: Former Tobacco user Years Smoked: 5 e-Cigarette/Vaping Use: Never Used service: No Current occupational status: employed 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[employer] Cognitive needs: No Hearing needs: No Vision needs: Yes (contacts) Questionnaire Thrive Questionnaire Date Thrive assessed: 06/15/24 I am a: Patient What is your living situation today?: I have a steady place to live Within the past 12 months, did the food you bought not last and you didn't have the money to get more?: Never true Within the past 12 months, did you worry whether your food would run out before you got money to buy more?: Never true Do you have trouble paying for medicines?: No Do you have trouble getting transportation to medical appointments?: No Do you have trouble paying your heating and electricity bill?: No Do you have trouble taking care of your child, family member or friend?: No Do you have trouble with day-to-day activities such as bathing, preparing meals, shopping, managing finances, etc.?: No Are you currently unemployed and looking for a job?: No Are you interested in more education?: No Please select the resources that you would like help with: None Currently or been in a relationship where the following occur: No concerns reported THRIVE Score: 0 DAMON-7 AMB Questionnaire DAMON-7 Date DAMON - 7 assessed: 02/19/24 Source: Developed by Drs. Morris Farooq, Francia Barfield, Leonel Min and colleagues, with an educational austyn from [email or web address]. Physical exam (Primary Care) Vital Signs: Last Vital Signs Pulse 92 07/08/24 14:53 BP 126/78 07/08/24 14:53 Pulse Ox 98 07/08/24 14:53 Oxygen Delivery Method Room Air 07/08/24 14:53 BMI result Body Mass Index 34.8 Tobacco/Smoking Status: Tobacco use Status Tobacco use date assessed 07/08/24 07/08/24 14:57 Patient Tobacco Use Status Former Tobacco user 07/08/24 14:57 e-Cigarette/Vaping Use Never Used 07/08/24 14:57 Thrive Assessment: Date of Thrive Assessment Date Thrive assessed 06/15/24 07/08/24 14:57 Currently or been in a relationship where the following occur: No concerns reported Coding Level of Care Code Est Pt Level 3 (92901) Diagnoses Periumbilical abdominal pain R10.33 Assessment & Plan Assessment & Plan (1) Periumbilical abdominal pain: Code(s): R10.33 - Periumbilical pain Category: Medical Plan - The patient is a 44 year old female presenting with abdominal pain. - Pain started two days ago around the umbilical region, described as worsening over time. - Presence of an incidental palpable lump near the navel area noted by the patient. - Pain intensity increases with ambulation and when pressure is applied externally, such as with a pet's paw. - Associated symptoms include nausea and difficulty with bowel movements. - Patient has maintained oral intake but experiences pain post-ingestion. Problem List - Abdominal Pain - Nausea Patient is instructions Eat light over the weekend preferably only liquids I am ordering ultrasound to further evaluate If developed nausea vomiting or worsening abdominal pain go to emergency room Orders: Orders US abdomen complete Today R10.33 - Periumbilical pain
--- OUTSIDE RECORDS SUMMARY | 2024-07-08 16:11 | XMS_ITS | Clinical Summary ---
Author Organization [facility] ity Address [address] [place] [address] Care Team Providers Care Student Finance Advisor Name Role Phone Jessica Nobles MD Primary Care Provider + Social History Tobacco Use Types Packs/Day Years Used Date Smoking Tobacco: Never Assessed Sex and Gender Information Value Date Recorded Sex Assigned at Not on file Gender Identity Not on file Sexual Orientation Not on file Plan of Treatment Health Maintenance Due Date Last Done Comments Breast Cancer Screening 1979 DTaP,Tdap,and Td Vaccines (1 - Tdap) 1998 Hepatitis B Vaccines (1 of 3 - 19+ 3-dose series) 1998 Cervical Cancer Screening: P ap Smear 2000 Colorectal Cancer Screening: Colonoscopy 05/18/2022 Depression Screening 05/18/2022 HIV Screening 05/18/2022 Hepatitis C Screening 05/18/2022 Social Influencers of Health Screening 05/18/2022 COVID-19 Vaccine (2023-2 5 season) 2024 Influenza Vaccine (#1) 2024 HIB Vaccines Aged Out No longer eligi ble based on patient's age to complete this topic HPV Vaccines Aged Out No longer eligi ble based on patient's age to complete this topic Hepatitis A Vaccines Aged Out No long er eligible based on patient's age to complete this topic IPV Vaccines Aged Out No longer eligi ble based on patient's age to complete this topic MMR Vaccines Aged Out No longer eligi ble based on patient's age to complete this topic Meningococcal ACWY Vaccine Aged Out N o longer eligible based on patient's age to complete this topic Pneumococcal Vaccine: Pediat rics (0 to 5 Years) and At-Risk Patients (6 to 64 Years) Aged Out No longer eligible b ased on patient's age to complete this topic RSV Immunization Patients Un oneyda 20 months Aged Out No longer eligible b ased on patient's age to complete this topic Varicella Vaccines Aged Out No longer eligible based on patient's age to complete this topic Care Teams Student Finance Advisor Relationship Specialty Start Date End Date Jessica Nobles MD [address] [place] [address] PCP - General 02/18/07
--- OUTSIDE RECORDS SUMMARY | 2024-07-08 16:11 | XMS_ITS | Continuity of Care Document ---
Author Organization [facility] [address] [place] [address] Phone [phone] Care Team Providers Care Quarrying Specialist Name Role Phone Joel Rosas Care Team Information Watershed Program Manager + [phone] Bonilla Yurigretel Care Team Information Watershed Program Manager + [phone] Problems Active Problems Provider Date Endometriosis (clinical) [...] Result H/L Range Note Lipid Panel 09/13/2022 [facility] Cholesterol, Total 207 mg/dL High (<200) Triglyceride 190 mg/dL High (<150) HDL Chol 62 mg/dL (>39) LDL Cholesterol , Calculated 107 mg/dL (0-130) Non HDL Cholesterol (Calc) 145 mg/dL (<160) Laboratory test finding 09/13/2022 [facility] TSH With Reflex To [...]
== END 2024-07-08 15:29 | disposition home or self-care (01) ==
PROVIDERS: PCP Internal Medicine; Visit Provider Internal Medicine
DX: R10.33 Periumbilical pain (principal)

== ENCOUNTER → 2024-07-08 14:48 | Outpatient (BNVA) | payer OTHER, BC, SELFPAY | PROVIDERS: PCP Internal Medicine; Visit Provider Internal Medicine ==

== ENCOUNTER 2024-07-13 09:23 | Outpatient (REF) | payer BC, SELFPAY ==
--- NOTE | ~2024-07-13 | US_ITS ---
EXAMINATION: US ABDOMEN LIMITED CLINICAL INFORMATION: Increasing right periumbilical pain x1 week. Palpable lump as indicated by patient. COMPARISON: None available. TECHNIQUE: Real-time imaging of the right periumbilical abdominal wall in the region of concern. Patient was scanned upright and supine. FINDINGS: There is no evidence of hernia in the region of concern. No mass, abnormal of note, or abnormal fluid collection. Only normal subcutaneous soft tissues are evident. US/US abdomen limited IMPRESSION: No discrete sonographic abnormality in the region of concern. Electronically signed by: Marcelo Laurent MD 07/13/2024 10:27 AM JAVIER
--- OUTSIDE RECORDS SUMMARY | 2024-07-13 10:51 | XMS_ITS | Clinical Summary ---
Author Organization [facility] ity Address [address] [place] [address] Care Team Providers Care Compressor Repairer Name Role Phone Jessica Nobles MD Primary [...] age to complete this topic Care Teams Compressor Repairer Relationship Specialty Start Date End Date Jessica Nobles MD [address] [place] [address] PCP - General 02/18/07
== END 2024-07-13 09:24 | disposition home or self-care (01) ==
LOC: HO.HMGCX 09:23
PROVIDERS: PCP Internal Medicine; Visit Provider Internal Medicine
DX: R10.33 Periumbilical pain (principal)
CPT/HCPCS: 76705

== ENCOUNTER → 2024-07-13 09:29 | Outpatient (BNV) | payer BC, SELFPAY | PROVIDERS: PCP Internal Medicine; Visit Provider Radiology Diagnostic Radiology | DX: R10.33 Periumbilical pain (principal) | CPT/HCPCS: 76705 ==

== ENCOUNTER 2024-07-18 15:08 | Outpatient (REF) | payer BC, SELFPAY ==
[2024-07-18 15:51] LABS: Appearance Urine Cloudy; Color Urine Yellow; Glucose Urine UA Negative (Negative); Leukocyte Esterase Urine Moderate (2+) (Negative); Nitrite Urine Positive (Negative); Specific Gravity - Urine 1.025 (1.005-1.025); UMIC TRIGGER UACC YES; Urine Blood Negative (Negative); Urine Ketones Negative (Negative); Urine Protein Negative (Neg-Trace)
--- OUTSIDE RECORDS SUMMARY | 2024-07-18 16:40 | XMS_ITS | Clinical Summary ---
Author Organization [facility] ity Address [address] [place] [address] Care Team Providers Care Community Educator Name Role Phone Jessica Nobles MD Primary [...] age to complete this topic Care Teams Community Educator Relationship Specialty Start Date End Date Jessica Nobles MD [address] [place] [address] PCP - General 02/18/07
[2024-07-18 16:44] LABS: Bacteria Urine 4+ (None Seen); Hyaline Casts Urine 0-2 /LPF (0-2); UACC Culture Trigger YES
[2024-07-18 16:45] LABS: RBC Urine 0-2 /HPF (0-2)
== END 2024-07-18 15:09 | disposition home or self-care (01) ==
LOC: HO.LAB 15:08
PROVIDERS: PCP Internal Medicine; Visit Provider Internal Medicine
DX: R30.9 Painful micturition, unspecified (principal)
CPT/HCPCS: 81001; 87086; 87088; 87186

== ENCOUNTER 2024-07-28 13:27 | Outpatient (AMB) | payer OTHER, BC, SELFPAY ==
--- NOTE | 2024-07-28 13:30 | A.OFFVIS_ITS ---
Intake Visit Reasons: OV-rt shldr calcific tendonitis, last inj 06/10/24 Intake Note: Naomi is a 44 year old right hand dominant female who presents today for a follow up of right shoulder calcific tendonitis, last injection 06/10/24. She mentions that her pain has gotten better a little bit. Patient reports her last injection gave her mild relief. Patient mentions that her pain is worse when she is doing certain movements. Allergies azithromycin [AZITHROMYCIN] Allergy (Unknown, Verified 07/28/24 13:36) low heart rate HPI HPI OV-rt shldr calcific tendonitis, last inj 06/10/24: Details: Ms. Sarai whitaker is a 44-year-old right-hand dominant female who presents to the office today for routine follow-up of right shoulder calcific tendinitis. At her last appointment she had a cortisone injection which did help her pain slightly. However, she did have an adverse reaction of dizziness and was unable to drive home after the appointment. She has been attending physical therapy and has noticed some slight improvements in her range of motion and pain. [facility] Medical History Pain of right great toe Lupus History of blood clots Weakness of left arm Paresthesias in left hand Surgical History S/P epidural steroid injection History of inguinal hernia repair Hx of carpal tunnel repair Hx of lumpectomy H/O: hysterectomy History of bunionectomy Hx of cholecystectomy Family History Father High cholesterol HTN (hypertension) Stroke Mother Lupus Substance use disorder Congenital heart disease Dementia Sister Lupus Maternal Aunt Dementia Maternal Aunt Dementia Maternal Aunt Dementia Maternal Aunt Dementia Maternal Aunt Dementia Social History Household Members: Spouse and Children Housing: House Alcohol intake: never Patient Tobacco Use Status: Former Tobacco user Years Smoked: 5 e-Cigarette/Vaping Use: Never Used service: No Current occupational status: employed 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 Pain with crossbody reach. Negative drop arm. 4/5 strength with an empty can associated with pain. NVI. Assessment & Plan Assessment & Plan (1) Calcific tendonitis of right shoulder: Code(s): M75.31 - Calcific tendinitis of right shoulder Category: Medical Plan Ms. Moon this is a 44-year-old right-hand dominant female who presents to the office today for routine follow-up of right shoulder calcific tendinitis. At her last appointment she had a cortisone injection which did help her pain slightly. However, she did have an adverse reaction of dizziness and was unable to drive home after the appointment. She has been attending physical therapy and has noticed some slight improvements in her range of motion and pain. While in the office today, I discussed with the patient the importance of continuing physical therapy. She will attend physical therapy perform home exercise program as well over the next 2 months. Should her pain persist she will contact our office and I am happy to order an MRI to further evaluate the integrity of the right shoulder and surrounding structures. She does understand that with calcific tendinitis surgical intervention would include excision of calcium with possible rotator cuff repair and the length of the recovery associated with this. I also provided her a work note for the next 2 months to restrain from any pushing pulling or lifting greater than 5 lb, limit repetitive motion, and no overhead reaching. Patient will follow-up p.r.n., sooner if needed Coding Level of Care Code Est Pt Level 3 (39698) Diagnoses Calcific tendonitis of right shoulder M75.31
--- OUTSIDE RECORDS SUMMARY | 2024-07-28 13:30 | XMS_ITS | Clinical Summary ---
Author Organization [employer] [facility] ity Address [address] [place] [address] Care Team Providers Care Label Paster Name Role Phone Jessica Nobles MD Primary Care Provider + Social History Tobacco Use Types Packs/Day Years Used Date Smoking Tobacco: Never Assessed Comments Unknown Sex and Gender Information Value Date Recorded Sex Assigned at Not on file Legal Sex Female 4:15 AM EST Gender Identity Not on file Sexual Orientation [...] Influencers of Health Screening 05/18/2022 COVID-19 Vaccine ( - 2023-2 5 season) 2024 Influenza Vaccine (#1) 2024 [...] age to complete this topic Care Teams Label Paster Relationship Specialty Start Date End Date Jessica Nobles MD [address] [place] [address] PCP - General 02/18/07
--- OUTSIDE RECORDS SUMMARY | 2024-07-28 13:30 | XMS_ITS | Continuity of Care Document ---
Author Organization [facility] [address] [place] [address] Phone [phone] Care Team Providers Care Supply Chain Engineer Name Role Phone Joel Rosas Care Team Information Railroad Crossing Protection Maintainer + [phone] Bonilla Yurigretel Care Team Information Railroad Crossing Protection Maintainer + [phone] Problems Active Problems Provider Date Endometriosis (clinical) [...] Result H/L Range Note Lipid Panel 09/13/2022 [facility] Cholesterol, Total 207 mg/dL High (<200) Triglyceride 190 mg/dL High (<150) HDL Chol 62 mg/dL (>39) LDL Cholesterol , Calculated 107 mg/dL (0-130) Non HDL Cholesterol (Calc) 145 mg/dL (<160) Laboratory test finding 09/13/2022 [facility] TSH With Reflex [...]
== END 2024-07-28 13:41 | disposition home or self-care (01) ==
PROVIDERS: PCP Internal Medicine; Visit Provider Physician Assistant
DX: M75.31 Calcific tendinitis of right shoulder (principal)
CPT/HCPCS: 99213

== ENCOUNTER → 2024-07-28 13:27 | Outpatient (BNVA) | payer OTHER, BC, SELFPAY | PROVIDERS: PCP Internal Medicine; Visit Provider Physician Assistant | DX: M75.31 Calcific tendinitis of right shoulder (principal) | CPT/HCPCS: 99212 ==

== ENCOUNTER 2024-08-05 11:42 | Day surgery (SDC) | payer OTHER, BC, SELFPAY ==
[2024-08-03 14:11] VITALS: BMI 35.8
--- NOTE | ~2024-08-05 | FL_ITS ---
EXAMINATION: FL GUIDANCE ONLY HISTORY: SI INJECTION COMPARISON: None available. TECHNIQUE: Fluoroscopy time: 8.5 minutes. Cumulative Dose: 2.4592 mGy. DAP: 0.6459 mGym2 Images: 1. FINDINGS: A single fluoroscopic spot film demonstrates a needle and contrast material in the region of the left sacroiliac joint. FL/FL guidance in OR IMPRESSION: Fluoroscopy during procedure. Please see procedure report for additional information. Electronically signed by: Morris Alexandra MD 08/08/2024 08:59 AM [facility]
[2024-08-05 12:16] VITALS: BP 116/74; PULSE 84; RESP 16; TEMP 36.7; O2SAT 98; BMI 33.3
--- NOTE | 2024-08-05 12:24 | MHC.SHP ---
Pre-Procedural Eval Section A - 24 Hr Update-Section A only Date of Service: 08/05/24 The patient is an INPATIENT: No Changes since office visit: Yes Patient answered all questions The patient has been examined within 24 hours of the surgical procedure. The History & Physical has been completed within 30 days and I have reviewed it.: No Section B - Complete if H&P > 30 days Chief Complaint: Sacroiliitis,Sacrococcygeal disorders, Details of Present Illness: as above Relevant Family History (Specify if Yes): No Relevant Social History: None Medical History: No relevant PMH History of Previous Operations: Relevant previous surgery/procedure and date(s) Allergies: Allergies Allergy/AdvReac Type Severity Reaction Status Date / Time azithromycin [AZITHROMYCIN] Allergy Intermediate low heart Verified 08/05/24 12:01 rate Review of Systems Sugical H&P ROS: Negative: Constitution, Cardiovascular, Respiratory, Neurological, Psychiatric, Hem-Onc, Allergic/Immunologic, Gastrointestinal, Genitourinary, Musculoskeletal, Integumentary, Endocrine and Eyes/Ears/Nose/Throat Exam Surgical H&P Exam: Normal: HEENT, Normal: Heart, Normal: Lungs, Normal: Extremities, Normal: Abdomen, Normal: Skin and Normal: Neurological Plan Diagnosis/Plan: Unchanged I have reviewed the history and physical and performed a pertinent physical examination on my patient. No changes have occurred unless specified. Time Spent With Patient Time: Total time managing care of this patient today __5__ minutes.
--- NOTE | 2024-08-05 12:31 | HO.ANESPROP2 ---
HPI - Anesthesia Eval Consult details Narrative: SI joint steroid injection PMFSH Active Problems Active Problems: All Active Problems Periumbilical abdominal pain (Acute) Calcific tendonitis of right shoulder (Acute) Injury of right rotator cuff (Acute) Work related injury (Acute) Arm pain, right (Acute) Shoulder pain, right (Acute) Right shoulder injury (Acute) Venous insufficiency of right leg (Acute) Erythema nodosum (Acute) Plantar fasciitis of left foot (Acute) Contusion, hand (Acute) Inguinal hernia, right (Acute) Pressure of right suprapubic region (Acute) Stress incontinence (Acute) Frequency of urination (Acute) Pain of left heel (Acute) Sacroiliitis (Acute) DDD (degenerative disc disease), thoracolumbar (Acute) Greater trochanteric bursitis of left hip (Acute) Paresthesia and pain of left extremity (Acute) Inguinal hernia, left (Acute) Urine incontinence (Acute) Sacroiliac joint pain (Acute) Lumbosacral spondylosis (Acute) Lumbar back pain with radiculopathy affecting left lower extremity (Acute) Muscle spasm of back (Acute) Upper respiratory tract infection (Acute) Complicated migraine (Acute) Lipid disorder (Acute) Dizziness (Acute) Abnormal brain MRI (Acute) Leukocytosis (Acute) Increased ammonia level (Acute) Hip bursitis, left (Acute) Obesity due to excess calories (Acute) Lymphedema (Acute) Varicose veins of right lower extremity with inflammation (Acute) Varicose veins of left lower extremity with pain (Acute) Lumbar pain (Acute) COVID-19 (Acute) Encounter for assessment of work-related causation of injury (Acute) Back injury (Acute) Fall (Acute) Major depression, recurrent (Acute) Trochanteric bursitis, left hip (Acute) Osteitis pubis (Acute) Low back pain radiating to left leg (Acute) Acute sinusitis (Acute) Anti-cardiolipin antibody positive (Acute) Pain of left breast (Acute) AMADOR positive (Acute) Family history of systemic lupus erythematosus (Acute) Hospital discharge follow-up (Acute) Carpal tunnel syndrome, left (Acute) Back pain (Acute) Wheezing (Acute) Cervical radiculopathy (Acute) Osteitis pubis (Acute) Left shoulder tendonitis (Acute) Hip pain, left (Acute) Pain of right great toe (Acute) Weakness of left arm (Acute) Paresthesias in left hand (Acute) Past Medical History Medical History (Updated 08/03/24 @ 14:07 by Silvia Richards RN) Migraine Stress incontinence DDD (degenerative disc disease), thoracolumbar Pain of right great toe Lupus History of blood clots Weakness of left arm Paresthesias in left hand Family History Family History Father High cholesterol HTN (hypertension) Stroke Mother Lupus Substance use disorder Congenital heart disease Dementia Sister Lupus Maternal Aunt Dementia Maternal Aunt Dementia Maternal Aunt Dementia Maternal Aunt Dementia Maternal Aunt Dementia Family history of problems with anesthesia: No Surgical History Surgical History S/P epidural steroid injection History of inguinal hernia repair Hx of carpal tunnel repair Hx of lumpectomy H/O: hysterectomy History of bunionectomy Hx of cholecystectomy History of Problems with Anesthesia: No Social History Social History Household Members: Spouse and Children Housing: House Are you a primary career technical education instructor to a significant other at home: No Do you presently have visiting nurse or other home services: No Alcohol intake: never Patient Tobacco Use Status: Former Tobacco user Tobacco use type: Cigarette Years Smoked: 5 Smoked in Last 30 Days: No e-Cigarette/Vaping Use: Never Used Use of substances other than those prescribed or required for medical reasons: No Have you been hit, kicked, punched, or otherwise hurt by someone within the past year? 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[employer] Cognitive needs: No Hearing needs: No Vision needs: Yes (contacts) Meds Allergies Allergy/AdvReac Type Severity Reaction Status Date / Time azithromycin [AZITHROMYCIN] Allergy Intermediate low heart Verified 08/05/24 12:01 rate Exam Height,Weight and Vital Signs: Height 5 ft 5 in Weight 90.9 kg Last Vital Signs Temp 98.0 F 08/05/24 12:16 Pulse 84 08/05/24 12:16 Resp 16 08/05/24 12:16 BP 116/74 08/05/24 12:16 Pulse Ox 98 08/05/24 12:16 O2 Del Method Room Air 08/05/24 12:16 Airway Mallampati Class: II TM Dist: <=3cm Neck ROM: Full Loose/Missing/Broken Teeth: No Heart: ok Lungs: ok Assessment and Plan Assessment Anesthesia Assessment: Anesthesia Plan Discussed and Chart Reviewed Final Anesthetic Review Family History of Problems with Anesthesia: No History of Problems with Anesthesia: No NPO: Yes ASA Class: III Final Preanesthetic Review: No Changes in Pt Med Stat, Meds/Allgs Chart Reviewed, Consent Obtained/Reviewed and Anes Risks/Benef Reviewed Patient Risk: Intermediate Procedure Risk: Intermediate Anesthetic Plan Anesthetic Plan: MAC: and Agree w/ Assess. and Plan Disposition: Standard PACU
[2024-08-05] MEDS: Lactated Ringers 1,000 ML 80 ML IVCONT (12:32)
[2024-08-05 13:08] VITALS: BP 119/69; PULSE 57; RESP 16; TEMP 36.1; O2SAT 98
--- NOTE | 2024-08-05 13:19 | PM.OP ---
Brief Operative Note Date of Service: 08/05/24 Pre-op diagnosis: Sacroiliac joint dysfunction left Post-op diagnosis: same Procedure: Sacroiliac joint steroid injection Surgeon: Cayden Calvillo MD Anesthesia: MAC Was an Customer Data Technician used for this Procedure?: No Estimated blood loss (mL): 1 Condition: stable Disposition: PACU
--- NOTE | 2024-08-05 13:19 | W.PM.OPN ---
Operative Note Operative Note Date of Service: 08/05/24 Narrative: Therapeutic sacroiliac joint injection on the left Informed consent was explained thoroughly to the patient. All questions about benefits and risks for the procedure were answered. Patient came to the operating room and was positioned prone on the operating table with the pillow under the pelvis. Time out was performed delineating name and of the patient, allergies and the nature of the procedure. ASA monitors were applied, patient was deeply sedated. The lower back and buttocks of the patient were prepped with ChloraPrep prepped and draped with sterile utility towels. C-arm was brought over the operating field and sq picture of patient's pelvis was demonstrated on the screen. For the left joint tilting C-arm contralateral to the site of the joint the most posterior portion of the joints was superimposed with anterior silhouette of the joint. Skin was injected in the projection of the joint slightly medial to the location of the joint with 25 gauge 1/2 inch needle using local lidocaine 2% .After that 22 gauge 3 and 1/2 inch needle was driven to the left joint in tunnel vision fashion. When needle entered the joint capsule injection of the contrast was performed demonstrating intra-articular and minimally periarticular spread of the contrast. After that 4 cc. of ropivacaine 0.5% mixed with Kenalog 40 mg was injected into the joint. Upon completion of the injections the needle was removed Sterile dressing was applied. Upon completion of the injection patient was taken outside of the operating room to the recovery room where recovered uneventfully.
[2024-08-05 13:23] VITALS: BP 120/64; PULSE 79; RESP 18; TEMP 36.2; O2SAT 100
== END 2024-08-05 13:40 | disposition home or self-care (01) ==
PROVIDERS: PCP Internal Medicine; Visit Provider Anesthesiology
PROC: 3E0U33Z Introduction of Anti-inflammatory into Joints, Percutaneous Approach (ICD-10-PCS; CPT 27096; principal; 2024-08-05 13:40)
DX: M46.1 Sacroiliitis, not elsewhere classified (principal); G89.4 Chronic pain syndrome; M53.3 Sacrococcygeal disorders, not elsewhere classified; M32.9 Systemic lupus erythematosus, unspecified; M47.817 Spondylosis without myelopathy or radiculopathy, lumbosacral region; Z88.1 Allergy status to other antibiotic agents; Z98.890 Other specified postprocedural states
CPT/HCPCS: 27096; J2003; J2250; J2704; J2795; J3010; J3301; Q9967

== ENCOUNTER → 2024-08-05 11:42 | Outpatient (BNV) | payer OTHER, BC, SELFPAY | PROVIDERS: PCP Internal Medicine; Visit Provider Anesthesiology | DX: M46.1 Sacroiliitis, not elsewhere classified (principal); M53.3 Sacrococcygeal disorders, not elsewhere classified | CPT/HCPCS: 27096 ==

== ENCOUNTER 2024-08-08 14:12 | Outpatient (REF) | payer BC, SELFPAY ==
--- NOTE | ~2024-08-08 | XR_ITS ---
EXAMINATION: XR FOOT, RIGHT CLINICAL INFORMATION: M79.674 - Pain in right toe(s) COMPARISON: 11/21/2021. TECHNIQUE: AP, lateral, and oblique views of the right foot. FINDINGS: No fracture, dislocation, or suspicious bone lesion. Normal bone mineralization. Normal alignment. Joint spaces are preserved. No significant arthropathy. No periarticular erosions. There is a small dorsal calcaneal spur. Small amorphous calcification in the hallux medial to the interphalangeal joint, probably calcification of the joint capsule. This is a slightly larger than previously. There are no bony findings to suggest gout, although tophus is a possibility. Mild soft tissue swelling of the inferomedial hallux. XR/XR foot RT min 3V IMPRESSION: 1. No acute bony abnormalities. 2. Slightly larger, but small amorphous calcification in the hallux medial to the interphalangeal joint, probably calcification of the joint capsule. 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 Differential includes less likely pseudogout, be related to degenerative arthritis, prior trauma, or certain metabolic states. There is overlying soft tissue swelling of the inferomedial hallux. Electronically signed by: Marcelo Laurent MD 08/08/2024 03:44 PM [facility]
--- OUTSIDE RECORDS SUMMARY | 2024-08-08 17:32 | XMS_ITS | Continuity of Care Document ---
Author Organization [facility] [address] [place] [address] Phone [phone] Care Team Providers Care Manager House Name Role Phone Joel Rosas Care Team Information Stripping Machine Operator + [phone] Bonilla Yurigretel Care Team Information Stripping Machine Operator + [phone] Problems Active Problems Provider Date Endometriosis (clinical) [...] Result H/L Range Note Lipid Panel 09/13/2022 [facility] Cholesterol, Total 207 mg/dL High (<200) Triglyceride 190 mg/dL High (<150) HDL Chol 62 mg/dL (>39) LDL Cholesterol , Calculated 107 mg/dL (0-130) Non HDL Cholesterol (Calc) 145 mg/dL (<160) Laboratory test finding 09/13/2022 [facility] TSH With Reflex To [...]
--- OUTSIDE RECORDS SUMMARY | 2024-08-08 17:32 | XMS_ITS | Clinical Summary ---
Author Organization [employer] [facility] ity Address [address] [place] [address] Care Team Providers Care Sewer Inspector Name Role Phone Jessica Nobles MD Primary [...] age to complete this topic Care Teams Sewer Inspector Relationship Specialty Start Date End Date Jessica Nobles MD [address] [place] [address] PCP - General 02/18/07
== END 2024-08-08 14:13 | disposition home or self-care (01) ==
LOC: HO.HMGCX 14:12
PROVIDERS: PCP Internal Medicine; Visit Provider Physician Assistant
DX: S93.501A Unspecified sprain of right great toe, initial encounter (principal)
CPT/HCPCS: 73630

== ENCOUNTER 2024-08-08 14:12 | Outpatient (AMB) | payer BC, SELFPAY ==
--- NOTE | 2024-08-08 14:59 | MHC.OFFWIV ---
Intake Vital Signs 08/08/24 15:06 Height 5 ft 5 in Weight 200 lb BMI 33.3 BP 120/70 Blood Pressure Location Lt brachial Position Sitting Pulse 70 Pulse Source Pulse Oximeter Temp 97.9 F Temp Source Oral Pulse Oximetry (%) 98 Intake Visit Reasons: EP-rt foot big toe pain/swollen/lump Patient Tobacco Use Status: Former Tobacco user Allergies azithromycin [AZITHROMYCIN] Allergy (Intermediate, Verified 08/08/24 15:07) low heart rate Do you need a note to return to daycare/school/sports/work: No HPI HPI Comments History of Present Illness Details History of Present Illness - The patient is a 44 year old female presenting with right big toe pain and tenderness following trauma. - Pain commenced after an incident where the patient hit her toe against a bed 2 days ago, resulting in pain, intensifying on Thursday. - The pain impedes toe movement, and discomfort arises mainly when attempting to bend the toe, with noted tenderness on the side of the right big toe. - Despite mobility challenges, the patient is physically capable of ambulating without assistive gear but she is limping Physical Exam General: Cooperative, healthy appearing, comfortable, no acute distress and well developed Orientation: Patient oriented x3 Limitations: Difficulty bending right big toe Head: Normal to inspection Ears: Hearing grossly normal bilaterally Nose: Normal external nose present Face and sinus: Normal facial exam Eyes: Appearance normal, both eyes and all related structures Neck: Normal visual inspection and Yes full ROM Respiratory: Normal respiratory effort and able to speak in complete sentences Skin: No rashes or lesions noted Neuro: Patient oriented x3 Extremities: right great toe TTP on medial side, exquisite pain with any ROM of toe. NVI, no injury to nail. [facility] Medical History (Updated 08/08/24 @ 16:00 by Isis Segura PA-C) Migraine Stress incontinence DDD (degenerative disc disease), thoracolumbar Lupus History of blood clots Weakness of left arm Paresthesias in left hand Surgical History S/P epidural steroid injection History of inguinal hernia repair Hx of carpal tunnel repair Hx of lumpectomy H/O: hysterectomy History of bunionectomy Hx of cholecystectomy Family History Father High cholesterol HTN (hypertension) Stroke Mother Lupus Substance use disorder Congenital heart disease Dementia Sister Lupus Maternal Aunt Dementia Maternal Aunt Dementia Maternal Aunt Dementia Maternal Aunt Dementia Maternal Aunt Dementia Social History Household Members: Spouse and Children Housing: House Are you a primary customer care consultant to a significant other at home: No Do you presently have visiting nurse or other home services: No Alcohol intake: never Patient Tobacco Use Status: Former Tobacco user Tobacco use type: Cigarette Years Smoked: 5 e-Cigarette/Vaping Use: Never Used service: No Current occupational status: employed 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[employer] Cognitive needs: No Hearing needs: No Vision needs: Yes (contacts) Review of Systems Const All systems reviewed & are unremarkable except as noted in HPI and below Physical Exam Vital Signs: Last Vital Signs Temp 97.9 F 08/08/24 15:06 Pulse 70 08/08/24 15:06 BP 120/70 08/08/24 15:06 Pulse Ox 98 08/08/24 15:06 BMI result Body Mass Index 33.3 Assessment & Plan Assessment & Plan (1) Pain of right great toe: Code(s): M79.674 - Pain in right toe(s) Plan: X-ray imaging of the right big toe will be performed to rule out a fracture, which may have been incurred from the recent trauma. Depending on findings, management will likely involve using a medical boot to stabilize the area and assist in ambulation while preventing further injury. Recommendations will include limited weight-bearing and possibly elevating the foot when feasible to reduce discomfort. XR/XR foot RT min 3V IMPRESSION: 1. No acute bony abnormalities. 2. Slightly larger, but small amorphous calcification in the hallux medial to the interphalangeal joint, probably calcification of the joint capsule. 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 Differential includes less likely pseudogout, be related to degenerative arthritis, prior trauma, or certain metabolic states. There is overlying soft tissue swelling of the inferomedial hallux. Relayed x-ray results to the patient. Sadi-taped toes and gave patient a postop shoe for safe and comfortable ambulation. Recommended using rest, ice and a leave for the next 4-6 weeks. If no improvement in her pain over time, she should follow up with her primary care doctor or return to the clinic for a referral to Orthopedics. Patient was informed and verbally consented to the use of an ambient scribe for clinic note documentation during this visit. (2) Sprain of great toe of right foot: Code(s): S93.501A - Unspecified sprain of right great toe, initial encounter Qualifiers: Encounter type: initial encounter Qualified Code(s): S93.501A - Unspecified sprain of right great toe, initial encounter Plan: as above Orders: Orders XR foot RT min 3V Today M79.674 - Pain in right toe(s) Coding Level of Care Code Est Pt Level 4 (88603) Diagnoses Pain of right great toe M79.674 Sprain of right great toe, initial encounter S93.501A Encounter type: initial encounter
[2024-08-08 15:06] VITALS: BP 120/70; PULSE 70; TEMP 36.6; O2SAT 98; BMI 33.3
--- OUTSIDE RECORDS SUMMARY | 2024-08-08 16:21 | XMS_ITS | Continuity of Care Document ---
Author Organization [facility] [address] [place] [address] Phone [phone] Care Team Providers Care Software Engineer Backend Name Role Phone Joel Rosas Care Team Information Front End Engineer + [phone] Bonilla Yurigretel Care Team Information Front End Engineer + [phone] Problems Active Problems Provider Date Endometriosis (clinical) [...] Result H/L Range Note Lipid Panel 09/13/2022 [facility] Cholesterol, Total 207 mg/dL High (<200) Triglyceride 190 mg/dL High (<150) HDL Chol 62 mg/dL (>39) LDL Cholesterol , Calculated 107 mg/dL (0-130) Non HDL Cholesterol (Calc) 145 mg/dL (<160) Laboratory test finding 09/13/2022 [facility] TSH With Reflex To [...]
--- OUTSIDE RECORDS SUMMARY | 2024-08-08 16:21 | XMS_ITS | Clinical Summary ---
Author Organization [employer] [facility] ity Address [address] [place] [address] Care Team Providers Care Poultry Hatchery Manager Name Role Phone Jessica Nobles MD Primary [...] patient's age to complete this topic Meningococcal B Vacine Aged Out No lo nger eligible based on patient's age to complete [...] age to complete this topic Care Teams Poultry Hatchery Manager Relationship Specialty Start Date End Date Jessica Nobles MD [address] [place] [address] PCP - General 02/18/07
== END 2024-08-08 16:14 | disposition home or self-care (01) ==
PROVIDERS: PCP Internal Medicine; Visit Provider Physician Assistant
DX: M79.674 Pain in right toe(s) (principal); S93.501A Unspecified sprain of right great toe, initial encounter

== ENCOUNTER → 2024-08-08 15:18 | Outpatient (BNV) | payer BC, SELFPAY | PROVIDERS: PCP Internal Medicine; Visit Provider Radiology Diagnostic Radiology | DX: M79.674 Pain in right toe(s) (principal) | CPT/HCPCS: 73630 ==

== ENCOUNTER 2024-08-18 15:00 | Outpatient (RCR) | payer OTHER, BC, SELFPAY ==
--- NOTE | 2024-06-23 08:17 | MHC.PT.EP ---
[facility] [place] [facility] [place] [facility] [address] Chon Valdez [address] [phone] F: [phone] F: [phone] F: [phone] F: [phone] Physical Therapy Plan of Care Date of Evaluation: 06/22/24 Date of Surgery: Diagnosis: This is a 44 yo female presenting to skilled PT with a script for injury of R rotator cuff, calcific tendonitis. Assessment: This is a 44 yo female presenting to skilled PT with a script for injury of R rotator cuff, calcific tendonitis. Patient was at work on 04/29/24 when she was moving boxes and she felt a pulling sensation in her shoulder. The patient presented to the ED on 05/01/24 with continuation of pain that was not resolving with Motrin. In the ED she was diagnosed with a muscle strain and was placed in a sling/recommended to wear it for 5 days, prescribed cyclobenzaprine, morphine and a lidocaine adhesive patch for pain relief. She was seen by her PCP on 05/06/24 reporting continuation of right shoulder and elbow pain where she was recommended to continue wearing the sling and x-rays were ordered, she was prescribed oxycodone-acetaminophen, advised to refrain from lifting heavy objects in the right upper extremity as well as referred to [facility]. At ortho she was given a cortisone injection and this somewhat improved her pain (but she had an adverse reaction to this and was extremely lightheaded. Of note she now gets headaches regularly after this incident) and she returns to them in about a month. Pain is now located at the anterior, superior and posterior GHJ (achy, dull, tender to touch). She also gets some radiating shock waves to her elbow/occasionally to the hand as well. Pain increases with laying on the R side, lifting, reaching. Assessment reveals pain that ranges from up to a 4/10 at the worst. Patient demos decreased R shoulder and cervical ROM, strength of R shoulder and scapular muscles, TTP at GHJ joint line, UT and scap and impaired posture with forward head and rounded shoulders as well as patient observed R shoulder depression. Based on functional limitations, impaired QOL and pain tolerance patient is a good candidate for skilled PT 2x/wk for 4wks. Frequency and Duration: The patient will be seen 2x/wk for 4wks Short Term Goals: (In 2 weeks) Demo I with HEP Improve shoulder AROM by at least 10 degs Demo proper scapular recruitment with appropriate shoulder strengthening exercises Alf Goals: (in 4 wks) Improve shoulder nonpainful AROM to almost near equal B Demo at least 1 grade improvement in MMT for shoulder Improve SPADI by at least 10 points Improve overall functional QOL by at least 50% Patient will be able to lay in her R side without pain Treatment Plan: Modalities to reduce pain, spasms and effusion. Manual therapy to restore motion and function. Therapeutic exercise to improve strength and flexibility. Neuromuscular re-education for posture and balance. Therapeutic activities to return to functional activities of daily living. Electronically signed by: Melisa Thakur PT Please sign and return to therapist. Thank you for your referral.
--- NOTE | 2024-08-22 10:31 | MHC.PT.DC ---
[facility] [place] Office [place] Office [place] [facility] [address] [phone] F: [phone] F: [phone] F: [phone] F: [phone] Physical Therapy Discharge Report Diagnosis: This is a 44 yo female presenting to skilled PT with a script for injury of R rotator cuff, calcific tendonitis. Date of Surgery: Date of Evaluation: 06/22/24 Date of Discharge: 08/22/24 Treatments to Date: 8 Cancellations to Date: 0 No Shows to Date: 0 Discharge Status: Independent with [facility] Recommend MD Follow-up Discharge Summary: 08/17: Pt has come to 7 sessions of PT. She has one more scheduled and approved for tomorrow. Today I did a re-eval. She reports that her pain is grossly the same but she has started to compensate for it more now. Updated measurements are noted in the documentation and are grossly the same as the eval. In PT we have tried ther-ex for ROM, strength, postural ed, manual mobilizations, trigger point, modalities of ice and heat, KT without much success in improvements of pain. At this time I am recommending following up with the referring MD for reassessment and ? MRI to assist with better management of her pain. DC to [facility]. Electronically signed by: Melisa Thakur PT Please sign and return to therapist. Thank you for your referral.
== END 2024-08-22 10:31 | disposition home or self-care (01) ==
LOC: HO.PTCHIC 15:00
PROVIDERS: PCP Internal Medicine; Visit Provider Physician Assistant
DX: S46.001D Unspecified injury of muscle(s) and tendon(s) of the rotator cuff of right shoulder, subsequent encounter (principal); M75.31 Calcific tendinitis of right shoulder
CPT/HCPCS: 97110; 97140; 97162

== ENCOUNTER 2024-09-07 19:49 | Outpatient (REF) | payer OTHER, SELFPAY ==
--- NOTE | ~2024-09-07 | MR_ITS ---
EXAMINATION: MR SHOULDER WITHOUT CONTRAST, RIGHT CLINICAL INFORMATION: 44-year-old female. Right shoulder pain, limited range of motion, difficulty with weightbearing. COMPARISON: No prior MRI. Right shoulder plain films 05/06/2024. TECHNIQUE: Multiplanar multisequence MR imaging of the shoulder was done without IV contrast. Examination performed on a 1.5 Nany Siemens unit utilizing standard sequences. FINDINGS: Rotator Cuff and Biceps Tendon: Supraspinatus: Intact and normal in signal. Normal muscle belly. Infraspinatus: Intact and normal in signal. Normal muscle belly. Subscapularis: Intact and normal in signal. Normal muscle belly. Teres Minor: Intact and normal in signal. Normal muscle belly. Biceps Long Head: Normally located within the bicipital groove. Normal morphology. The tendon in the rotator interval appears normal. The anchor appears intact. AC Joint and Acromiohumeral Arch: Minimal arthritis in the AC joint with minimal superior and undersurface spurs. No supraspinatus outlet stenosis. There is a type III acromion present. There is no subacromial narrowing. Glenohumeral Joint and Labrum: Normal-appearing glenohumeral joint with normal joint fluid. No cartilaginous abnormalities or regions of subchondral bone plate edema. The glenoid labrum is grossly intact allowing for non-arthrographic technique. No definite labral tear seen. Osseous Structures: Normal in signal. No bone marrow edema or abnormal infiltrating signal. Spino-glenoid Notch: Normal. Quadrilateral Space: Normal. Other: Mild hyperintensity in the subacromial/subdeltoid bursa, findings suggesting mild bursitis. The glenohumeral ligaments appear intact. MR/MR shoulder RT wo con IMPRESSION: 1. No internal derangement of the right shoulder. The rotator cuff is intact. The labrum appears intact. 2. There is mild subacromial/subdeltoid bursitis. 3. There is minimal arthritis in the AC joint. Electronically signed by: Marcelo Laurent MD 09/08/2024 03:42 PM EDT
--- OUTSIDE RECORDS SUMMARY | 2024-09-07 19:53 | XMS_ITS | Clinical Summary ---
Author Organization [employer] [facility] ity Address [address] [place] [address] Care Team Providers Care Planner Chief Name Role Phone Jessica Nobles MD Primary [...] age to complete this topic Care Teams Planner Chief Relationship Specialty Start Date End Date Jessica Nobles MD [address] [place] [address] PCP - General 02/18/07
--- OUTSIDE RECORDS SUMMARY | 2024-09-07 19:53 | XMS_ITS | Continuity of Care Document ---
Author Organization [facility] al Address [address] [place] [address]- Care Team Providers Care Mva Reactor Operator Head Name Role Phone Bonilla MEJIAS, Asma Primary Care Physician [phone] Encounter [facility] NBR [id number] Date(s): 08/25/24 - 08/25/[address] [address]- Encounter Diagnosis Abdominal pain(Final) - 08/25/24 Discharge Disposition: A-D/C Home Attending Physician: Ld Robertson MD Admitting Physician: Ld Robertson MD Referring Physician: Not on Staff, Referring MD Encounter Type: Disch ES Allergies, Adverse Reactions, Alerts Substance Criticality Severity Reaction Reaction Severity Status Zithromax Active Medications aspirin 81 mg oral delayed release tablet 81 mg, 1, tablet, By Mouth, Daily, Refills 0, Maintenance, 04/17/22 2:00:00 PM EDT, Partial fill upon patient request if the prescription is for a schedule II opioid drug. Start Date: 04/17/22 Status: Ordered Repeat number: 1 Citrucel 500 mg oral tablet See Instructions, with plenty of water. 1 tab once a day for a week, then increase to 1 tab 2 timesa day, # 100 tablet, 0 Refills, Maintenance, 03/01/24 11:19:00 AM EDT, [facility]/pharmacy #[id number], Partial fill upon patient request if the prescription is for a schedule II opioid drug., 165, cm, 03/01/24 10:47:00 EDT, Height, 97.4, kg, 04/15/23 7:49:00 EDT, Dry Weight Start Date: 03/01/24 Status: Ordered Quantity: 100.0 Unit: tablet Repeat number: 1 hyoscyamine 0.125 mg oral tablet, disintegrating 1 tablet, By Mouth, Daily, PRN NEEDED FOR SPASM, # 40 tablet, 0 Refills, Maintenance, 09/26/23 9:42:00 AM EDT, [id number], 165, cm, 08/18/23 15:44:00 EST, Height, 97.4, kg, 04/15/23 7:49:00 EDT, Dry Weight Start Date: 09/26/23 Status: Ordered Quantity: 40.0 Unit: tablet Repeat number: 1 Metamucil 500 mg oral capsule See Instructions, take with a full glass of water, # 160 each, 0 Refills, Maintenance, 08/18/23 5:00:00 PM EST, [facility]/pharmacy #[id number], Partial fill upon patient request if the prescription is for a schedule II opioid drug., 165, cm, 08/18/23 15:44:00 EST, Height, 97.4, kg, 04/15/23 7:49:00 EDT, Dry Weight Start Date: 08/18/23 Status: Ordered Quantity: 160.0 Unit: each Repeat number: 1 MiraLax oral powder for reconstitution = 17 Gm, By Mouth, Daily at bedtime, (dissolve in water or juice)\, # 527 Gm, 2 Refills, Maintenance, 02/26/24 10:41:00 AM EDT, [facility]/pharmacy #[id number], Partial fill upon patient request if the prescription is for a schedule II opioid drug., 17 Gm By Mouth Daily at bedtime,Instr:(dissolve in water or juice)\, 165, cm, 08/18/23 15:44:00 EST, Height, 97.4, kg, 04/15/23 7:49:00 EDT, Dry Weight Start Date: 02/26/24 Status: Ordered Quantity: 527.0 Unit: g Repeat number: 3 Readi-Cat 2 Smoothie Peñuelas 2% oral suspension See Instructions, Patient has instructions, # 2 each, 0 Refills, Maintenance, 09/01/23 11:41:00 AM EDT, [facility]/pharmacy #[id number], Partial fill upon patient request if the prescription is for a schedule II opioid drug., Patient has instructions, 165, cm, 08/18/23 15:44:00 EST, Height, 97.4, kg, 04/15/23 7:49:00 EDT, Dry Weight Start Date: 09/01/23 Status: Ordered Quantity: 2.0 Unit: each Repeat number: 1 Super-Strength D-5000 oral tablet 1 tablet, By Mouth, Daily, # 30 tablet, 1 Refills, Maintenance, 11/18/22 1:12:00 PM EDT, [id number], 165, cm, 10/28/22 14:23:00 EDT, Height, 96.5, kg, 10/22/22 9:09:00 EDT, Dry Weight Start Date: 11/18/22 Status: Ordered Quantity: 30.0 Unit: tablet Repeat number: 1 Wegovy (0.25 mg dose) subcutaneous solution = 0.25 mg, Subcutaneous Infusion, 0 Refills, Maintenance, 04/05/24 4:07:00 PM EDT, Partial fill upon patient request if the prescription is for a schedule II opioid drug. Start Date: 04/05/24 Status: Ordered Repeat number: 1 Problem List Condition Confirmation Course Effective Dates Status H ealth Status Informant Constipation Confirmed Active Depression Confirmed Active Venous insufficiency Confirmed Active H/O nausea Confirmed Active Migraine Confirmed Active Obese class I Confirmed Active Sleep paralysis Confirmed Active Varicose veins of legs Confirmed Active Vitamin D deficiency Confirmed Active Results Radiology Reports * Exam Date Time Procedure Performing Provider Status 08/25/24 6:[address] Abd/Pelvis W/ IV Contrast Only Kenny Harris; Auth (Verified) Notes: (CT Abd/Pelvis W/ IV Contrast Only) Reason For Exam: Pain RESULT: CT Abd/Pelvis W/ IV Contrast Only CT Abd/Pelvis W/ IV Contrast Only Hx of Present Illness: Pt has had vomiting and abd pain increased fatigue. Pt has hx of diverticulitis. Pt denies any fevers; Reason: Pain; Clinical Question(s): Diverticulitis TECHNIQUE: Spiral CT through the abdomen and pelvis with IV contrast formatted in 3 planes. 100 cc of Isovue 300 was administered intravenously. This study was performed without oral contrast. Weight-based protocol using automatic tube modulation was used to optimize exposure parameters. COMPARISON: CT abdomen and pelvis from 09/16/2023 FINDINGS: Campaign Management Specialist View Findings, Lines and Tubes: None. Visualized Chest: Lung bases are clear. No pleural effusion. The heart is normal in size. No pericardial effusion. Diaphragm: Normal. Liver: 1.9 cm cyst in the liver dome. Gallbladder: Absent. Bile ducts: Mild ductal prominence likely from post cholecystectomy state. Spleen: Normal. Pancreas: Normal. Adrenal glands: Normal. Kidneys and ureters: No hydronephrosis, stones, or suspicious masses. Bladder: Underdistended. Reproductive organs: Hysterectomy. Stomach, small bowel, and large bowel: No abnormal bowel wall thickening or distention. Appendix: Normal. Peritoneum and retroperitoneum: No ascites or pneumoperitoneum. No omental or mesenteric lesions. Lymph nodes: No enlarged lymph nodes. Blood vessels: Normal. No aneurysm. No evidence of venous thrombosis. Abdominal and pelvic wall: Unremarkable. Bones: No acute abnormality. IMPRESSION: No acute abnormality within the abdomen or pelvis. WSN: [id number] Ordering Physician: Ld Robertson Dictated By: Christian Hatfield MD Dictated Date/Time: 08/25/24 7:08 pm Reviewed By: Christian Hatfield MD Signed By: Christian Hatfield MD Signed Date/Time: 08/25/24 7:08 pm Transcribed By: ELVER Transcribed Date/Time: 08/25/24 7:02 pm Vital Signs Most recent to oldest [Reference Range]: 1 2 3 Height 165 cm (08/25/24 6:11 PM) 165 cm (08/25/24 3:56 PM) Weight 87.4 kg (08/25/24 6:11 PM) 87.4 kg (08/25/24 3:56 PM) Oxygen Saturation [94-100 %] 99 % (08/25/24 8:51 PM) 99 % (08/25/24 6:11 PM) 98 % (08/25/24 3:56 PM) Pulse Rate [55-90 bpm] 67 bpm (08/25/24 8:51 PM) 70 bpm (08/25/24 6:11 PM) 73 bpm (08/25/24 3:56 PM) Body Mass Index [18.5-24.99 kg/m2] 32.1 kg/m2 *>HHI* (08/25/24 6:11 PM) Blood Pressure [90-138/55-84 mm Hg] 119/74mm Hg (08/25/24 8:51 PM) 123/80mm Hg (08/25/24 6:11 PM) 127/74mm Hg (08/25/24 3:56 PM) Respiratory Rate [16-30 br/min] 18 br/min (08/25/24 8:51 PM) 20 br/min (08/25/24 6:11 PM) 18 br/min (08/25/24 3:56 PM) Temperature [96.8-100.4 DegF] 97.7 DegF (08/25/24 3:56 PM) Mode of Delivery (Oxygen) Room air (08/25/24 8:51 PM) Room air (08/25/24 6:11 PM) Room air (08/25/24 3:56 PM) Blood pressure sites Arm, left (08/25/24 8:51 PM) Arm, left (08/25/24 6:11 PM) Arm, left (08/25/24 3:56 PM) Temperature Route Oral (08/25/24 3:56 PM) Dry Weight 87.4 kg (08/25/24 6:11 PM) 87.4 kg (08/25/24 3:56 PM) Weight Obtained Via Standing scale (08/25/24 3:56 PM) Social History Social History Type Response Smoking Status Former smoker, quit more than 30 days ago entered on: 03/18/19 Sex Sex Representation Female (finding) Implantable Device List Procedure Provider Procedure Date Device Type Site Repair Hernia Inguinal Open Clay Spencer MD 04/15/23 Un known Groin Right Device Identifier Serial Number Lot or Batch Number Manufacturing Date Expiration Date Distinct Identification Code MRI Safety Implantable Status Assigning Authority Unknown Unknown [id number] Unknown 07/12/27 Unknown Unknown Active Unknown Procedure Provider Procedure Date Device Type Site Repair Hernia Inguinal Open Clay Spencer MD 10/22/22 Un known Groin Left Device Identifier Serial Number Lot or Batch Number Manufacturing Date Expiration Date Distinct Identification Code MRI Safety Implantable Status Assigning Authority Unknown Unknown [id number] Unknown 01/09/27 Unknown Unknown Active Unknown Note * Ailyn MEJIAS, Ld Maldonado: PERFORM Event Display: Patient Education Leaflets Authored Date: [id number] Unknown Causes of Abdominal Pain (Adult) ?? [id number] Unknown Causes of Abdominal Pain (Adult) The exact cause of your belly (abdominal) pain is not clear. Your exam and tests don't suggest a dangerous cause at this time. This does not mean that this is something to worry about. Everyone likesto know the exact cause of the problem. But sometimes with belly pain, there is no clear-cut cause,and this could be a good thing. Your symptoms can be treated, and you should feel better.?? Your condition does not seem serious now. But sometimes the signs of a serious problem may take more time to appear. For this reason,??it's important for you to watch for any new symptoms, problems,??or if your condition gets worse. Over the next few days, the abdominal pain may come and go. Or it may be constant. Other common symptoms can include nausea and vomiting. Sometimes it can be difficult to tell if you feel nauseous. You may just feel bad and not connect that feeling to nausea. Constipation, diarrhea, and a fever maygo along with the pain. The pain may continue even if treated correctly over the following days. Depending on how things go, sometimes the cause can become clear and you may need more??or different treatment. You may also need other evaluations, medicines, or tests. Home care Your healthcare provider may prescribe medicine for pain, symptoms, or an infection. ??Follow the healthcare provider's instructions for taking these medicines. General care ??? Rest as much as you can until your next exam. No strenuous activities. ??? Try to not do anything that may have caused your symptoms. This might be not taking any medicines unless otherwise directed by your healthcare provider. It might be not eating certain foods or doing certain activities. ??? Find positions that ease discomfort. A small pillow placed on your belly may help relieve pain. ??? Something warm on your belly, such as a heating pad, may help, but be careful not to burn yourself. Diet ??? Don???t??force yourself to eat, especially if having cramps, vomiting, or diarrhea. ??? Water is important so you don't get dehydrated. Soup may also be good. Sports drinks may also help, especially if they are not too acidic. Don't drink sugary drinks as this can make things worse. Take liquids in small amounts. Don???t??guzzle them. ??? Caffeine sometimes makes the pain and cramping worse. ??? Don???t take??dairy products if you have vomiting or diarrhea. ??? Don't eat large amounts at a time. Eat several small meals during the day instead of 2 or 3 larger meals. Wait a few minutesbetween bites. ??? Eat a diet low in fiber (called a low-residue diet). Foods allowed include refined breads, white rice, fruit and vegetable juices without pulp, tender meats. These foods will pass more easily through the intestine. ??? Don???t have??whole-grain foods, whole fruits and vegetables,meats, seeds, and nuts, fried or fatty foods, dairy, alcohol and spicy foods until your symptoms goaway. ?? Follow-up care Follow up with your healthcare provider, or as advised, if your pain does not begin to improve in the next 24 hours. ?? Call 911 Call?? 911 if any of these occur: ??? Trouble breathing ??? Confusion ??? Fainting or loss of consciousness ??? Rapid heart rate ??? Seizure ?? When to get medical advice Call your healthcare provider right away if any of these occur: ??? Pain gets worse or moves to theright lower abdomen ??? Vomiting or diarrhea that is new or gets worse ??? Swelling of the abdomen ??? Unable to pass stool for more than??3 days ??? Fever of 100.4??F (38??C) or higher, or as directed by your healthcare provider ??? Blood in vomit or bowel movements (dark red or black color) ??? Ye llow color of eyes and skin (jaundice) ??? Weakness, dizziness ??? Chest, arm, back, neck, or jaw pain ??? Can't keep down medicines, liquids, or water because of too much vomiting ??? If you have a vagina: unexpected vaginal bleeding or missed period ?? Last Reviewed Date: 2024 ?? [id number] [employer]. All rights reserved. This information is not intended as a substitute for professional medical care. Always follow your healthcare professional's instructions. ?? Patient Care team information Care Team Personnel Name: Bonilla MEJIAS, Maggie Position: Reference Physician Member Role: PCP Address: [address] [id number] Telecom: Care Team Related Persons Name: TAYE KATE Name: TAYE KATE Name: OSMAR DUBOSE Insurance Providers Guarantor name: TRA KATE Health Plan Information #: 1 Payer: HMO [employer] Member Number: [id number] Policy Number: NA Group Number: [id number] Health Plan Information #: 2 Payer: HMO [employer] NETWORK Member Number: [id number] Policy Number: NA Group Number: [id number]
--- OUTSIDE RECORDS SUMMARY | 2024-09-07 19:53 | XMS_ITS | Continuity of Care Document ---
Author Organization [facility] [address] [place] [address] Phone [phone] Care Team Providers Care Tooth Cutter Contact Wheel Name Role Phone Joel Rosas Care Team Information Wound Care Rn [phone] Bonilla Yurigretel Care Team Information Wound Care Rn + [phone] Problems Active Problems Provider Date Endometriosis (clinical) [...] Acquired Date Facility Test Result H/L Range N ote Lipid Panel 09/13/2022 [facility] Cholesterol, Total 207 mg/dL High (<200) Triglyceride 190 mg/dL High (<150) HDL Chol 62 mg/dL (>39) LDL Cholesterol , Calculated 107 mg/dL (0-130) Non HDL Cholesterol (Calc) 145 mg/dL (<160) TSH With Reflex To FT4 09/13/2022 [facility] TSH With Reflex To FT4 2.24 uIU/mL (0.4-4.2) LH 09/13/2022 [facility] LH 8.8 MIU/ML 1 FSH 09/13/2022 [facility] FSH 7.6 MIU/ML 2 Estradiol 09/13/2022 [facility] Estradiol 556 pg/mL 3 Glucose 09/13/2022 [facility] Glucose 115 mg/dL High (70-99) 1 Reference [...] Covarrubias M.D. 12/01/2022 R73.01 Impaired fasting glycemia Remington Covarrubias M.D. Plan of Treatment 12/01/2022 - Oj Covarrubias M.D.* N80.9 Endometriosis, unspecified * E66.9 Obesity * R73.01 Impaired fasting glycemia * Functional Status Description No Information Available Mental Status Description No Information Available Referrals Description No Information Available
== END 2024-09-07 19:50 | disposition home or self-care (01) ==
LOC: HO.MRI 19:49
PROVIDERS: PCP Internal Medicine; Visit Provider Physician Assistant
DX: M75.31 Calcific tendinitis of right shoulder (principal)
CPT/HCPCS: 73221

== ENCOUNTER → 2024-09-07 19:49 | Outpatient (BNV) | payer OTHER, SELFPAY | PROVIDERS: PCP Internal Medicine; Visit Provider Radiology Diagnostic Radiology | DX: M75.31 Calcific tendinitis of right shoulder (principal) | CPT/HCPCS: 73221 ==

== ENCOUNTER 2024-09-09 10:05 | Outpatient (AMB) | payer BC, SELFPAY ==
--- NOTE | 2024-09-09 10:07 | MHC.OFFVIS ---
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 Calvillo. Previously, left-sided SIJ injections had resulted completed pain relief for 3-6 months. At present, the pain is reported at a level of 6/10 and radiates down the left leg accompanied by numbness and tingling. This pain typically intensifies when changing positions, sitting, or standing for prolonged periods, and when navigating stairs. An MRI done two years ago indicated degenerative changes without stenosis. She also manages occasional stress urinary incontinence, otherwise denies any significant lower extremity weakness, foot drop, bowel dysfunction or saddle anesthesia. - Onset: Chronic, with recurrent episodes. - Quality: Radiating down the left leg with numbness and tingling. - Location: Right side, lumbar region. - Radiation: Down the left leg. - Exacerbating Factors: Changing positions, prolonged sitting or standing, use of stairs, getting in and out of vehicles. - Relieving Factors: None explicitly stated. - Interference: Sleep disturbance, limitation in physical activities, difficulty with bending forward. - Affect: Pain affecting sleep and daily functioning. - Analgesia: Uses Tylenol; reports pain level of 6, seeks improved relief. - Adverse Effects: Avoids ibuprofen due to stomach condition. - Activities of Daily Living: Challenges with positions, vehicle access, walking up stairs. - Aberrant Drug Related Behaviors: None reported. Past Procedures: 08/05/24: Left Therapeutic SIJ injection-ongoing 40% pain relief 10/30/23: Left Therapeutic SIJ injection-ongoing 100% pain relief 05/22/23: Left Therapeutic SIJ injection-ongoing 100% pain relief 12/12/22: Left Therapeutic SIJ [id number]% pain relief for 3.1 months 10/14/22: Left Diagnostic SIJ injection-80% pain relief for 3 days PRIOR 10/07/22 Dr. Calvillo: Naomi is a pleasant 42 year old female patient who presents to the office today for follow up of her lower back pain and scheduled interlaminar T12-L1 MAGDALENA. Patient reports pain in lower back, radiating into left buttock, lateral left hip/thigh/hogan; pain does not radiate below the ankle. She denies saddle anesthesia, incontinence of bowel or bladder. She denies numbness in the B/L LE. She denies weakness in B/l LE. She denies pain in the abdomen or the groin areas. Imaging was reviewed, results below. After physical exam, as detailed below, discussion was had with patient in regards to scheduled procedure. Patient's symptoms more consistent with sacroiliitis as well as spondylosis lumbar spine without symptoms of radiculopathy. , risks versus benefits of proceeding with scheduled T12-L1 MAGDALENA reviewed with patient, patient unlikely to receive significant therapeutic benefit and the risks of the procedure performed against the area of the spinal canal with the presence of spinal cord outweigh the very unclear benefits of the injection . Patient to be rescheduled for diagnostic left SI joint injection on October 14; she agrees with plan. She is also suffering from inguinal hernia for which the procedure is scheduled for her on October 22, 2022. PRIOR: Patient is a pleasant 42 years old female presents today for initial evaluation of worsening of chronic lower back pain. Patient denies any recent trauma, injury or falls. However, she reports back injury 2 years ago when she slipped on an icy parking lot coming out of her car. She fell on her left buttock on her car steppers and then on an iced parking lot. Her back pain is axial and also radiating to her left buttock, left lateral hip and into lateral and slightly posterior left thigh. She experiences spasms and marily horses sensations in her left hogan and calf with prolonged walking. Back pain increases prolonged sitting, walking, standing, changing positions, getting out of bed or shower, any movement and weather changes. Pain is described as constant pulsing, throbbing, pounding, stabbing, lancinating, pinching, cramping, crushing, hot burning scalding, searing, tingling, stingling, spreading, radiating, piercing, cool, cold, freezing and spasming. Denies previous spine surgery or injections. Reports getting frequent cortisone injections for left GTB pain with good relief but not lasting up to 3 months. Pain affects her daily activities, functions, mood, sleep, social interactions and quality of life. Patient is also concerned about episodic urine incontinence that has been happening during walking, bending, sitting and can happen with and without urine urgency. This has been happening for a few months. Denies seeing urology or ObGyn providers for this. Patient has been managing her pain with Tylenol, Motrin and hot shower or heat therapy with continued symptoms. Denies any fever, chills, abdominal or groin pain, sensory loss or weakness, bowel incontinence, or saddle anesthesia. 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 She is right hand dominant. Reports utilizing standing up desk for alternating her work day with walking and standing. Patient is starting physical activity this week. [facility] Medical History (Updated 09/09/24 @ 10:17 by RYLEY Wadsworth) Migraine Stress incontinence DDD (degenerative disc disease), thoracolumbar Lupus History of blood clots Weakness of left arm Paresthesias in left hand Surgical History S/P epidural steroid injection History of inguinal hernia repair Hx of carpal tunnel repair Hx of lumpectomy H/O: hysterectomy History of bunionectomy Hx of cholecystectomy Family History Father High cholesterol HTN (hypertension) Stroke Mother Lupus Substance use disorder Congenital heart disease Dementia Sister Lupus Maternal Aunt Dementia Maternal Aunt Dementia Maternal Aunt Dementia Maternal Aunt Dementia Maternal Aunt Dementia Social History Household Members: Spouse and Children Housing: House Are you a primary youth care professional to a significant other at home: No Do you presently have visiting nurse or other home services: No Alcohol intake: never Patient Tobacco Use Status: Former Tobacco user Tobacco use type: Cigarette Years Smoked: 5 e-Cigarette/Vaping Use: Never Used service: No Current occupational status: employed 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 - Neurological: Reports numbness and tingling in the left leg. - Genitourinary: Reports stress urinary incontinence, unrelated to back pain. All systems reviewed & are unremarkable except as noted in HPI and below Physical Exam Vital Signs: Last Vital Signs Pulse 73 09/09/24 10:10 BP 133/80 09/09/24 10:10 Pulse Ox 99 09/09/24 10:10 Oxygen Delivery Method Room Air 09/09/24 10:10 BMI result Body Mass Index 31.8 General: Appears afebrile. Alert and oriented. Mood and affect appropriate. Follows and participates in conversation appropriately. Respiratory effort is unlabored. No cough. Able to transition from sit to stand unassisted. Ambulates with bilaterally normal heel strike and toe off, increased pain with toe/heel standing on the left. General: Yes no CVA tenderness Back/Spine/Pelvis Other: Patient is able to walk and stand on heels and tip toes with mild difficulty on the left due to pain. No limping. Can flex forward to 65-70 degrees and extend to 5-10 degrees before experiencing lumbar pain. Demonstrates 5/5 strength of quadriceps bilaterally as well as flexion/dorsiflexion of bilateral feet against resistance. 2+ pedal pulses bilaterally. Straight leg rise with dorsiflexion positive on the left. +2 patellar and +1 achilles reflexes bilaterally. Facet loading test positive bilaterally. Nia signs, Colin?s, Pelvic compression and Stinchfield tests are positive on the left. No groin pain with I/E hip rotations bilaterally. Mild TTP in GTB on the left. Valsalva is positive for pain increase. Back: no CVA tenderness Cervical Spine: normal cervical lordosis, cervical ROM normal, cervical muscular tenderness, No Cervical spine tenderness and No step off deformity Thoracic/Lumbar Spine: thoracic and lumbar spine normal to inspection, Lasegue's sign positive on the left and localized, pain with thoraco-lumbar ROM, paraspinal muscle tenderness on the left greater than right, thoraco-lumbar ROM limited, No thoracic spinal tenderness and lumbar spinal tenderness (L4-S1) Pelvis: buttock tenderness on the left Sacroiliac joints: on the right nontender and on the left tender to palpation Extrem General: Yes capillary refill normal, Yes no clubbing, cyanosis or edema and Yes no calf tenderness Results Reviewed Results Reviewed: XR HIP, LEFT WITH AP PELVIS 03/14/22 FINDINGS: Bones and soft tissues are normal. No fracture. There is a tiny accessory ossification center seen lateral to the right acetabular roof. Alignment is anatomic. Hip joint space is maintained. There are multiple pelvic phleboliths. IMPRESSION: Unremarkable pelvis and left hip radiographs. XR LUMBOSACRAL SPINE 07/17/21 FINDINGS: Bone alignment is normal. No fracture or dislocation is seen. There is degenerative disc disease at T12-L1. Disc spaces are otherwise normal. Paraspinal soft tissues are normal. IMPRESSION: Degenerative disc disease at T12-L1. MR LUMBAR SPINE WITHOUT CONTRAST 08/18/22 FINDINGS: The lumbar vertebral bodies maintain normal heights and alignment. There is moderate to severe disc height loss at T12-L1 with a broad-based Schmorl's node seen along the inferior aspect of T12. Small hemangiomata are seen at T12, L3, and L5. The distal spinal cord appears normal. The conus medullaris terminates normally at the L1 level. The extraspinal soft tissues are within normal limits. SPINAL LEVELS: T12-L1: Left paracentral protrusion causing mild flattening the ventral thecal sac. No spinal canal or neural foraminal stenosis. L1-L2: No posterior disc abnormality. No spinal canal or neural foraminal stenosis. L2-L3: No posterior disc abnormality. No spinal canal or neural foraminal stenosis. L3-L4: No posterior disc abnormality. No spinal canal or neural foraminal stenosis. L4-L5: No posterior disc abnormality. Mild facet arthropathy. No spinal canal or neural foraminal stenosis. L5-S1: No posterior disc abnormality. No spinal canal or neural foraminal stenosis. IMPRESSION: No spinal canal stenosis or nerve root compression. Disc height loss with inferior endplate Schmorl's node seen at T12-L1. Assessment & Plan Assessment & Plan (1) Low back pain radiating to left leg: Code(s): M54.50 - Low back pain, unspecified; M79.605 - Pain in left leg Category: Medical (2) Lumbar back pain with radiculopathy affecting left lower extremity: Code(s): M54.16 - Radiculopathy, lumbar region Category: Medical (3) Lumbosacral spondylosis: Code(s): M47.817 - Spondylosis without myelopathy or radiculopathy, lumbosacral region Category: Medical (4) Lumbar degenerative disc disease: Code(s): M51.369 - Other intervertebral disc degeneration, lumbar region without mention of lumbar back pain or lower extremity pain Category: Medical (5) Sacroiliac joint pain: Code(s): M53.3 - Sacrococcygeal disorders, not elsewhere classified Category: Medical Plan A repeat MRI is suggested to clarify any changes since prior imaging, taking note that therapeutic left SIJ injections are presently limited due to insufficient efficacy. Future options are considered based on MRI finding outcomes, with discussion of SI joint fusion or neuromodulation as a longer-term strategy given work-related constraints. Emphasis on the importance of weight management given the positive impact on joint strain and back pain was noted. Caution regarding NSAID use continues due to potential gastrointestinal complications. Patient was informed and verbally consented to the use of an ambient scribe for clinic note documentation during this visit. Orders: Orders MR lumbar spine wo con Today M47.817 - Spondylosis without myelopathy or radiculopathy, lumbosacral region, M51.369 - Other intervertebral disc degeneration, lumbar region without mention of lumbar back pain or lower extremity pain, M54.16 - Radiculopathy, lumbar region, M54.50 - Low back pain, unspecified, M79.605 - Pain in left leg Patient Instructions: In today's discussion, I conveyed the lack of significant response to recent left-sided SI joint injections and the possibility of degenerative progression necessitating a new MRI investigation. I outlined the implications of inadequate response to previous physical therapy as a basis for possibly considering a spinal fusion or neuromodulation. I addressed potential benefits and recovery constraints, including work leave implications versus procedural benefits. The patient expressed understanding and concern over extended leave. Discussion also covered continuous weight management success and its beneficial effects versus NSAID risk for her stomach condition. - Follow up for a repeat lumbar spine MRI as discussed. - Continue with weight management efforts. - Avoid ibuprofen; consider alternatives as necessary for pain relief. - Recommended trying turmeric and brianna supplements, magnesium, zinc, and ALA for their anti-inflammatory properties. Patient can also try using Tylenol, lidocaine patches, or Salonpas patches.? - Monitor for changes in symptoms and report any significant increases in pain or new symptoms. - Return for consultation post-MRI to reevaluate treatment plan. - Seek assistance if experiencing exacerbating pain or functional impairments. Coding Level of Care Code Est Pt Level 4 (37298) Complex EM visit Add On G2211 Diagnoses Low back pain radiating to left leg M54.50; M79.605 Lumbar back pain with radiculopathy affecting left lower extremity M54.16 Lumbosacral spondylosis M47.817 Lumbar degenerative disc disease M51.369 Sacroiliac joint pain M53.3
[2024-09-09 10:10] VITALS: BP 133/80; PULSE 73; O2SAT 99; BMI 31.8
== END 2024-09-09 10:19 | disposition home or self-care (01) ==
LOC: HO.PMC 10:06
PROVIDERS: PCP Internal Medicine; Visit Provider Nurse Practitioner Family
DX: M54.50 Low back pain, unspecified (principal); M79.605 Pain in left leg; M54.16 Radiculopathy, lumbar region; M47.817 Spondylosis without myelopathy or radiculopathy, lumbosacral region; M51.369 Other intervertebral disc degeneration, lumbar region without mention of lumbar back pain or lower extremity pain; M53.3 Sacrococcygeal disorders, not elsewhere classified
CPT/HCPCS: 99214

== ENCOUNTER → 2024-09-18 19:32 | Outpatient (BNV) | payer BC, SELFPAY | PROVIDERS: PCP Internal Medicine; Visit Provider Radiology Neuroradiology | DX: M51.360 Other intervertebral disc degeneration, lumbar region with discogenic back pain only (principal) | CPT/HCPCS: 72148 ==

== ENCOUNTER 2024-09-18 19:35 | Outpatient (REF) | payer BC, SELFPAY ==
--- NOTE | ~2024-09-18 | MR_ITS ---
CLINICAL HISTORY: M54.50 - Low back pain, unspecified MR lumbar spine without intravenous contrast Comparison: MRI of the lumbar spine from 08/18/2022 Findings: No significant change in vertebral heights or vertebral alignments. Five lumbar type vertebrae. Small hemangiomas redemonstrated including T12 and L3. New mild Modic type 1 endplate changes at T12-L1, L1-L2, and L5-S1. No significant change in small disc extrusion, Schmorl's node, endplate remodeling at T12-L1 with minimal ventral spinal canal stenosis and mild left foraminal narrowing. No drainable paraspinal fluid collection . L1-L2: Bilateral facet arthropathy. No spinal stenosis. L2-L3: Bilateral facet arthropathy. No spinal stenosis. L3-L4: Small disc bulge and bilateral facet arthropathy. No spinal stenosis. L4-L5: Worsening bilateral facet arthropathy with mild increase in small facet effusions and increase in dorsal small bilateral facet cysts. No significant spinal stenosis. L5-L1: Disc bulge, new small annular fissure, mild increase in the endplate hypertrophy, and mild worsening of the bilateral facet arthropathy. No significant spinal stenosis. Facet effusions present. IMPRESSION: 1. Evolution and worsening of degenerative changes, compared to 2 years prior, including lower lumbar facet arthropathy. 2. No significant spinal stenosis or nerve root compromise. This document has been electronically signed by: Bear Celeste MD on 09/18/2024 21:01:33
--- OUTSIDE RECORDS SUMMARY | 2024-09-18 19:43 | XMS_ITS | Clinical Summary ---
Author Organization [facility] ity Address [address] [place] [address] Care Team Providers Care Machine Shop Repair Technician Name Role Phone Jessica Nobles MD Primary [...] age to complete this topic Care Teams Machine Shop Repair Technician Relationship Specialty Start Date End Date Jessica Nobles MD [address] [place] [id number] PCP - General 02/18/07
== END 2024-09-18 19:36 | disposition home or self-care (01) ==
LOC: HO.MRI 19:35
PROVIDERS: PCP Internal Medicine; Visit Provider Nurse Practitioner Family
DX: M54.50 Low back pain, unspecified (principal); M79.605 Pain in left leg; M54.16 Radiculopathy, lumbar region; M47.817 Spondylosis without myelopathy or radiculopathy, lumbosacral region; M51.369 Other intervertebral disc degeneration, lumbar region without mention of lumbar back pain or lower extremity pain
CPT/HCPCS: 72148

== ENCOUNTER 2024-09-27 15:08 | Outpatient (AMB) | payer BC, SELFPAY ==
--- NOTE | 2024-09-27 15:15 | MHC.OFFVIS ---
Vital Signs 09/27/24 15:20 Height 5 ft 5 in BP 134/79 Blood Pressure Location Rt brachial Position Sitting Pulse 78 Pulse Source Pulse Oximeter Pulse Oximetry (%) 98 Oxygen Delivery Method Room Air Intake Visit Reasons: MRI follow up Intake Note: Pain today 02/22 Start Up Specialist Required: No Accompanied by: Self / Same As Patient Allergies azithromycin [AZITHROMYCIN] Allergy (Intermediate, Verified 09/27/24 15:21) low heart rate HPI Comments Details: Patient presents today for follow up for persistent low back pain with left sided radicular symptoms and discuss recent MRI results. Her pain originates in the lumbar region and radiates to the left buttock and leg, with increasing aggravation over time. She notes significant difficulty when using stairs and sleeping on her left side due to pain. Previous SI joint injections have provided limited relief, and recent MRI findings are noted below. There is reported numbness, tingling, and pain radiating below the knee on the left side, particularly exacerbated by sitting pressure. Her history of degenerative changes and arthritis in the right and left foot has affected her walking and possibly contributed to her back pain. She is interested in Podiatry evaluation. PRIOR: The patient is a 44-year-old female presenting for follow-up regarding lumbar pain and lack of significant relief following a therapeutic left-sided SI joint injection performed on 08/05/[address] Calvillo. Previously, left-sided SIJ injections had resulted completed pain relief for 3-6 months. At present, the pain is reported at a level of 6/10 and radiates down the left leg accompanied by numbness and tingling. This pain typically intensifies when changing positions, sitting, or standing for prolonged periods, and when navigating stairs. An MRI done two years ago indicated degenerative changes without stenosis. She also manages occasional stress urinary incontinence, otherwise denies any significant lower extremity weakness, foot drop, bowel dysfunction or saddle anesthesia. - Onset: Chronic, with recurrent episodes. - Quality: Radiating down the left leg with numbness and tingling. - Location: Right side, lumbar region. - Radiation: Down the left leg. - Exacerbating Factors: Changing positions, prolonged sitting or standing, use of stairs, getting in and out of vehicles. - Relieving Factors: None explicitly stated. - Interference: Sleep disturbance, limitation in physical activities, difficulty with bending forward. - Affect: Pain affecting sleep and daily functioning. - Analgesia: Uses Tylenol; reports pain level of 6, seeks improved relief. - Adverse Effects: Avoids ibuprofen due to stomach condition. - Activities of Daily Living: Challenges with positions, vehicle access, walking up stairs. - Aberrant Drug Related Behaviors: None reported. Past Procedures: 08/05/24: Left Therapeutic SIJ injection-ongoing 40% pain relief 10/30/23: Left Therapeutic SIJ injection-ongoing 100% pain relief 05/22/23: Left Therapeutic SIJ injection-ongoing 100% pain relief 12/12/22: Left Therapeutic SIJ eieiqzhae-55-15% pain relief for 3.1 months 10/14/22: Left Diagnostic SIJ injection-80% pain relief for 3 days PRIOR 10/07/22 Dr. Cavlillo: Naomi is a pleasant 42 year old female patient who presents to the office today for follow up of her lower back pain and scheduled interlaminar T12-L1 MAGDALENA. Patient reports pain in lower back, radiating into left buttock, lateral left hip/thigh/hogan; pain does not radiate below the ankle. She denies saddle anesthesia, incontinence of bowel or bladder. She denies numbness in the B/L LE. She denies weakness in B/l LE. She denies pain in the abdomen or the groin areas. Imaging was reviewed, results below. After physical exam, as detailed below, discussion was had with patient in regards to scheduled procedure. Patient's symptoms more consistent with sacroiliitis as well as spondylosis lumbar spine without symptoms of radiculopathy. , risks versus benefits of proceeding with scheduled T12-L1 MAGDALENA reviewed with patient, patient unlikely to receive significant therapeutic benefit and the risks of the procedure performed against the area of the spinal canal with the presence of spinal cord outweigh the very unclear benefits of the injection . Patient to be rescheduled for diagnostic left SI joint injection on October 14; she agrees with plan. She is also suffering from inguinal hernia for which the procedure is scheduled for her on October 22, 2022. PRIOR: Patient is a pleasant 42 years old female presents today for initial evaluation of worsening of chronic lower back pain. Patient denies any recent trauma, injury or falls. However, she reports back injury 2 years ago when she slipped on an icy parking lot coming out of her car. She fell on her left buttock on her car steppers and then on an iced parking lot. Her back pain is axial and also radiating to her left buttock, left lateral hip and into lateral and slightly posterior left thigh. She experiences spasms and marily horses sensations in her left hogan and calf with prolonged walking. Back pain increases prolonged sitting, walking, standing, changing positions, getting out of bed or shower, any movement and weather changes. Pain is described as constant pulsing, throbbing, pounding, stabbing, lancinating, pinching, cramping, crushing, hot burning scalding, searing, tingling, stingling, spreading, radiating, piercing, cool, cold, freezing and spasming. Denies previous spine surgery or injections. Reports getting frequent cortisone injections for left GTB pain with good relief but not lasting up to 3 months. Pain affects her daily activities, functions, mood, sleep, social interactions and quality of life. Patient is also concerned about episodic urine incontinence that has been happening during walking, bending, sitting and can happen with and without urine urgency. This has been happening for a few months. Denies seeing urology or ObGyn providers for this. Patient has been managing her pain with Tylenol, Motrin and hot shower or heat therapy with continued symptoms. Denies any fever, chills, abdominal or groin pain, sensory loss or weakness, bowel incontinence, or saddle anesthesia. 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 She is right hand dominant. Reports utilizing standing up desk for alternating her work day with walking and standing. Patient is starting physical activity this week. [facility] Medical History Migraine Stress incontinence DDD (degenerative disc disease), thoracolumbar Lupus History of blood clots Weakness of left arm Paresthesias in left hand Surgical History S/P epidural steroid injection History of inguinal hernia repair Hx of carpal tunnel repair Hx of lumpectomy H/O: hysterectomy History of bunionectomy Hx of cholecystectomy Family History Father High cholesterol HTN (hypertension) Stroke Mother Lupus Substance use disorder Congenital heart disease Dementia Sister Lupus Maternal Aunt Dementia Maternal Aunt Dementia Maternal Aunt Dementia Maternal Aunt Dementia Maternal Aunt Dementia Social History Household Members: Spouse and Children Housing: House Are you a primary care aid to a significant other at home: No Do you presently have visiting nurse or other home services: No Alcohol intake: never Patient Tobacco Use Status: Former Tobacco user Tobacco use type: Cigarette Years Smoked: 5 e-Cigarette/Vaping Use: Never Used service: No Current occupational status: employed 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 - Neurological: Reports left-sided numbness and tingling below the knee. - Genitourinary: Reports episodes of urinary incontinence. - Reproductive: Reports history of ovarian cysts. All systems reviewed & are unremarkable except as noted in HPI and below Physical Exam Vital Signs: Last Vital Signs Pulse 78 09/27/24 15:20 BP 134/79 09/27/24 15:20 Pulse Ox 98 09/27/24 15:20 Oxygen Delivery Method Room Air 09/27/24 15:20 General: Appears afebrile. Alert and oriented. Mood and affect appropriate. Follows and participates in conversation appropriately. Respiratory effort is unlabored. No cough. Able to transition from sit to stand unassisted. Ambulates with bilaterally normal heel strike and toe off, increased pain with toe/heel standing on the left. General: Yes no CVA tenderness Back/Spine/Pelvis Other: Patient is able to walk and stand on heels and tip toes with mild difficulty on the left due to pain. No limping. Lumbar flexion, extension and axial rotation reproduce moderate pain. Demonstrates 5/5 strength of quadriceps bilaterally as well as flexion/dorsiflexion of bilateral feet against resistance. 2+ pedal pulses bilaterally. Straight leg rise with dorsiflexion negative bilaterally. +2 patellar and +1 achilles reflexes bilaterally. Facet loading test positive bilaterally. Nai signs, Colin?s, Pelvic compression and Stinchfield tests are positive on the left. Mild groin pain with I/E hip rotations on the left. Mild TTP in GTB on the left. Valsalva maneuver is negative. Back: no CVA tenderness Cervical Spine: normal cervical lordosis, cervical ROM normal, cervical muscular tenderness, No Cervical spine tenderness and No step off deformity Thoracic/Lumbar Spine: thoracic and lumbar spine normal to inspection, Lasegue's sign negative, straight leg raise negative bilaterally, pain with thoraco-lumbar ROM, paraspinal muscle tenderness on the left greater than right, thoraco-lumbar ROM limited, No thoracic spinal tenderness and lumbar spinal tenderness (L4-S1) Pelvis: buttock tenderness on the left Sacroiliac joints: on the right nontender and on the left tender to palpation Extrem General: Yes capillary refill normal, Yes no clubbing, cyanosis or edema and Yes no calf tenderness Results Reviewed Results Reviewed: MR lumbar spine without intravenous contrast 09/18/24 Comparison: MRI of the lumbar spine from 08/18/2022 Findings: No significant change in vertebral heights or vertebral alignments. Five lumbar type vertebrae. Small hemangiomas redemonstrated including T12 and L3. New mild Modic type 1 endplate changes at T12-L1, L1-L2, and L5-S1. No significant change in small disc extrusion, Schmorl's node, endplate remodeling at T12-L1 with minimal ventral spinal canal stenosis and mild left foraminal narrowing. No drainable paraspinal fluid collection . L1-L2: Bilateral facet arthropathy. No spinal stenosis. L2-L3: Bilateral facet arthropathy. No spinal stenosis. L3-L4: Small disc bulge and bilateral facet arthropathy. No spinal stenosis. L4-L5: Worsening bilateral facet arthropathy with mild increase in small facet effusions and increase in dorsal small bilateral facet cysts. No significant spinal stenosis. L5-L1: Disc bulge, new small annular fissure, mild increase in the endplate hypertrophy, and mild worsening of the bilateral facet arthropathy. No significant spinal stenosis. Facet effusions present. IMPRESSION: 1. Evolution and worsening of degenerative changes, compared to 2 years prior, including lower lumbar facet arthropathy. 2. No significant spinal stenosis or nerve root compromise. Assessment & Plan Assessment & Plan (1) Hip pain, left: Code(s): M25.552 - Pain in left hip Category: Medical (2) Sacroiliac joint pain: Code(s): M53.3 - Sacrococcygeal disorders, not elsewhere classified Category: Medical (3) Bilateral foot pain: Code(s): M79.671 - Pain in right foot; M79.672 - Pain in left foot Category: Medical (4) Degenerative arthritis of foot: Code(s): M19.079 - Primary osteoarthritis, unspecified ankle and foot Category: Medical (5) Low back pain radiating to left leg: Code(s): M54.50 - Low back pain, unspecified; M79.605 - Pain in left leg Category: Medical (6) Muscle spasm of back: Code(s): M62.830 - Muscle spasm of back Category: Medical (7) Lumbosacral spondylosis: Code(s): M47.817 - Spondylosis without myelopathy or radiculopathy, lumbosacral region Category: Medical (8) Lumbar degenerative disc disease: Code(s): M51.369 - Other intervertebral disc degeneration, lumbar region without mention of lumbar back pain or lower extremity pain Category: Medical Plan Due to the chronic lower back pain with radiculopathy and the ineffectiveness of the recent SI joint injection, further targeted left diagnostic L3-L4 DR L5 MBB injections were planned with local and fluoroscopy. Expectations, risks and benefits were reviewed. Patient is aware she will be contacted to schedule this procedure. A podiatry referral has been made for foot-related issues which may affect gait and exacerbate pain. A left hip and pelvic x-ray and left foot xray were ordered to clarify any additional factors. Ongoing pain tracking and symptom management are considered vital, including addressing urinary incontinence and sleep disturbances. All questions and concerns have been answered and patient agreed with the plan. Follow up after injections and sooner as needed. Patient was informed and verbally consented to the use of an ambient scribe for clinic note documentation during this visit. Orders: Orders XR foot LT min 3V Today M79.672 - Pain in left foot XR hip LT w PEL1V Today M25.552 - Pain in left hip, M53.3 - Sacrococcygeal disorders, not elsewhere classified Referrals Podiatry Referral M19.079 - Primary osteoarthritis, unspecified ankle and foot, M79.671 - Pain in right foot, M79.672 - Pain in left foot Coding Level of Care Code Est Pt Level 4 (40411) Complex EM visit Add On G2211 Diagnoses Hip pain, left M25.552 Sacroiliac joint pain M53.3 Bilateral foot pain M79.671; M79.672 Degenerative arthritis of foot M19.079 Low back pain radiating to left leg M54.50; M79.605 Muscle spasm of back M62.830 Lumbosacral spondylosis M47.817 Lumbar degenerative disc disease M51.369
[2024-09-27 15:20] VITALS: BP 134/79; PULSE 78; O2SAT 98
--- OUTSIDE RECORDS SUMMARY | 2024-09-27 18:26 | XMS_ITS | Clinical Summary ---
Author Organization [facility] ity Address [address] [place] [address] Care Team Providers Care Journey Lineman Name Role Phone Jessica Nobles MD Primary [...] - 2023-2 5 season) 2024 Influenza Vaccine (Season Ended) 2025 HIB Vaccines Aged Out No longer eligi [...] age to complete this topic Meningococcal B Vaccine Aged Out No l onger eligible based on patient's age to complete [...] age to complete this topic Care Teams Journey Lineman Relationship Specialty Start Date End Date Jessica Nobles MD [address] [place] [address] PCP - General 02/18/07
--- OUTSIDE RECORDS SUMMARY | 2024-09-27 18:26 | XMS_ITS | Continuity of Care Document ---
Author Organization [facility] Address [address] [place] [address]- Care Team Providers Care Reforestation Worker Name Role Phone Bonilla MEJIAS, Asma Primary Care Physician [phone] [id number] Date(s): 08/25/24 - 09/24/24 [facility] [address] [place] [address]- Encounter Type: Triage Allergies, Adverse Reactions, Alerts Substance Criticality Severity [...] 0 Refills, Maintenance, 03/01/24 11:19:00 AM EDT, [facility]/pharmacy #[id number], Partial fill upon patient request if [...] 0 Refills, Maintenance, 09/26/23 9:42:00 AM EDT, [id number], 165, cm, 08/18/23 15:44:00 EST, Height, 97.4, kg, 04/15/23 7:49:00 EDT, Dry Weight Start Date: 09/26/23 Status: Ordered Quantity: 40.0 Unit: tablet Repeat number: 1 Metamucil 500 mg oral capsule See Instructions, take with a full glass of water, # 160 each, 0 Refills, Maintenance, 08/18/23 5:00:00 PM EST, [facility]/pharmacy #[id number], Partial fill upon patient request if [...] 2 Refills, Maintenance, 02/26/24 10:41:00 AM EDT, [facility]/pharmacy #[id number], Partial fill upon patient request if the prescription is for a schedule II opioid drug., 17 Gm By Mouth Daily at bedtime,Instr:(dissolve in water or juice)\, 165, cm, 08/18/23 15:44:00 EST, Height, 97.4, kg, 04/15/23 7:49:00 EDT, Dry Weight Start Date: 02/26/24 Status: Ordered Quantity: 527.0 Unit: g Repeat number: 3 Readi-Cat 2 Smoothie [place] 2% oral suspension See Instructions, Patient has instructions, # 2 each, 0 Refills, Maintenance, 09/01/23 11:41:00 AM EDT, [id number], Partial fill upon patient request if the prescription is for a schedule II opioid drug., Patient has instructions, 165, cm, 08/18/23 15:44:00 EST, Height, 97.4, kg, 04/15/23 7:49:00 EDT, Dry Weight Start Date: 09/01/23 Status: Ordered Quantity: 2.0 Unit: each Repeat number: 1 Super-Strength D-5000 oral tablet 1 tablet, By Mouth, Daily, # 30 tablet, 1 Refills, Maintenance, 11/18/22 1:12:00 PM EDT, [id number], 165, cm, 10/28/22 14:23:00 EDT, Height, 96.5, [...] Confirmed Active Vitamin D deficiency Confirmed Active Social History Social History Type Response Smoking [...] Safety Implantable Status Assigning Authority Unknown Unknown [id number] Unknown 07/12/27 Unknown Unknown Active Unknown Procedure Provider Procedure Date Device Type Site Repair Hernia Inguinal Open Clay Spencer MD 10/22/22 Un known Groin Left Device Identifier Serial Number Lot or Batch Number Manufacturing Date Expiration Date Distinct Identification Code MRI Safety Implantable Status Assigning Authority Unknown Unknown [id number] Unknown 01/09/27 Unknown Unknown Active Unknown Patient Care team information Care Team Personnel Name: Maggie Crystal MD Position: Reference Physician Member Role: PCP Address: [address] [place] [address] Telecom: Care Team Related Persons Name: TAYE KATE Name: TAYE KATE Name: OSMAR DUBOSE Insurance Providers Guarantor name: TRA KATE Health Plan Information #: 1 Payer: HMO BLUE IN NETWORK Member Number: NA Policy Number: NA Group Number: NA
--- OUTSIDE RECORDS SUMMARY | 2024-09-27 18:26 | XMS_ITS | Continuity of Care Document ---
Author Organization [facility] [address] [place] [address] Phone [phone] Care Team Providers Care Derrick Man Name Role Phone Joel Rosas Care Team Information Relish Blender + [phone] Bonilla Yurigretel Care Team Information Relish Blender + [phone] Problems Active Problems Provider Date Endometriosis (clinical) [...] H/L [place] Lipid Panel 09/13/2022 [facility] Cholesterol, Total 207 mg/dL High (<200) Triglyceride 190 mg/dL High (<150) HDL Chol 62 mg/dL (>39) LDL Cholesterol , Calculated 107 mg/dL (0-130) Non HDL Cholesterol (Calc) 145 mg/dL (<160) TSH With Reflex To FT4 09/13/2022 [facility] TSH With Reflex To FT4 2.24 uIU/mL (0.4-4.2) LH 09/13/2022 [facility] LH 8.8 MIU/ML 1 FSH 09/13/2022 [facility] FSH 7.6 MIU/ML 2 Estradiol 09/13/2022 [facility] Estradiol 556 pg/mL 3 Glucose 09/13/2022 [facility] Glucose 115 mg/dL High (70-99) [...]
== END 2024-09-27 15:42 | disposition home or self-care (01) ==
LOC: HO.PMC 15:08
PROVIDERS: PCP Internal Medicine; Visit Provider Nurse Practitioner Family
DX: M25.552 Pain in left hip (principal); M53.3 Sacrococcygeal disorders, not elsewhere classified; M79.671 Pain in right foot; M79.672 Pain in left foot; M19.079 Primary osteoarthritis, unspecified ankle and foot; M54.50 Low back pain, unspecified; M79.605 Pain in left leg; M62.830 Muscle spasm of back; M47.817 Spondylosis without myelopathy or radiculopathy, lumbosacral region; M51.369 Other intervertebral disc degeneration, lumbar region without mention of lumbar back pain or lower extremity pain
CPT/HCPCS: 99214

== ENCOUNTER 2024-09-27 15:08 | Outpatient (REF) | payer BC, SELFPAY ==
--- NOTE | ~2024-09-27 | XR_ITS ---
CLINICAL HISTORY: M79.672 - Pain in left foot 3 view left foot Comparison: None Findings: Normal alignment without acute fracture. Query prior bunionectomy. [id number] 1st metatarsophalangeal osteoarthritis. Query valgus angulation of the 2nd toe on these nonweightbearing radiographs. Small heterotopic ossification projecting medial to the 1st proximal phalangeal head. Small mineralized focus projecting dorsal to the distal midfoot due to dystrophic calcification or calcium deposition disease. IMPRESSION: Small mineralized focus projecting dorsal to the distal midfoot due to dystrophic calcification or calcium deposition disease. This document has been electronically signed by: Yusra Ojeda MD on 09/29/2024 13:09:02
--- NOTE | ~2024-09-27 | XR_ITS ---
CLINICAL HISTORY: M53.3 - Sacrococcygeal disorders, not elsewhere classified 3 view, pelvis and left hip Comparison: None Findings: One to a few small calcification/s adjacent to the left greater trochanter may be dystrophic in nature or due to calcium deposition disease. Normal alignment without acute fracture. Mild degenerative narrowing of the weight-bearing surfaces of the hip joints bilaterally. Mild to moderate symphysis pubis osteoarthritis. IMPRESSION: One to a few small calcification/s adjacent to the left greater trochanter may be dystrophic in nature or due to calcium deposition disease. This document has been electronically signed by: Yusra Ojeda MD on 09/29/2024 13:04:34
--- OUTSIDE RECORDS SUMMARY | 2024-09-27 19:00 | XMS_ITS | Clinical Summary ---
Author Organization [facility] ity Address [address] [place] [address] Care Team Providers Care Softball Core Molder Name Role Phone Jessica Nobles MD Primary [...] age to complete this topic Care Teams Softball Core Molder Relationship Specialty Start Date End Date Jessica Nobles MD [address] [place] [address] PCP - General 02/18/07
--- OUTSIDE RECORDS SUMMARY | 2024-09-27 19:00 | XMS_ITS | Continuity of Care Document ---
Author Organization [facility] [address] [place] [address] Phone [phone] Care Team Providers Care Bridge Painter Name Role Phone Joel Rosas Care Team Information Internal Combustion Engine Inspector + [phone] Bonilla Yurigretel Care Team Information Internal Combustion Engine Inspector + [phone] Problems Active Problems Provider Date Endometriosis (clinical) [...] H/L Range [place] ote Lipid Panel 09/13/2022 [facility] Cholesterol, Total 207 mg/dL High (<200) Triglyceride 190 mg/dL High (<150) HDL Chol 62 mg/dL (>39) LDL Cholesterol , Calculated 107 mg/dL (0-130) Non HDL Cholesterol (Calc) 145 mg/dL (<160) TSH With Reflex To FT4 09/13/2022 [facility] TSH With Reflex To FT4 2.24 uIU/mL (0.4-4.2) LH 09/13/2022 [facility] LH 8.8 MIU/ML 1 FSH 09/13/2022 [facility] FSH 7.6 MIU/ML 2 Estradiol 09/13/2022 [facility] Estradiol 556 pg/mL 3 Glucose 09/13/2022 [facility] Glucose 115 mg/dL High [...]
== END 2024-09-27 15:09 | disposition home or self-care (01) ==
LOC: HO.XRAY 15:08
PROVIDERS: PCP Internal Medicine; Visit Provider Nurse Practitioner Family
DX: M53.3 Sacrococcygeal disorders, not elsewhere classified (principal); M25.552 Pain in left hip; M79.672 Pain in left foot
CPT/HCPCS: 73502; 73630

== ENCOUNTER → 2024-09-27 16:32 | Outpatient (BNV) | payer BC, SELFPAY | PROVIDERS: PCP Internal Medicine; Visit Provider Radiology Diagnostic Radiology | DX: M53.3 Sacrococcygeal disorders, not elsewhere classified (principal); M79.672 Pain in left foot | CPT/HCPCS: 73502; 73630 ==

== ENCOUNTER → 2024-10-21 12:27 | Outpatient (BNVA) | payer OTHER, SELFPAY | PROVIDERS: PCP Internal Medicine; Visit Provider Physician Assistant Medical | DX: M23.8X2 Other internal derangements of left knee (principal) | CPT/HCPCS: 99203 ==

== ENCOUNTER 2024-10-21 15:46 | Outpatient (REF) | payer OTHER, SELFPAY ==
--- NOTE | ~2024-10-21 | CT_ITS ---
CLINICAL HISTORY: M75.31 - Calcific tendinitis of right shoulder --- Additional Notes or Special Inst ructions: ? heterotopic bone vs calcific tendonitis CT right shoulder without contrast Comparison: 09/07/2024, 05/06/2024 Findings: 2 mm avulsed bone fragment associated with the anterior aspect of the glenoid. Limited evaluation for this finding on the prior MRI and prior x-ray series. No dislocation. There are tiny foci of calcification adjacent to the pectoralis minor tendon origin. There are faint calcifications present in association with the subscapularis tendon. No additional rotator cuff calcifications. There is no shoulder effusion. There are no significant degenerative changes. The visualized lungs and mediastinum are unremarkable. Impression: 1. There may be a very mild degree of calcific tendinitis of the subscapularis tendon. 2. Tiny avulsion fracture associated with the anterior aspect of the glenoid, of uncertain age. This document has been electronically signed by: Nieves Jaquez MD on 10/24/2024 14:31:38
== END 2024-10-21 15:47 | disposition home or self-care (01) ==
LOC: HO.CT 15:46
PROVIDERS: PCP Internal Medicine; Visit Provider Physician Assistant
DX: M75.31 Calcific tendinitis of right shoulder (principal)
CPT/HCPCS: 73200

== ENCOUNTER → 2024-10-21 15:49 | Outpatient (BNV) | payer OTHER, SELFPAY | PROVIDERS: PCP Internal Medicine; Visit Provider Radiology Diagnostic Radiology | DX: M75.31 Calcific tendinitis of right shoulder (principal) | CPT/HCPCS: 73200 ==

== ENCOUNTER → 2024-10-25 13:02 | Outpatient (BNVA) | payer OTHER, SELFPAY | PROVIDERS: PCP Internal Medicine; Visit Provider Physician Assistant Medical | DX: M23.92 Unspecified internal derangement of left knee (principal) | CPT/HCPCS: 73564; 99214 ==

== ENCOUNTER 2024-10-28 13:13 | Outpatient (REF) | payer BC, OTHER, SELFPAY ==
--- OUTSIDE RECORDS SUMMARY | 2024-10-28 13:44 | XMS_ITS | Continuity of Care Document ---
Author Organization [facility] [address] [place] [address] Phone [phone] Care Team Providers Care Oak Tanner Name Role Phone Joel Rosas Care Team Information Regeneration Operator + [phone] Bonilla Yurigretel Care Team Information Regeneration Operator + [phone] Problems Active Problems Provider Date Endometriosis (clinical) [...] H/L Range N ote Lipid Panel 09/13/2022 [facility] Cholesterol, Total 207 mg/dL High (<200) Triglyceride 190 mg/dL High (<150) HDL Chol 62 mg/dL (>39) LDL Cholesterol , Calculated 107 mg/dL (0-130) Non HDL Cholesterol (Calc) 145 mg/dL (<160) TSH With Reflex To FT4 09/13/2022 [facility] TSH With Reflex To FT4 2.24 uIU/mL (0.4-4.2) LH 09/13/2022 [facility] LH 8.8 MIU/ML 1 FSH 09/13/2022 [facility] FSH 7.6 MIU/ML 2 Estradiol 09/13/2022 [facility] Estradiol 556 pg/mL 3 Glucose 09/13/2022 [facility] Glucose 115 mg/dL High (70-99) [...]
--- OUTSIDE RECORDS SUMMARY | 2024-10-28 13:44 | XMS_ITS | Clinical Summary ---
Author Organization [facility] ity Address [address] [place] [address] Care Team Providers Care Pbx Supervisor Name Role Phone Jessica Nobles MD Primary [...] age to complete this topic Care Teams Pbx Supervisor Relationship Specialty Start Date End Date Jessica Nobles MD [address] [place] [address] PCP - General 02/18/07
[2024-10-28 16:01] LABS: MANUAL DIFF FLAG NO
[2024-10-28 16:28] LABS: Basophils Percent Auto 0.5 % (0-2); Eosinophils Absolute Auto 0.1 X10*3/uL (0.0-0.4); Eosinophils Percent Auto 1.6 % (0-4); Hematocrit 37.8 % (37.0-47.0); Hemoglobin 12.6 g/dl (12.0-16.0); Imm Gran Abs Auto 0.03 X10*3/uL (0.00-0.03); Imm Gran Pct Auto 0.4 % (0.0-0.4); Lymphocytes Absolute Auto 2.2 X10*3/uL (1.2-4.9); Lymphocytes Percent Auto 28.9 % (20-40); Mean Corpuscular HGB Conc 33.3 g/dl (31.0-35.0); Mean Corpuscular Hemoglobin 29.5 pg (27.0-33.0); Mean Corpuscular Volume 88.5 fL (80.0-98.0); Monocytes Absolute Auto 0.7 X10*3/uL (0.1-1.2); Monocytes Percent Auto 8.7 % (2-11); Neutrophils Absolute Auto 4.5 x10*3/uL (2.0-8.3); Neutrophils Percent Auto 59.9 % (45-73); Platelet Count 316 X10*3/uL (160-400); Red Blood Count 4.27 X10*6/uL (4.20-5.50); Red Cell Distribution Width 12.6 % (11.0-16.0); White Blood Count 7.5 X10*3/uL (4.8-10.8)
[2024-10-28 16:40] LABS: Alanine Aminotransferase 17 U/L (0-31); Albumin Level 3.9 g/dL (3.5-5.0); Alkaline Phosphatase 57 U/L (39-117); Amylase 59 U/L (28-100); Anion Gap 12 (12-20); Aspartate Amino Transferase 22 U/L (5-31); Bilirubin Total 0.3 mg/dL (0.0-1.0); Blood Urea Nitrogen 14 mg/dL (9-16); Calcium 8.9 mg/dL (8.4-10.2); Carbon Dioxide 28 mmol/L (22-29); Chloride 108 mmol/L (96-108); Estimated Glomerular Filt Rate > 60; Glucose Random 95 mg/dL (60-115); Lipase 48 U/L (8-78); Sodium 144 mmol/L (135-145); Total Protein 6.8 g/dL (6.5-8.0)
[2024-10-28 16:58] LABS: TSH reflex Free T4 1.41 uIU/mL (0.32-4.0)
[2024-10-29 12:58] LABS: LDL Cholesterol Direct 80 mg/dL (<100)
== END 2024-10-28 13:14 | disposition home or self-care (01) ==
LOC: HO.HMGCLDS 13:13
PROVIDERS: PCP Internal Medicine; Visit Provider Internal Medicine
DX: E66.01 Morbid (severe) obesity due to excess calories (principal); Z68.39 Body mass index [BMI] 39.0-39.9, adult; R76.0 Raised antibody titer; R76.8 Other specified abnormal immunological findings in serum; G43.109 Migraine with aura, not intractable, without status migrainosus; M54.16 Radiculopathy, lumbar region; G89.29 Other chronic pain; M25.561 Pain in right knee; Z82.0 Family history of epilepsy and other diseases of the nervous system
CPT/HCPCS: 36415; 80053; 82150; 83690; 83721; 84443; 85025; 96127

== ENCOUNTER 2024-10-28 13:13 | Outpatient (AMB) | payer BC, SELFPAY ==
--- OUTSIDE RECORDS SUMMARY | 2024-10-28 13:15 | XMS_ITS | Clinical Summary ---
Author Organization [facility] ity Address [address] [place] [address] Care Team Providers Care Supervisor Bonding Name Role Phone Jessica Nobles MD Primary [...] complete this topic RSV Immunization Patients Un onedya 20 months Aged Out No longer eligible b ased on patient's age to complete this topic Varicella Vaccines Aged Out No longer eligible based on patient's age to complete this topic Care Teams Supervisor Bonding Relationship Specialty Start Date End Date Jessica Nobles MD [address] [place] [address] PCP - General 02/18/07
--- OUTSIDE RECORDS SUMMARY | 2024-10-28 13:15 | XMS_ITS | Continuity of Care Document ---
Author Organization [facility] [address] [place] [address] Phone [phone] Care Team Providers Care Ladies' Locker Room Attendant Name Role Phone Joel Rosas Care Team Information Pigment Grinder + [phone] Bonilla Yurigretel Care Team Information Pigment Grinder + [phone] Problems Active Problems Provider Date Endometriosis (clinical) [...] H/L Range N ote Lipid Panel 09/13/2022 [facility] Cholesterol, Total 207 mg/dL High (<200) Triglyceride 190 mg/dL High (<150) HDL Chol 62 mg/dL (>39) LDL Cholesterol , Calculated 107 mg/dL (0-130) Non HDL Cholesterol (Calc) 145 mg/dL (<160) TSH With Reflex To FT4 09/13/2022 [facility] TSH With Reflex To FT4 2.24 uIU/mL (0.4-4.2) LH 09/13/2022 [facility] LH 8.8 MIU/ML 1 FSH 09/13/2022 [facility] FSH 7.6 MIU/ML 2 Estradiol 09/13/2022 [facility] Estradiol 556 pg/mL 3 Glucose 09/13/2022 [facility] Glucose 115 mg/dL High [...]
[2024-10-28 13:16] VITALS: BP 124/84; PULSE 95; O2SAT 98; BMI 32.5
--- NOTE | 2024-10-28 13:16 | MHC.PC.OV ---
Vital Signs 10/28/24 13:16 Height 5 ft 5 in Weight 195 lb 8 oz BMI 32.5 BP 124/84 Blood Pressure Location Rt brachial Position Sitting Pulse 95 Pulse Source Pulse Oximeter Pulse Oximetry (%) 98 Oxygen Delivery Method Room Air Intake Visit Reasons: F/up- Chest discomfort Allergies azithromycin [AZITHROMYCIN] Allergy (Intermediate, Verified 10/28/24 13:16) low heart rate Medication List - Last Reconciled 10/28/24 by Maggie Crystal MD buspirone 1 or 2 tabs 3 hours before flight 2 days ibuprofen 800 mg PO TID meloxicam 15 mg PO DAILY semaglutide (weight loss) 0.5 mg (0.5 mL) subcut QWEEK 30 days Tobacco use date assessed: 10/28/24 Dental Screening Dental Screen Date: 10/28/24 Did you have a dental visit in the last 12 months?: Yes Did you have a dental problem in the last 6 months where you did not have access to dental care?: No Was dental information given to patient?: Patient has dentist HPI F/up- Chest discomfort HPI Details History - The patient is a 44-year-old female presenting with pleuritic chest pain and weight management follow-up. - On one occasion, the patient experienced sharp pain under the right ribs under the breast at 3:00 am, causing difficulty breathing. This episode lasted about 10 minutes and did not recur. - Chest pain was not associated with exercise and resolved spontaneously. - Patient?s weight was 191 lbs in August and has increased to 195 lbs post-vacation. - Current weight management includes semaglutide, started in January when the patient?s weight was 222 lbs. - Knee pain due to a work injury, worsened by a fall leading to swelling that precludes some exercises. - The patient slipped at work, leading to swelling and ongoing pain in the knee. Patient is under care of orthopedic for that - Family history of Alzheimer?s disease, with the patient?s mother and aunts from the condition. 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 She is also established with pain management for lower back pain Problem List - Pleuritic Chest Pain - Obesity - Knee Pain - Alzheimer?s Disease in Family History - positive for Lupus Erythematosus not on any treatment - Positive Anti-Cardiolipin Antibody already evaluated by Hematology no treatment Patient Instructions - Complete lab tests today. - Schedule and attend a follow-up appointment in three months. For weight - Consider using baby aspirin daily as preventative care for clot prevention. - Continue efforts in weight management, including exercises like walking. - Seek neurologist evaluation for genetic testing related to Alzheimer?s disease. Referral placed to Dr. Rivas patient has seen him before as well for headaches - Avoid prolonged sitting; get up and walk during long drives or flights for clot prevention. Review of Systems - General: No fever no chills - Neurological: No headaches no dizziness - Ear nose throat: No sore throat no hearing difficulty no ear pain - Cardiovascular: No syncope, no chest pain, no palpitations - Gastrointestinal: No nausea vomiting or diarrhea - Endocrine: No polyuria polydipsia no heat intolerance - Genitourinary: No dysuria , no blood in urine Physical Exam General: No acute distress HEENT: No acute findings Neck: Supple Respiratory system: Able to talk in full sentences, no audible wheeze Cardiovascular: S1-S2 regular in rate and rhythm Gastrointestinal: Soft nontender Extremities: No new findings, chronic knee pain INTEGRATED CIRCUIT DESIGN ENGINEER: Alert awake oriented x3 motor Skin: Normal turgor PFSH Medical History Migraine Stress incontinence DDD (degenerative disc disease), thoracolumbar Lupus History of blood clots Weakness of left arm Paresthesias in left hand Surgical History S/P epidural steroid injection History of inguinal hernia repair Hx of carpal tunnel repair Hx of lumpectomy H/O: hysterectomy History of bunionectomy Hx of cholecystectomy Family History Father High cholesterol HTN (hypertension) Stroke Mother Lupus Substance use disorder Congenital heart disease Dementia Sister Lupus Maternal Aunt Dementia Maternal Aunt Dementia Maternal Aunt Dementia Maternal Aunt Dementia Maternal Aunt Dementia Social History Household Members: Spouse and Children Housing: House Are you a primary career services representative to a significant other at home: No Do you presently have visiting nurse or other home services: No Alcohol intake: never Patient Tobacco Use Status: Former Tobacco user Tobacco use type: Cigarette Years Smoked: 5 e-Cigarette/Vaping Use: Never Used service: No Current occupational status: employed 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[employer] Cognitive needs: No Hearing needs: No Vision needs: Yes (contacts) Questionnaire Thrive Questionnaire Date Thrive assessed: 10/28/24 I am a: Patient What is your living situation today?: I have a steady place to live Within the past 12 months, did the food you bought not last and you didn't have the money to get more?: Never true Within the past 12 months, did you worry whether your food would run out before you got money to buy more?: Never true Do you have trouble paying for medicines?: No Do you have trouble getting transportation to medical appointments?: No Do you have trouble paying your heating and electricity bill?: No Do you have trouble taking care of your child, family member or friend?: No Do you have trouble with day-to-day activities such as bathing, preparing meals, shopping, managing finances, etc.?: No Are you currently unemployed and looking for a job?: No Are you interested in more education?: No Please select the resources that you would like help with: None Currently or been in a relationship where the following occur: No concerns reported THRIVE Score: 0 AUDIT C Alcohol Use Questionnaire (AUDIT-C) 1. How often do you have a drink containing alcohol?: Monthly or less 2. How many drinks containing alcohol do you have on a typical day when you are drinking?: 1 or 2 3. How often do you have six or more drinks on one occasion?: Never Total Score: 1 Score Reviewed/Action Taken: Yes DAMON-7 AMB Questionnaire DAMON-7 Date DAMON - 7 assessed: 10/28/24 Feeling nervous, anxious, or on edge: 0 = Not at all Not being able to stop or control worryin = Not at all Worrying too much about different things: 0 = Not at all Trouble relaxin = Not at all Being so restless that it is hard to sit still: 0 = Not at all Becoming easily annoyed or irritable: 0 = Not at all Feeling afraid as if something awful might happen: 0 = Not at all Total DAMON-7 score (0-4 normal; 5-9 mild; 10-14 moderate; 15-21 severe): 0 Source: Developed by Drs. Morris Farooq, Francia Barfield, Leonel Min and colleagues, with an educational austyn from [employer]. DAMON-7 Assessment Billing DAMON-7 Assessment Tool: DAMON-7 Assessment 35335 Physical exam (Primary Care) Vital Signs: Last Vital Signs Pulse 95 10/28/24 13:16 BP 124/84 10/28/24 13:16 Pulse Ox 98 10/28/24 13:16 Oxygen Delivery Method Room Air 10/28/24 13:16 BMI result Body Mass Index 32.5 Tobacco/Smoking Status: Tobacco use Status Tobacco use date assessed 10/28/24 10/28/24 13:18 Patient Tobacco Use Status Former Tobacco user 10/28/24 13:18 Tobacco use type Cigarette 10/28/24 13:18 e-Cigarette/Vaping Use Never Used 10/28/24 13:18 Thrive Assessment: Date of Thrive Assessment Date Thrive assessed 10/28/24 10/28/24 13:18 Currently or been in a relationship where the following occur: No concerns reported Coding Level of Care Code Est Pt Level 5 (78015) Diagnoses Class 2 severe obesity due to excess calories with serious comorbidity and body mass index (BMI) of 39.0 to 39.9 in adult E66.01; Z68.39 Body mass index: BMI 39.0-39.9 Obesity classification: adult class 2 (BMI 35 - 39.9) Serious obesity comorbidity presence: with serious comorbidity Family history of Alzheimer disease Z82.0 Anti-cardiolipin antibody positive R76.0 AMADOR positive R76.8 Complicated migraine G43.109 Lumbar back pain with radiculopathy affecting left lower extremity M54.16 Chronic pain of right knee M25.561; G89.29 Chronicity: chronic Additional Codes DAMON-7 Assessment Billing - DAMON-7 Assessment Tool: DAMON-7 Assessment 91845 ([id number]) Time Spent (min) 40 Comment Reviewing chart/labs/skfi-ub-zcox/coordination of care Assessment & Plan Assessment & Plan (1) Obesity due to excess calories: Code(s): E66.09 - Other obesity due to excess calories Category: Medical Qualifiers: Body mass index: BMI 39.0-39.9 Obesity classification: adult class 2 (BMI 35 - 39.9) Serious obesity comorbidity presence: with serious comorbidity Qualified Code(s): E66.01 - Morbid (severe) obesity due to excess calories; Z68.39 - Body mass index [BMI] 39.0-39.9, adult (2) Family history of Alzheimer disease: Code(s): Z82.0 - Family history of epilepsy and other diseases of the nervous system Category: Medical (3) Anti-cardiolipin antibody positive: Code(s): R76.0 - Raised antibody titer Category: Medical (4) AMADOR positive: Code(s): R76.8 - Other specified abnormal immunological findings in serum Category: Medical (5) Complicated migraine: Code(s): G43.109 - Migraine with aura, not intractable, without status migrainosus Category: Medical (6) Lumbar back pain with radiculopathy affecting left lower extremity: Code(s): M54.16 - Radiculopathy, lumbar region Category: Medical (7) Knee pain, right: Code(s): M25.561 - Pain in right knee Category: Medical Qualifiers: Chronicity: chronic Qualified Code(s): M25.561 - Pain in right knee; G89.29 - Other chronic pain Plan History - The patient is a 44-year-old female presenting with pleuritic chest pain and weight management follow-up. - On one occasion, the patient experienced sharp pain under the right ribs under the breast at 3:00 am, causing difficulty breathing. This episode lasted about 10 minutes and did not recur. - Chest pain was not associated with exercise and resolved spontaneously. - Patient?s weight was 191 lbs in August and has increased to 195 lbs post-vacation. - Current weight management includes semaglutide, started in January when the patient?s weight was 222 lbs. - Knee pain due to a work injury, worsened by a fall leading to swelling that precludes some exercises. - The patient slipped at work, leading to swelling and ongoing pain in the knee. Patient is under care of orthopedic for that - Family history of Alzheimer?s disease, with the patient?s mother and aunts from the condition. 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 She is also established with pain management for lower back pain Problem List - Pleuritic Chest Pain - Obesity - Knee Pain - Alzheimer?s Disease in Family History - positive for Lupus Erythematosus not on any treatment - Positive Anti-Cardiolipin Antibody already evaluated by Hematology no treatment Patient Instructions - Complete lab tests today. - Schedule and attend a follow-up appointment in three months. For weight - Consider using baby aspirin daily as preventative care for clot prevention. - Continue efforts in weight management, including exercises like walking. - Seek neurologist evaluation for genetic testing related to Alzheimer?s disease. Referral placed to Dr. Rivas patient has seen him before as well for headaches - Avoid prolonged sitting; get up and walk during long drives or flights for clot prevention. Orders: Orders Comprehensive Met. Panel Today E66.01 - Morbid (severe) obesity due to excess calories, Z68.39 - Body mass index [BMI] 39.0-39.9, adult Complete Blood Count Auto Diff Today E66.01 - Morbid (severe) obesity due to excess calories, Z68.39 - Body mass index [BMI] 39.0-39.9, adult Amylase Today E66.01 - Morbid (severe) obesity due to excess calories, Z68.39 - Body mass index [BMI] 39.0-39.9, adult Lipase Today E66.01 - Morbid (severe) obesity due to excess calories, Z68.39 - Body mass index [BMI] 39.0-39.9, adult TSH reflex Free T4 Today E66.01 - Morbid (severe) obesity due to excess calories, Z68.39 - Body mass index [BMI] 39.0-39.9, adult LDL Cholesterol Direct Today E66.01 - Morbid (severe) obesity due to excess calories, Z68.39 - Body mass index [BMI] 39.0-39.9, adult Referrals Neurology Referral Z82.0 - Family history of epilepsy and other diseases of the nervous system Medications: Discontinued meloxicam Discontinued Reason: Doctor's Order 15 mg PO DAILY 10 tabs 0RF buspirone Discontinued Reason: Doctor's Order 1 or 2 tabs 3 hours before flight 2 days 4 tabs 0RF
== END 2024-10-28 13:39 | disposition home or self-care (01) ==
LOC: HO.HMCC 13:14
PROVIDERS: PCP Internal Medicine; Visit Provider Internal Medicine
DX: G43.109 Migraine with aura, not intractable, without status migrainosus (principal); E66.01 Morbid (severe) obesity due to excess calories; Z68.39 Body mass index [BMI] 39.0-39.9, adult; Z82.0 Family history of epilepsy and other diseases of the nervous system; R76.0 Raised antibody titer; R76.8 Other specified abnormal immunological findings in serum; M54.16 Radiculopathy, lumbar region; M25.561 Pain in right knee; G89.29 Other chronic pain

== ENCOUNTER → 2024-11-10 11:32 | Outpatient (BNVA) | payer OTHER, SELFPAY | PROVIDERS: PCP Internal Medicine; Visit Provider Physician Assistant Medical | DX: M23.8X2 Other internal derangements of left knee (principal) | CPT/HCPCS: 99213 ==

== ENCOUNTER 2024-11-15 06:21 | Outpatient (REF) | payer OTHER, BC, SELFPAY ==
--- NOTE | ~2024-11-15 | FL_ITS ---
EXAMINATION: FL GUIDANCE ONLY HISTORY: M51.369 - Other intervertebral disc degeneration, lumbar region without ... COMPARISON: None available. TECHNIQUE: Fluoroscopy time: 0.4 minutes. Cumulative Dose: 4.48 mGy. DAP: 0.0778 mGym2 Images: 7. FINDINGS: Fluoroscopic spot films of the lumbar spine demonstrate needles and contrast material in the regions of the left L3-4, L4-5, and L5-S1 facet joints. FL/FL guidance in treatment room IMPRESSION: Fluoroscopy during procedure. Please see procedure report for additional information. Electronically signed by: Morris Alexandra MD 11/15/2024 03:43 PM EDT
--- OUTSIDE RECORDS SUMMARY | 2024-11-15 06:23 | XMS_ITS | Continuity of Care Document ---
Author Organization [facility] [address] [place] [address] Phone [phone] Care Team Providers Care Bridge Toll Collector Name Role Phone Joel Rosas Care Team Information Geodesist [phone] Bonilla Yurigretel Care Team Information Geodesist + [phone] Problems Active Problems Provider Date Endometriosis (clinical) [...] H/L Range N ote Lipid Panel 09/13/2022 [facility] Cholesterol, Total 207 mg/dL High (<200) Triglyceride 190 mg/dL High (<150) HDL Chol 62 mg/dL (>39) LDL Cholesterol , Calculated 107 mg/dL (0-130) Non HDL Cholesterol (Calc) 145 mg/dL (<160) TSH With Reflex To FT4 09/13/2022 [facility] TSH With Reflex To FT4 2.24 uIU/mL (0.4-4.2) LH 09/13/2022 [facility] LH 8.8 MIU/ML 1 FSH 09/13/2022 [facility] FSH 7.6 MIU/ML 2 Estradiol 09/13/2022 [facility] Estradiol 556 pg/mL 3 Glucose 09/13/2022 [facility] Glucose 115 mg/dL High [...]
== END 2024-11-15 06:22 | disposition home or self-care (01) ==
LOC: CF 06:21
PROVIDERS: Visit Provider Anesthesiology
DX: M51.369 Other intervertebral disc degeneration, lumbar region without mention of lumbar back pain or lower extremity pain (principal); M47.816 Spondylosis without myelopathy or radiculopathy, lumbar region
CPT/HCPCS: 64493; 64494; J2003; J2795; Q9967

== ENCOUNTER 2024-11-15 15:03 | Outpatient (AMB) | payer OTHER, SELFPAY ==
[2024-11-15 15:08] VITALS: BP 109/62; PULSE 73; RESP 18; O2SAT 97
--- NOTE | 2024-11-15 15:08 | A.OFFVIS_ITS ---
Vital Signs 11/15/24 15:08 11/15/24 15:28 Weight 192 lb BP 109/62 123/64 Blood Pressure Location Lt brachial Lt brachial Position Sitting Sitting Respiration 18 18 Pulse 73 62 Pulse Source Pulse Oximeter Pulse Oximeter Pulse Oximetry (%) 97 100 Oxygen Delivery Method Room Air Room Air Intake Visit Reasons: LEFT DIAGNOSTIC L3, L4, DRL5 MBB/RONALD Utility Maintenance Worker Required: No Allergies azithromycin [AZITHROMYCIN] Allergy (Intermediate, Verified 11/15/24 15:09) low heart rate PFSH Medical History Migraine Stress incontinence DDD (degenerative disc disease), thoracolumbar Lupus History of blood clots Weakness of left arm Paresthesias in left hand Surgical History S/P epidural steroid injection History of inguinal hernia repair Hx of carpal tunnel repair Hx of lumpectomy H/O: hysterectomy History of bunionectomy Hx of cholecystectomy Family History Father High cholesterol HTN (hypertension) Stroke Mother Lupus Substance use disorder Congenital heart disease Dementia Sister Lupus Maternal Aunt Dementia Maternal Aunt Dementia Maternal Aunt Dementia Maternal Aunt Dementia Maternal Aunt Dementia Social History Household Members: Spouse and Children Housing: House Are you a primary critical care paramedic to a significant other at home: No Do you presently have visiting nurse or other home services: No Alcohol intake: never Patient Tobacco Use Status: Former Tobacco user Tobacco use type: Cigarette Years Smoked: 5 e-Cigarette/Vaping Use: Never Used service: No Current occupational status: employed 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 ? ?Informed consent was explained to the patient. All questions were explained and? answered.? The patient was taken inside the operating room where she was positioned prone on the operating table. Time-out was performed delineating correct site, side, the nature of the procedure, patient's allergy, . All operating room staff was participating in OR time-out procedure. ? ? The lower back was prepped with ChloraPrep and draped with sterile towels.? C- arm was brought over the operating field and sq picture of L3,L4-, L5 vertebra and S1 AREA were delineated on the screen.? Point of interest were delineated as confluence of superior articular process of L3,L4 and L5 vertebra on the leftwith corresponding transverse processes as well as confluence of the sacral alae on the left with superior articular process of S1.? The projection of the point of interest to the skin were injected with the small amount of local anesthetic lidocaine 2% mixed with ropivacaine 0.5% 1-1 approcimately 1 cc.? After that 22 gauge 3.5 inch spinal needle was driven sequentially to the points of interest in tunnel vision fashion. After needles gently contacted the bone at the point of interests the needle was injected with small amount of the contrast.? The injection of the contrast did not demonstrate any intravascular or intrathecal spread of the contrast.? After that injection of the? ropivacaine 0.5%-1cc was performed at each needle location. ?After that the needles were removed and Bandaids were applied. ? Upon completion of the injections? needle was? removed and sterile Band-Aids were applied.? The patient tolerated procedure very well. Orders: Orders FL guidance in treatment room Today M51.369 - Other intervertebral disc degeneration, lumbar region without mention of lumbar back pain or lower extremity pain Medications: New lorazepam (Ativan) Take 30 minutes prior to arrival to procedure 1 mg PO ONCE 1 tab 0RF anxiety Coding Level of Care Code Procedure Only Diagnoses Spondylosis of lumbar region without myelopathy or radiculopathy M47.816
[2024-11-15 15:28] VITALS: BP 123/64; PULSE 62; RESP 18; O2SAT 100
--- OUTSIDE RECORDS SUMMARY | 2024-11-15 16:42 | XMS_ITS | Continuity of Care Document ---
Author Organization [facility] [address] [place] [address] Phone [phone] Care Team Providers Care Boat Repairer Name Role Phone Joel Rosas Care Team Information Freight Rate Analyst [phone] Bonilla Yurigretel Care Team Information Freight Rate Analyst + [phone] Problems Active Problems Provider Date Endometriosis (clinical) Oj Covarurbias M.D. O nset: 08/12/2022 Impaired fasting glycemia [...]
== END 2024-11-15 15:29 | disposition home or self-care (01) ==
LOC: HO.PMCPRC 15:03
PROVIDERS: PCP Internal Medicine; Visit Provider Anesthesiology
DX: M47.816 Spondylosis without myelopathy or radiculopathy, lumbar region (principal)
CPT/HCPCS: 64493; 64494

== ENCOUNTER 2024-11-15 20:30 | Emergency (ER) | payer OTHER, BC, SELFPAY ==
--- NOTE | 2024-11-15 | ECG_ITS ---
Test Reason : SYNCOPE Blood Pressure : */* mmHG Vent. Rate : 72 BPM Atrial Rate : 72 BPM P-R Int : 154 ms QRS Dur : 86 ms QT Int : 390 ms P-R-T Axes : 23 -1 23 degrees QTcB Int : 427 ms Normal sinus rhythm cannot exclude old Anterior infarct , age undetermined ; can also be normal variant Borderline ECG When compared with ECG of 19-Jun-2021 20:52, No significant changes seen Referred By: Generic ED Physician Electronically Signed By: GRIS ANTONIO
[2024-11-15 20:34] VITALS: BP 129/70; PULSE 80; RESP 16; TEMP 36.3; O2SAT 98; BMI 32.9
[2024-11-15 21:01] LABS: MANUAL DIFF FLAG NO
[2024-11-15 21:07] LABS: Basophils Percent Auto 0.4 % (0-2); Eosinophils Absolute Auto 0.1 X10*3/uL (0.0-0.4); Eosinophils Percent Auto 0.6 % (0-4); Hematocrit 38.7 % (37.0-47.0); Hemoglobin 13.3 g/dl (12.0-16.0); Imm Gran Abs Auto 0.04 X10*3/uL (0.00-0.03); Imm Gran Pct Auto 0.4 % (0.0-0.4); Lymphocytes Absolute Auto 1.6 X10*3/uL (1.2-4.9); Lymphocytes Percent Auto 14.7 % (20-40); Mean Corpuscular HGB Conc 34.4 g/dl (31.0-35.0); Mean Corpuscular Hemoglobin 29.8 pg (27.0-33.0); Mean Corpuscular Volume 86.8 fL (80.0-98.0); Mean Platelet Volume 10.9 fL (9.4-12.3); Monocytes Absolute Auto 0.7 X10*3/uL (0.1-1.2); Monocytes Percent Auto 6.6 % (2-11); Neutrophils Absolute Auto 8.3 x10*3/uL (2.0-8.3); Neutrophils Percent Auto 77.3 % (45-73); Platelet Count 281 X10*3/uL (160-400); Red Blood Count 4.46 X10*6/uL (4.20-5.50); Red Cell Distribution Width 12.4 % (11.0-16.0); White Blood Count 10.7 X10*3/uL (4.8-10.8)
[2024-11-15 21:14] LABS: Prothrombin Time 11.1 SEC (10.9-12.4)
[2024-11-15 21:17] LABS: Appearance Urine Clear; Color Urine Yellow; Glucose Urine UA Negative (Negative); Leukocyte Esterase Urine Negative (Negative); Nitrite Urine Negative (Negative); PH >= 9.0 (5.0-9.0); Specific Gravity - Urine 1.025 (1.005-1.025); Urine Blood Negative (Negative); Urine Ketones Negative (Negative); Urine Protein Trace mg/dL (Neg-Trace)
[2024-11-15 21:20] LABS: Alanine Aminotransferase 20 U/L (0-31); Albumin Level 4.4 g/dL (3.5-5.0); Alkaline Phosphatase 60 U/L (39-117); Anion Gap 12 (12-20); Aspartate Amino Transferase 22 U/L (5-31); Bilirubin Total 0.4 mg/dL (0.0-1.0); Blood Urea Nitrogen 16 mg/dL (9-16); Calcium 9.3 mg/dL (8.4-10.2); Carbon Dioxide 28 mmol/L (22-29); Chloride 108 mmol/L (96-108); Creatinine Clr Calc Pharmacy 90.4; Estimated Glomerular Filt Rate > 60; Glucose Random 101 mg/dL (60-115); Potassium 3.8 mmol/L (3.3-5.1); Sodium 144 mmol/L (135-145); Total Protein 7.1 g/dL (6.5-8.0)
[2024-11-15 21:28] LABS: Troponin-I High Sensitivity < 2.7 ng/L (<3.5-17.0)
[2024-11-15 21:52] VITALS: BP 99/47; PULSE 67; RESP 12; TEMP 36.7; O2SAT 99
[2024-11-15 21:57] VITALS: BP 111/64; PULSE 70; RESP 12; O2SAT 98
[2024-11-15 22:25] VITALS: BP 106/52; PULSE 77; RESP 10; O2SAT 98
[2024-11-15 22:32] VITALS: O2SAT 98
[2024-11-16] VITALS (8 sets, daily range): BP systolic 98–116; BP diastolic 44–64; PULSE 61–94; RESP 15–16; TEMP 36.7; O2SAT 98–99
--- NOTE | 2024-11-16 00:15 | ED.SYNCOPE ---
HPI - Syncope General Chief Complaint: Syncope Stated Complaint: Syncope after procedure today Time Seen by Provider: 11/15/24 23:59 Source: patient and family Mode of arrival: ambulatory Limitations: no limitations History of Present Illness ED Provider: Dr. Mee Washington HPI narrative: Patient comes to the emergency room complaining of a syncopal episode. Earlier today, patient was given lorazepam p.o. for medial branch block injection at L3, L4 and L5 here at [facility]. Couple of hours after her procedure, patient went home, patient states that she was in the bathroom and had a syncopal episode. Patient was accompanied by her daughter and , patient did not hit her head or lost consciousness. Patient was brought to the emergency room for further evaluation. At this time, patient denies any pain, denies any chest pain or shortness of breath, denies any dizziness. Related Data Previous Rx's ?Medication ?Instructions ?Recorded semaglutide (weight loss) 0.5 0.5 mg (0.5 mL) subcut QWEEK 30 10/24/24 mg/0.5 mL subcutaneous pen injector days #2.5 mL lorazepam 1 mg tablet (Ativan) 1 mg PO ONCE anxiety #1 tab 11/10/24 Allergies Allergy/AdvReac Type Severity Reaction Status Date / Time azithromycin [AZITHROMYCIN] Allergy Intermediate low heart Verified 11/15/24 20:40 rate Review of Systems Review of Systems: Constitutional : No Weight loss, No Fever, No Chills, No Night Sweats, No Fatigue, No Malaise ENT/Mouth : No Hearing loss, No Ear Pain, No Nasal Congestion, No Sinus Pain, No Hoarseness, No sore throat, No Rhinorrhea, No Swallowing Difficulty Eyes: No Eye Pain, No Swelling, No Redness, No Foreign Body, No Discharge, No Vision Changes Cardiovascular : No Chest Pain, No SOB, No Dyspnea on Exertion, No Orthopnea, No Edema, No Palpitations Respiratory : No Cough, No Sputum, No Wheezing, No Smoke Exposure, No Dyspnea Gastrointestinal : No Nausea, No Vomiting, No Diarrhea, No Constipation, No abdominal Pain, No Hematochezia, No Melena Genitourinary : no irregular bleeding, No Dysuria, No Urinary Frequency, No Hematuria, No Urinary Incontinence, No Urgency, No Flank Pain, No Urinary Flow Changes, No Hesitancy Musculoskeletal : No joint pain, No Myalgias, No Joint Swelling Skin : No Skin Lesions, No rash Neuro : No Weakness, No Numbness, No Paresthesias, lying of a syncopal episode today after taking lorazepam and getting injections at L3, L4 and L5. No Dizziness, No Headache Psych : No Anxiety/Panic, No Depression, No SI/HI/AH/VH, No Social Issues, Heme/Lymph: No Bruising, No Bleeding,No Lymphadenopathy Endocrine : No Polyuria, No Polydipsia, No Temperature Intolerance [facility] Past Medical History Medical History Migraine Stress incontinence DDD (degenerative disc disease), thoracolumbar Lupus History of blood clots Weakness of left arm Paresthesias in left hand Surgical History S/P epidural steroid injection History of inguinal hernia repair Hx of carpal tunnel repair Hx of lumpectomy H/O: hysterectomy History of bunionectomy Hx of cholecystectomy Family History Family History Father High cholesterol HTN (hypertension) Stroke Mother Lupus Substance use disorder Congenital heart disease Dementia Sister Lupus Maternal Aunt Dementia Maternal Aunt Dementia Maternal Aunt Dementia Maternal Aunt Dementia Maternal Aunt Dementia Social History Social History Household Members: Spouse and Children Housing: House Are you a primary animal caretaker supervisor to a significant other at home: No Do you presently have visiting nurse or other home services: No Alcohol intake: never Patient Tobacco Use Status: Former Tobacco user Tobacco use type: Cigarette Years Smoked: 5 e-Cigarette/Vaping Use: Never Used Use of substances other than those prescribed or required for medical reasons: No Advance Directives: No Advance Directives Information Provided: No Patient : No service: No Current occupational status: employed 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 Oriented X3. No acute distress. Eyes: Pupils equal, round and reactive to light. ENT: Pharynx normal. Neck: Normal inspection. Neck supple. No lymph nodes noted. No crepitus CVS: Normal heart rate and rhythm. Pulses normal. Normal S1 and S2 Respiratory: No respiratory distress. Breath sounds normal. No Wheezing. No rales Abdomen: Soft and nontender. No rigidity. No distention. Skin: Skin warm and dry. Normal skin color. Normal skin turgor. Extremities: No lower extremity edema. No Lacerations. No Rash Neuro: Oriented X 3. No motor deficit. No sensory deficit. Moving all extremities. No slurred speech. CN 2 through 12 grossly intact Psych: calm, cooperative, normal affect Course Course Course Narrative: She had a syncopal episode after 2 hours of taking lorazepam and receiving several injections. Patient denies any symptoms at this time. Medications Administered Discontinued Medications Generic Name Dose Route Start Last Admin Trade Name Freq PRN Reason Stop Dose Admin Sodium Chloride 1,000 mls @ 999 mls/hr 11/16/24 00:20 11/16/24 01:30 Ns IVCONT 11/16/24 01:20 Infused .Q1H1M ONE Infusion Medical Decision Making Medical Decision Making [facility] Narrative: My interpretation of EKG: Normal sinus rhythm, heart rate 72, no ST segment depression or elevation, no T-wave inversion, QTC 427 My interpretation of labs: No significant abnormality in patient's hematology chemistry LFTs, troponin negative, urinalysis negative Patient orthostatic vitals were negative, however patient did feel a bit lightheaded with sitting. Patient is receiving IV fluids and then we will reassess vitals again. Patient has history of blood clots in the lower extremity, patient states that in 2018 it was treated with aspirin and no longer takes aspirin. Patient denies any calf pain or swelling, no chest pain or shortness of breath. However, given the patient's syncopal episode, we will get a D-dimer. Patient has syncopal episode of today, most likely vasovagal After IV fluids, orthostatic vitals were were taken, negative, patient asymptomatic. Differential Diagnosis Differential Diagnoses: The differential diagnosis associated with the presentation includes (Vasovagal syncope, near-syncope, PE, orthostatic hypotension) Admission/Observation Consideration of admission/observation: Escalation of care including admission/observation considered (Given patient's presentation and symptoms, observation was considered) Lab Data MDM Lab Attestation statement: I reviewed the patient's lab results. 11/15/24 20:57 11/15/24 20:57 Labs: Lab Results 11/15/24 11/15/24 Range/Units 20:57 21:06 WBC 10.7 (4.8-10.8) X10*3/uL RBC 4.46 (4.20-5.50) X10*6/uL Hgb 13.3 (12.0-16.0) g/dl Hct 38.7 (37.0-47.0) % MCV 86.8 (80.0-98.0) fL MCH 29.8 (27.0-33.0) pg MCHC 34.4 (31.0-35.0) g/dl RDW 12.4 (11.0-16.0) % Plt Count 281 (160-400) X10*3/uL MPV 10.9 (9.4-12.3) fL Immature Gran % (Auto) 0.4 (0.0-0.4) % Neut % (Auto) 77.3 H (45-73) % Lymph % (Auto) 14.7 L (20-40) % [place] % (Auto) 6.6 (2-11) % Eos % (Auto) 0.6 (0-4) % Baso % (Auto) 0.4 (0-2) % Lymph # (Auto) 1.6 (1.2-4.9) X10*3/uL [place] # (Auto) 0.7 (0.1-1.2) X10*3/uL Eos # (Auto) 0.1 (0.0-0.4) X10*3/uL Baso # (Auto) 0.0 (0.0-0.2) X10*3/uL Abs Immat Gran (auto) 0.04 H (0.00-0.03) X10*3/uL Absolute Neuts (auto) 8.3 (2.0-8.3) x10*3/uL Absolute Nucleated RBC 0.000 (0.0-0.012) X10*3/uL Nucleated RBC % (auto) 0.0 (0.0-0.2) /100WBC PT 11.1 (10.9-12.4) SEC INR 1.0 (0.9-1.1) D-Dimer High Sensitivty < 150 NG/ML Sodium 144 (135-145) mmol/L Potassium 3.8 (3.3-5.1) mmol/L Chloride 108 (96-108) mmol/L Carbon Dioxide 28 (22-29) mmol/L Anion Gap 12 (12-20) BUN 16 (9-16) mg/dL Creatinine 0.87 (0.5-1.4) mg/dL Estim Creat Clear Calc 90.4 Estimated GFR > 60 Random Glucose 101 (60-115) mg/dL Calcium 9.3 (8.4-10.2) mg/dL Total Bilirubin 0.4 (0.0-1.0) mg/dL AST 22 (5-31) U/L ALT 20 (0-31) U/L Alkaline Phosphatase 60 (39-117) U/L Troponin I High Sens < 2.7 (<3.5-17.0) ng/L Total Protein 7.1 (6.5-8.0) g/dL Albumin 4.4 (3.5-5.0) g/dL Urine Color Yellow Urine Appearance Clear Urine pH >= 9.0 (5.0-9.0) Ur Specific [place] 1.025 (1.005-1.025) Urine Protein Trace (Neg-Trace) mg/dL Urine Glucose (UA) Negative (Negative) mg/dL Urine Ketones Negative (Negative) mg/dL Urine Blood Negative (Negative) Urine Nitrite Negative (Negative) Ur Leukocyte Esterase Negative (Negative) Independent Interpretation I performed an independent interpretation of an: EKG Discharge Plan Discharge Clinical Impression: Vasovagal syncope Patient Disposition: Home, Self-Care Instructions: Syncope (ED) Additional Instructions: Please follow-up with your primary care physician tomorrow. If you have any worsening or new symptoms, please return to the emergency room or call 911 Prescriptions: No Action semaglutide (weight loss) 0.5 mg/0.5 mL pen injector 0.5 mg subcut QWEEK 30 Days Qty: 2.5 0RF Rx Instructions: administer weeks 1 through 4 of therapy lorazepam [Ativan] 1 mg tablet 1 mg PO ONCE Qty: 1 0RF Rx Instructions: Take 30 minutes prior to arrival to procedure Print Language: Armenian
[2024-11-16] MEDS: 0.9 % Sodium Chloride 1,000 ML 999 ML IVCONT (00:38)
[2024-11-16 00:47] LABS: D Dimer High Sensitivity < 150 NG/ML
== END 2024-11-16 02:23 | disposition home or self-care (01) ==
PROVIDERS: Emergency Provider Emergency Medicine; PCP Internal Medicine
DX: R55 Syncope and collapse (principal); Z87.891 Personal history of nicotine dependence
CPT/HCPCS: 36415; 80053; 81003; 84484; 85025; 85379; 85610; 93005; 96360; 99284; 99285

== ENCOUNTER → 2024-11-15 20:45 | Outpatient (BNV) | payer OTHER, SELFPAY | PROVIDERS: Emergency Provider Emergency Medicine; PCP Internal Medicine; Visit Provider Internal Medicine | DX: R55 Syncope and collapse (principal) | CPT/HCPCS: 93010 ==

== ENCOUNTER 2024-11-22 15:13 | Outpatient (AMB) | payer BC, SELFPAY ==
--- NOTE | 2024-11-22 15:19 | A.OFFVIS_ITS ---
Vital Signs 11/22/24 15:26 Height 5 ft 5 in Weight 197 lb BMI 32.8 BP 133/64 Blood Pressure Location Rt brachial Position Sitting Pulse 95 Pulse Source Pulse Oximeter Pulse Oximetry (%) 98 Oxygen Delivery Method Room Air Intake Visit Reasons: LEFT DIAGNOSTIC L3, L4, DRL5 MBB Intake Note: Pain today 08/22 Table Top Tile Setter Required: No Accompanied by: Self / Same As Patient Allergies azithromycin [AZITHROMYCIN] Allergy (Intermediate, Verified 11/22/24 15:27) low heart rate HPI Comments Details: Patient presents today to assess response to left diagnostic L3-L4 DR L5 MBB on 11/15/[address] Calvillo. The patient underwent left-sided L3-L4-L5 diagnostic medial branch block injections oral Ativan with temporary pain relief for 2 hours, subsequently followed by a syncopal episode. Post-procedure, she experienced dizziness, pallor, and transient loss of consciousness approximately 3-4 hours after the injections, necessitating ER intervention. The ER evaluation suggested vasovagal syncope, and the patient reported low blood pressure that normalized with IV fluid administration. Pain relief was noted momentarily but returned to moderate intensity rating 5 out of 10 after two hours post-injection. The patient has a background of lumbar degenerative arthritis without significant spinal stenosis or nerve root compromise per recent lumbar spine MRI. Patient denies lumbar or head CT imaging during recent ER evaluation. Patient continues to endorse axial low back pain with left sided radicular symptoms into her left lower extremity. Reports difficulty with mobility and daily activities and climbing stairs due to back pain. Past Procedures: 11/15/24: Left Diagnostic L3-L4 DR L5 MBB-50% pain relief for 2 hours 08/05/24: Left Therapeutic SIJ injection-ongoing 40% pain relief 10/30/23: Left Therapeutic SIJ injection-ongoing 100% pain relief 05/22/23: Left Therapeutic SIJ injection-ongoing 100% pain relief 12/12/22: Left Therapeutic SIJ [id number]% pain relief for 3.1 months 10/14/22: Left Diagnostic SIJ injection-80% pain relief for 3 days PRIOR: Patient presents today for follow up for persistent low back pain with left sided radicular symptoms and discuss recent MRI results. Her pain originates in the lumbar region and radiates to the left buttock and leg, with increasing aggravation over time. She notes significant difficulty when using stairs and sleeping on her left side due to pain. Previous SI joint injections have provided limited relief, and recent MRI findings are noted below. There is reported numbness, tingling, and pain radiating below the knee on the left side, particularly exacerbated by sitting pressure. Her history of degenerative changes and arthritis in the right and left foot has affected her walking and possibly contributed to her back pain. She is interested in Podiatry evaluation. PRIOR: The patient is a 44-year-old female presenting for follow-up regarding lumbar pain and lack of significant relief following a therapeutic left-sided SI joint injection performed on 08/05/[address] Calvillo. Previously, left-sided SIJ injections had resulted completed pain relief for 3-6 months. At present, the pain is reported at a level of 6/10 and radiates down the left leg accompanied by numbness and tingling. This pain typically intensifies when changing positions, sitting, or standing for prolonged periods, and when navigating stairs. An MRI done two years ago indicated degenerative changes without stenosis. She also manages occasional stress urinary incontinence, otherwise denies any significant lower extremity weakness, foot drop, bowel dysfunction or saddle anesthesia. - Onset: Chronic, with recurrent episodes. - Quality: Radiating down the left leg with numbness and tingling. - Location: Right side, lumbar region. - Radiation: Down the left leg. - Exacerbating Factors: Changing positions, prolonged sitting or standing, use of stairs, getting in and out of vehicles. - Relieving Factors: None explicitly stated. - Interference: Sleep disturbance, limitation in physical activities, difficulty with bending forward. - Affect: Pain affecting sleep and daily functioning. - Analgesia: Uses Tylenol; reports pain level of 6, seeks improved relief. - Adverse Effects: Avoids ibuprofen due to stomach condition. - Activities of Daily Living: Challenges with positions, vehicle access, walking up stairs. - Aberrant Drug Related Behaviors: None reported. Past Procedures: 08/05/24: Left Therapeutic SIJ injection-ongoing 40% pain relief 10/30/23: Left Therapeutic SIJ injection-ongoing 100% pain relief 05/22/23: Left Therapeutic SIJ injection-ongoing 100% pain relief 12/12/22: Left Therapeutic SIJ [id number]% pain relief for 3.1 months 10/14/22: Left Diagnostic SIJ injection-80% pain relief for 3 days PRIOR 10/07/22 Dr. Calvillo: Naomi is a pleasant 42 year old female patient who presents to the office today for follow up of her lower back pain and scheduled interlaminar T12-L1 MAGDALENA. Patient reports pain in lower back, radiating into left buttock, lateral left hip/thigh/hogan; pain does not radiate below the ankle. She denies saddle anesthesia, incontinence of bowel or bladder. She denies numbness in the B/L LE. She denies weakness in B/l LE. She denies pain in the abdomen or the groin areas. Imaging was reviewed, results below. After physical exam, as detailed below, discussion was had with patient in regards to scheduled procedure. Patient's symptoms more consistent with sacroiliitis as well as spondylosis lumbar spine without symptoms of radiculopathy. , risks versus benefits of proceeding with scheduled T12-L1 MAGDALENA reviewed with patient, patient unlikely to receive significant therapeutic benefit and the risks of the procedure performed against the area of the spinal canal with the presence of spinal cord outweigh the very unclear benefits of the injection . Patient to be rescheduled for diagnostic left SI joint injection on October 14; she agrees with plan. She is also suffering from inguinal hernia for which the procedure is scheduled for her on October 22, 2022. PRIOR: Patient is a pleasant 42 years old female presents today for initial evaluation of worsening of chronic lower back pain. Patient denies any recent trauma, injury or falls. However, she reports back injury 2 years ago when she slipped on an icy parking lot coming out of her car. She fell on her left buttock on her car steppers and then on an iced parking lot. Her back pain is axial and also radiating to her left buttock, left lateral hip and into lateral and slightly posterior left thigh. She experiences spasms and marily horses sensations in her left hogan and calf with prolonged walking. Back pain increases prolonged sitting, walking, standing, changing positions, getting out of bed or shower, any movement and weather changes. Pain is described as constant pulsing, throbbing, pounding, stabbing, lancinating, pinching, cramping, crushing, hot burning scalding, searing, tingling, stingling, spreading, radiating, piercing, cool, cold, freezing and spasming. Denies previous spine surgery or injections. Reports getting frequent cortisone injections for left GTB pain with good relief but not lasting up to 3 months. Pain affects her daily activities, functions, mood, sleep, social interactions and quality of life. Patient is also concerned about episodic urine incontinence that has been happening during walking, bending, sitting and can happen with and without urine urgency. This has been happening for a few months. Denies seeing urology or ObGyn providers for this. Patient has been managing her pain with Tylenol, Motrin and hot shower or heat therapy with continued symptoms. Denies any fever, chills, abdominal or groin pain, sensory loss or weakness, bowel incontinence, or saddle anesthesia. 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 She is right hand dominant. Reports utilizing standing up desk for alternating her work day with walking and standing. Patient is starting physical activity this week. [facility] Medical History Migraine Stress incontinence DDD (degenerative disc disease), thoracolumbar Lupus History of blood clots Weakness of left arm Paresthesias in left hand Surgical History S/P epidural steroid injection History of inguinal hernia repair Hx of carpal tunnel repair Hx of lumpectomy H/O: hysterectomy History of bunionectomy Hx of cholecystectomy Family History Father High cholesterol HTN (hypertension) Stroke Mother Lupus Substance use disorder Congenital heart disease Dementia Sister Lupus Maternal Aunt Dementia Maternal Aunt Dementia Maternal Aunt Dementia Maternal Aunt Dementia Maternal Aunt Dementia Social History Household Members: Spouse and Children Housing: House Are you a primary child care attendant school to a significant other at home: No Do you presently have visiting nurse or other home services: No Alcohol intake: never Patient Tobacco Use Status: Former Tobacco user Tobacco use type: Cigarette Years Smoked: 5 e-Cigarette/Vaping Use: Never Used service: No Current occupational status: employed 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 Denies incontinence, weakness, numbness, headache, and tingling. - Cardiovascular: Reports pallor and presumed low blood pressure episodes as captured at ER. - Musculoskeletal: Reports left-sided back pain, difficulty ascending stairs. - Constitutional: Reports feeling pallor during syncopal episode. Denied fever. All systems reviewed & are unremarkable except as noted in HPI and below Physical Exam Vital Signs: Last Vital Signs Pulse 95 11/22/24 15:26 BP 133/64 11/22/24 15:26 Pulse Ox 98 11/22/24 15:26 Oxygen Delivery Method Room Air 11/22/24 15:26 BMI result Body Mass Index 32.8 General: Appears afebrile. No acute distress. Alert and oriented. Mood and affect appropriate. Follows and participates in conversation appropriately. Respiratory effort is unlabored. No cough. Able to transition from sit to stand unassisted. Ambulates with bilaterally normal heel strike and toe off, increased pain with toe/heel standing on the left. General: Yes no CVA tenderness Back/Spine/Pelvis Other: Patient is able to walk and stand on heels and tip toes with mild difficulty on the left due to pain. Normal gait, no limping. Lumbar flexion, extension and axial rotation reproduce moderate pain. Demonstrates 5/5 strength of quadriceps bilaterally as well as flexion/dorsiflexion of bilateral feet against resistance. 2+ pedal pulses bilaterally. SLR with dorsiflexion negative bilaterally. +2 patellar and +1 achilles reflexes bilaterally. Facet loading te st positive bilaterally. Nia signs, Colin?s, Pelvic compression and Stinchfield tests are positive on the left. No groin pain with I/E hip rotations on the left. Mild TTP in GTB on the left. Valsalva maneuver is negative. Back: no CVA tenderness Cervical Spine: normal cervical lordosis, cervical ROM normal, cervical muscular tenderness, No Cervical spine tenderness and No step off deformity Thoracic/Lumbar Spine: thoracic and lumbar spine normal to inspection, Lasegue's sign negative, straight leg raise negative bilaterally, pain with thoraco- lumbar ROM, paraspinal muscle tenderness on the left greater than right, thoraco-lumbar ROM limited, No thoracic spinal tenderness and lumbar spinal tenderness (L4-S1) Pelvis: buttock tenderness on the left Sacroiliac joints: on the right nontender and on the left tender to palpation Results Reviewed Results Reviewed: MR lumbar spine without intravenous contrast 09/18/24 Comparison: MRI of the lumbar spine from 08/18/2022 Findings: No significant change in vertebral heights or vertebral alignments. Five lumbar type vertebrae. Small hemangiomas redemonstrated including T12 and L3. New mild Modic type 1 endplate changes at T12-L1, L1-L2, and L5-S1. No significant change in small disc extrusion, Schmorl's node, endplate remodeling at T12-L1 with minimal ventral spinal canal stenosis and mild left foraminal narrowing. No drainable paraspinal fluid collection . L1-L2: Bilateral facet arthropathy. No spinal stenosis. L2-L3: Bilateral facet arthropathy. No spinal stenosis. L3-L4: Small disc bulge and bilateral facet arthropathy. No spinal stenosis. L4-L5: Worsening bilateral facet arthropathy with mild increase in small facet effusions and increase in dorsal small bilateral facet cysts. No significant spinal stenosis. L5-L1: Disc bulge, new small annular fissure, mild increase in the endplate hypertrophy, and mild worsening of the bilateral facet arthropathy. No significant spinal stenosis. Facet effusions present. IMPRESSION: 1. Evolution and worsening of degenerative changes, compared to 2 years prior, including lower lumbar facet arthropathy. 2. No significant spinal stenosis or nerve root compromise. Assessment & Plan Assessment & Plan (1) Sacroiliac joint pain: Code(s): M53.3 - Sacrococcygeal disorders, not elsewhere classified Category: Medical (2) Low back pain radiating to left leg: Code(s): M54.50 - Low back pain, unspecified; M79.605 - Pain in left leg Category: Medical (3) Muscle spasm of back: Code(s): M62.830 - Muscle spasm of back Category: Medical (4) Lumbosacral spondylosis: Code(s): M47.817 - Spondylosis without myelopathy or radiculopathy, lumbosacral region Category: Medical (5) Lumbar degenerative disc disease: Code(s): M51.369 - Other intervertebral disc degeneration, lumbar region without mention of lumbar back pain or lower extremity pain Category: Medical Plan The patient's syncopal episode likely represents post-procedural vasovagal syncope, already managed in ER settings. Ongoing axial low back pain will be addressed with repeat diagnostic lumbar medial branch block injections in order to establish reproducible response to the treatment for potential RFA or Sprint PNS trial procedures. Schedule repeat Left diagnostic L3-L4 DR L5 MBB injections with local and fluoroscopy. Expectations, risks and benefits were reviewed. Patient is aware she will be contacted to schedule this procedure. All questions and concerns have been answered and patient agreed with the plan. Follow up after injections and sooner as needed. Patient was informed and verbally consented to the use of an ambient scribe for clinic note documentation during this visit. Coding Level of Care Code Est Pt Level 4 (54175) Complex EM visit Add On G2211 Diagnoses Sacroiliac joint pain M53.3 Low back pain radiating to left leg M54.50; M79.605 Muscle spasm of back M62.830 Lumbosacral spondylosis M47.817 Lumbar degenerative disc disease M51.369
[2024-11-22 15:26] VITALS: BP 133/64; PULSE 95; O2SAT 98; BMI 32.8
--- OUTSIDE RECORDS SUMMARY | 2024-11-22 18:23 | XMS_ITS | Continuity of Care Document ---
Author Organization [facility] [address] [place] [address] Phone [phone] Care Team Providers Care Physical Sciences Instructor Name Role Phone Joel Rosas Care Team Information Director [employer] + [phone] Bonilla Yurigretel Care Team Information Director [employer] + [phone] Problems Active Problems Provider Date Endometriosis (clinical) Oj Covarrubias M.D. O nset: 08/12/2022 Impaired fasting glycemia Oj Covarrubias M.D. Onset: 12/01/2022 Dyspareunia Oj Covarrubias M.D. Onset: Reduced libido Oj Covarrubias M.D. Onset: Fatigue Oj Covarrubias M.D. Onset: Obesity Oj Covarrubias M.D. Onset: Hyperlipidemia Oj Covarrubias M.D. Onset: Social History Type Date Description Comments Sex Female Sex Unknown Tobacco Use Start: Unknown Never [...] H/L Range N ote Lipid Panel 09/13/2022 [facility] Cholesterol, Total 207 mg/dL High (<200) Triglyceride 190 mg/dL High (<150) HDL Chol 62 mg/dL (>39) LDL Cholesterol , Calculated 107 mg/dL (0-130) Non HDL Cholesterol (Calc) 145 mg/dL (<160) TSH With Reflex To FT4 09/13/2022 [facility] TSH With Reflex To FT4 2.24 uIU/mL (0.4-4.2) LH 09/13/2022 [facility] LH 8.8 MIU/ML 1 FSH 09/13/2022 [facility] FSH 7.6 MIU/ML 2 Estradiol 09/13/2022 [facility] Estradiol 556 pg/mL 3 Glucose 09/13/2022 [facility] Glucose 115 mg/dL High (70-99) [...]
== END 2024-11-22 15:50 | disposition home or self-care (01) ==
LOC: HO.PMC 15:14
PROVIDERS: PCP Internal Medicine; Visit Provider Nurse Practitioner Family
DX: M53.3 Sacrococcygeal disorders, not elsewhere classified (principal); M54.50 Low back pain, unspecified; M79.605 Pain in left leg; M62.830 Muscle spasm of back; M47.817 Spondylosis without myelopathy or radiculopathy, lumbosacral region; M51.369 Other intervertebral disc degeneration, lumbar region without mention of lumbar back pain or lower extremity pain
CPT/HCPCS: 99214

== ENCOUNTER 2024-11-25 12:09 | Outpatient (AMB) | payer OTHER, SELFPAY ==
--- NOTE | 2024-11-25 12:16 | A.OFFVIS_ITS ---
Intake Visit Reasons: OV- CT Scan Review right shoulder Intake Note: Naomi is a 44 year old right hand dominant female who presents today for a CT review of her right shoulder. She was last seen with Tara who ordered an MRI, Physical Therapy She was given a Note to refrain from any pushing pulling or lifting greater than 5 lb, limit repetitive motion, and no overhead reaching for 2 months. Allergies azithromycin [AZITHROMYCIN] Allergy (Intermediate, Verified 11/22/24 15:27) low heart rate HPI HPI OV- CT Scan Review right shoulder: Details: Naomi is a 44 year old right hand dominant female who presents today for a CT review of her right shoulder. She was last seen with Tara who ordered an MRI, Physical Therapy. She is on light duty and is restricted from any pushing pulling or lifting greater than 5 lb, limit repetitive motion, and no overhead reaching. She feels better than she has over the past several months but still with pain. She is not sleeping at night and she has difficulty lifting. She is here today for CT review. [facility] Medical History Migraine Stress incontinence DDD (degenerative disc disease), thoracolumbar Lupus History of blood clots Weakness of left arm Paresthesias in left hand Surgical History S/P epidural steroid injection History of inguinal hernia repair Hx of carpal tunnel repair Hx of lumpectomy H/O: hysterectomy History of bunionectomy Hx of cholecystectomy Family History Father High cholesterol HTN (hypertension) Stroke Mother Lupus Substance use disorder Congenital heart disease Dementia Sister Lupus Maternal Aunt Dementia Maternal Aunt Dementia Maternal Aunt Dementia Maternal Aunt Dementia Maternal Aunt Dementia Social History Household Members: Spouse and Children Housing: House Are you a primary respiratory care practitioner to a significant other at home: No Do you presently have visiting nurse or other home services: No Alcohol intake: never Patient Tobacco Use Status: Former Tobacco user Tobacco use type: Cigarette Years Smoked: 5 e-Cigarette/Vaping Use: Never Used service: No Current occupational status: employed 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 Cognitive needs: No Hearing needs: No Vision needs: Yes (contacts) Physical Exam Extrem Other: On exam she has 4+/5 empty can strength with discomfort. She has a positive Vergara and Neer. She has a positive Interlachen's with a negative crank. Negative lift-off Results Reviewed Results Reviewed: I personally reviewed the CT images. 1. There may be a very mild degree of calcific tendinitis of the subscapularis tendon. 2. Tiny avulsion fracture associated with the anterior aspect of the glenoid, of uncertain age. I personally reviewed the MR images. 1. No internal derangement of the right shoulder. The rotator cuff is intact. The labrum appears intact. 2. There is mild subacromial/subdeltoid bursitis. 3. There is minimal arthritis in the AC joint. Assessment & Plan Assessment & Plan (1) Subacromial bursitis: Code(s): M75.50 - Bursitis of unspecified shoulder Category: Medical Plan: This is a 44-year-old woman who sustained a workplace injury in April of 2024. She has been doing physical therapy and on light duty and has had an MRI and a CT scan. On exam her symptoms are most consistent with impingement although I can not rule out biceps labral complex injury. She has a negative lift-off and I do not feel the subscapularis is involved. She has improved with treatment but still feels unable to lift overhead and has pain at night. I think it would be reasonable to consider a subacromial PRP injection. I will refer her to my pain management colleagues. This may or may not be compensated with worker's compensation. I discussed this with her. She is willing to try given the fact that she can not seem to regain her function. Plan She was given a Note to refrain from any pushing pulling or lifting greater than 5 lb, limit repetitive motion, and no overhead lifting Orders: Referrals Pain Management Referral M75.50 - Bursitis of unspecified shoulder Coding Level of Care Code Est Pt Level 3 (15713) Diagnoses Subacromial bursitis M75.50
== END 2024-11-25 13:13 | disposition home or self-care (01) ==
LOC: HO.HOS 12:10
PROVIDERS: PCP Internal Medicine; Visit Provider Orthopaedic Surgery
DX: M75.50 Bursitis of unspecified shoulder (principal)
CPT/HCPCS: 99213

== ENCOUNTER → 2024-11-25 12:09 | Outpatient (BNVA) | payer OTHER, SELFPAY | PROVIDERS: PCP Internal Medicine; Visit Provider Orthopaedic Surgery | DX: M75.51 Bursitis of right shoulder (principal); M25.511 Pain in right shoulder | CPT/HCPCS: 99212 ==

== ENCOUNTER → 2024-12-08 14:09 | Outpatient (BNVA) | payer OTHER, SELFPAY | PROVIDERS: PCP Internal Medicine; Visit Provider Physician Assistant Medical | DX: M23.8X2 Other internal derangements of left knee (principal) | CPT/HCPCS: 99213 ==

== ENCOUNTER 2024-12-08 18:50 | Outpatient (REF) | payer OTHER, SELFPAY ==
--- NOTE | ~2024-12-08 | MR_ITS ---
EXAMINATION: MR BRAIN WITHOUT AND WITH CONTRAST CLINICAL INFORMATION: Demyelinating disease. No further clinical information provided. COMPARISON: No prior MRI available. Correlation made with CT head 07/18/2022, and 09/04/2020. TECHNIQUE: Multiplanar, multisequence MRI of the brain was obtained before and after the intravenous administration of 9 mL Gadavist. Examination performed on a 1.5 Nany Siemens high-field unit. Demyelinating protocol was utilized including a sagittal FLAIR sequence. FINDINGS: There is no diffusion restriction. There is no intracranial hemorrhage, acute infarction, mass effect, or edema. Ventricles, sulci, and cisterns are normal in size and configuration for patient age. No shift of midline. No abnormal hemosiderin deposition is identified. There are a scattered punctate and minimally confluent foci of white matter T2 hyperintensity in the periventricular, subcortical, and hemispheric deep white matter. These have a nonspecific appearance with no distribution or morphology specific for inflammatory demyelination. There are no callosal, callosomarginal, or pericallosal lesions, although there is hyperintensity along the callosal septal interface, which can be finding associated with demyelinating disease. There are no posterior fossa lesions. There are no T1 hypointense lesions. There is a solitary small lesion in the right mesial temporal lobe (series 8, image 13). There is no abnormal intra or extra-axial enhancement after the administration of gadolinium. Midline structures appear normally formed. There is no callosal atrophy. The pituitary gland appears normal. Posterior fossa structures appear normal. Cerebellar tonsils are appropriately located. Major flow voids are preserved within the skull base. The globes and orbital contents demonstrate no abnormalities. No definite optic nerve signal abnormalities. Paranasal sinuses are clear bilaterally. The mastoids and tympanic cavities are normally aerated. Extracranial soft tissues demonstrate no abnormalities. No suspicious bone marrow changes are evident. Atlantoaxial joint is normal. MR/MR head/brain wo/w con IMPRESSION: 1. No evidence of intracranial hemorrhage, acute infarction, mass effect, or edema. No abnormal intra or extra-axial contrast enhancement. 2. Scattered T2 hyperintense white matter foci as detailed, for which differential includes changes of small vessel ischemia and demyelinating disease. See above. Electronically signed by: Marcelo Laurent MD 12/09/2024 08:11 AM EDT
[2024-12-08] MEDS: gadobutroL 10 ML VIAL IVPUSH (19:41)
--- OUTSIDE RECORDS SUMMARY | 2024-12-08 20:00 | XMS_ITS | Continuity of Care Document ---
Author Organization [facility] [address] [place] [address] Phone [phone] Care Team Providers Care Embossing Calender Operator Name Role Phone Joel Rosas Care Team Information Weight Count Operator + [phone] Maggie Crystal Care Team Information Weight Count Operator + [phone] Problems Active Problems Provider Date Endometriosis (clinical) [...] Tobacco Use Start: Unknown Never Smoked Cigarettes Allergies and adverse reactions Active Allergies Criticality [...] H/L Range N ote Lipid Panel 09/13/2022 [facility] Cholesterol, Total 207 mg/dL High (<200) Triglyceride 190 mg/dL High (<150) HDL Chol 62 mg/dL (>39) LDL Cholesterol , Calculated 107 mg/dL (0-130) Non HDL Cholesterol (Calc) 145 mg/dL (<160) TSH With Reflex To FT4 09/13/2022 [facility] TSH With Reflex To FT4 2.24 uIU/mL (0.4-4.2) LH 09/13/2022 [facility] LH 8.8 MIU/ML 1 FSH 09/13/2022 [facility] FSH 7.6 MIU/ML 2 Estradiol 09/13/2022 [facility] Estradiol 556 pg/mL 3 Glucose 09/13/2022 [facility] Glucose 115 mg/dL High [...]
== END 2024-12-08 18:51 | disposition home or self-care (01) ==
LOC: HO.MRI 18:50
PROVIDERS: PCP Internal Medicine; Visit Provider Psychiatry & Neurology Neurology
DX: G37.9 Demyelinating disease of central nervous system, unspecified (principal)
CPT/HCPCS: 70553; A9585

== ENCOUNTER → 2024-12-08 19:09 | Outpatient (BNV) | payer OTHER, SELFPAY | PROVIDERS: PCP Internal Medicine; Visit Provider Radiology Diagnostic Radiology | DX: R90.82 White matter disease, unspecified (principal) | CPT/HCPCS: 70553 ==

== ENCOUNTER 2024-12-09 09:39 | Day surgery (SDC) | payer OTHER, SELFPAY ==
--- OUTSIDE RECORDS SUMMARY | 2024-11-25 08:15 | XMS_ITS | Continuity of Care Document ---
Author Organization [facility] [address] [place] [address] Phone [phone] Care Team Providers Care Maintenance Inspector Name Role Phone Joel Rosas Care Team Information [employer] Principal + [phone] Bonilla Yurigretel Care Team Information [employer] Principal + [phone] Problems Active Problems Provider Date Endometriosis (clinical) [...] H/L Range N ote Lipid Panel 09/13/2022 [facility] Cholesterol, Total 207 mg/dL High (<200) Triglyceride 190 mg/dL High (<150) HDL Chol 62 mg/dL (>39) LDL Cholesterol , Calculated 107 mg/dL (0-130) Non HDL Cholesterol (Calc) 145 mg/dL (<160) TSH With Reflex To FT4 09/13/2022 [facility] TSH With Reflex To FT4 2.24 uIU/mL (0.4-4.2) LH 09/13/2022 [facility] LH 8.8 MIU/ML 1 FSH 09/13/2022 [facility] FSH 7.6 MIU/ML 2 Estradiol 09/13/2022 [facility] Estradiol 556 pg/mL 3 Glucose 09/13/2022 [facility] Glucose 115 mg/dL High [...]
[2024-12-09] VITALS (9 sets, daily range): BP systolic 98–120; BP diastolic 56–77; PULSE 57–75; RESP 12–16; TEMP 36.4–36.6; O2SAT 98–100; BMI 31.5
--- NOTE | ~2024-12-09 | FL_ITS ---
EXAMINATION: XR LUMBAR PUNCTURE CLINICAL INFORMATION: DEMENTIA COMPARISON: None available. TECHNIQUE: Following explaining fluoroscopy-guided lumbar puncture procedure, benefits and risk, a written consent was obtained. Patient was placed prone on fluoroscopy table and skin marker was placed overlying the L2-4 disc level. The area marked was cleaned and draped in usual sterile manner. 1% lidocaine was injected at puncture site at the L3-4 disc level. A 20-gauge spinal needle was then inserted from the skin intrathecally at the L3-4 disc level. The stylet was withdrawn and after observing CSF return, patient was quickly placed in left lateral decubitus view and opening CSF pressure was obtained. Subsequently CSF fluid was collected in 4 test tubes with stylet was reintroduced and needle withdrawn. Complete hemostasis achieved at puncture site. Simple Band-Aid applied at the puncture site. Patient tolerated procedure well. FINDINGS: Unremarkable images obtained of lumbar spine the vertebral heights and alignment and disc heights are normal. No visible fracture or dislocation seen. The opening CSF pressure measures 15.5 cm of water. Approximately 17.5 minute clear CSF fluid was collected in 4 test tubes. FLUOROSCOPY TIME: 59 seconds. DOSE AREA PRODUCT: 1240 uGy-m2 (microgray-meter squared) FL/FL guided lumbar puncture LP IMPRESSION: Successful fluoroscopy-guided lumbar puncture performed without immediate complications. Electronically signed by: Fracisco Maldonado MD 12/09/2024 02:02 PM EDT
[2024-12-09 10:31] LABS: UPreg QC Valid YES; Urine Pregnancy NEGATIVE (NEGATIVE)
[2024-12-09] MEDS: Lidocaine HCl 1 % MPF 5 ML VIAL SUBCUT (11:52)
[2024-12-09 12:28] LABS: CSF Appearance Clear, Colorless; CSF Tube # 1
[2024-12-09 12:35] LABS: Glucose CSF 51 mg/dL
[2024-12-09 13:07] LABS: Appearance CSF CLEAR; CSF Tube # 4; CSF Volume 5.5 ML; Color CSF COLORLESS; Red Blood Cell CSF 0 MM*3; White Blood Cell CSF 0 MM*3
== END 2024-12-09 13:36 | disposition home or self-care (01) ==
PROVIDERS: Radiology Diagnostic Radiology; PCP Internal Medicine; Visit Provider Psychiatry & Neurology Neurology
PROC: 009U3ZZ Drainage of Spinal Canal, Percutaneous Approach (ICD-10-PCS; CPT 62270; principal; 2024-12-09 11:00)
DX: F03.90 Unspecified dementia, unspecified severity, without behavioral disturbance, psychotic disturbance, mood disturbance, and anxiety (principal); G37.9 Demyelinating disease of central nervous system, unspecified; M51.35 Other intervertebral disc degeneration, thoracolumbar region; M32.9 Systemic lupus erythematosus, unspecified; G43.909 Migraine, unspecified, not intractable, without status migrainosus; G89.29 Other chronic pain; M54.42 Lumbago with sciatica, left side; Z86.718 Personal history of other venous thrombosis and embolism; Z87.19 Personal history of other diseases of the digestive system; Z79.85 Long-term (current) use of injectable non-insulin antidiabetic drugs
CPT/HCPCS: 62328; 81025; 82234; 82945; 84157; 84393; 84394; 87015; 87070; 87205; 89051; J2003

== ENCOUNTER → 2024-12-09 11:00 | Outpatient (BNV) | payer OTHER, SELFPAY | PROVIDERS: PCP Internal Medicine; Visit Provider Radiology Diagnostic Radiology | DX: F03.90 Unspecified dementia, unspecified severity, without behavioral disturbance, psychotic disturbance, mood disturbance, and anxiety (principal) | CPT/HCPCS: 62328 ==

== ENCOUNTER 2024-12-13 08:12 | Outpatient (AMB) | payer BC, SELFPAY ==
[2024-12-13 08:17] VITALS: BP 108/78; PULSE 70; TEMP 37; O2SAT 97; BMI 32.0
--- NOTE | 2024-12-13 08:17 | A.OFFPC_ITS ---
Vital Signs 12/13/24 08:17 Height 5 ft 5 in Weight 192 lb 4 oz BMI 32.0 BP 108/78 Blood Pressure Location Lt brachial Position Sitting Pulse 70 Pulse Source Pulse Oximeter Temp 98.6 F Temp Source Oral Pulse Oximetry (%) 97 Oxygen Delivery Method Room Air Intake Visit Reasons: nina payton Dye Lab Technician Required: No Is last menstrual period known: No Post menopausal: No Patient : No Allergies azithromycin (AZITHROMYCIN) Allergy (Intermediate, Verified 12/13/24 08:23) low heart rate Medication List - Last Reconciled 12/13/24 by Maggie Crystal MD baclofen 5 mg PO BEDTIME semaglutide (weight loss) 0.5 mg (0.5 mL) subcut QWEEK 30 days Tobacco use date assessed: 10/28/24 Dental Screening Dental Screen Date: 10/28/24 Did you have a dental visit in the last 12 months?: Yes Did you have a dental problem in the last 6 months where you did not have access to dental care?: No Was dental information given to patient?: Patient has dentist HPI nina payton HPI Details - The patient is a 44-year-old female pr esenting with complications following a lumbar puncture. - History of Problem: The lumbar punctur e was performed on Thursday to check for dementia, and the patient has been experiencing cramping in the right leg since then. - Detailed Description of the Problem: T he cramping is severe enough to impact her ability to walk and exercise, causing significant discomfort. - Interventions: The patient has not yet contacted the neurologist who performed the procedure but plans to do so. - Relevant Medical History: The patient is currently on semaglutide 0.5 mg for weight management and has been on this dose for nearly a year. - Chronology of Events: The patient star allan experiencing leg cramping immediately after the lumbar puncture, which has persisted over the weekend. Right leg Problem List - Lumbar puncture complication - Leg cramping right leg - Pain management - Weight management Patient Instructions - take baclofen at night for right leg cramping - Contact the neurologist who performed the lumbar puncture to discuss the leg cramping. - Continue with current semaglutide dose for weight management. Review of Systems - General: No fever no chills - Neurological: No headaches no dizziness - Ear nose throat: No sore throat no hearing difficulty no ear pain - Cardiovascular: No syncope, no chest pain, no palpitations - Gastrointestinal: No nausea vomiting or diarrhea Physical Exam General: No acute distress HEENT: No acute findings Neck: Supple Respiratory system: Able to talk in full sentences Extremities: Cramping feeling in the right leg off and on since the lumbar puncture COLD ROLL CATCHER: Alert awake oriented x3 gait is stable Skin: Normal turgor PFSH Medical History Migraine Stress incontinence DDD (degenerative disc disease), thoracolumbar Lupus History of blood clots Weakness of left arm Paresthesias in left hand Surgical History S/P epidural steroid injection History of inguinal hernia repair Hx of carpal tunnel repair Hx of lumpectomy H/O: hysterectomy History of bunionectomy Hx of cholecystectomy Family History Father High cholesterol HTN (hypertension) Stroke Mother Lupus Substance use disorder Congenital heart disease Dementia Sister Lupus Maternal Aunt Dementia Maternal Aunt Dementia Maternal Aunt Dementia Maternal Aunt Dementia Maternal Aunt Dementia Social History Household Members: Spouse and Children Housing: House Are you a primary primary care nurse practitioner to a significant other at home: No Do you presently have visiting nurse or other home services: No Alcohol intake: never Patient Tobacco Use Status: Former Tobacco user Tobacco use type: Cigarette Years Smoked: 5 e-Cigarette/Vaping Use: Never Used Patient : No service: No Current occupational status: employed 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 1. Little interest or pleasure in doing things: not at all 2. Feeling down, depressed, or hopeless: not at all 3. Trouble falling or staying asleep, or sleeping too much: not at all 4. Feeling tired or having little energy: not at all 5. Poor appetite or overeating: several days 6. Feeling bad about yourself - or that you are a failure or have let yourself or your family down: not at all 7. Trouble concentrating on things, such as reading the newspaper or watching television: not at all 8. Moving or speaking so slowly that other people could have noticed. Or the opposite - being so fidgety or restless that you have been moving around a lot more than usual: not at all 9. Thoughts that you would be better off or of hurting yourself in some way: not at all Total score: 1 Depression Screening Interpretation: Negative Depression Screening Done: Yes 67739 - PHQ-9 Billing: Yes Source: Developed by Drs. Morris Farooq, Francia Barfield, Leonel Min and colleagues, with an educational austyn from [employer] Thrive Questionnaire Date Thrive assessed: 06/15/24 I am a: Patient What is your living situation today?: I have a steady place to live Within the past 12 months, did the food you bought not last and you didn't have the money to get more?: Never true Within the past 12 months, did you worry whether your food would run out before you got money to buy more?: Never true Do you have trouble paying for medicines?: No Do you have trouble getting transportation to medical appointments?: No Do you have trouble paying your heating and electricity bill?: No Do you have trouble taking care of your child, family member or friend?: No Do you have trouble with day-to-day activities such as bathing, preparing meals, shopping, managing finances, etc.?: No Are you currently unemployed and looking for a job?: No Are you interested in more education?: No Please select the resources that you would like help with: None Currently or been in a relationship where the following occur: No concerns reported THRIVE Score: 0 AUDIT C Alcohol Use Questionnaire (AUDIT-C) 1. How often do you have a drink containing alcohol?: Monthly or less 2. How many drinks containing alcohol do you have on a typical day when you are drinking?: 1 or 2 3. How often do you have six or more drinks on one occasion?: Never Total Score: 1 Score Reviewed/Action Taken: Yes DAMON-7 AMB Questionnaire DAMON-7 Date DAMON - 7 assessed: 10/28/24 Feeling nervous, anxious, or on edge: 0 = Not at all Not being able to stop or control worryin = Not at all Worrying too much about different things: 0 = Not at all Trouble relaxin = Not at all Being so restless that it is hard to sit still: 0 = Not at all Becoming easily annoyed or irritable: 0 = Not at all Feeling afraid as if something awful might happen: 0 = Not at all Total DAMON-7 score (0-4 normal; 5-9 mild; 10-14 moderate; 15-21 severe): 0 Source: Developed by Drs. Morris Farooq, Francia Barfield, Leonel Min and colleagues, with an educational austyn from [employer]. DAMON-7 Assessment Billing DAMON-7 Assessment Tool: DAMON-7 Assessment 58598 Physical exam (Primary Care) Vital Signs: Last Vital Signs Temp 98.6 F 12/13/24 08:17 Pulse 70 12/13/24 08:17 BP 108/78 12/13/24 08:17 Pulse Ox 97 12/13/24 08:17 Oxygen Delivery Method Room Air 12/13/24 08:17 BMI result Body Mass Index 32.0 Tobacco/Smoking Status: Tobacco use Status Tobacco use date assessed 10/28/24 12/13/24 08:26 Patient Tobacco Use Status Former Tobacco user 12/13/24 08:26 Tobacco use type Cigarette 12/13/24 08:26 e-Cigarette/Vaping Use Never Used 12/13/24 08:26 PHQ-9: PHQ-9 Score PHQ-9: Total score 1 12/13/24 08:46 Depression Screening Interpretation: Negative Thrive Assessment: Date of Thrive Assessment Date Thrive assessed 06/15/24 12/13/24 08:26 Currently or been in a relationship where the following occur: No concerns reported Coding Level of Care Code Est Pt Level 3 (36238) Diagnoses Right lumbar radiculitis M54.16 Cramps of right lower extremity R25.2 Additional Codes DAMON-7 Assessment Billing - DAMON-7 Assessment Tool: DAMON-7 Assessment 10601 ([id number]) PHQ-9 - 99533 - PHQ-9 Billing: Yes ([id number]) Assessment & Plan Assessment & Plan (1) Right lumbar radiculitis: Code(s): M54.16 - Radiculopathy, lumbar region Category: Medical (2) Cramps of right lower extremity: Code(s): R25.2 - Cramp and spasm Category: Medical Plan - The patient is a 44-year-old female presenting with complications following a lumbar puncture. - History of Problem: The lumbar puncture was performed on Thursday to check for dementia, and the patient has been experiencing cramping in the right leg since then. - Detailed Description of the Problem: The cramping is severe enough to impact her ability to walk and exercise, causing significant discomfort. - Interventions: The patient has not yet contacted the neurologist who performed the procedure but plans to do so. - Relevant Medical History: The patient is currently on semaglutide 0.5 mg for weight management and has been on this dose for nearly a year. - Chronology of Events: The patient started experiencing leg cramping immediately after the lumbar puncture, which has persisted over the weekend. Right leg Problem List - Lumbar puncture complication - Leg cramping right leg - Pain management - Weight management Patient Instructions - take baclofen at night for right leg cramping - Contact the neurologist who performed the lumbar puncture to discuss the leg cramping. - Continue with current semaglutide dose for weight management. Medications: New baclofen 5 mg PO BEDTIME 10 tabs 0RF
--- OUTSIDE RECORDS SUMMARY | 2024-12-13 08:19 | XMS_ITS | Clinical Summary ---
Author Organization [facility] ity Address [address] [place] [address] Care Team Providers Care Delphi Developer Name Role Phone Jessica Nobles MD Primary [...] 2023-2 5 season) 2024 Influenza Vaccine (#1) 2025 HIB Vaccines Aged Out No longer [...] age to complete this topic Care Teams Delphi Developer Relationship Specialty Start Date End Date Jessica Nobles MD [address] [place] [address] PCP - General 02/18/07
--- OUTSIDE RECORDS SUMMARY | 2024-12-13 08:19 | XMS_ITS | Continuity of Care Document ---
Author Organization [facility] [address] [place] [address] Phone [phone] Care Team Providers Care Product Support Sales Representative Name Role Phone Joel Rosas Care Team Information Lever Operator + [phone] Maggie Crystal Care Team Information Lever Operator + [phone] Problems Active Problems Provider Date Endometriosis (clinical) [...] H/L Range N ote Lipid Panel 09/13/2022 [facility] Cholesterol, Total 207 mg/dL High (<200) Triglyceride 190 mg/dL High (<150) HDL Chol 62 mg/dL (>39) LDL Cholesterol , Calculated 107 mg/dL (0-130) Non HDL Cholesterol (Calc) 145 mg/dL (<160) TSH With Reflex To FT4 09/13/2022 [facility] TSH With Reflex To FT4 2.24 uIU/mL (0.4-4.2) LH 09/13/2022 [facility] LH 8.8 MIU/ML 1 FSH 09/13/2022 [facility] FSH 7.6 MIU/ML 2 Estradiol 09/13/2022 [facility] Estradiol 556 pg/mL 3 Glucose 09/13/2022 [facility] Glucose 115 mg/dL [...]
== END 2024-12-13 08:47 | disposition home or self-care (01) ==
LOC: HO.HMCC 08:13
PROVIDERS: PCP Internal Medicine; Visit Provider Internal Medicine
DX: M54.16 Radiculopathy, lumbar region (principal); R25.2 Cramp and spasm

== ENCOUNTER → 2024-12-13 08:12 | Outpatient (BNVA) | payer OTHER, SELFPAY | PROVIDERS: PCP Internal Medicine; Visit Provider Internal Medicine | DX: M54.16 Radiculopathy, lumbar region (principal); R25.2 Cramp and spasm | CPT/HCPCS: 96127 ==

== ENCOUNTER 2024-12-19 11:48 | Outpatient (AMB) | payer OTHER, SELFPAY ==
--- NOTE | 2024-12-19 11:52 | MHC.OFFVIS ---
Vital Signs 12/19/24 11:53 Height 5 ft 5 in Weight 189 lb BMI 31.4 BP 132/62 Blood Pressure Location Lt brachial Position Sitting Respiration 16 Pulse 83 Pulse Source Pulse Oximeter Pulse Oximetry (%) 99 Oxygen Delivery Method Room Air Intake Visit Reasons: Bursitis unspecified shoulder/PRP? 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 ref by ortho: Details: History of Present Illness The patient is a 44-year-old female presenting with right shoulder pain due to impingement syndrome and glenoid avulsion fracture. The shoulder injury occurred in April 2024 while lifting heavy boxes at work, resulting in a snap and sudden onset pain. Since the injury, she has experienced persistent pain and limited mobility in her right shoulder. The patient has undergone physical therapy and received a steroid injection, which caused a major reaction and did not provide significant relief. She continues with home exercises and gentle stretching, but these have not improved her mobility or function. She remains on light duty, unable to push or pull more than 5 pounds or lift her arm above her head. MRI findings indicate potential impingement syndrome and a mild glenoid avulsion fracture of undetermined age. There is no rotator cuff tear noted on the MRI. The patient describes her pain as stabbing, with an intensity of up to 8/10, affecting her ability to engage in regular activities. Pain Description - Onset: April 2024, while lifting heavy boxes at work - Quality: Stabbing sensation - Intensity: Up to 8/10 - Location: Right shoulder - Exacerbating factors: Lifting, pushing, or pulling more than 5 pounds - Relieving factors: None significantly effective - Interference: Limits ability to engage in regular activities Physical Exam - Musculoskeletal: Physical exam consistent with shoulder impingement Results - MRI: Potential impingement syndrome, mild glenoid avulsion fracture, no rotator cuff tear Pain Management - Affect: Pain limits regular activities - Analgesia: No current NSAID use, pain intensity up to 8/10 - Adverse Effects: Major reaction to steroid injection - Activities of Daily Living: Limited by inability to lift, push, or pull more than 5 pounds - Aberrant Drug Related Behaviors: None reported PFSH Medical History Migraine Stress incontinence DDD (degenerative disc disease), thoracolumbar Lupus History of blood clots Weakness of left arm Paresthesias in left hand Surgical History S/P epidural steroid injection History of inguinal hernia repair Hx of carpal tunnel repair Hx of lumpectomy H/O: hysterectomy History of bunionectomy Hx of cholecystectomy Family History Father High cholesterol HTN (hypertension) Stroke Mother Lupus Substance use disorder Congenital heart disease Dementia Sister Lupus Maternal Aunt Dementia Maternal Aunt Dementia Maternal Aunt Dementia Maternal Aunt Dementia Maternal Aunt Dementia Social History Household Members: Spouse and Children Housing: House Are you a primary career center director to a significant other at home: No Do you presently have visiting nurse or other home services: No Alcohol intake: never Patient Tobacco Use Status: Former Tobacco user Tobacco use type: Cigarette Years Smoked: 5 e-Cigarette/Vaping Use: Never Used service: No Current occupational status: employed 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[employer] Cognitive needs: No Hearing needs: No Vision needs: Yes (contacts) Physical Exam Vital Signs: Last Vital Signs Pulse 83 12/19/24 11:53 Resp 16 12/19/24 11:53 BP 132/62 12/19/24 11:53 Pulse Ox 99 12/19/24 11:53 Oxygen Delivery Method Room Air 12/19/24 11:53 BMI result Body Mass Index 31.4 Assessment & Plan Assessment & Plan (1) Subacromial bursitis: Code(s): M75.50 - Bursitis of unspecified shoulder Category: Medical (2) Shoulder pain, right: Code(s): M25.511 - Pain in right shoulder Category: Medical Qualifiers: Chronicity: acute Qualified Code(s): M25.511 - Pain in right shoulder Plan Plan - Request authorization from workers' compensation for right subacromial bursa PRP injection, with potential injection into the glenohumeral cavity for glenoid avulsion injury. - Discussed PRP procedure with the patient, addressing her questions and concerns. - Plan to proceed with PRP injection upon obtaining authorization. Patient was informed and verbally consented to the use of an ambient scribe for clinic note documentation during this visit. Discussion Notes I discussed the potential benefits and procedure of the PRP injection with the patient, addressing her questions and ensuring she understood the process. We will proceed with the injection once authorization is obtained from workers' compensation. Patient Instructions - Await a call for scheduling the PRP injection once authorization is obtained. - Continue with home exercises and avoid lifting, pushing, or pulling more than 5 pounds. Coding Level of Care Code New Pt Level 4 (83624) Diagnoses Subacromial bursitis M75.50 Acute pain of right shoulder M25.511 Chronicity: acute
[2024-12-19 11:53] VITALS: BP 132/62; PULSE 83; RESP 16; O2SAT 99; BMI 31.4
--- OUTSIDE RECORDS SUMMARY | 2024-12-19 12:40 | XMS_ITS | Continuity of Care Document ---
Author Organization [facility] [address] [place] [address] Phone [phone] Care Team Providers Care Therapeutic Support Staff Name Role Phone Joel Rosas Care Team Information Change Consultant + [phone] Maggie Crystal Care Team Information Change Consultant + [phone] Problems Active Problems Provider Date Endometriosis (clinical) [...] H/L Range N ote Lipid Panel 09/13/2022 [facility] Cholesterol, Total 207 mg/dL High (<200) Triglyceride 190 mg/dL High (<150) HDL Chol 62 mg/dL (>39) LDL Cholesterol , Calculated 107 mg/dL (0-130) Non HDL Cholesterol (Calc) 145 mg/dL (<160) TSH With Reflex To FT4 09/13/2022 [facility] TSH With Reflex To FT4 2.24 uIU/mL (0.4-4.2) LH 09/13/2022 [facility] LH 8.8 MIU/ML 1 FSH 09/13/2022 [facility] FSH 7.6 MIU/ML 2 Estradiol 09/13/2022 [facility] Estradiol 556 pg/mL 3 Glucose 09/13/2022 [facility] Glucose 115 mg/dL High [...]
--- OUTSIDE RECORDS SUMMARY | 2024-12-19 12:40 | XMS_ITS | Clinical Summary ---
Author Organization [employer] ity Address [address] [place] [address] Care Team Providers Care Lpn Rn Hospice Name Role Phone Jessica Nobles MD Primary [...] age to complete this topic Care Teams Lpn Rn Hospice Relationship Specialty Start Date End Date Jessica Nobles MD [address] [place] [address] PCP - General 02/18/07
== END 2024-12-19 12:05 | disposition home or self-care (01) ==
LOC: HO.PMC 11:48
PROVIDERS: PCP Internal Medicine; Visit Provider Internal Medicine
DX: M75.50 Bursitis of unspecified shoulder (principal); M25.511 Pain in right shoulder
CPT/HCPCS: 99204

== ENCOUNTER → 2024-12-19 11:48 | Outpatient (BNVA) | payer OTHER, SELFPAY | PROVIDERS: PCP Internal Medicine; Visit Provider Internal Medicine | DX: M75.51 Bursitis of right shoulder (principal); M25.511 Pain in right shoulder | CPT/HCPCS: 99202 ==

== ENCOUNTER → 2024-12-29 15:06 | Outpatient (BNVA) | payer OTHER, SELFPAY | PROVIDERS: PCP Internal Medicine; Visit Provider Physician Assistant Medical | DX: M23.8X2 Other internal derangements of left knee (principal) | CPT/HCPCS: 99213 ==

== ENCOUNTER → 2025-01-02 18:46 | Outpatient (BNV) | payer OTHER, SELFPAY | PROVIDERS: PCP Internal Medicine; Visit Provider Radiology Diagnostic Radiology | DX: S80.02XA Contusion of left knee, initial encounter (principal) | CPT/HCPCS: 73721 ==

== ENCOUNTER 2025-01-02 19:41 | Outpatient (REF) | payer OTHER, SELFPAY ==
--- NOTE | ~2025-01-02 | MR_ITS ---
EXAMINATION: MRI LEFT KNEE WITHOUT CONTRAST HISTORY: INTERNAL DERANGEMENT OF LEFT KNEE COMPARISON: Correlation is made with plain films of the left knee dated 10/25/2024. TECHNIQUE: Coronal T1 and fat-suppressed proton density, sagittal proton density and fat-suppressed proton density, and axial fat suppressed T2 weighted MR images of the left knee were obtained. FINDINGS: Bone marrow: There is mild marrow edema involving the anterior aspect of the lateral tibial plateau, compatible with a bone contusion. Joint effusion: There is no joint effusion. Hidalgo's cyst: There is a tiny Hidalgo's cyst. Articular cartilage: There is a probable small fissure involving the central patellar cartilage. Muscles/soft tissues: The visualized muscles demonstrate normal signal intensity. Anterior cruciate ligament: Intact Posterior cruciate ligament: Intact Medial collateral ligament: Intact Lateral collateral ligament: Intact Medial meniscus: Intact Lateral meniscus: Intact Flexor mechanism: The popliteus, gastrocnemius, and hamstring tendons are intact. Quadriceps tendon: Intact Patellar tendon: Intact Patellar retinacula: Intact MR/MR knee LT wo con IMPRESSION: 1. Bone contusion involving the anterior aspect of the lateral tibial plateau. 2. Probable small fissure involving the central patellar cartilage. 3. Tiny Hidalgo's cyst. Electronically signed by: Morris Alexandra MD 01/03/2025 07:45 AM EDT
--- OUTSIDE RECORDS SUMMARY | 2025-01-02 19:45 | XMS_ITS | Continuity of Care Document ---
Author Organization [facility] [address] [place] [address] Phone [phone] Care Team Providers Care Child Support Case Officer Name Role Phone Joel Rosas Care Team Information Internal Controls Analyst + [phone] Maggie Crystal Care Team Information Internal Controls Analyst + [phone] Problems Active Problems Provider Date Endometriosis (clinical) [...] H/L Range N ote Lipid Panel 09/13/2022 [facility] Cholesterol, Total 207 mg/dL High (<200) Triglyceride 190 mg/dL High (<150) HDL Chol 62 mg/dL (>39) LDL Cholesterol , Calculated 107 mg/dL (0-130) Non HDL Cholesterol (Calc) 145 mg/dL (<160) TSH With Reflex To FT4 09/13/2022 [facility] TSH With Reflex To FT4 2.24 uIU/mL (0.4-4.2) LH 09/13/2022 [facility] LH 8.8 MIU/ML 1 FSH 09/13/2022 [facility] FSH 7.6 MIU/ML 2 Estradiol 09/13/2022 [facility] Estradiol 556 pg/mL 3 Glucose 09/13/2022 [facility] Glucose 115 mg/dL High [...]
== END 2025-01-02 19:42 | disposition home or self-care (01) ==
LOC: HO.MRI 19:41
PROVIDERS: PCP Internal Medicine; Visit Provider Internal Medicine
DX: M23.8X2 Other internal derangements of left knee (principal)
CPT/HCPCS: 73721

== ENCOUNTER → 2025-01-05 13:50 | Outpatient (BNVA) | payer OTHER, SELFPAY | PROVIDERS: PCP Internal Medicine; Visit Provider Physician Assistant Medical | DX: M23.8X2 Other internal derangements of left knee (principal); S80.02XD Contusion of left knee, subsequent encounter; X58.XXXD Exposure to other specified factors, subsequent encounter | CPT/HCPCS: 99213 ==

== ENCOUNTER 2025-01-07 14:20 | Emergency (ER) | payer BC, SELFPAY ==
--- NOTE | ~2025-01-07 | CT_ITS ---
CLINICAL HISTORY: posterior head pain CT head without contrast Comparison: MR/REG/LA/SR - MR HEAD/BRAIN WO/W CON - 12/08/24 19:[address]/REG/SR - CT HEAD/BRAIN WO IV CON - 07/18/22 20:01 EST Findings: No intra-axial mass, midline shift, hydrocephalus, or acute hemorrhage. No significant atrophy-like change or white matter disease. The visualized paranasal sinuses and mastoid air cells are normal. The orbits are unremarkable. No skull fracture. IMPRESSION: 1. No acute intracranial findings. This document has been electronically signed by: Deb Leal MD on 01/07/2025 15:59:31
--- NOTE | 2025-01-07 14:27 | ED.GENADULT ---
HPI - General Adult General Chief complaint: Headache Stated complaint: severe head pain Time Seen by Provider: 01/07/25 15:03 Source: patient Mode of arrival: ambulatory Limitations: no limitations History of Present Illness ED Provider: manny arreola np HPI narrative: Patient is a 44-year-old female past medical history of degenerative disc disease, erythema nodosum, bursitis, hyperlipidemia, lymphedema, migraines who presents emergency department for evaluation of headache. Onset 3-4 days ago constant UTI, localized to the posterior head/base of the skull,/midline of her cervical spine. Pain does exacerbate with rotation of the head or posterior fluctuance. Feels as though she can not ?relax my head? and has to focus on straightening her cervical spine to ?lift of the head up?. had associated brain fogginess, bilateral blurred vision. She does endorse that she had a lumbar puncture 12/09/2024 to ?rule out dementia? and states that she had a headache following but this feels different. Has tried ibuprofen infrequently without any relief. Denies any red flag symptoms including fevers, chills, malaise, aphasia, weakness, poor coordination, descriptors such as ?the worst headache ever ?or ?thunderclap?, or painful temporal region. Denies dizziness, lightheadedness, URI symptoms, chest pain, shortness of breath, numbness or tingling of the extremities. Related Data Previous Rx's ?Medication ?Instructions ?Recorded semaglutide (weight loss) 0.5 0.5 mg (0.5 mL) subcut QWEEK 30 11/25/24 mg/0.5 mL subcutaneous pen injector days #2.5 mL baclofen 5 mg tablet 5 mg PO BEDTIME #10 tabs 12/13/24 Allergies Allergy/AdvReac Type Severity Reaction Status Date / Time azithromycin (AZITHROMYCIN) Allergy Intermediate low heart Verified 01/07/25 14:28 rate Review of Systems Review of Systems: Yes all other systems are reviewed and are negative PMFSH Past Medical History Attestation statement: The following information was validated with the patient. Source: old records reviewed Medical History Migraine Stress incontinence DDD (degenerative disc disease), thoracolumbar Lupus History of blood clots Weakness of left arm Paresthesias in left hand Surgical History S/P epidural steroid injection History of inguinal hernia repair Hx of carpal tunnel repair Hx of lumpectomy H/O: hysterectomy History of bunionectomy Hx of cholecystectomy Family History Family History Father High cholesterol HTN (hypertension) Stroke Mother Lupus Substance use disorder Congenital heart disease Dementia Sister Lupus Maternal Aunt Dementia Maternal Aunt Dementia Maternal Aunt Dementia Maternal Aunt Dementia Maternal Aunt Dementia Social History Social History Household Members: Spouse and Children Housing: House Are you a primary health care marketing specialist to a significant other at home: No Do you presently have visiting nurse or other home services: No Alcohol intake: never Patient Tobacco Use Status: Former Tobacco user Tobacco use type: Cigarette Years Smoked: 5 Smoked in Last 30 Days: No e-Cigarette/Vaping Use: Never Used Use of substances other than those prescribed or required for medical reasons: No Advance Directives: No Advance Directives Information Provided: No service: No Current occupational status: employed 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 No acute distress.?Normal affect. Head: Normocephalic, atraumatic Eyes: Pupils equal, round and reactive to light. EOMI. No nystagmus. No ptosis. No tenderness to palpation over the temporal region. ENT: External auditory canal normal tympanic membrane pearly zhong and intact bilaterally. Oropharynx normal. Neck: Normal inspection.? Neck supple. No nuchal rigidity. Exacerbation of pain with rotation of the head and posterior flexion of the neck. Negative Kernig's/Brudzinski sign CVS: Heart sounds normal. Normal heart rate and rhythm.? Pulses normal.?? Respiratory: No respiratory distress.? Lung sounds clear to auscultation bilaterally?? Abdomen: Soft and non-tender. Normoactive bowel sounds. ?? Skin: Skin warm and dry.? Normal skin color.? ?? Extremities: No lower extremity edema.? Neuro: Moves all extremities spontaneously. Sensation intact bilaterally. CN II-XII intact. No focal neuro deficits. Ambulatory with steady gait. Course Course Course Narrative: 01/07/25 1422 JARET Ma This is a Rapid Medical Examination (RME) performed by Nimisha Stanton PA-C in triage. Full HPI, ROS, assessment and treatment plan per primary provider in the Main ED. Hx: 44 yo F hx of DDD, erythema nodosum, bursitis, HLD, migraines, lymphedema here for eval of posterior head pain x3-4 days. states she cannot relax her head. reports feeling foggy with associated bilateral blurred vision. denies neck pain. seen at today, advised to come to the ED. reports similar symptoms after a lumbar puncture in November. no thinners. no recent head trauma. PE/vitals: exam nonfocal, NIH 0. ambulating with steady gait. Plan: labs, CT Reevaluation(s) Reevaluation #1: Headache has improved after receiving medications. No focal neurological deficits. Remains without any nuchal rigidity. Has a with the lower she is ambulatory with steady gait as requesting discharge home at this time which I feel is reasonable. Advised outpatient follow-up with her primary care doctor, given strict return precautions. All questions answered Time: 18:27 Medications Administered Discontinued Medications Generic Name Dose Route Start Last Admin Trade Name Jenn PRN Reason Stop Dose Admin Diphenhydramine HCl 25 mg 01/07/25 15:32 01/07/25 15:44 Diphenhydramine Hcl 50 Mg/Ml Vial IVPUSH 01/07/25 15:33 25 mg ONCE ONE Administration Sodium Chloride 1,000 mls @ 999 mls/hr 01/07/25 15:45 01/07/25 17:55 Ns IV 01/07/25 17:45 Infused .Q1H1M IRINA Infusion Ketorolac Tromethamine 15 mg 01/07/25 15:32 01/07/25 15:44 Ketorolac Tromethamine 15 Mg/Ml Vial IVPUSH 01/07/25 15:33 15 mg ONCE ONE Administration Metoclopramide HCl 10 mg 01/07/25 15:32 01/07/25 15:46 Metoclopramide Hcl 10 Mg/2 Ml Vial IVPUSH 01/07/25 15:33 10 mg ONCE ONE Administration Medical Decision Making Medical Decision Making [facility] Narrative: Patient is a 44-year-old female past medical history of degenerative disc disease, erythema nodosum, bursitis, hyperlipidemia, lymphedema, migraines for evaluation of pain to the upper mid cervical spine/level posterior skull exacerbated with the range of motion to the head/neck as per HPI. Overall she is well-appearing, nontoxic, afebrile. Has no nuchal rigidity. No recent symptoms that would favor meningitis. Has history of a lumbar puncture 1 month ago, may be post procedural headache from a slow leak. She has been focal neurological deficits at with favor SDH, SAH, ICH, ADDRESSER mass, cervical artery dissection, CVA. Given location lower suspicion for GCA. Additionally may be skeletal in nature, migraine, headache. Pending head CT prior to my assumption of care, will obtain CBC, CMP, CRP. We will trial management with 2 L normal saline IV fluid, Reglan, Benadryl, Toradol. Differential Diagnosis Differential Diagnoses: The differential diagnosis associated with the presentation includes (SDH, SAH, ICH, ADDRESSER mass, meningitis, encephalitis, CVA, GCA, migraine, headache) Admission/Observation Consideration of admission/observation: Escalation of care including admission/observation considered Lab Data [facility] Lab Attestation statement: I reviewed the patient's lab results. CBC is without leukocytosis anemia or thrombocytopenia. No significant electrolyte derangement. No BLOSSOM. LFTs unremarkable. CRP within normal range. HCG is negative. 01/07/25 14:52 01/07/25 14:52 Labs: Lab Results 01/07/25 Range/Units 14:52 WBC 8.5 (4.8-10.8) X10*3/uL RBC 4.48 (4.20-5.50) X10*6/uL Hgb 13.3 (12.0-16.0) g/dl Hct 39.1 (37.0-47.0) % MCV 87.3 (80.0-98.0) fL MCH 29.7 (27.0-33.0) pg MCHC 34.0 (31.0-35.0) g/dl RDW 12.6 (11.0-16.0) % Plt Count 279 (160-400) X10*3/uL MPV 11.2 (9.4-12.3) fL Immature Gran % (Auto) 0.2 (0.0-0.4) % Neut % (Auto) 58.9 (45-73) % Lymph % (Auto) 29.7 (20-40) % [place] % (Auto) 8.2 (2-11) % Eos % (Auto) 2.4 (0-4) % Baso % (Auto) 0.6 (0-2) % Lymph # (Auto) 2.5 (1.2-4.9) X10*3/uL [place] # (Auto) 0.7 (0.1-1.2) X10*3/uL Eos # (Auto) 0.2 (0.0-0.4) X10*3/uL Baso # (Auto) 0.1 (0.0-0.2) X10*3/uL Abs Immat Gran (auto) 0.02 (0.00-0.03) X10*3/uL Absolute Neuts (auto) 5.0 (2.0-8.3) x10*3/uL Absolute Nucleated RBC 0.000 (0.0-0.012) X10*3/uL Nucleated RBC % (auto) 0.0 (0.0-0.2) /100WBC Sodium 143 (135-145) mmol/L Potassium 3.8 (3.3-5.1) mmol/L Chloride 109 H (96-108) mmol/L Carbon Dioxide 24 (22-29) mmol/L Anion Gap 14 (12-20) BUN 17 H (9-16) mg/dL Creatinine 0.96 (0.5-1.4) mg/dL Estim Creat Clear Calc 80.3 Estimated GFR > 60 Random Glucose 94 (60-115) mg/dL Calcium 8.8 (8.4-10.2) mg/dL Magnesium 2.0 (1.6-2.6) mg/dL Total Bilirubin 0.4 (0.0-1.0) mg/dL AST 23 (5-31) U/L ALT 18 (0-31) U/L Alkaline Phosphatase 65 (39-117) U/L C-Reactive Protein 0.28 (< or = 0.50) mg/dL Total Protein 7.0 (6.5-8.0) g/dL Albumin 4.2 (3.5-5.0) g/dL Beta HCG, Quant 3 mIU/mL Independent Interpretation I performed an independent interpretation of an: CT Scan (No ICH, SDH, intracranial mass) Radiology Impression Discussion of test interpretation with radiology: I have reviewed the radiologist's reading. Radiologist Impression: CT head without contrast Comparison: MR/REG/RI/SR - MR HEAD/BRAIN WO/W CON - 12/08/24 19:[address]/REG/SR - CT HEAD/BRAIN WO IV CON - 07/18/22 20:01 EST Findings: No intra-axial mass, midline shift, hydrocephalus, or acute hemorrhage. No significant atrophy-like change or white matter disease. The visualized paranasal sinuses and mastoid air cells are normal. The orbits are unremarkable. No skull fracture. IMPRESSION: 1. No acute intracranial findings. External Record Review External record reviewed: Outpatient record Discharge Plan Discharge Clinical Impression: Headache Patient Disposition: Home, Self-Care Instructions: Acute Headache (ED) Additional Instructions: You were treated in the emergency department for your head is a large pain/pressure as you had described. It is potential that this was a delayed reaction from the lumbar puncture that you had at the end of November. Your blood work was otherwise reassuring. Follow-up with your primary care doctor. Return to emergency department any new or worsening symptoms or concerns. Prescriptions: No Action semaglutide (weight loss) 0.5 mg/0.5 mL pen injector 0.5 mg subcut QWEEK 30 Days Qty: 2.5 1RF Rx Instructions: administer weeks 1 through 4 of therapy baclofen 5 mg tablet 5 mg PO BEDTIME Qty: 10 0RF Referrals: Maggie Crystal MD [Primary Care Provider, Internal Medicine] Print Language: Bermudian
[2025-01-07 14:28] VITALS: BP 119/63; PULSE 84; RESP 16; TEMP 36.4; O2SAT 96; BMI 31.7
[2025-01-07 15:00] LABS: MANUAL DIFF FLAG NO
[2025-01-07 15:09] LABS: Hematocrit 39.1 % (37.0-47.0); Hemoglobin 13.3 g/dl (12.0-16.0); Imm Gran Abs Auto 0.02 X10*3/uL (0.00-0.03); Imm Gran Pct Auto 0.2 % (0.0-0.4); Lymphocytes Absolute Auto 2.5 X10*3/uL (1.2-4.9); Mean Corpuscular HGB Conc 34.0 g/dl (31.0-35.0); Mean Corpuscular Hemoglobin 29.7 pg (27.0-33.0); Mean Corpuscular Volume 87.3 fL (80.0-98.0); NRBC Abs Auto 0.000 X10*3/uL (0.0-0.012); NRBC Pct Auto 0.0 /100WBC (0.0-0.2); Platelet Count 279 X10*3/uL (160-400); Red Blood Count 4.48 X10*6/uL (4.20-5.50); White Blood Count 8.5 X10*3/uL (4.8-10.8)
[2025-01-07 15:35] LABS: Alanine Aminotransferase 18 U/L (0-31); Albumin Level 4.2 g/dL (3.5-5.0); Alkaline Phosphatase 65 U/L (39-117); Anion Gap 14 (12-20); Aspartate Amino Transferase 23 U/L (5-31); Blood Urea Nitrogen 17 mg/dL (9-16); Calcium 8.8 mg/dL (8.4-10.2); Carbon Dioxide 24 mmol/L (22-29); Chloride 109 mmol/L (96-108); Creatinine Clr Calc Pharmacy 80.3; Estimated Glomerular Filt Rate > 60; Magnesium 2.0 mg/dL (1.6-2.6); Potassium 3.8 mmol/L (3.3-5.1); Sodium 143 mmol/L (135-145); Total Protein 7.0 g/dL (6.5-8.0)
[2025-01-07 16:14] VITALS: BP 111/57; PULSE 62; RESP 18; TEMP 36.6; O2SAT 99
[2025-01-07 18:28] VITALS: BP 133/82; PULSE 64; RESP 16; TEMP 36.3; O2SAT 100
--- NOTE | 2025-01-07 18:28 | PC.NURSE ---
pt sts thst she is feeling much better after medications/ IVF. Pt now able to move head in all directions- RESERVATIONIST notified via [employer] connect
[2025-01-07 18:36] VITALS: BP 133/82; PULSE 64; RESP 16; TEMP 36.3; O2SAT 100
== END 2025-01-07 18:36 | disposition home or self-care (01) ==
PROVIDERS: Nurse Practitioner Family; Physician Assistant Medical; Emergency Provider Emergency Medicine; PCP Internal Medicine
DX: R51.9 Headache, unspecified (principal); R29.700 NIHSS score 0
CPT/HCPCS: 36415; 70450; 80053; 83735; 84702; 85025; 86140; 96361; 96374; 96375; 99284; J1200; J1885; J2765

== ENCOUNTER → 2025-01-07 14:31 | Outpatient (BNV) | payer BC, SELFPAY | PROVIDERS: Emergency Provider Emergency Medicine; PCP Internal Medicine; Visit Provider Radiology Diagnostic Radiology | DX: R51.9 Headache, unspecified (principal) | CPT/HCPCS: 70450 ==

== ENCOUNTER 2025-01-08 20:49 | Emergency (ER) | payer BC, SELFPAY ==
--- NOTE | ~2025-01-08 | CT_ITS ---
CLINICAL HISTORY: eval for RPA, neck stiffness, sore throat CT soft tissue neck with contrast Comparison: None provided Findings: There is a small amount of fluid and fat stranding in the retropharyngeal space. No peripherally enhancing organized fluid collection is identified. No tonsillar enlargement, tonsillar abscess, or peritonsillar abscess. Parapharyngeal fat planes are maintained. There is mild prominence and abnormal rounding of the bilateral anterior cervical chain lymph nodes suggestive of mild reactive lymphadenopathy. Calcific densities are noted interposed between the superior margin of the C1 anterior tubercle and clival tip, corresponding to the longus capitis insertion site. No suspicious lytic or blastic bone lesion. Paranasal sinuses and mastoid air cells are clear. Vascular structures in the neck enhance normally. Lung apices clear. Thyroid gland is normal. Parotid and submandibular glands are normal. No significant carious disease or periapical lucency. IMPRESSION: Trace free fluid and fat stranding in the retropharyngeal space without peripherally enhancing or organized fluid collection identified. The chief differential considerations include retropharyngeal cellulitis versus calcific tendinitis of the longus capitis tendon at the insertion. Both processes can produce retropharyngeal/prevertebral effusions, and both may present with neck pain and fever. Leukocytosis favors infectious retropharyngeal cellulitis, although leukocytosis and elevated erythrocyte sedimentation rate can be seen in association with prevertebral calcific tendinitis. This document has been electronically signed by: Kishan Uriarte MD on 01/09/2025 01:42:00
[2025-01-08 20:54] VITALS: BP 142/88; PULSE 85; RESP 18; TEMP 37; O2SAT 99; BMI 32.7
--- OUTSIDE RECORDS SUMMARY | 2025-01-08 21:15 | XMS_ITS | Clinical Summary ---
Author Organization [employer] [facility] ity Address [address] [place] [address] Care Team Providers Care Leather Novelty Parts Cutter Name Role Phone Jessica Nobles MD Primary [...] Smear 2000 Colorectal Cancer Screening: Colonoscopy 05/18/2022 HIV Screening 05/18/2022 Hepatitis C Screening 05/18/2022 Social Influencers of Health Screening 05/18/2022 COVID-19 Vaccine (1 - 2023-2 5 season) 2024 Depression Screening 06/15/2024 Influenza Vaccine (#1) 2025 HIB Vaccines Aged [...] 5 Years) and At-Risk Patients (6 to 49 Years) Aged Out No longer eligible b ased on patient's age to complete this topic RSV Immunization Patients Un oneyda 20 months Aged Out No longer eligible b ased on patient's age to complete this topic Varicella Vaccines Aged Out No longer eligible based on patient's age to complete this topic Care Teams Le[employer] Cutter Relationship Specialty Start Date End Date Jessica Nobles MD [address] [place] [address] PCP - General 02/18/07
--- OUTSIDE RECORDS SUMMARY | 2025-01-08 21:15 | XMS_ITS ---
Continuity of Care Document (CCD) Created on: January 08, 2025 Naomi Moon External Reference #: [id number] : [id number] Sex: Female Author Organization [facility] [address] [place] [address] Phone [phone] Care Team Providers Care Lather Apprentice Name Role Phone Joel Rosas Care Team Information Hospital Coder + [phone] Maggie Crystal Care Team Information Hospital Coder + [phone] Problems Active Problems Provider Date Endometriosis (clinical) [...] H/L Range [place] Lipid Panel 09/13/2022 [facility] Cholesterol, Total 207 mg/dL High (<200) Triglyceride 190 mg/dL High (<150) HDL Chol 62 mg/dL (>39) LDL Cholesterol , Calculated 107 mg/dL (0-130) Non HDL Cholesterol (Calc) 145 mg/dL (<160) TSH With Reflex To FT4 09/13/2022 [facility] TSH With Reflex To FT4 2.24 uIU/mL (0.4-4.2) LH 09/13/2022 [facility] LH 8.8 MIU/ML 1 FSH 09/13/2022 [facility] FSH 7.6 MIU/ML 2 Estradiol 09/13/2022 [facility] Estradiol 556 pg/mL 3 Glucose 09/13/2022 [facility] Glucose 115 mg/dL High [...]
[2025-01-08 21:16] LABS: MANUAL DIFF FLAG NO
[2025-01-08 21:17] LABS: Hematocrit 37.7 % (37.0-47.0); Hemoglobin 12.9 g/dl (12.0-16.0); Imm Gran Abs Auto 0.02 X10*3/uL (0.00-0.03); Imm Gran Pct Auto 0.2 % (0.0-0.4); Lymphocytes Absolute Auto 1.9 X10*3/uL (1.2-4.9); Mean Corpuscular HGB Conc 34.2 g/dl (31.0-35.0); Mean Corpuscular Hemoglobin 29.7 pg (27.0-33.0); Mean Corpuscular Volume 86.9 fL (80.0-98.0); NRBC Abs Auto 0.000 X10*3/uL (0.0-0.012); NRBC Pct Auto 0.0 /100WBC (0.0-0.2); Platelet Count 256 X10*3/uL (160-400); Red Blood Count 4.34 X10*6/uL (4.20-5.50); White Blood Count 11.2 X10*3/uL (4.8-10.8)
[2025-01-08 21:29] LABS: Anion Gap 13 (12-20); Blood Urea Nitrogen 13 mg/dL (9-16); Calcium 8.8 mg/dL (8.4-10.2); Carbon Dioxide 25 mmol/L (22-29); Chloride 111 mmol/L (96-108); Creatinine Clr Calc Pharmacy 92.1; Estimated Glomerular Filt Rate > 60; Potassium 4.2 mmol/L (3.3-5.1); Sodium 145 mmol/L (135-145)
[2025-01-09 00:03] VITALS: BP 137/78; PULSE 93; RESP 16; TEMP 36.7; O2SAT 98
[2025-01-09] MEDS: iohexoL 350 MG/ML 100 ML INFUS..BTL 60 ML IV (00:58)
[2025-01-09 01:03] LABS: IDNOW Serial# 55D5AD1C
[2025-01-09 01:04] LABS: Strep A Nucleic Acid Negative (Negative)
[2025-01-09] MEDS: diazePAM 10 MG/2 ML CARTRIDGE 2.5 MG IVPUSH (01:07)
[2025-01-09] MEDS: Lactated Ringers 1,000 ML 999 ML IV (01:09)
[2025-01-09 01:31] LABS: Resp Syncy Virus RNA Qual PCR NEGATIVE (Negative); SARS COV2 PCR INHOUSE NEGATIVE (Negative)
--- NOTE | 2025-01-09 02:30 | ED_ITS ---
HPI - General Adult General Chief complaint: Headache Stated complaint: pain on neck/head cant turn head/tightening throat Time Seen by Provider: 01/08/25 23:33 Source: patient Mode of arrival: ambulatory Limitations: no limitations History of Present Illness ED Provider: Dr. Amirah Mcfarlane HPI narrative: 44 year old female with history of chronic back pain, Lupus presenting with posterior neck pain radiating into the base of her scalp and neck stiffness ongoing for the last several days and worsening tonight to the point where she can't mvoe her neck at all. Had to have her help her up to get to the hospital. Feels as though her throat is sore as well and is having difficulty swallowing because of it. No reported fevers, chills, swelling of the tongue or difficulty breathing. No trismus or swelling below the chin. Has been dealing with intermittent headaches that are occipital in nature and then radiate to the neck. Has been using motrin and tylenol without relief. No direct trauma to the neck. No recent illness including cough or cold type symptoms. Family has been sick with URI at home though. No vomiting. Poor appetite. Related Data Previous Rx's ?Medication ?Instructions ?Recorded semaglutide (weight loss) 0.5 0.5 mg (0.5 mL) subcut Q WEEK 30 11/25/24 mg/0.5 mL subcutaneous pen injector days #2.5 mL baclofen 5 mg tablet 5 mg PO BEDTIME #10 tabs 07/09 igjsfsqvya-kwrvltnngvuba-yfyunpjn 1 cap PO Q8H PRN hea dache #10 caps 01/09/25 50 mg-300 mg-40 mg capsule (Fioricet) cyclobenzaprine 10 mg tablet 10 mg PO TID #10 tabs methylprednisolone 4 mg tablets in 4 mg PO DAILY #21 e a 01/09/25 a dose pack (Medrol ([place])) Allergies Allergy/AdvReac Type Severity Reaction Status Date / Time azithromycin (AZITHROMYCIN) Allergy Intermediate low heart Verified 01/08/25 20:56 rate Review of Systems 2 Review of Systems: as per HPI, full review of systems performed and negative but for the above mentioned pertinent positives and negatives. [facility] Past Medical History Attestation statement: The following information was validated with the patient. [facility] Narrative: DDD, chronic pain, Lupus, nonsmoker, no EtOH use, no hx IVDA Medical History Migraine Stress incontinence DDD (degenerative disc disease), thoracolumbar Lupus History of blood clots Weakness of left arm Paresthesias in left hand Surgical History S/P epidural steroid injection History of inguinal hernia repair Hx of carpal tunnel repair Hx of lumpectomy H/O: hysterectomy History of bunionectomy Hx of cholecystectomy Family History Family History Father High cholesterol HTN (hypertension) Stroke Mother Lupus Substance use disorder Congenital heart disease Dementia Sister Lupus Maternal Aunt Dementia Maternal Aunt Dementia Maternal Aunt Dementia Maternal Aunt Dementia Maternal Aunt Dementia Social History Social History Household Members: Spouse and Children Housing: House Are you a primary home health care coordinator to a significant other at home: No Do you presently have visiting nurse or other home services: No Alcohol intake: never Patient Tobacco Use Status: Former Tobacco user Tobacco use type: Cigarette Years Smoked: 5 e-Cigarette/Vaping Use: Never Used service: No Current occupational status: employed 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 SKIN: Normal skin color for ethnicity, warm, dry, no rashes noted. HEENT:? Normocephalic, atraumatic, no stridor, dry mucous membranes, dentition intact, EOMI. NECK: Soft, supple, limited ROM secondary to pain, midline structures nontender, no step-offs, no deformities, no lymphadenopathy, hypertonic scalenes/SCM bilaterally, occiput is tender to palpation no crepitus. CHEST: Heart regular rhythm, no murmurs, symmetric chest rise and fall. PULMONARY: Clear to auscultation bilaterally, diminished at the bases, no labored breathing, no wheezes/rhales/rhonchi. ABDOMINAL: Soft, nondistended, nontender, positive bowel sounds in all quadrants. : Deferred. MUSCULOSKELETAL: Normal tone, full range of motion, no deformities, no peripheral edema. NEURO: Alert and oriented x3, CN II through XII intact, equal strength and sensation bilateral upper and lower extremities, no focal neurologic deficits.? PSYCHIATRIC: Flat affect, fluid speech, good eye contact and appropriate demeanor. Vital Signs: Vital Signs - 24 hr 01/08/25 20:54 01/09/25 00:03 01/09/25 02:42 Temperature 98.6 F 98.0 F 98.4 F Pulse Rate 85 93 58 Respiratory Rate 18 16 16 Blood Pressure 142/88 H 137/78 118/74 Pulse Oximetry 99 98 99 Oxygen Delivery Method Room Air Room Air Room Air BMI result Body Mass Index 32.7 Medications Administered Discontinued Medications Generic Name Dose Route Start Last Admin Trade Name Faizanq PRN Reason Stop Dose Admin Dexamethasone Sodium Phosphate 10 mg 01/09/25 02:31 01/09/25 02:41 Dexamethasone Sod Phosphate 10 Mg/Ml Vial IVPUSH 01/09/25 02:32 10 mg ONCE ONE Administration Diazepam 2.5 mg 01/09/25 00:23 01/09/25 01:07 Diazepam 10 Mg/2 Ml Cartridge IVPUSH 01/09/25 00:24 2.5 mg STAT STA Administration Lactated Ringer's 1,000 mls @ 999 mls/hr 01/09/25 00:23 01/09/25 02:41 Lr IV 01/09/25 01:23 Infused .Q1H1M ONE Infusion Acetaminophen 1,000 mg in 100 mls @ 400 mls/hr 01/09/25 00:28 01/09/25 01:43 Ofirmev IV 01/09/25 00:42 Infused ONCE ONE Infusion Iohexol 60 ml 01/09/25 00:57 01/09/25 00:58 Iohexol 350 Mg/Ml 100 Ml Infus..Btl IV 01/09/25 00:58 60 ml ONCE ONE Administration Medical Decision Making Medical Decision Making MDM Narrative: Patient presents today with a chief complaint of sore throat and stiff neck. Differential diagnosis includes pharyngitis as well as ENT emergencies such as epiglottitis, retropharyngeal abscess, peritonsillar abscess, Yadiel's angina, angioedema, allergic reaction, torticollis, migraine headache, tension headache, meningitis, among many others. On exam, patient is nontoxic, tolerating their secretions, without signs of respiratory distress. 5:34 AM 01/09/2025 (Dr. Amirah Mcfarlane, D.O.) patient feeling improved after several doses of medication including muscle relaxers, steroids and IV Tylenol. She has been ambulatory to the restroom without assistance and reports feeling improved. Symptoms are not totally gone but she is nontoxic in appearance, tolerating her secretions and phonating with a normal voice. Strep swab is negative. No flu or COVID. No fever in the emergency department today. Using shared decision making, plan for discharge home to follow-up with primary care and/or specialist. Patient understands and agrees with plan for discharge. Discharged home in stable condition. Differential Diagnosis Differential Diagnoses: The differential diagnosis associated with the presentation includes (As above) Admission/Observation Consideration of admission/observation: Escalation of care including admission/observation considered Lab Data MDM Lab Attestation statement: I reviewed the patient's lab results. White blood cell count slightly elevated at 11.2 with no significant leftward shift, no bandemia, low ESR. 01/08/25 21:12 01/08/25 21:12 Labs: Lab Results 01/08/25 01/09/25 Range/Units 21:12 00:47 WBC 11.2 H (4.8-10.8) X10*3/uL RBC 4.34 (4.20-5.50) X10*6/uL Hgb 12.9 (12.0-16.0) g/dl Hct 37.7 (37.0-47.0) % MCV 86.9 (80.0-98.0) fL MCH 29.7 (27.0-33.0) pg MCHC 34.2 (31.0-35.0) g/dl RDW 12.5 (11.0-16.0) % Plt Count 256 (160-400) X10*3/uL MPV 11.2 (9.4-12.3) fL Immature Gran % (Auto) 0.2 (0.0-0.4) % Neut % (Auto) 72.1 (45-73) % Lymph % (Auto) 17.1 L (20-40) % Howell % (Auto) 8.8 (2-11) % Eos % (Auto) 1.4 (0-4) % Baso % (Auto) 0.4 (0-2) % Lymph # (Auto) 1.9 (1.2-4.9) X10*3/uL Howell # (Auto) 1.0 (0.1-1.2) X10*3/uL Eos # (Auto) 0.2 (0.0-0.4) X10*3/uL Baso # (Auto) 0.1 (0.0-0.2) X10*3/uL Abs Immat Gran (auto) 0.02 (0.00-0.03) X10*3/uL Absolute Neuts (auto) 8.1 (2.0-8.3) x10*3/uL Absolute Nucleated RBC 0.000 (0.0-0.012) X10*3/uL Nucleated RBC % (auto) 0.0 (0.0-0.2) /100WBC ESR 13 (0-20) MM/HR Sodium 145 (135-145) mmol/L Potassium 4.2 (3.3-5.1) mmol/L Chloride 111 H (96-108) mmol/L Carbon Dioxide 25 (22-29) mmol/L Anion Gap 13 (12-20) BUN 13 (9-16) mg/dL Creatinine 0.82 (0.5-1.4) mg/dL Estim Creat Clear Calc 92.1 Estimated GFR > 60 Random Glucose 107 (60-115) mg/dL Calcium 8.8 (8.4-10.2) mg/dL Influenza Type A (PCR) NEGATIVE (Negative) Influenza Type B (PCR) NEGATIVE (Negative) RSV RNA Qual (PCR) NEGATIVE (Negative) SARS-CoV-2 RNA (RT-PCR) NEGATIVE (Negative) S. pyogenes GrpA SHAWN Negative (Negative) Radiology Impression Discussion of test interpretation with radiology: I have reviewed the radiologist's reading. Radiologist Impression: CT soft tissue neck with contrast Comparison: None provided Findings: There is a small amount of fluid and fat stranding in the retropharyngeal space. No peripherally enhancing organized fluid collection is identified. No tonsillar enlargement, tonsillar abscess, or peritonsillar abscess. Parapharyngeal fat planes are maintained. There is mild prominence and abnormal rounding of the bilateral anterior cervical chain lymph nodes suggestive of mild reactive lymphadenopathy. Calcific densities are noted interposed between the superior margin of the C1 anterior tubercle and clival tip, corresponding to the longus capitis insertion site. No suspicious lytic or blastic bone lesion. Paranasal sinuses and mastoid air cells are clear. Vascular structures in the neck enhance normally. Lung apices clear. Thyroid gland is normal. Parotid and submandibular glands are normal. No significant carious disease or periapical lucency. IMPRESSION: Trace free fluid and fat stranding in the retropharyngeal space without peripherally enhancing or organized fluid collection identified. The chief differential considerations include retropharyngeal cellulitis versus calcific tendinitis of the longus capitis tendon at the insertion. Both processes can produce retropharyngeal/prevertebral effusions, and both may present with neck pain and fever. Leukocytosis favors infectious retropharyngeal cellulitis, although leukocytosis and elevated erythrocyte sedimentation rate can be seen in association with prevertebral calcific tendinitis. This document has been electronically signed by: Kishan Uriarte MD on 01/09/2025 01:42:00 Discharge Plan Discharge Clinical Impression: Acute torticollis, Acute tension headache Patient Disposition: Home, Self-Care Instructions: Tension Headache (ED), Neck Pain (ED) Additional Instructions: Use cyclobenzaprine for muscle spasm in your neck. You may take Fioricet for migraine headaches. Take the Medrol Dosepak until the course is completed. Return to the emergency department with any new or worsening symptoms including: Worsening stiff neck despite medication, fevers greater than 100?, rash on your legs, any new symptom that concerns you. Call 911 with any medical emergency. Prescriptions: New cyclobenzaprine 10 mg tablet 10 mg PO TID Qty: 10 0RF methylprednisolone [Medrol ([place])] 4 mg tablets,dose pack 4 mg PO DAILY Qty: 21 0RF qozimmpzqv-gtivxjvadtwkk-dkrc [Fioricet] 50-300-40 mg capsule 1 cap PO Q8H PRN (Reason: headache) Qty: 10 0RF No Action semaglutide (weight loss) 0.5 mg/0.5 mL pen injector 0.5 mg subcut QWEEK 30 Days Qty: 2.5 1RF Rx Instructions: administer weeks 1 through 4 of therapy baclofen 5 mg tablet 5 mg PO BEDTIME Qty: 10 0RF Stand Alone Forms: Work/School Release Interventions: ED Discharge Assessment Last Done: 01/09/25 06:07 Discharge Date/Time: 01/09/25 06:08 Print Language: Welsh
[2025-01-09 02:42] VITALS: BP 118/74; PULSE 58; RESP 16; TEMP 36.9; O2SAT 99
[2025-01-09 06:07] VITALS: BP 118/74; PULSE 58; RESP 16; TEMP 36.9; O2SAT 99
== END 2025-01-09 06:08 | disposition home or self-care (01) ==
PROVIDERS: Emergency Provider Emergency Medicine; PCP Internal Medicine
DX: M43.6 Torticollis (principal); G44.209 Tension-type headache, unspecified, not intractable; M54.50 Low back pain, unspecified; J02.9 Acute pharyngitis, unspecified; M54.2 Cervicalgia; R13.10 Dysphagia, unspecified; R11.2 Nausea with vomiting, unspecified; Z87.891 Personal history of nicotine dependence; Z03.818 Encounter for observation for suspected exposure to other biological agents ruled out
CPT/HCPCS: 36415; 70491; 80048; 85025; 85652; 87637; 87651; 96361; 96374; 96375; 99284; J0131; J1100; J3360; J7120; Q9967

== ENCOUNTER → 2025-01-09 00:23 | Outpatient (BNV) | payer BC, SELFPAY | PROVIDERS: Emergency Provider Emergency Medicine; PCP Internal Medicine; Visit Provider Radiology Diagnostic Radiology | DX: J39.0 Retropharyngeal and parapharyngeal abscess (principal) | CPT/HCPCS: 70491 ==

== ENCOUNTER → 2025-01-31 15:09 | Outpatient (BNVA) | payer OTHER, SELFPAY | PROVIDERS: PCP Internal Medicine; Visit Provider Physician Assistant Medical | DX: M23.8X2 Other internal derangements of left knee (principal) | CPT/HCPCS: 99213 ==

== ENCOUNTER 2025-02-10 12:43 | Outpatient (AMB) | payer BC, SELFPAY ==
--- NOTE | 2025-02-10 12:46 | A.OFFPC_ITS ---
Vital Signs 02/10/25 12:47 Height 5 ft 4 in Weight 194 lb BMI 33.3 BP 114/78 Blood Pressure Location Lt brachial Position Sitting Respiration 16 Pulse 64 Pulse Source Pulse Oximeter Temp 98.4 F Temp Source Oral Pulse Oximetry (%) 98 Oxygen Delivery Method Room Air Intake Visit Reasons: follow up Allergies azithromycin (AZITHROMYCIN) Allergy (Intermediate, Verified 02/10/25 12:49) low heart rate Medication List - Last Reconciled 02/10/25 by Maggie Crystal MD [id number]-ihppencavbtcd-dtme 50-300-40 mg (Fioricet) 1 cap PO Q8H PRN semaglutide (weight loss) 0.5 mg (0.5 mL) subcut QWEEK 30 days Tobacco use date assessed: 02/10/25 Dental Screening Dental Screen Date: 10/28/24 HPI follow up HPI Details Follow-up from emergency room visit The patient is a 44-year-old female presenting with neck pain and swelling. Neck Pain and Swelling: - Onset: Symptoms started a few weeks pr ior to the conversation. - Initial Presentation: Unable to move n darshan, intense pain, swelling in the throat making swallowing difficult. - Previous Hospital Visit: Initial [facility] visit did not identify the root cause, but a follow-up visit included a CT scan with contrast which suggested a possibility of infection or tendonitis - Progression: Symptoms have slightly im proved with administration of muscle relaxers, steroids, and Tylenol, but mild pain and slight limited neck mobility persist. - Associated Symptoms: Difficulty in spe aking, sore throat, severe throat pain upon frequent talking or singing. - Current Status: Symptoms have persiste d for one month without complete resolution. Knee Injury: - Onset: Recent knee injury occurring at work, requiring physical therapy. - Cause: Slipped at work due to lack of caution signage, leading to hyperextension and a bruised knee. - Current Management: Awaiting consultat ion with an orthopedic surgeon. 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 - Recent physical activity limitations d ue to knee injury and neck pain. - Not participating in regular exercise due to knee issues. Family History: - Mother: (recent) - Sister: (recent) - Grandson: Diagnosed with liver cancer following a biopsy. Problem List - Chronic back pain - Lupus - Neck pain with retropharyngeal involve ment - Suspected infection or calcific tendin itis - Knee injury - Recent bereavement - Family history of liver cancer in [facility] Diagnostic results - CT scan of the neck with contrast: Tra ce free fluid and fat stranding in the retropharyngeal space with possibilities of cellulitis or tendinitis. I could not find the use of antibiotic during recent emergency room visit Patient Instructions - Take prescribed medications as directe d. For possible infection/cellulitis mentioned in CT scan neck area And repeat Medrol Dosepak - telemedicine appointment in 2 weeks to see how she is doing - Rest the neck and avoid activities saad t exacerbate pain. - Use a knee brace to stabilize knee and prevent further injury. - Attend orthopedic consultation for the knee injury. Three-month follow-up on weight, semaglutide dose adjusted to 1 mg once a week Review of Systems General: No fever no chills neurological: No headaches no dizziness ear nose throat: no hearing difficulty no ear pain cardiovascular: No syncope, no chest pain, no palpitations gastrointestinal: No nausea vomiting or diarrhea endocrine: No polyuria polydipsia no heat intolerance genitourinary: No dysuria skin: No new complaints Physical Exam general: No acute distress HEENT: Throat within normal limit neck: Stiffness, limited movement especially looking to the left respiratory system: Able to talk in full sentences, no audible wheeze no stridor cardiovascular: S1-S2 RRR gastrointestinal: No pain extremities: Left knee pain BUSINESS [employer] INSTRUCTOR: Alert awake oriented x3 motor sensory intact skin: Normal turgor [facility] Medical History Migraine Stress incontinence DDD (degenerative disc disease), thoracolumbar Lupus History of blood clots Weakness of left arm Paresthesias in left hand Surgical History S/P epidural steroid injection History of inguinal hernia repair Hx of carpal tunnel repair Hx of lumpectomy H/O: hysterectomy History of bunionectomy Hx of cholecystectomy Family History Father High cholesterol HTN (hypertension) Stroke Mother Lupus Substance use disorder Congenital heart disease Dementia Sister Lupus Maternal Aunt Dementia Maternal Aunt Dementia Maternal Aunt Dementia Maternal Aunt Dementia Maternal Aunt Dementia Social History Household Members: Spouse and Children Housing: House Are you a primary managed care analyst to a significant other at home: No Do you presently have visiting nurse or other home services: No Alcohol intake: never Patient Tobacco Use Status: Former Tobacco user Tobacco use type: Cigarette Years Smoked: 5 e-Cigarette/Vaping Use: Never Used service: No Current occupational status: employed 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[employer] Cognitive needs: No Hearing needs: No Vision needs: Yes (contacts) Questionnaire Thrive Questionnaire Date Thrive assessed: 06/15/24 I am a: Patient What is your living situation today?: I have a steady place to live Within the past 12 months, did the food you bought not last and you didn't have the money to get more?: Never true Within the past 12 months, did you worry whether your food would run out before you got money to buy more?: Never true Do you have trouble paying for medicines?: No Do you have trouble getting transportation to medical appointments?: No Do you have trouble paying your heating and electricity bill?: No Do you have trouble taking care of your child, family member or friend?: No Do you have trouble with day-to-day activities such as bathing, preparing meals, shopping, managing finances, etc.?: No Are you currently unemployed and looking for a job?: No Are you interested in more education?: No Please select the resources that you would like help with: None Currently or been in a relationship where the following occur: No concerns reported THRIVE Score: 0 DAMON-7 AMB Questionnaire DAMON-7 Date DAMON - 7 assessed: 10/28/24 Source: Developed by Drs. Morris Farooq, Francia Barfield, Leonel Min and colleagues, with an educational austyn from [employer]. Physical exam (Primary Care) Vital Signs: Last Vital Signs Temp 98.4 F 02/10/25 12:47 Pulse 64 02/10/25 12:47 Resp 16 02/10/25 12:47 BP 114/78 02/10/25 12:47 Pulse Ox 98 02/10/25 12:47 Oxygen Delivery Method Room Air 02/10/25 12:47 BMI result Body Mass Index 33.3 Tobacco/Smoking Status: Tobacco use Status Tobacco use date assessed 02/10/25 02/10/25 12:52 Patient Tobacco Use Status Former Tobacco user 02/10/25 12:52 Tobacco use type Cigarette 02/10/25 12:52 e-Cigarette/Vaping Use Never Used 02/10/25 12:52 Thrive Assessment: Date of Thrive Assessment Date Thrive assessed 06/15/24 02/10/25 12:52 Currently or been in a relationship where the following occur: No concerns reported Coding Level of Care Code Est Pt Level 5 (38190) Diagnoses Seen in emergency room Z76.89 Cellulitis of parapharyngeal space J39.0 Retropharyngeal calcific tendinitis M77.9 Class 2 severe obesity due to excess calories with serious comorbidity and body mass index (BMI) of 39.0 to 39.9 in adult E66.01; Z68.39 Body mass index: BMI 39.0-39.9 Obesity classification: adult class 2 (BMI 35 - 39.9) Serious obesity comorbidity presence: with serious comorbidity Injury of left knee, sequela S89.92XS Encounter type: sequela Time Spent (min) 40 Comment Reviewing chart/labs/emergency room notes with patient/ncxk-su-umab/coordination of care Assessment & Plan Assessment & Plan (1) Seen in emergency room: Code(s): Z76.89 - Persons encountering health services in other specified circumstances Category: Medical (2) Cellulitis of parapharyngeal space: Code(s): J39.0 - Retropharyngeal and parapharyngeal abscess Category: Medical (3) Retropharyngeal calcific tendinitis: Code(s): M77.9 - Enthesopathy, unspecified Category: Medical (4) Obesity due to excess calories: Code(s): E66.09 - Other obesity due to excess calories Category: Medical Qualifiers: Body mass index: BMI 39.0-39.9 Obesity classification: adult class 2 (BMI 35 - 39.9) Serious obesity comorbidity presence: with serious comorbidity Qualified Code(s): E66.01 - Morbid (severe) obesity due to excess calories; Z68.39 - Body mass index [BMI] 39.0-39.9, adult (5) Left knee injury: Code(s): S89.92XA - Unspecified injury of left lower leg, initial encounter Category: Medical Qualifiers: Encounter type: sequela Qualified Code(s): S89.92XS - Unspecified inj ury of left lower leg, sequela Plan Follow-up from emergency room visit The patient is a 44-year-old female presenting with neck pain and swelling. Neck Pain and Swelling: - Onset: Symptoms started a few weeks prior to the conversation. - Initial Presentation: Unable to move neck, intense pain, swelling in the throat making swallowing difficult. - Previous Hospital Visit: Initial hospital visit did not identify the root cause, but a follow-up visit included a CT scan with contrast which suggested a possibility of infection or tendonitis - Progression: Symptoms have slightly improved with administration of muscle relaxers, steroids, and Tylenol, but mild pain and slight limited neck mobility persist. - Associated Symptoms: Difficulty in speaking, sore throat, severe throat pain upon frequent talking or singing. - Current Status: Symptoms have persisted for one month without complete resolution. Knee Injury: - Onset: Recent knee injury occurring at work, requiring physical therapy. - Cause: Slipped at work due to lack of caution signage, leading to hyperextension and a bruised knee. - Current Management: Awaiting consultation with an orthopedic surgeon. 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 - Recent physical activity limitations due to knee injury and neck pain. - Not participating in regular exercise due to knee issues. Family History: - Mother: (recent) - Sister: (recent) - Grandson: Diagnosed with liver cancer following a biopsy. Problem List - Chronic back pain - Lupus - Neck pain with retropharyngeal involvement - Suspected infection or calcific tendinitis - Knee injury - Recent bereavement - Family history of liver cancer in grandson Diagnostic results - CT scan of the neck with contrast: Trace free fluid and fat stranding in the retropharyngeal space with possibilities of cellulitis or tendinitis. I could not find the use of antibiotic during recent emergency room visit Patient Instructions - Take prescribed medications as directed. For possible infection/cellulitis mentioned in CT scan neck area And repeat Medrol Dosepak - telemedicine appointment in 2 weeks to see how she is doing - Rest the neck and avoid activities that exacerbate pain. - Use a knee brace to stabilize knee and prevent further injury. - Attend orthopedic consultation for the knee injury. Three-month follow-up on weight, semaglutide dose adjusted to 1 mg once a week Medications: New methylprednisolone (Medrol ([place])) PO PER PKG DIR 21 ea 0RF 6 days amoxicillin-pot clavulanate 500-125 mg 1 tab PO Q12H 14 tabs 0RF 7 days Changed From semaglutide (weight loss) administer weeks 1 through 4 of therapy 0.5 mg (0.5 mL) subcut QWEEK 30 days 2.5 mL 1RF To semaglutide (weight loss) administer weeks 1 through 4 of therapy 1 mg (0.5 mL) subcut QWEEK 2.5 mL 1RF 30 days
[2025-02-10 12:47] VITALS: BP 114/78; PULSE 64; RESP 16; TEMP 36.9; O2SAT 98; BMI 33.3
--- OUTSIDE RECORDS SUMMARY | 2025-02-10 13:12 | XMS_ITS | Clinical Summary ---
Author Organization [facility] ity Address [address] [place] [address] Care Team Providers Care Oil Pump Station Operator Chief Name Role Phone Jessica Nobles MD [...] age to complete this topic Care Teams Oil Pump Station Operator Chief Relationship Specialty Start Date End Date Jessica Nobles MD [address] [place] [address] PCP - General 02/18/07
--- OUTSIDE RECORDS SUMMARY | 2025-02-10 13:12 | XMS_ITS | Continuity of Care Document ---
Author Organization [facility] [address] [place] [address] Phone [phone] Care Team Providers Care Dry Cleaning Counter Clerk Name Role Phone Joel Rosas Care Team Information Onsite Health Coach + [phone] Maggie Crystal Care Team Information Onsite Health Coach + [phone] Problems Active Problems Provider Date Endometriosis (clinical) [...] H/L Range N ote Lipid Panel 09/13/2022 [facility] Cholesterol, Total 207 mg/dL High (<200) Triglyceride 190 mg/dL High (<150) HDL Chol 62 mg/dL (>39) LDL Cholesterol , Calculated 107 mg/dL (0-130) Non HDL Cholesterol (Calc) 145 mg/dL (<160) TSH With Reflex To FT4 09/13/2022 [facility] TSH With Reflex To FT4 2.24 uIU/mL (0.4-4.2) LH 09/13/2022 [facility] LH 8.8 MIU/ML 1 FSH 09/13/2022 [facility] FSH 7.6 MIU/ML 2 Estradiol 09/13/2022 [facility] Estradiol 556 pg/mL 3 Glucose 09/13/2022 [facility] Glucose 115 mg/dL High [...]
== END 2025-02-10 13:17 | disposition home or self-care (01) ==
PROVIDERS: PCP Internal Medicine; Visit Provider Internal Medicine
DX: J39.0 Retropharyngeal and parapharyngeal abscess (principal); M77.9 Enthesopathy, unspecified; E66.01 Morbid (severe) obesity due to excess calories; Z68.39 Body mass index [BMI] 39.0-39.9, adult; Z76.89 Persons encountering health services in other specified circumstances; S89.92XS Unspecified injury of left lower leg, sequela

== ENCOUNTER 2025-02-22 20:57 | Emergency (ER) | payer BC, SELFPAY ==
--- NOTE | ~2025-02-22 | XR_ITS ---
CLINICAL HISTORY: vomting, ?SBO 2 view abdomen, AP chest Comparison: None provided Findings: No consolidation or effusion at the lung bases. Normal bowel gas pattern. Normal stool quantity. No pneumoperitoneum or pneumatosis. Cholecystectomy clips. There are no acute fractures. IMPRESSION: No acute abnormality. Nonobstructive bowel-gas pattern. This document has been electronically signed by: Josie Mock MD on 02/22/2025 23:45:53
[2025-02-22 21:02] VITALS: BP 126/61; PULSE 95; RESP 18; TEMP 36.2; O2SAT 98; BMI 31.4
[2025-02-22 21:22] LABS: MANUAL DIFF FLAG NO
--- OUTSIDE RECORDS SUMMARY | 2025-02-22 21:30 | XMS_ITS | Continuity of Care Document ---
Author Organization [facility] [address] [place] [address] Phone [phone] Care Team Providers Care Cigar Machine Feeder Name Role Phone Joel Rosas Care Team Information Blow Mold Machine Operator + [phone] Maggie Crystal Care Team Information Blow Mold Machine Operator + [phone] Problems Active Problems Provider Date Endometriosis (clinical) [...] H/L Range N ote Lipid Panel 09/13/2022 [facility] Cholesterol, Total 207 mg/dL High (<200) Triglyceride 190 mg/dL High (<150) HDL Chol 62 mg/dL (>39) LDL Cholesterol , Calculated 107 mg/dL (0-130) Non HDL Cholesterol (Calc) 145 mg/dL (<160) TSH With Reflex To FT4 09/13/2022 [facility] TSH With Reflex To FT4 2.24 uIU/mL (0.4-4.2) LH 09/13/2022 [facility] LH 8.8 MIU/ML 1 FSH 09/13/2022 [facility] FSH 7.6 MIU/ML 2 Estradiol 09/13/2022 [facility] Estradiol 556 pg/mL 3 Glucose 09/13/2022 [facility] Glucose 115 mg/dL High (70-99) [...]
[2025-02-22 21:37] LABS: Hematocrit 39.3 % (37.0-47.0); Hemoglobin 13.6 g/dl (12.0-16.0); Imm Gran Abs Auto 0.05 X10*3/uL (0.00-0.03); Imm Gran Pct Auto 0.5 % (0.0-0.4); Lymphocytes Absolute Auto 2.4 X10*3/uL (1.2-4.9); Mean Corpuscular HGB Conc 34.6 g/dl (31.0-35.0); Mean Corpuscular Hemoglobin 29.5 pg (27.0-33.0); Mean Corpuscular Volume 85.2 fL (80.0-98.0); NRBC Abs Auto 0.000 X10*3/uL (0.0-0.012); NRBC Pct Auto 0.0 /100WBC (0.0-0.2); Platelet Count 330 X10*3/uL (160-400); Red Blood Count 4.61 X10*6/uL (4.20-5.50); White Blood Count 10.2 X10*3/uL (4.8-10.8)
[2025-02-22 21:38] VITALS: BP 116/65; PULSE 72; RESP 18; O2SAT 98
[2025-02-22 21:39] LABS: Alanine Aminotransferase 14 U/L (0-31); Albumin Level 4.0 g/dL (3.5-5.0); Alkaline Phosphatase 70 U/L (39-117); Anion Gap 13 (12-20); Aspartate Amino Transferase 19 U/L (5-31); Blood Urea Nitrogen 13 mg/dL (9-16); Calcium 8.9 mg/dL (8.4-10.2); Carbon Dioxide 24 mmol/L (22-29); Chloride 108 mmol/L (96-108); Creatinine Clr Calc Pharmacy 106.5; Estimated Glomerular Filt Rate > 60; Lipase 93 U/L (8-78); Magnesium 1.8 mg/dL (1.6-2.6); Potassium 3.8 mmol/L (3.3-5.1); Sodium 141 mmol/L (135-145); Total Protein 7.1 g/dL (6.5-8.0)
--- NOTE | 2025-02-22 22:14 | ED.GENADULT ---
HPI - General Adult General Chief complaint: Abdominal Pain Stated complaint: vomitting Time Seen by Provider: 02/22/25 22:14 History of Present Illness ED Provider: Isabell LANIER narrative: The patient is a 44-year-old woman who has a history of a hysterectomy and also a cholecystectomy, both of which are remote. The patient has been on Wegovy for weight loss recently. Last night she administered a dose that was a higher dose and previous doses. Her doctor had increased her dosage. This morning she developed nausea and vomiting. Despite these symptoms she went to work but had persistent nausea and vomiting throughout the day and ultimately came to the emergency department. No fever. Last bowel movement was this morning. She has not had a syndrome like this in the past. She reports that she has had diverticulitis in the past but this does not feel like her episode of diverticulitis. Related Data Previous Rx's ?Medication ?Instructions ?Recorded qlkwaopebz-czjkxgkbchofo-yjziawsk 1 cap PO Q8H PRN headache #10 caps 01/09/25 50 mg-300 mg-40 mg capsule (Fioricet) amoxicillin 500 mg-potassium 1 tab PO Q12H 7 days #14 tabs 02/10/25 clavulanate 125 mg tablet methylprednisolone 4 mg tablets in See Rx Instructions PO PER PKG DIR 02/10/25 a dose pack (Medrol (Selwyn)) 6 days #21 ea semaglutide (weight loss) 1 mg/0.5 1 mg (0.5 mL) subcut QWEEK 30 days 02/10/25 mL subcutaneous pen injector #2.5 mL ondansetron 4 mg disintegrating 4 mg PO Q6H PRN nausea and 02/23/25 tablet vomiting #10 tabs Allergies Allergy/AdvReac Type Severity Reaction Status Date / Time azithromycin (AZITHROMYCIN) Allergy Intermediate low heart Verified 02/22/25 21:04 rate Review of Systems Review of Systems: Yes all other systems are reviewed and are negative [facility] Past Medical History Medical History Migraine Stress incontinence DDD (degenerative disc disease), thoracolumbar Lupus History of blood clots Weakness of left arm Paresthesias in left hand Surgical History S/P epidural steroid injection History of inguinal hernia repair Hx of carpal tunnel repair Hx of lumpectomy H/O: hysterectomy History of bunionectomy Hx of cholecystectomy Family History Family History Father High cholesterol HTN (hypertension) Stroke Mother Lupus Substance use disorder Congenital heart disease Dementia Sister Lupus Maternal Aunt Dementia Maternal Aunt Dementia Maternal Aunt Dementia Maternal Aunt Dementia Maternal Aunt Dementia Social History Social History Household Members: Spouse and Children Housing: House Are you a primary caretaker resort to a significant other at home: No Do you presently have visiting nurse or other home services: No Alcohol intake: never Patient Tobacco Use Status: Former Tobacco user Tobacco use type: Cigarette Years Smoked: 5 Smoked in Last 30 Days: No e-Cigarette/Vaping Use: Never Used Use of substances other than those prescribed or required for medical reasons: No Advance Directives: No Advance Directives Information Provided: No Do you have a plan to hurt others: No Plan service: No Current occupational status: employed 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 She does not appear overtly toxic. Orientation/consciousness: patient oriented x3 HENMT Other: The face is symmetrical. ?Mucous membranes moist. Eyes Other: Pupils are round equal, conjunctivae are clear, extraocular movements intact Neck Neck: Yes normal visual inspection and Yes full ROM Resp Effort & Inspection: normal respiratory effort Auscultation: clear to auscultation bilaterally Cardio Rate: regular rate Rhythm: regular rhythm Heart sounds: S1 normal heart sound present and S2 normal heart sound present GI Other: The abdomen is soft. It is not particularly distended. No marked localizing tenderness. Skin Other: The skin is dry and unremarkable General skin exam: no rashes or lesions noted Neuro General: patient oriented x3, tone normal, moves all extremities, no focal motor deficits and CN's II-XI intact bilaterally Extrem Other: There is no calf swelling or tenderness. No asymmetry. No peripheral edema. Medications Administered Discontinued Medications Generic Name Dose Route Start Last Admin Trade Name Jenn PRN Reason Stop Dose Admin Diphenhydramine HCl 25 mg 02/22/25 22:19 02/22/25 22:39 Diphenhydramine Hcl 50 Mg/Ml Vial IVPUSH 02/22/25 22:20 25 mg ONCE ONE Administration Sodium Chloride 1,000 mls @ 999 mls/hr 02/22/25 22:30 02/23/25 00:00 Ns IV 02/22/25 23:30 Infused .Q1H1M IRINA Infusion Metoclopramide HCl 10 mg 02/22/25 22:19 02/22/25 22:37 Metoclopramide Hcl 10 Mg/2 Ml Vial IVPUSH 02/22/25 22:20 10 mg ONCE ONE Administration Medical Decision Making Medical Decision Making [facility] Narrative: The patient is a 44-year-old woman who presents with significant nausea and vomiting. Yesterday she administered a dose of Wegovy. This was a higher dose than previous doses. This has been advised by her doctor. Today she has a lot of nausea and vomiting and ultimately came to the emergency room. She does not seem febrile or toxic and her abdomen seems benign. She has a history of previous abdominal surgeries including a cholecystectomy and a hysterectomy but my clinical suspicion for a bowel obstruction is low. An abdominal series is not suggestive of a small-bowel obstruction. On clinical exam she does not seem to have an acute abdomen. Additionally she has a normal white count and a normal differential. She has a near normal CRP of 0.85. My suspicion for appendicitis or similar acute intra-abdominal process is very low. I do not think she needs a CT scan. She was treated symptomatically with metoclopramide, diphenhydramine, and IV fluids. She had complete resolution of her symptoms. She tolerated oral intake. She felt comfortable being discharged. She was given a work note. I will send a prescription for ondansetron for any mild residual nausea. She should return if significantly worse. Lab Data 02/22/25 21:18 02/22/25 21:18 Labs: Lab Results 02/22/25 Range/Units 21:18 WBC 10.2 (4.8-10.8) X10*3/uL RBC 4.61 (4.20-5.50) X10*6/uL Hgb 13.6 (12.0-16.0) g/dl Hct 39.3 (37.0-47.0) % MCV 85.2 (80.0-98.0) fL MCH 29.5 (27.0-33.0) pg MCHC 34.6 (31.0-35.0) g/dl RDW 12.7 (11.0-16.0) % Plt Count 330 D (160-400) X10*3/uL MPV 10.7 (9.4-12.3) fL Immature Gran % (Auto) 0.5 H (0.0-0.4) % Neut % (Auto) 68.4 (45-73) % Lymph % (Auto) 23.7 (20-40) % Arthur % (Auto) 6.4 (2-11) % Eos % (Auto) 0.7 (0-4) % Baso % (Auto) 0.3 (0-2) % Lymph # (Auto) 2.4 (1.2-4.9) X10*3/uL Arthur # (Auto) 0.7 (0.1-1.2) X10*3/uL Eos # (Auto) 0.1 (0.0-0.4) X10*3/uL Baso # (Auto) 0.0 (0.0-0.2) X10*3/uL Abs Immat Gran (auto) 0.05 H (0.00-0.03) X10*3/uL Absolute Neuts (auto) 7.0 (2.0-8.3) x10*3/uL Absolute Nucleated RBC 0.000 (0.0-0.012) X10*3/uL Nucleated RBC % (auto) 0.0 (0.0-0.2) /100WBC Sodium 141 (135-145) mmol/L Potassium 3.8 (3.3-5.1) mmol/L Chloride 108 (96-108) mmol/L Carbon Dioxide 24 (22-29) mmol/L Anion Gap 13 (12-20) BUN 13 (9-16) mg/dL Creatinine 0.72 (0.5-1.4) mg/dL Estim Creat Clear Calc 106.5 Estimated GFR > 60 Random Glucose 101 (60-115) mg/dL Calcium 8.9 (8.4-10.2) mg/dL Magnesium 1.8 (1.6-2.6) mg/dL Total Bilirubin 0.6 (0.0-1.0) mg/dL Direct Bilirubin 0.2 (0.0-0.5) mg/dL AST 19 (5-31) U/L ALT 14 (0-31) U/L Alkaline Phosphatase 70 (39-117) U/L C-Reactive Protein 0.85 H (< or = 0.50) mg/dL Total Protein 7.1 (6.5-8.0) g/dL Albumin 4.0 (3.5-5.0) g/dL Lipase 93 H (8-78) U/L Beta HCG, Quant < 2 mIU/mL Discharge Plan Discharge Clinical Impression: Nausea and vomiting Patient Disposition: Home, Self-Care Additional Instructions: I have sent a prescription for the medication ondansetron (often called Rhonda) to your pharmacy which you may use for any recurrence of nausea and vomiting. My assumption is that your symptoms today might be related to your increase in the dose of your Wegovy. Please rest and take it easy tomorrow. Use the ondansetron prescribed for any mild nausea you might experience. Please contact your regular doctor to discuss this episode further. However if you have any significant recurrence of symptoms or if you have worsening abdominal pain please return to the emergency room for additional evaluation. Prescriptions: New ondansetron 4 mg tablet,disintegrating 4 mg PO Q6H PRN (Reason: nausea and vomiting) Qty: 10 0RF No Action qzcncgpydw-nidhdftobzsba-lmoi [Fioricet] 50-300-40 mg capsule 1 cap PO Q8H PRN (Reason: headache) Qty: 10 0RF methylprednisolone [Medrol (Selwyn)] 4 mg tablets,dose pack See Rx Instructions PO PER PKG DIR 6 Days Qty: 21 0RF Rx Instructions: PO PER PKG DIR amoxicillin-pot clavulanate 500-125 mg tablet 1 tab PO Q12H 7 Days Qty: 14 0RF semaglutide (weight loss) 1 mg/0.5 mL pen injector 1 mg subcut QWEEK 30 Days Qty: 2.5 1RF Rx Instructions: administer weeks 1 through 4 of therapy Referrals: Maggie Crystal MD [Primary Care Provider, Internal Medicine] Stand Alone Forms: Work/School Release Interventions: ED Discharge Assessment Last Done: 02/23/25 01:28 Discharge Date/Time: 02/23/25 01:29 Print Language: Estonian
[2025-02-22 23:27] VITALS: BP 107/59; PULSE 64; RESP 18; O2SAT 99
[2025-02-23 01:28] VITALS: BP 107/59; PULSE 64; RESP 18; TEMP 36.8; O2SAT 99
== END 2025-02-23 01:29 | disposition home or self-care (01) ==
PROVIDERS: Emergency Provider Emergency Medicine; PCP Internal Medicine
DX: R11.2 Nausea with vomiting, unspecified (principal); M32.9 Systemic lupus erythematosus, unspecified
CPT/HCPCS: 36415; 74022; 80053; 82248; 83690; 83735; 84702; 85025; 86140; 96361; 96374; 96375; 99284; J1200; J2765

== ENCOUNTER → 2025-02-22 22:20 | Outpatient (BNV) | payer BC, SELFPAY | PROVIDERS: Emergency Provider Emergency Medicine; PCP Internal Medicine; Visit Provider Student in an Organized Health Care Education/Training Program | DX: R11.10 Vomiting, unspecified (principal) | CPT/HCPCS: 74022 ==

== ENCOUNTER 2025-02-23 08:10 | Outpatient (AMB) | payer BC, SELFPAY ==
--- NOTE | 2025-02-23 08:47 | A.OFFPC_ITS ---
Intake Visit Reasons: telehealth Allergies azithromycin (AZITHROMYCIN) Allergy (Intermediate, Verified 02/22/25 21:04) low heart rate Medication List - Last Reconciled 02/23/25 by Maggie Crystal MD amoxicillin-pot clavulanate 500-125 mg 1 tab PO Q12H 7 days ayvujwyqge-azzcgaqxkipqi-thkw 50-300-40 mg (Fioricet) 1 cap PO Q8H PRN methylprednisolone (Medrol (Selwyn)) PO PER PKG DIR 6 days ondansetron 4 mg PO Q6H PRN semaglutide (weight loss) 1 mg (0.5 mL) subcut QWEEK 30 days Tobacco use date assessed: 02/10/25 Dental Screening Dental Screen Date: 10/28/24 HPI telehealth HPI Details History of Present Illness The patient is a 44-year-old female presenting with throat discomfort and nausea and vomiting. Throat Discomfort: - Patient reports improvement in throat healing from a previous visit. - Patient was previously treated for a r etropharyngeal infection with Augmentin for 10 days. - Describes current symptoms as dry itch in the throat and voice becoming raspy after prolonged talking. - No pain in the throat except after ext ended speaking. - Initially presented on February 10 with symptoms noted on CT as retropharyngeal infection versus tendinitis. Nausea and Vomiting: - Reports onset of symptoms yesterday mo rning, including multiple episodes of vomiting, with a total of approximately 10 times. - Symptoms started in the morning after waking up and continued throughout the day, preventing the patient from keeping down water and brianna leo. - [facility] an [facility] to a new dosage of Wevovy injection administered the prior day. - Improvements noted following administr ation of anti-nausea medications and IV fluids. Social History: - Employed, noted by her mentioning sven calderon to leave work due to feeling unwell. - , as mentioned her took her to the emergency room. Problem List - Retropharyngeal Infection - Adverse Reaction to Wevovy Injection Patient Instructions - Stop Wevovy injections. - Allow time for throat to continue heal ing. - Monitor symptoms; seek care if the con dition worsens. 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 Review of Systems - General: No fever no chills - Neurological: No headaches no dizziness - Ear nose throat: No sore throat no hearing difficulty no ear pain - Cardiovascular: No syncope, no chest pain, no palpitations - Gastrointestinal: No diarrhea PFSH Medical History Migraine Stress incontinence DDD (degenerative disc disease), thoracolumbar Lupus History of blood clots Weakness of left arm Paresthesias in left hand Surgical History S/P epidural steroid injection History of inguinal hernia repair Hx of carpal tunnel repair Hx of lumpectomy H/O: hysterectomy History of bunionectomy Hx of cholecystectomy Family History Father High cholesterol HTN (hypertension) Stroke Mother Lupus Substance use disorder Congenital heart disease Dementia Sister Lupus Maternal Aunt Dementia Maternal Aunt Dementia Maternal Aunt Dementia Maternal Aunt Dementia Maternal Aunt Dementia Social History Household Members: Spouse and Children Housing: House Are you a primary healthcare market consultant to a significant other at home: No Do you presently have visiting nurse or other home services: No Alcohol intake: never Patient Tobacco Use Status: Former Tobacco user Tobacco use type: Cigarette Years Smoked: 5 e-Cigarette/Vaping Use: Never Used service: No Current occupational status: employed 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[employer] Cognitive needs: No Hearing needs: No Vision needs: Yes (contacts) Questionnaire Thrive Questionnaire Date Thrive assessed: 06/15/24 I am a: Patient What is your living situation today?: I have a steady place to live Within the past 12 months, did the food you bought not last and you didn't have the money to get more?: Never true Within the past 12 months, did you worry whether your food would run out before you got money to buy more?: Never true Do you have trouble paying for medicines?: No Do you have trouble getting transportation to medical appointments?: No Do you have trouble paying your heating and electricity bill?: No Do you have trouble taking care of your child, family member or friend?: No Do you have trouble with day-to-day activities such as bathing, preparing meals, shopping, managing finances, etc.?: No Are you currently unemployed and looking for a job?: No Are you interested in more education?: No Please select the resources that you would like help with: None Currently or been in a relationship where the following occur: No concerns reported THRIVE Score: 0 DAMON-7 AMB Questionnaire DAMON-7 Date DAMON - 7 assessed: 10/28/24 Source: Developed by Drs. Morris Farooq, Francia Barfield, Leonel Min and colleagues, with an educational austyn from [employer]. Physical exam (Primary Care) Tobacco/Smoking Status: Tobacco use Status Tobacco use date assessed 02/10/25 02/23/25 08:49 Patient Tobacco Use Status Former Tobacco user 02/23/25 08:49 Tobacco use type Cigarette 02/23/25 08:49 e-Cigarette/Vaping Use Never Used 02/23/25 08:49 Thrive Assessment: Date of Thrive Assessment Date Thrive assessed 06/15/24 02/23/25 08:49 Currently or been in a relationship where the following occur: No concerns reported Telehealth Telehealth Telehealth Platform: [facility] Location of provider rendering services: practice address Location of patient: address on file Patient Identification confirmed using: Name, : Yes Telehealth method: video Patient verbally consented to treatment: Yes Patient verbally consented to billing insurance company: Yes Patient informed of any privacy concerns related to visit: Yes Minutes spent on Phone/Video with Pt.: 14 Coding Level of Care Code Tele Est Pt Level 3 (40173) Diagnoses Seen in emergency room Z76.89 Cellulitis of parapharyngeal space J39.0 Class 2 severe obesity due to excess calories with serious comorbidity and body mass index (BMI) of 39.0 to 39.9 in adult E66.01; Z68.39 Body mass index: BMI 39.0-39.9 Obesity classification: adult class 2 (BMI 35 - 39.9) Serious obesity comorbidity presence: with serious comorbidity Medication side effect T88.7XXA Vomiting, unspecified vomiting type, unspecified whether nausea present R11.10 Nausea presence: unspecified Vomiting type: unspecified Assessment & Plan Assessment & Plan (1) Seen in emergency room: Code(s): Z76.89 - Persons encountering health services in other specified circumstances Category: Medical (2) Cellulitis of parapharyngeal space: Code(s): J39.0 - Retropharyngeal and parapharyngeal abscess Category: Medical (3) Obesity due to excess calories: Code(s): E66.09 - Other obesity due to excess calories Category: Medical Qualifiers: Body mass index: BMI 39.0-39.9 Obesity classification: adult class 2 (BMI 35 - 39.9) Serious obesity comorbidity presence: with serious comorbidity Qualified Code(s): E66.01 - Morbid (severe) obesity due to excess calories; Z68.39 - Body mass index [BMI] 39.0-39.9, adult (4) Medication side effect: Code(s): T88.7XXA - Unspecified adverse effect of drug or medicament, initial encounter Category: Medical (5) Vomiting: Code(s): R11.10 - Vomiting, unspecified Category: Medical Qualifiers: Nausea presence: unspecified Vomiting type: unspecified Qualified Code(s): R11.10 - Vomiting, unspecified Plan History of Present Illness The patient is a 44-year-old female presenting with throat discomfort and nausea and vomiting. Throat Discomfort: - Patient reports improvement in throat healing from a previous visit. - Patient was previously treated for a retropharyngeal infection with Augmentin for 10 days. - Describes current symptoms as dry itch in the throat and voice becoming raspy after prolonged talking. - No pain in the throat except after extended speaking. - Initially presented on February [address] with symptoms noted on CT as retropharyngeal infection versus tendinitis. Nausea and Vomiting: - Reports onset of symptoms yesterday morning, including multiple episodes of vomiting, with a total of approximately 10 times. - Symptoms started in the morning after waking up and continued throughout the day, preventing the patient from keeping down water and brianna leo. - Patient visited the emergency department suspecting an adverse reaction to a new dosage of Wevovy injection administered the prior day. - Improvements noted following administration of anti-nausea medications and IV fluids. Social History: - Employed, noted by her mentioning having to leave work due to feeling unwell. - , as mentioned her took her to the emergency room. Problem List - Retropharyngeal Infection - Adverse Reaction to Wevovy Injection Patient Instructions - Stop Wevovy injections. - Allow time for throat to continue healing. - Monitor symptoms; seek care if the condition worsens. 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
--- OUTSIDE RECORDS SUMMARY | 2025-02-23 08:56 | XMS_ITS | Continuity of Care Document ---
Author Organization [facility] [address] [place] [address] Phone [phone] Care Team Providers Care Artificial Flower Maker Name Role Phone Joel Rosas Care Team Information Pourer Bull Ladle + [phone] Maggie Crystal Care Team Information Pourer Bull Ladle + [phone] Problems Active Problems Provider Date Endometriosis (clinical) [...] H/L Range N ote Lipid Panel 09/13/2022 [facility] Cholesterol, Total 207 mg/dL High (<200) Triglyceride 190 mg/dL High (<150) HDL Chol 62 mg/dL (>39) LDL Cholesterol , Calculated 107 mg/dL (0-130) Non HDL Cholesterol (Calc) 145 mg/dL (<160) TSH With Reflex To FT4 09/13/2022 [facility] TSH With Reflex To FT4 2.24 uIU/mL (0.4-4.2) LH 09/13/2022 [facility] LH 8.8 MIU/ML 1 FSH 09/13/2022 [facility] FSH 7.6 MIU/ML 2 Estradiol 09/13/2022 [facility] Estradiol 556 pg/mL 3 Glucose 09/13/2022 [facility] Glucose 115 mg/dL High [...]
== END 2025-02-23 10:47 | disposition home or self-care (01) ==
LOC: HO.HMCC 08:10
PROVIDERS: PCP Internal Medicine; Visit Provider Internal Medicine
DX: J39.0 Retropharyngeal and parapharyngeal abscess (principal); Z76.89 Persons encountering health services in other specified circumstances; E66.01 Morbid (severe) obesity due to excess calories; Z68.39 Body mass index [BMI] 39.0-39.9, adult; T88.7XXA Unspecified adverse effect of drug or medicament, initial encounter; R11.10 Vomiting, unspecified

== ENCOUNTER 2025-03-01 09:35 | Outpatient (AMB) | payer BC, SELFPAY ==
--- NOTE | 2025-03-01 10:03 | A.OFFVIS_ITS ---
Intake Visit Reasons: 3m AD Allergies azithromycin (AZITHROMYCIN) Allergy (Intermediate, Verified 02/22/25 21:04) low heart rate HPI Comments Details: This is a 44 yr old woman who is concerned about familial AD. Her mother passed with AD at age 68. ?5 of her mother's siblings also had AD. They all became symptomatic in their mid 50s, and one aunt in the 70s.? A cousin from mother's side also had AD. She feel sfine with no memory issues. She?has a history of diverticulitis and some borderline blood tests for lupus. She was seen in March 2022 in the [facility] emergency room for a sudden onset of losing energy while peeling potatoes with her and her feeling tingly and numb and becoming confused and unable to answer questions. She had an MRI of the brain that showed multiple white matter lesions in the subcortical deep white matter and some periventricular areas in both sides, more than 20 lesions suspicious for demyelinating disease. Since then she was okay. Around August 2023 she started having some episodes where she would get eye twitching and blurred vision. The while driving, she had 2 episodes where she suddenly felt her head jerking back and forth with a sense of movement, lasting 30-60 seconds her she had to chain puller and stopped. She is physically felt that her head was moving back and forth and a sense of movement. She's also had a couple of episodes of vertigo when she got out of bed for about 2 min. her body was pulling to the right and the room was spinning. These episodes also brief. She has episodes where she gets numbness and tingling in the face, right greater than left, but no facial droop. She also has episodes where she feels tightening in muscle spasm in her torso muscles in her thighs. It is brief pains in her head which goes away with breathing. In between these episodes she feels back to normal. She has mild heat intolerance. [facility] Medical History (Updated 02/28/25 @ 13:59 by Jeff Desir CMA) Dementia Migraine Stress incontinence DDD (degenerative disc disease), thoracolumbar Lupus History of blood clots Weakness of left arm Paresthesias in left hand Surgical History S/P epidural steroid injection History of inguinal hernia repair Hx of carpal tunnel repair Hx of lumpectomy H/O: hysterectomy History of bunionectomy Hx of cholecystectomy Family History Father High cholesterol HTN (hypertension) Stroke Mother Lupus Substance use disorder Congenital heart disease Dementia Sister Lupus Maternal Aunt Dementia Maternal Aunt Dementia Maternal Aunt Dementia Maternal Aunt Dementia Maternal Aunt Dementia Social History Household Members: Spouse and Children Housing: House Are you a primary manager managed care to a significant other at home: No Do you presently have visiting nurse or other home services: No Alcohol intake: never Patient Tobacco Use Status: Former Tobacco user Tobacco use type: Cigarette Years Smoked: 5 e-Cigarette/Vaping Use: Never Used service: No Current occupational status: employed 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 Difficulty getting to sleepdenies.? Difficulty maintaining sleepdenies?.? Urge to move legsdenies.? Teeth grindingdenies.? Shouting or Kicking during sleep denies.? Abnormal behavior during sleepdenies.? Excessive sleepdenies.? Snoring denies.? Daytime sleepinessdenies. ???General/Constitutional:? Change in appetitedenies.? Chillsdenies.? Fatiguedenies.? Feverdenies.? Weight gaindenies.? Weight lossdenies. ???Ophthalmologic:? Blurred visiondenies.? Diminished visual acuitydenies. ???ENT:? Stuffinessdenies.? Decreased hearingdenies.? Dry mouthdenies.? Ear paindenies.? Nosebleeddenies.? Ringing in the earsdenies.? Sinus paindenies.? Sore throatden ies.? Swollen glandsdenies. ???Endocrine:? Cold intolerancedenies.? Excessive thirstdenies.? Frequent urinationdenies.? Heat intolerancedenies. ???Respiratory:? Shortness of breathdenies.? Chest paindenies.? Coughdenies. ???Breast:? Breast lumpdenies.? Nipple dischargedenies. ???Cardiovascular:? Chest pain at restdenies.? Chest pain with exertiondenies.? Claudicationdenies .? Dizzinessdenies.? Fluid accumulation in the legsdenies.? Irregular heartbeat denies.? Palpitationsdenies. ???Gastrointestinal:? Abdominal paindenies.? Constipationdenies.? Diarrheadenies.? Difficulty swallowingdenies.? Heartburndenies.? Nauseadenies.? Rectal bleedingdenies. ???Hematology:? Easy bruisingdenies.? Prolonged bleedingdenies. ???Genitourinary:? Frequent urinationdenies.? Urgencydenies.? Incontinencedenies.? Erectile Dysfunctiondenies. ???Musculoskeletal:? Neck paindenies.? Back paindenies.? Muscle achesdenies.? Painful jointsdenies.? Sciaticadenies.? Weaknessdenies. ???Podiatric:? Difficulty walkingdenies.? Foot numbnessdenies. ???Neurologic:? Difficulty swallowingdenies.? Balance difficultydenies.? Coordinationnormal.? Difficulty speakingdenies.? Dizzinessdenies.? Faintingdenies.? Gait abnormality denies.? Headachedenies.? Loss of strengthdenies.? Loss of use of extremity denies.? Low back paindenies.? Memory lossdenies.? Seizuresdenies.? Ticsdenies.? Tingling/Numbnessdenies.? Transient loss of visiondenies.? Tremordenies. ???Psychiatric:? Anxietydenies.? Auditory/visual hallucinationsdenies.? Delusionsdenies.? Depressed mooddenies.? Stressorsdenies.? Substance abusedenies.? Suicidal thoughtsdenies. Physical Exam Neuro Other: Neurological: Abnormal neurological findings:??none.?Mental Status:??alert and oriented X 3,?Normal attention, orientation, memory and affect.?Cranial Nerves:??Pupils are equal, round and reactive to light. Fundoscopy shows normal disc bilaterally. External occular muscles are intact. Visual austin are full, no ptosis. Face is symmetrical, no facial weakness or droop. Facial sensations are normal. Tongue protrudes in midline. Palate elevates symmetrically. Shoulder shrugging is normal..?Motor Examination:??Normal muscle tone, bulk and strength,?No atrophy or fasciculations,?No drift of the extended upper extremities,?Deep tendon reflexes are 2+?,?Plantars are flexor?.?Motor Strength:?Proximal Muscles (out of 5):5Distal Muscles (out of 5):5Neck Flexors (out of 5):5Neck Extensors (out of 5):5Deltoid (out of 5):5Biceps (out of 5):5Triceps (out of 5):5Serratus Anterior (out of 5):5Wrist Extensors (out of 5):5APB (out of 5):5Finger Spread (out of 5):5Ileopsoas (out of 5):5Quadriceps (out of 5):5Hamstrings (out of 5):5Tibialis Anterior (out of 5):5Peronei (out of 5):5EDB (out of 5):5Gastrocnemius (out of 5):5Straight Leg Raising:??90 degrees.?Sensory Exam:??Normal light touch, temperature, pinprick, vibration and joint-position sensations?,?Rhomberg sign is absent.?Coordination:??no ataxia,?no titubation,?fqvmcn-nw-zlbm, nsmk-cend-ohqt test and rapid alternating movements were normal.?Gait Exam:??Within normal limits.?Cerebellar Signs:??Fmlvqz-cq-cxne and kamw-yh-fslt is normal,?no dysdiadochokinesia?.?Extrapyramidal System:??No tremor, rigidity with normal facial expressions,?No bradykinesia, no bradyphrenia. Normal arm swing and posture. No propulsion or retropulsion.?Speech:??Normal,?no dysphasia or dysarthria..? Mini Mental Status Exam: Level of Consciousness:??Alert.?Orientation:??Knows correct year, month, date, day and season,?Knows correct city, county and state. Knows correct location and floor.?Registration:??Able to register 3 objects.?Attention:??Serial 7's performed accurately.?Recall:??Able to recall 3 out of 3 objects.?Language:??Normal spontaneous speech, fluency, repetition,naming, co mprehension, reading and writing.?Total Score:??.? General Examination: GENERAL APPEARANCE:??normal,?in no acute distress.?HEAD:??normocephalic,?atraumatic.?EYES:??sclera non- icteric,?conjunctiva clear.?EARS:??auditory canal clear,?tympanic membrane intact, clear.?NOSE:??no lesions.?ORAL CAVITY:??gums normal,?mucosa moist,?no lesions.?THROAT:??clear.?NECK/THYROID:??no cervical lymphadenopathy,?thyroid normal,?neck supple, full range of motion,?no carotid bruit.?SKIN:??no rashes,?no significant birthmarks.?HEART:??S1, S2 normal,?no murmurs.?LUNGS:??clear anteriorly and posteriorly.?CHEST:??no gross rib deformity,?clear to auscultation.?BACK:??normal exam of spine.?EXTREMITIES:??no edema.?PERIPHERAL PULSES:??normal.?PSYCH:??alert, oriented,?cognitive function intact,?cooperative with exam.? Results Reviewed Results Reviewed: 12/07/24 MRI brain unchanged from MRI of 2021 with about 20-25 white matter lesions scattered bilaterally. CSF for Alzheimer. This test detected borderline levels of A-beta 42, T-tau and/or P-tauproteins in the cerebrospinal fluid (CSF)of questionable significance. Assessment & Plan Assessment & Plan (1) Abnormal brain MRI: Code(s): R90.89 - Other abnormal findings on diagnostic imaging of central nervous system Category: Medical (2) Family history of Alzheimer disease: Code(s): Z82.0 - Family history of epilepsy and other diseases of the nervous system Category: Medical Plan If no new Sx , then f/u in 1 yr. F/u Brain MRI in 2027, and repeat CSF for AD in 2030 or earlier if some memory issues develop. Coding Level of Care Code Est Pt Level 4 (93504) Diagnoses Abnormal brain MRI R90.89 Family history of Alzheimer disease Z82.0
--- OUTSIDE RECORDS SUMMARY | 2025-03-01 11:22 | XMS_ITS | Continuity of Care Document ---
Author Organization [facility] [address] [place] [address] Phone [phone] Care Team Providers Care Compressor Mechanic Bus Name Role Phone Joel Rosas Care Team Information Bottom Ironer + [phone] Maggie Crystal Care Team Information Bottom Ironer + [phone] Problems Active Problems Provider Date Endometriosis (clinical) [...] H/L Range N ote Lipid Panel 09/13/2022 [facility] Cholesterol, Total 207 mg/dL High (<200) Triglyceride 190 mg/dL High (<150) HDL Chol 62 mg/dL (>39) LDL Cholesterol , Calculated 107 mg/dL (0-130) Non HDL Cholesterol (Calc) 145 mg/dL (<160) TSH With Reflex To FT4 09/13/2022 [facility] TSH With Reflex To FT4 2.24 uIU/mL (0.4-4.2) LH 09/13/2022 [facility] LH 8.8 MIU/ML 1 FSH 09/13/2022 [facility] FSH 7.6 MIU/ML 2 Estradiol 09/13/2022 [facility] Estradiol 556 pg/mL 3 Glucose 09/13/2022 [facility] Glucose 115 mg/dL High [...]
--- OUTSIDE RECORDS SUMMARY | 2025-03-01 11:22 | XMS_ITS | Clinical Summary ---
Author Organization [facility] ity Address [address] [place] [address] Care Team Providers Care Sugar Controller Name Role Phone Jessica Nobles MD Primary [...] 05/18/2022 Social Influencers of Health Screening 05/18/2022 Depression Screening 06/15/2024 COVID-19 Vaccine ( - 2023-2 5 season) 2025 Influenza Vaccine (#1) 2025 HIB Vaccines Aged [...] age to complete this topic Care Teams Sugar Controller Relationship Specialty Start Date End Date Jessica Nobles MD [address] [place] [address] PCP - General 02/18/07
== END 2025-03-01 10:20 | disposition home or self-care (01) ==
LOC: HO.HSM 09:36
PROVIDERS: PCP Internal Medicine; Referring Provider Internal Medicine; Visit Provider Psychiatry & Neurology Neurology
DX: R90.89 Other abnormal findings on diagnostic imaging of central nervous system (principal); Z82.0 Family history of epilepsy and other diseases of the nervous system
CPT/HCPCS: 99214

== ENCOUNTER → 2025-03-03 15:09 | Outpatient (BNVA) | payer OTHER, SELFPAY | PROVIDERS: PCP Internal Medicine; Visit Provider Physician Assistant Medical | DX: M23.92 Unspecified internal derangement of left knee (principal) | CPT/HCPCS: 99213 ==

== ENCOUNTER 2025-03-07 08:16 | Outpatient (AMB) | payer OTHER, SELFPAY ==
--- NOTE | 2025-03-07 08:22 | MHC.OFFVIS ---
Intake Visit Reasons: New Prob - Lt knee injury, 10/21/24 Intake Note: Naomi is a 44 year old female who presents today for a evaluation of her left knee pain, 10/21/24. Patient reports she slipped and fell at work. She notices that her left knee hyperextended when she slipped. Patient mentions the she is feeling pain when she is walking and pressure. From a week after the injury she had a inferior of the patella. She has tried taking Ibuprofen when she really needs even though it upsets her stomach, which helps her knee pain. MPRESSION (MRI left knee): 1. Bone contusion involving the anterior aspect of the lateral tibial plateau. 2. Probable small fissure involving the central patellar cartilage. 3. Tiny Hidalgo's cyst. Allergies azithromycin (AZITHROMYCIN) Allergy (Intermediate, Verified 03/07/25 08:26) low heart rate HPI HPI New Prob - Lt knee injury, 10/21/24: Details: Ms. Moon is a 44-year-old female who presents to the office today for a left knee injury that occurred at work on 10/21/2024. 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 Ultimately she slipped hyperextended the left knee. She did not fall to the ground, she was able to catch herself while holding onto a file cabinet and a desk. She felt immediate pain in the left knee. She presented to the [facility] for evaluation. Her knee did swell nearly immediately after the injury and she developed some bruising inferiorly to the patella. She states that her symptoms have improved slightly since the initial injury. She begins physical therapy today. She had an MRI that was obtained and significant for a bone contusion along the anterior aspect of the lateral tibial plateau. Patient reports that she continues to have pain with weight-bearing activities. [facility] Medical History (Updated 03/07/25 @ 09:35 by Tara Diaz PA-C) Dementia Migraine Stress incontinence DDD (degenerative disc disease), thoracolumbar Lupus History of blood clots Weakness of left arm Paresthesias in left hand Surgical History S/P epidural steroid injection History of inguinal hernia repair Hx of carpal tunnel repair Hx of lumpectomy H/O: hysterectomy History of bunionectomy Hx of cholecystectomy Family History Father High cholesterol HTN (hypertension) Stroke Mother Lupus Substance use disorder Congenital heart disease Dementia Sister Lupus Maternal Aunt Dementia Maternal Aunt Dementia Maternal Aunt Dementia Maternal Aunt Dementia Maternal Aunt Dementia Social History Household Members: Spouse and Children Housing: House Are you a primary intensive care unit registered nurse to a significant other at home: No Do you presently have visiting nurse or other home services: No Alcohol intake: never Patient Tobacco Use Status: Former Tobacco user Tobacco use type: Cigarette Years Smoked: 5 e-Cigarette/Vaping Use: Never Used service: No Current occupational status: employed 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 No ecchymosis, erythema or joint effusion. Tenderness to palpation along the medial joint line and the inferior aspect of the patella over the patellar tendon attachment. No palpable defect of the patellar tendon or quad tendon. Range of motion 0-120. NVI. Psych Appearance: grossly normal Mental Status: mental status grossly normal Attitude: cooperative Assessment & Plan Assessment & Plan (1) Contusion of knee, left: Code(s): S80.02XA - Contusion of left knee, initial encounter Category: Medical Plan Ms. Moon is a 44-year-old female who presents to the office today for a left knee injury that occurred at work on 10/21/2024. 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 Ultimately she slipped hyperextended the left knee. She did not fall to the ground, she was able to catch herself while holding onto a file cabinet and a desk. She felt immediate pain in the left knee. She presented to the work connection for evaluation. Her knee did swell nearly immediately after the injury and she developed some bruising inferiorly to the patella. She states that her symptoms have improved slightly since the initial injury. She begins physical therapy today. She had an MRI that was obtained and significant for a bone contusion along the anterior aspect of the lateral tibial plateau. Patient reports that she continues to have pain with weight-bearing activities. While in the office today, we discussed the MRI findings from the left knee scan that was obtained on 01/02/2025 which was consistent with a bone contusion involving the anterior aspect of the lateral tibial plateau. I educated this patient that there is no need for surgical intervention at this time. She begins physical therapy today which I have recommended continuing to follow through with this program. I did offer the patient a wrap Pop or Genumed knee brace but she has deferred at this time. I educated the patient that a bone contusion can take months to resolve fully. I have sent Celebrex 200 mg to be taken p.o. b.i.d. to the pharmacy to assist with swelling as the patient has tried other anti-inflammatories and has had GI upset with them. She may continue taking Tylenol as needed for pain. I educated the patient that she can slowly return to normal activities as her symptoms improve using pain as her guide. She should avoid high impact activities such as running. Low-impact exercises such as biking or swimming are recommended. She will follow up in 6 weeks after working with physical therapy, sooner if needed. MRI obtained on 01/02/2025: IMPRESSION: 1. Bone contusion involving the anterior aspect of the lateral tibial plateau. 2. Probable small fissure involving the central patellar cartilage. 3. Tiny Hidalgo's cyst. X-rays of the left knee obtained on 10/25/2024: No acute fracture or dislocation. Medications: New celecoxib (Celebrex) 200 mg PO BID 60 caps 0RF 30 days Coding Level of Care Code Est Pt Level 3 (10508) Diagnoses Contusion of knee, left S80.02XA
--- OUTSIDE RECORDS SUMMARY | 2025-03-07 09:11 | XMS_ITS | Clinical Summary ---
Author Organization [facility] ity Address [address] [place] [address] Care Team Providers Care Honey Blender Name Role Phone Jessica Nobles MD Primary [...] age to complete this topic Care Teams Honey Blender Relationship Specialty Start Date End Date Jessica Nobles MD [address] [place] [address] PCP - General 02/18/07
--- OUTSIDE RECORDS SUMMARY | 2025-03-07 09:11 | XMS_ITS | Continuity of Care Document ---
Author Organization [facility] [address] [place] [address] Phone [phone] Care Team Providers Care Oil Tanker Captain Name Role Phone Joel Rosas Care Team Information Bin Filler + [phone] Maggie Crystal Care Team Information Bin Filler + [phone] Problems Active Problems Provider Date Endometriosis (clinical) [...] H/L Range N ote Lipid Panel 09/13/2022 [facility] Cholesterol, Total 207 mg/dL High (<200) Triglyceride 190 mg/dL High (<150) HDL Chol 62 mg/dL (>39) LDL Cholesterol , Calculated 107 mg/dL (0-130) Non HDL Cholesterol (Calc) 145 mg/dL (<160) TSH With Reflex To FT4 09/13/2022 [facility] TSH With Reflex To FT4 2.24 uIU/mL (0.4-4.2) LH 09/13/2022 [facility] LH 8.8 MIU/ML 1 FSH 09/13/2022 [facility] FSH 7.6 MIU/ML 2 Estradiol 09/13/2022 [facility] Estradiol 556 pg/mL 3 Glucose 09/13/2022 [facility] Glucose 115 mg/dL High [...]
== END 2025-03-07 09:18 | disposition home or self-care (01) ==
LOC: HO.HOS 08:17
PROVIDERS: PCP Internal Medicine; Visit Provider Physician Assistant
DX: S80.02XA Contusion of left knee, initial encounter (principal)
CPT/HCPCS: 99213

== ENCOUNTER → 2025-03-07 08:16 | Outpatient (BNVA) | payer OTHER, SELFPAY | PROVIDERS: PCP Internal Medicine; Visit Provider Physician Assistant | DX: S80.02XA Contusion of left knee, initial encounter (principal) | CPT/HCPCS: 99212 ==

== ENCOUNTER 2025-03-09 11:33 | Outpatient (REF) | payer BC, OTHER, SELFPAY ==
--- OUTSIDE RECORDS SUMMARY | 2025-03-10 13:30 | XMS_ITS | Clinical Summary ---
Author Organization [facility] ity Address [address] [place] [address] Care Team Providers Care Nurse Midwife/Clinical Instructor Name Role Phone Jessica Nobles MD Primary [...] age to complete this topic Care Teams Nurse Midwife/Clinical Instructor Relationship Specialty Start Date End Date Jessica Nobles MD [address] [place] [address] PCP - General 02/18/07
--- OUTSIDE RECORDS SUMMARY | 2025-03-10 13:30 | XMS_ITS | Continuity of Care Document ---
Author Organization [facility] [address] [place] [address] Phone [phone] Care Team Providers Care Oil Seal Assembler Name Role Phone Joel Rosas Care Team Information Operating Room Orderly + [phone] Bonilla Yurigretel Care Team Information Operating Room Orderly + [phone] Problems Active Problems Provider Date Endometriosis (clinical) [...] H/L Range N ote Lipid Panel 09/13/2022 [facility] Cholesterol, Total 207 mg/dL High (<200) Triglyceride 190 mg/dL High (<150) HDL Chol 62 mg/dL (>39) LDL Cholesterol , Calculated 107 mg/dL (0-130) Non HDL Cholesterol (Calc) 145 mg/dL (<160) TSH With Reflex To FT4 09/13/2022 [facility] TSH With Reflex To FT4 2.24 uIU/mL (0.4-4.2) LH 09/13/2022 [facility] LH 8.8 MIU/ML 1 FSH 09/13/2022 [facility] FSH 7.6 MIU/ML 2 Estradiol 09/13/2022 [facility] Estradiol 556 pg/mL 3 Glucose 09/13/2022 [facility] Glucose 115 mg/dL [...]
== END 2025-03-09 11:34 | disposition home or self-care (01) ==
LOC: HO.HOSX 11:33
PROVIDERS: Visit Provider Physician Assistant
DX: Z13.89 Encounter for screening for other disorder (principal)

== ENCOUNTER 2025-03-15 14:55 | Outpatient (RCR) | payer OTHER, BC, SELFPAY ==
--- NOTE | 2025-03-07 16:15 | MHC.PT.EP ---
[facility] [place] Office [place] [facility] [place] [facility] [address] Chon Valdez [address] [phone] F: [phone] F: [phone] F: [phone] F: [phone] Physical Therapy Plan of Care Date of Evaluation: 03/07/25 Date of Surgery: Diagnosis: LEFT knee internal derangement and chondral injury. (MD Sandoval) RS MRI imagin. Bone contusion involving the anterior aspect of the lateral tibial plateau. 2. Probable small fissure involving the central patellar cartilage. Assessment: Naomi Moon (:[birth year]) is a 44 y.o. female, whom works in [employer] who is referred to PT by Kiah Lr PA-C of [employer] [facility] with Dx of LEFT knee internal derangement and chondral injury. MRI imaging reveals, 1. Bone contusion involving the anterior aspect of the lateral tibial plateau. 2. Probable small fissure involving the central patellar cartilage. Patient impairments include pain, limited ROM, weakness in quads and glutes, antalgic gait pattern. Patient current functional limitations are getting up out of bed, walking, bend/squat, sit to stand (pressure/WBing through knee), kneeling, stair use. Patient will benefit from skilled PT to address aforementioned impairments and functional limitations to meet established goals. Frequency and Duration: The patient will be seen 2x/week for 4 weeks Short Term Goals: 2 weeks Patient demonstrates consistency and independence with HEP to self manage symptoms. Fruit Picker Goals: 4 weeks Patient presents with increased L knee flexion 125 degrees to be able to perform sit to stand without difficulty. Patient presents with increased L knee quad strength 4+/5 to able to perform reciprocal stairs. Treatment Plan: Modalities to reduce pain, spasms and effusion. Manual therapy to restore motion and function. Therapeutic exercise to improve strength and flexibility. Neuromuscular re-education for posture and balance. Therapeutic activities to return to functional activities of daily living. Electronically signed by: Calixto Kuo, PT, DPT Please sign and return to therapist. Thank you for your referral.
--- NOTE | 2025-04-11 15:14 | MHC.PT.DC ---
[facility] [place] Office [place] Office [place] Office [address] Chon Valdez [address] [phone] F: [phone] F: [phone] F: [phone] F: [phone] Physical Therapy Discharge Report Diagnosis: LEFT knee internal derangement and chondral injury. (MD Sandoval) RS MRI imagin. Bone contusion involving the anterior aspect of the lateral tibial plateau. 2. Probable small fissure involving the central patellar cartilage. Date of Surgery: Date of Evaluation: 03/07/25 Date of Discharge: 04/11/25 Treatments to Date: 2 Cancellations to Date: 3 No Shows to Date: 3 Discharge Status: Visit Non-compliance Discharge Summary: Pt was seen for skilled PT from 03/07/25-03/15/25. Her last attended appointment was 03/15/25. She has had 3 cancellations and 3 no show appointments since last attended session. She is being D/C from skilled PT per [facility] attendance policy and visit non compliance. Pt current level of function unknown at this time Electronically signed by: Kaylee Ventura, PT, DPT Please sign and return to therapist. Thank you for your referral.
== END 2025-04-11 15:12 | disposition home or self-care (01) ==
LOC: HO.PT 14:55
PROVIDERS: PCP Internal Medicine; Visit Provider Physician Assistant Medical
DX: M23.92 Unspecified internal derangement of left knee (principal); S89.92XD Unspecified injury of left lower leg, subsequent encounter
CPT/HCPCS: 97110; 97112; 97161

== ENCOUNTER 2025-04-28 11:12 | Outpatient (AMB) | payer OTHER, SELFPAY ==
[2025-04-28 11:16] VITALS: BP 122/68; PULSE 68; O2SAT 98; BMI 32.8
--- NOTE | 2025-04-28 11:16 | A.OFFPC_ITS ---
Vital Signs 04/28/25 11:16 Height 5 ft 5 in Weight 197 lb BMI 32.8 BP 122/68 Blood Pressure Location Lt brachial Position Sitting Pulse 68 Pulse Source Pulse Oximeter Pulse Oximetry (%) 98 Intake Visit Reasons: 3 month follow up Allergies azithromycin (AZITHROMYCIN) Allergy (Intermediate, Verified 03/07/25 08:26) low heart rate Medication List - Last Reconciled 04/28/25 by Maggie Crystal MD amoxicillin-pot clavulanate 500-125 mg 1 tab PO Q12H 7 days phadyjltbn-wocfvtbnjtego-jyrv 50-300-40 mg (Fioricet) 1 cap PO Q8H PRN celecoxib (Celebrex) 200 mg PO BID 30 days methylprednisolone (Medrol (Selwyn)) PO PER PKG DIR 6 days ondansetron 4 mg PO Q6H PRN semaglutide (weight loss) 1 mg (0.5 mL) subcut QWEEK 30 days Tobacco use date assessed: 02/10/25 Dental Screening Dental Screen Date: 10/28/24 HPI 3 month follow up HPI Details History of Present Illness The patient is a 44-year-old female presenting for a follow-up visit for a resolved throat issue and to discuss new concerns including a right knee injury and an episode of cold intolerance, as well as management of chronic low back pain. Right Knee Injury: - The patient sustained an injury to her right knee on April 16 after hitting it on the corner of a anglican pew. - She experienced an immediate, severe s hock-like sensation through her nervous system and was crying from the pain. - The knee was swollen after the injury. - Since the injury, her knee sometimes g zhen out while walking, and she is unable to kneel on it due to pain. Cold Intolerance: - The patient reports feeling colder saad n normal recently. - She describes a specific episode two d ays prior where she was shivering uncontrollably and could not get warm, and her hands turned blue. - The symptoms resolved after she soaked in a warm tub, and she felt fine the next day with no recurrence. - She denied any associated breathing pr oblems during the episode. - A thyroid test performed in October was no rmal. Chronic Low Back Pain: - The patient has a history of spinal st enosis and receives injections for her back from a pain management clinic. - She describes the pain as shooting dang n her leg, mimicking sciatica, with associated hogan splint-like sensations and paresthesia in her toes. - The pain has been intense over the pas t few weeks, interfering with sleep and causing restless, achy, and heavy sensations in her legs. - She inquired about a surgical second o sarah from Dr. Chavez, a neurosurgeon, after coworkers with similar issues reported positive outcomes. Medical History: - facet arthropathy and degenerative ch anges, managed with pain management injections. - Adverse reaction to Wegovy (semaglutid e), medication discontinued. - History of left knee injury, sustained at work. - Right shoulder issue, with a scheduled orthopedic appointment on May 15. Diagnostic Results: - Lumbar spine MRI (September 2022): Showed worsening of degenerative changes and facet arthropathy compared to a study from 2 years prior; no spinal stenosis or nerve root compromise was noted. - Thyroid function tests (October 2022): Nor mal. Problem List - Right knee injury - Chronic low back pain with radiculopat hy - Cold intolerance only 1 episode - Preventative care: Influenza vaccinati on Plan - Right Knee Injury: The patient will be referred to Orthopedics for further evaluation of the knee. - Chronic Low Back Pain: Prescribed a tr ial of gabapentin 300 mg (30 tablets), one capsule at bedtime, for neuropathic pain. - Chronic Low Back Pain: The patient was advised that her MRI from September does not show a problem that can be surgically corrected by a neurosurgeon, and that the procedure mentioned by her painter ordnance is for implanting a device, not structural spine surgery. - Follow-up: The patient should follow u p if the gabapentin is effective - Cold Intolerance: The patient was advi sed to monitor for recurrence of symptoms and to follow up if it happens again. - Health Maintenance: Discussed the infl uenza vaccine, which the patient has not yet received. Review of Systems - General: No fever no chills - Neurological: No headaches no dizziness - Ear nose throat: No sore throat no hearing difficulty no ear pain - Cardiovascular: No syncope, no chest pain, no palpitations - Gastrointestinal: No nausea vomiting or diarrhea - Endocrine: No polyuria polydipsia no heat intolerance - Genitourinary: No dysuria , no blood in urine Physical Exam General: No acute distress HEENT: No acute findings Neck: Supple Respiratory system: Able to talk in full sentences, no audible wheeze Cardiovascular: S1-S2 regular in rate and rhythm Gastrointestinal: No pain Extremities: Right knee tender lateral to patella with palpation swelling not observed range of motion intact POLICE DETECTIVE: Alert awake oriented x3 motor intact Skin: Normal turgor PFSH Medical History Dementia Migraine Stress incontinence DDD (degenerative disc disease), thoracolumbar Lupus History of blood clots Weakness of left arm Paresthesias in left hand Surgical History S/P epidural steroid injection History of inguinal hernia repair Hx of carpal tunnel repair Hx of lumpectomy H/O: hysterectomy History of bunionectomy Hx of cholecystectomy Family History Father High cholesterol HTN (hypertension) Stroke Mother Lupus Substance use disorder Congenital heart disease Dementia Sister Lupus Maternal Aunt Dementia Maternal Aunt Dementia Maternal Aunt Dementia Maternal Aunt Dementia Maternal Aunt Dementia Social History Household Members: Spouse and Children Housing: House Are you a primary care management specialist to a significant other at home: No Do you presently have visiting nurse or other home services: No Alcohol intake: never Patient Tobacco Use Status: Former Tobacco user Tobacco use type: Cigarette Years Smoked: 5 e-Cigarette/Vaping Use: Never Used service: No Current occupational status: employed 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[email or web address] Cognitive needs: No Hearing needs: No Vision needs: Yes (contacts) Questionnaire Thrive Questionnaire Date Thrive assessed: 06/15/24 I am a: Patient What is your living situation today?: I have a steady place to live Within the past 12 months, did the food you bought not last and you didn't have the money to get more?: Never true Within the past 12 months, did you worry whether your food would run out before you got money to buy more?: Never true Do you have trouble paying for medicines?: No Do you have trouble getting transportation to medical appointments?: No Do you have trouble paying your heating and electricity bill?: No Do you have trouble taking care of your child, family member or friend?: No Do you have trouble with day-to-day activities such as bathing, preparing meals, shopping, managing finances, etc.?: No Are you currently unemployed and looking for a job?: No Are you interested in more education?: No Please select the resources that you would like help with: None Currently or been in a relationship where the following occur: No concerns reported THRIVE Score: 0 DAMON-7 AMB Questionnaire DAMON-7 Date DAMON - 7 assessed: 10/28/24 Source: Developed by Drs. Morris Farooq, Francia Barfield, Leonel Min and colleagues, with an educational austyn from [employer]. Physical exam (Primary Care) Vital Signs: Last Vital Signs Pulse 68 04/28/25 11:16 BP 122/68 04/28/25 11:16 Pulse Ox 98 04/28/25 11:16 BMI result Body Mass Index 32.8 Tobacco/Smoking Status: Tobacco use Status Tobacco use date assessed 02/10/25 04/28/25 11:19 Patient Tobacco Use Status Former Tobacco user 04/28/25 11:19 Tobacco use type Cigarette 04/28/25 11:19 e-Cigarette/Vaping Use Never Used 04/28/25 11:19 Thrive Assessment: Date of Thrive Assessment Date Thrive assessed 06/15/24 04/28/25 11:19 Currently or been in a relationship where the following occur: No concerns reported Coding Level of Care Code Est Pt Level 4 (46153) Diagnoses Injury of left knee, sequela S89.92XS Encounter type: sequela Unstable right knee M25.361 Acute pain of right knee M25.561 Cold intolerance R68.89 Osteoarthritis of spine with radiculopathy, lumbar region M47.26 Spinal osteoarthritis complication: with radiculopathy Facet arthropathy, lumbar M47.816 Radicular pain of left lower extremity M54.10 Time Spent (min) 30 Comment Reviewing MRI imaging, [id number], coordination of care Assessment & Plan Assessment & Plan (1) Left knee injury: Code(s): S89.92XA - Unspecified injury of left lower leg, initial encounter Category: Medical Qualifiers: Encounter type: sequela Qualified Code(s): S89.92XS - Unspecified injury of left lower leg, sequela (2) Unstable right knee: Code(s): M25.361 - Other instability, right knee Category: Medical (3) Acute pain of right knee: Code(s): M25.561 - Pain in right knee Category: Medical (4) Cold intolerance: Code(s): R68.89 - Other general symptoms and signs Category: Medical (5) Degenerative joint disease (DJD) of lumbar spine: Code(s): M47.816 - Spondylosis without myelopathy or radiculopathy, lumbar region Category: Medical Qualifiers: Spinal osteoarthritis complication: with radiculopathy Qualified Code(s): M47.26 - Other spondylosis with radiculopathy, lumbar region (6) Facet arthropathy, lumbar: Code(s): M47.816 - Spondylosis without myelopathy or radiculopathy, lumbar region Category: Medical (7) Radicular pain of left lower extremity: Code(s): M54.10 - Radiculopathy, site unspecified Category: Medical Plan Right Knee Injury: - The patient sustained an injury to her right knee on April 16 after hitting it on the corner of a anglican pew. - She experienced an immediate, severe shock-like sensation through her nervous system and was crying from the pain. - The knee was swollen after the injury. - Since the injury, her knee sometimes gives out while walking, and she is unable to kneel on it due to pain. Cold Intolerance: - The patient reports feeling colder than normal recently. - She describes a specific episode two days prior where she was shivering uncontrollably and could not get warm, and her hands turned blue. - The symptoms resolved after she soaked in a warm tub, and she felt fine the next day with no recurrence. - She denied any associated breathing problems during the episode. - A thyroid test performed in October was normal. Chronic Low Back Pain: - The patient has a history of spinal stenosis and receives injections for her back from a pain management clinic. - She describes the pain as shooting down her leg, mimicking sciatica, with associated hogan splint-like sensations and paresthesia in her toes. - The pain has been intense over the past few weeks, interfering with sleep and causing restless, achy, and heavy sensations in her legs. - She inquired about a surgical second opinion from Dr. Chavez, a neurosurgeon, after coworkers with similar issues reported positive outcomes. Medical History: - facet arthropathy and degenerative changes, managed with pain management injections. - Adverse reaction to Wegovy (semaglutide), medication discontinued. - History of left knee injury, sustained at work. - Right shoulder issue, with a scheduled orthopedic appointment on May 15. Diagnostic Results: - Lumbar spine MRI (September 2022): Showed worsening of degenerative changes and facet arthropathy compared to a study from 2 years prior; no spinal stenosis or nerve root compromise was noted. - Thyroid function tests (October 2022): Normal. Problem List - Right knee injury - Chronic low back pain with radiculopathy - Cold intolerance only 1 episode - Preventative care: Influenza vaccination Plan - Right Knee Injury: The patient will be referred to Orthopedics for further evaluation of the knee. - Chronic Low Back Pain: Prescribed a trial of gabapentin 300 mg (30 tablets), one capsule at bedtime, for neuropathic pain. - Chronic Low Back Pain: The patient was advised that her MRI from September does not show a problem that can be surgically corrected by a neurosurgeon, and that the procedure mentioned by her painter ordnance is for implanting a device, not structural spine surgery. - Follow-up: The patient should follow up if the gabapentin is effective - Cold Intolerance: The patient was advised to monitor for recurrence of symptoms and to follow up if it happens again. - Health Maintenance: Discussed the influenza vaccine, which the patient has not yet received. Orders: Orders XR knee RT 2V Today S89.92XS - Unspecified injury of left lower leg, sequela Referrals Orthopedics Referral S89.92XS - Unspecified injury of left lower leg, sequela Medications: New gabapentin 300 mg PO BEDTIME 30 caps 0RF Discontinued mkzrmrcaqm-cxthvwslhdbsq-xpkk 50-300-40 mg (Fioricet) Discontinued Reason: Doctor's Order 1 cap PO Q8H PRN 10 caps 0RF headache ondansetron Discontinued Reason: Doctor's Order 4 mg PO Q6H PRN 10 tabs 0RF nausea and vomiting methylprednisolone (Medrol (Selwyn)) Discontinued Reason: Doctor's Order PO PER PKG DIR 6 days 21 ea 0RF semaglutide (weight loss) administer weeks 1 through 4 of therapy Discontinued Reason: Doctor's Order 1 mg (0.5 mL) subcut QWEEK 30 days 2.5 mL 1RF celecoxib (Celebrex) Discontinued Reason: Doctor's Order 200 mg PO BID 30 days 60 caps 0RF amoxicillin-pot clavulanate 500-125 mg Discontinued Reason: Doctor's Order 1 tab PO Q12H 7 days 14 tabs 0RF
--- OUTSIDE RECORDS SUMMARY | 2025-04-28 17:11 | XMS_ITS | Clinical Summary ---
Author Organization [facility] it Address [address] [place] [address] Care Team Providers Care Hearing Aid Mechanic Name Role Phone Jessica Nobles MD Primary [...] Last Done Comments Breast Cancer Screening 1979 Colorectal Cancer Screening: Colonoscopy 1979 DTaP,Tdap,and Td Vaccines (1 - Tdap) 1998 Hepatitis B Vaccines (1 of 3 - 19+ 3-dose series) 1998 Cervical Cancer Screening: P ap Smear 2000 HPV Vaccines (1 - 3-dose SCD M series) 2006 HIV Screening 05/18/2022 Hepatitis C Screening 05/18/2022 Social Influencers of Health Screening 05/18/2022 Depression Screening 06/15/2024 COVID-19 Vaccine ( - 2024-2 6 season) 2025 Influenza Vaccine (#1) 2025 RSV Immunization Adult Patie nts (1 - 1-dose 75+ series) 2054 HIB Vaccines Aged Out No longer eligi [...] age to complete this topic Care Teams Hearing Aid Mechanic Relationship Specialty Start Date End Date Jessica Nobles MD [address] [place] [address] PCP - General 02/18/07
== END 2025-04-28 13:02 | disposition home or self-care (01) ==
LOC: HO.HMCC 11:13
PROVIDERS: PCP Internal Medicine; Visit Provider Internal Medicine
DX: S89.92XS Unspecified injury of left lower leg, sequela (principal); M25.361 Other instability, right knee; M25.561 Pain in right knee; R68.89 Other general symptoms and signs; M47.26 Other spondylosis with radiculopathy, lumbar region; M47.816 Spondylosis without myelopathy or radiculopathy, lumbar region; M54.10 Radiculopathy, site unspecified

== ENCOUNTER → 2025-04-28 11:12 | Outpatient (BNVA) | payer BC, OTHER, SELFPAY | PROVIDERS: PCP Internal Medicine; Visit Provider Internal Medicine | DX: M25.561 Pain in right knee (principal); G89.29 Other chronic pain; M25.361 Other instability, right knee; R68.89 Other general symptoms and signs; M47.26 Other spondylosis with radiculopathy, lumbar region; S89.92XA Unspecified injury of left lower leg, initial encounter; W22.03XA Walked into furniture, initial encounter; Y93.9 Activity, unspecified; Y92.9 Unspecified place or not applicable; Y99.9 Unspecified external cause status | CPT/HCPCS: 99212 ==

== ENCOUNTER 2025-05-15 10:14 | Outpatient (AMB) | payer OTHER, SELFPAY ==
--- NOTE | 2025-05-15 10:20 | A.OFFVIS_ITS ---
Intake Visit Reasons: OV-WC- Right shoulder impoingement - Denied PRP Intake Note: Naomi is a 44 year old right hand dominant female who presents today for a follow up of her Right Shoulder Impingement/Bursitis. Hx of workplace injury in April of 2024 while lifting heavy boxes. She was referred to Pain Management to discuss PRP injections but injections were denied, She would like to discuss alternative treatment options. Allergies azithromycin (AZITHROMYCIN) Allergy (Intermediate, Verified 03/07/25 08:26) low heart rate HPI HPI OV-WC- Right shoulder impoingement - Denied PRP: Details: Naomi is a 44 year old right hand dominant female who presents today for a follow up of her Right Shoulder Impingement/Bursitis. Hx of workplace injury in April of 2024 while lifting heavy boxes. She was referred to Pain Management to discuss PRP injections but injections were denied, She would like to discuss alternative treatment options. Her MRI is normal. She has been to an [facility] who agreed. She was seen by pain management but when PRP was denied they did not see her. [facility] Medical History Dementia Migraine Stress incontinence DDD (degenerative disc disease), thoracolumbar Lupus History of blood clots Weakness of left arm Paresthesias in left hand Surgical History S/P epidural steroid injection History of inguinal hernia repair Hx of carpal tunnel repair Hx of lumpectomy H/O: hysterectomy History of bunionectomy Hx of cholecystectomy Family History Father High cholesterol HTN (hypertension) Stroke Mother Lupus Substance use disorder Congenital heart disease Dementia Sister Lupus Maternal Aunt Dementia Maternal Aunt Dementia Maternal Aunt Dementia Maternal Aunt Dementia Maternal Aunt Dementia Social History Household Members: Spouse and Children Housing: House Are you a primary laboratory animal care veterinarian to a significant other at home: No Do you presently have visiting nurse or other home services: No Alcohol intake: never Patient Tobacco Use Status: Former Tobacco user Tobacco use type: Cigarette Years Smoked: 5 e-Cigarette/Vaping Use: Never Used service: No Current occupational status: employed 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 She has a positive Vergara and Neer. She has a positive Faribault's with a negative crank. Negative lift-off Results Reviewed Results Reviewed: I personally reviewed the CT images. 1. There may be a very mild degree of calcific tendinitis of the subscapularis tendon. 2. Tiny avulsion fracture associated with the anterior aspect of the glenoid, of uncertain age. I personally reviewed the MR images. 1. No internal derangement of the right shoulder. The rotator cuff is intact. The labrum appears intact. 2. There is mild subacromial/subdeltoid bursitis. 3. There is minimal arthritis in the AC joint. Assessment & Plan Assessment & Plan (1) Subacromial bursitis: Code(s): M75.50 - Bursitis of unspecified shoulder Category: Medical Plan: 45-year-old with ongoing right shoulder pain. MRI CT and exam are relatively benign and I do not recommend surgery or have any idea what treatment would help her at this point. I think it is reasonable to try an intra-articular steroid injection but, worker's compensation perspective I believe there is no surgical intervention warranted. She is multiple pain generators in the back and a long history of pain. I think seeing pain management would be the appropriate next step. Coding Level of Care Code Est Pt Level 3 (82183) Diagnoses Subacromial bursitis M75.50
--- OUTSIDE RECORDS SUMMARY | 2025-05-15 12:42 | XMS_ITS | Clinical Summary ---
Author Organization [facility] it Address [address] [place] [address] Care Team Providers Care Manager Compliance Name Role Phone Jessica Nobles MD Primary [...] Cervical Cancer Screening: P ap Smear 2000 HIV Screening 05/18/2022 Hepatitis C Screening 05/18/2022 Social Influencers of Health Screening 05/18/2022 Depression Screening 06/15/2024 COVID-19 Vaccine (1 - 2024-2 6 season) 2025 Influenza Vaccine [...] age to complete this topic Care Teams Manager Compliance Relationship Specialty Start Date End Date Jessica Nobles MD [address] [place] [address] PCP - General 02/18/07
--- OUTSIDE RECORDS SUMMARY | 2025-05-15 12:42 | XMS_ITS | Continuity of Care Document ---
Author Organization [facility] [address] [place] [address] Phone [phone] Care Team Providers Care Hospice Chaplain Name Role Phone Joel Rosas Care Team Information Transportation Refrigeration Technician + [phone] Maggie Crystal Care Team Information Transportation Refrigeration Technician + [phone] Problems Active Problems Provider Date Endometriosis (clinical) [...] H/L Range N ote Lipid Panel 09/13/2022 [facility] Cholesterol, Total 207 mg/dL High (<200) Triglyceride 190 mg/dL High (<150) HDL Chol 62 mg/dL (>39) LDL Cholesterol , Calculated 107 mg/dL (0-130) Non HDL Cholesterol (Calc) 145 mg/dL (<160) TSH With Reflex To FT4 09/13/2022 [facility] TSH With Reflex To FT4 2.24 uIU/mL (0.4-4.2) LH 09/13/2022 [facility] LH 8.8 MIU/ML 1 FSH 09/13/2022 [facility] FSH 7.6 MIU/ML 2 Estradiol 09/13/2022 [facility] Estradiol 556 pg/mL 3 Glucose 09/13/2022 [facility] Glucose 115 mg/dL [...] M.D. 12/01/2022 R73.01 Impaired fasting glycemia Remington Covarrubisa M.D. Plan of Treatment 12/01/2022 - Oj Covarrubias M.D.* N80.9 Endometriosis, unspecified * E66.9 Obesity * R73.01 Impaired fasting glycemia * Functional Status Description No Information Available Mental Status Description No Information Available Referrals Description No Information Available
== END 2025-05-15 11:10 | disposition home or self-care (01) ==
LOC: HO.HOS 10:15
PROVIDERS: Visit Provider Orthopaedic Surgery
DX: M75.51 Bursitis of right shoulder (principal)
CPT/HCPCS: 99213

== ENCOUNTER → 2025-05-15 10:14 | Outpatient (BNVA) | payer OTHER, BC, SELFPAY | PROVIDERS: Visit Provider Orthopaedic Surgery | DX: M75.51 Bursitis of right shoulder (principal) | CPT/HCPCS: 99212 ==

== ENCOUNTER 2025-05-22 14:15 | Outpatient (AMB) | payer OTHER, SELFPAY ==
--- NOTE | 2025-05-22 14:22 | MHC.OFFVIS ---
Vital Signs 05/22/25 14:26 Height 5 ft 5 in Weight 192 lb BMI 31.9 Intake Visit Reasons: OV: left knee pain, WC injury 10/21/24 Intake Note: Naomi is a 44 year old female who presents today for a follow up visit for her left knee pain, WC 10/21/24. Patient reports he knee is not doing well. Expresses weight bearing is painful for her. She has constant pain and now instability. Reports calling out of work 2 weeks ago because she could not deal with pain anymore. She is having pain, numbness and tingling that is radiating into her chins. Allergies azithromycin (AZITHROMYCIN) Allergy (Intermediate, Verified 05/22/25 14:26) low heart rate HPI HPI OV: left knee pain, WC injury 10/21/24: Details: Ms. Moon is a 44-year-old female who presents to the office today for follow up regarding her left knee pain, DOI: 10/21/24. Patient reports she feels that her knee is not doing well and continues to have difficulties with weight bearing. She reports that she has now begun to experience episodes of giving out. She states that roughly 2 weeks ago her pain was so severe she was unable to work. Patient reports that she has pain, numbness and tingling that radiates down her left lower extremity. Of note, the patient has seen pain management for low back radicular symptoms and received injections in the past. [facility] Medical History Dementia Migraine Stress incontinence DDD (degenerative disc disease), thoracolumbar Lupus History of blood clots Weakness of left arm Paresthesias in left hand Surgical History S/P epidural steroid injection History of inguinal hernia repair Hx of carpal tunnel repair Hx of lumpectomy H/O: hysterectomy History of bunionectomy Hx of cholecystectomy Family History Father High cholesterol HTN (hypertension) Stroke Mother Lupus Substance use disorder Congenital heart disease Dementia Sister Lupus Maternal Aunt Dementia Maternal Aunt Dementia Maternal Aunt Dementia Maternal Aunt Dementia Maternal Aunt Dementia Social History Household Members: Spouse and Children Housing: House Are you a primary care assistant to a significant other at home: No Do you presently have visiting nurse or other home services: No Alcohol intake: never Patient Tobacco Use Status: Former Tobacco user Tobacco use type: Cigarette Years Smoked: 5 e-Cigarette/Vaping Use: Never Used service: No Current occupational status: employed 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 No ecchymosis, erythema or joint effusion. Tenderness to palpation along the medial joint line and the inferior aspect of the patella over the patellar tendon attachment. No palpable defect of the patellar tendon or quad tendon. Range of motion 0-120. NVI. Psych Appearance: grossly normal Mental Status: mental status grossly normal Attitude: cooperative Assessment & Plan Assessment & Plan (1) Low back pain radiating to left leg: Code(s): M54.50 - Low back pain, unspecified; M79.605 - Pain in left leg Category: Medical Plan While in the office today, I discussed with the patient that given her knee pain with associated numbness and tingling down the left lower extremity is likely a result of her lower back pathology. She has seen pain management in the past and received injections which she reports has been helpful. I have recommended that the patient followup with pain management for further evaluation and treatment of the radicular pain effecting her left lower extremity. at her last appointment with pain management on 11/22/24 it was recommended that she schedule repeat Left diagnostic L3-L4 DR L5 MBB injections with local and fluoroscopy. Expectations, risks and benefits were reviewed. Patient is aware she will be contacted to schedule this procedure. Patient understands and is in agreement with this recommendation. Follow-up with orthopedics will be p.r.n., sooner if needed. MRI left knee 01/02/25: IMPRESSION: 1. Bone contusion involving the anterior aspect of the lateral tibial plateau. 2. Probable small fissure involving the central patellar cartilage. 3. Tiny Hidalgo's cyst. Coding Level of Care Code Complex visit Add On G2211 Diagnoses Low back pain radiating to left leg M54.50; M79.605
[2025-05-22 14:26] VITALS: BMI 31.9
--- OUTSIDE RECORDS SUMMARY | 2025-05-22 23:12 | XMS_ITS | Continuity of Care Document ---
Author Organization [facility] [address] [place] [address] Phone [phone] Care Team Providers Care Cashier Host/Hostess Name Role Phone Joel Rosas Care Team Information Art Preparator + [phone] Maggie Crystal Care Team Information Art Preparator + [phone] Problems Active Problems Provider Date Endometriosis (clinical) [...] H/L Range N ote Lipid Panel 09/13/2022 [facility] Cholesterol, Total 207 mg/dL High (<200) Triglyceride 190 mg/dL High (<150) HDL Chol 62 mg/dL (>39) LDL Cholesterol , Calculated 107 mg/dL (0-130) Non HDL Cholesterol (Calc) 145 mg/dL (<160) TSH With Reflex To FT4 09/13/2022 [facility] TSH With Reflex To FT4 2.24 uIU/mL (0.4-4.2) LH 09/13/2022 [facility] LH 8.8 MIU/ML 1 FSH 09/13/2022 [facility] FSH 7.6 MIU/ML 2 Estradiol 09/13/2022 [facility] Estradiol 556 pg/mL 3 Glucose 09/13/2022 [facility] Glucose 115 mg/dL High [...]
== END 2025-05-22 15:06 | disposition home or self-care (01) ==
LOC: HO.HOS 14:16
PROVIDERS: PCP Internal Medicine; Visit Provider Physician Assistant
DX: M54.50 Low back pain, unspecified (principal); M79.605 Pain in left leg
CPT/HCPCS: 99213; G2211

== ENCOUNTER → 2025-05-22 14:15 | Outpatient (BNVA) | payer OTHER, SELFPAY | PROVIDERS: PCP Internal Medicine; Visit Provider Physician Assistant | DX: M79.605 Pain in left leg (principal); M54.50 Low back pain, unspecified; R20.0 Anesthesia of skin; R20.2 Paresthesia of skin | CPT/HCPCS: 99212 ==